=== PATIENT | male | born 1955 | race Caucasian/White ===

== ENCOUNTER 2019-07-26 22:11 | Inpatient (IN) | payer BC, SELFPAY ==
--- NOTE | 2019-07-26 22:10 | ECG_ITS ---
APPROVED REPORT Exam: Resting ECG HR:66 bpm ECG Measurements Heart Rate 66 AXES NV 156 P -8 QRSd 98 QRS 1 QT 436 T 79 QTc 457 <Conclusion> Normal sinus rhythm Nonspecific ST abnormality Abnormal ECG Electronically signed by : Phong Edwards, 07/27/2019 17:41:47
[2019-07-26 22:12] VITALS: BP 123/75; PULSE 74; RESP 18; O2SAT 97; BMI 27.3
[2019-07-26 22:25] LABS: Basophils # 0.1 K/mm3 (0-0.2); Basophils % 0.6 % (0.1-2.0); Eosinophils # 0.2 K/mm3 (0.0-0.4); Eosinophils % 1.9 % (0.1-12.0); Hematocrit 43.4 % (42.0-52.0); Hemoglobin 14.7 g/dL (14.1-18.0); Lymphocytes # 5.1 K/mm3 (0.7-4.5); Lymphocytes % 43.3 % (10-50); Mean Corpuscular Volume 91.2 fl (80-94); Mean Platelet Volume 7.6 fl (7.4-10.4); Monocytes # 0.6 K/mm3 (0.1-1.0); Monocytes % 5.4 % (1.7-9.3); Neutrophils # 5.7 K/mm3 (1.8-7.8); Neutrophils % 48.8 % (37.0-80.0); Platelet Count 323 K/mm3 (142-424); Red Blood Count 4.76 M/mm3 (4.60-6.20); Red Cell Distribution Width 13.1 % (11.5-17.5); White Blood Count 11.7 K/mm3 (4.8-10.8)
[2019-07-26 22:29] LABS: Anion Gap 15.2 mEq/L (5-15); Blood Urea Nitrogen 26 mg/dl (9-20); Calcium 9.4 mg/dl (8.4-10.2); Carbon Dioxide 28 mmol/L (22.0-30.0); Chloride 99 mmol/L (98-107); Creatinine Clearance Estimated 65 mL/min (50-200); Estimated Glomerular Filt Rate 56 ml/min (>60); GFR (African American) 67 ML/MIN (>60); Glucose 214 mg/dl (74-100); Potassium 4.2 mmoL/L (3.5-5.1); Sodium 138 mmol/L (136-145)
--- NOTE | 2019-07-26 22:30 | HMH.EDCP ---
ED Disposition Clinical Impression: Elevated troponin I level, Renal insufficiency, S/P CABG (coronary artery bypass graft) Chest pain Qualifiers: Chest pain type: precordial pain Qualified Code(s): R07.2 - Precordial pain Disposition: Admitted as Observation Condition on Discharge: Good Referrals: Mp Jack MD [Primary Care Provider] - - Critical Care Critical Care Time: No Attestation: On 07/26/19, the high probability of a clinically significant, sudden or life threatening deterioration of the following system(s) required my full and direct attention, intervention and personal management. The time I documented below is in addition to time spent performing reported procedures but includes the following listed in this critical care notation. Medical Decision Making - Medical Records Medical records reviewed: Yes: I reviewed the patient's medical records. - Richy Inquiry Pt receiving controlled substance: No Vital Signs: 07/26/19 22:12 Pulse Rate [Right Radial] 74 Respiratory Rate 18 Blood Pressure [Right Arm] 123/75 Blood Pressure Mean [Right Arm] 91 02 Sat by Pulse Oximetry 97 Oxygen Delivery Method Room Air - Lab Data Lab results reviewed: Yes: I reviewed the patient's lab results. Lab Results 07/26/19 22:12: WBC 11.7 H, RBC 4.76, Hgb 14.7, Hct 43.4, MCV 91.2, MCH 31.0, MCHC 34.0, RDW 13.1, Plt Count 323, MPV 7.6, Neut % (Auto) 48.8, Lymph % (Auto) 43.3, [place] % (Auto) 5.4, Eos % (Auto) 1.9, Baso % (Auto) 0.6, Neut # (Auto) 5.7, Lymph # (Auto) 5.1 H, [place] # (Auto) 0.6, Eos # (Auto) 0.2, Baso # (Auto) 0.1 07/26/19 22:12: Sodium 138, Potassium 4.2, Chloride 99, Carbon Dioxide 28, Anion Gap 15.2 H, BUN 26 H, Creatinine 1.30 H, Estimated Creat Clear 65, Estimated GFR 56 L, Est GFR ( Amer) 67, Glucose 214 H, Calcium 9.4, Troponin I 0.13 H, C-Reactive Protein 2.5 Result diagrams: 07/26/19 22:12 07/26/19 22:12 Orders (Tests/Meds): ED MEDICATIONS Generic Name Dose Route Start Last Admin Trade Name Freq PRN Reason Stop Dose Admin Nitroglycerin 0.4 mg 07/26/19 22:18 07/26/19 22:20 Nitrostat 0.4mg Sl Tablet SL 08/25/19 22:17 1 tab [id number] PRN Administration Chest Pain Discontinued Medications Generic Name Dose Route Start Last Admin Trade Name Freq PRN Reason Stop Dose Admin Aspirin 324 mg 07/26/19 22:18 07/26/19 22:20 Aspirin 81mg Chewable Tablet PO 07/26/19 22:19 324 mg ONCE ONE Administration Nitroglycerin 1 gm 07/26/19 22:23 07/26/19 22:25 Nitroglycerin 1 Inch Oint Udp TD 07/26/19 22:24 1 gm ONCE ONE Administration ORDERS Category Date Time Status Complete Blood Count Auto Diff Stat Lab 07/26/19 22:12 Results Erythrocyte Sedimentation Rate Stat Lab 07/26/19 22:12 Results Troponin I Q3H Lab 07/27/19 01:30 Ordered Troponin I Q3H Lab 07/27/19 04:30 Ordered - Radiology Data #1 Image(s): Chest Image Reviewed: Yes I reviewed the patient's radiology image Preliminary Findings: Normal/NAD - ECG Data Tracing #1 Normal Sinus Rhythm: Yes Ischemic changes: non-specific ST-T wave changes - Physician Consults Physician Consulted: yola Reason -: Admission Chest Pain HPI - General Chief Complaint: Chest Pain Stated Complaint: chest pain with exertion Time Seen by Provider: 07/26/19 22:20 Mode of Arrival: Family Vehicle Source of Information: Patient, Spouse, Medical Record Limitations: No Limitations Description of Symptoms (Recalled from ER Triage Doc. by RN): chest pain with exertion; pt states if he sits still it alleviates the pain. saw his pcp earlier, had a med change and stated he has been hypertensive all day long. when the chest pain started, he came for eval. history of cabg approx 20 years ago at [facility] - History of Present Illness HPI narrative: dull ant chest pain over the last 2 days with elevated bp and has hx of prev cabg - MD complaint: chest pain indicative of cardiac On
[2019-07-26 22:35] LABS: C-Reactive Protein 2.5 mg/L (0-4)
[2019-07-26 22:43] LABS: Troponin I 0.13 ng/ml (0.00-0.034)
[2019-07-26 23:05] VITALS: O2SAT 100
[2019-07-26 23:17] LABS: Erythrocyte Sedimentation Rate 19 mm/hr (0-20)
[2019-07-26 23:20] VITALS: PULSE 70
[2019-07-26 23:30] LABS: Hemoglobin A1C 7.8 % (4.0-6.0)
[2019-07-26 23:32] VITALS: BP 181/113; PULSE 76; RESP 19; TEMP 36.8; O2SAT 99
[2019-07-26 23:33] VITALS: BP 196/125; PULSE 68; RESP 16; TEMP 36.6; O2SAT 100; BMI 27.3
--- NOTE | 2019-07-26 23:33 | PC.NURSE ---
patient to floor via wheelchair.
--- NOTE | 2019-07-26 23:41 | PC.NURSE ---
Primary RN aware of high blood pressure.
[2019-07-27] VITALS (24 sets, daily range): BP systolic 104–182; BP diastolic 65–107; PULSE 60–93; RESP 12–20; TEMP 36.3–36.7; O2SAT 95–100; BMI 27.4
--- NOTE | 2019-07-27 04:10 | PC.NURSE ---
Pt A&OX4. Pt has not had any episodes of CP since being on floor. NSR with 1st degree block on telemetry. 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 Pt is NPO @ MN. at bedside. Pt resting well this shift.
[2019-07-27 07:10] LABS: Basophils # 0.1 K/mm3 (0-0.2); Basophils % 0.5 % (0.1-2.0); Chloride 107 mmol/L (98-107); Eosinophils # 0.2 K/mm3 (0.0-0.4); Hematocrit 41.3 % (42.0-52.0); Hemoglobin 14.2 g/dL (14.1-18.0); Lymphocytes # 3.8 K/mm3 (0.7-4.5); Lymphocytes % 34.8 % (10-50); Mean Corpuscular HGB Conc 34.4 g/dL (31.8-35.4); Mean Corpuscular Hemoglobin 31.1 pg (27.0-31.2); Mean Corpuscular Volume 90.4 fl (80-94); Mean Platelet Volume 7.4 fl (7.4-10.4); Monocytes # 0.5 K/mm3 (0.1-1.0); Monocytes % 4.7 % (1.7-9.3); Neutrophils # 6.4 K/mm3 (1.8-7.8); Platelet Count 258 K/mm3 (142-424); Red Blood Count 4.57 M/mm3 (4.60-6.20); Red Cell Distribution Width 13.5 % (11.5-17.5)
[2019-07-27 07:11] LABS: Potassium 4.4 mmoL/L (3.5-5.1); Sodium 138 mmol/L (136-145)
[2019-07-27 07:13] LABS: Blood Urea Nitrogen 20 mg/dl (9-20); Creatinine Clearance Estimated 101 mL/min (50-200); Estimated Glomerular Filt Rate 75 ml/min (>60); GFR (African American) 91 ML/MIN (>60)
[2019-07-27 07:14] LABS: Anion Gap 10.4 mEq/L (5-15); Calcium 8.5 mg/dl (8.4-10.2); Carbon Dioxide 25 mmol/L (22.0-30.0); Chol/HDL Ratio 4.8 (1-3.5); Cholesterol 154 mg/dl (140-200); Glucose 137 mg/dl (74-100); HDL Cholesterol 32 mg/dl (40-60); Magnesium 2.2 mg/dl (1.6-2.3); Triglycerides 199 mg/dl (30-150); VLDL Cholesterol 40 mg/dL (0-40)
[2019-07-27 07:25] LABS: Direct LDL Cholesterol 86.68 mg/dL (100-129); Troponin I 0.24 ng/ml (0.00-0.034)
--- NOTE | 2019-07-27 07:26 | P.CONPHA_ITS ---
[facility] Pharmacy VTE Monitoring - Patient Demographics Admission date: 07/26/19 Report Date: 07/27/19 Time: 07:26 Allergies/Adverse Reactions: Patient Allergies No Known Allergies Allergy (Unverified 07/27/19 07:16) Height: 1.85 m Weight: 94.035 kg Patient Problems: Current Active Problems Chest pain (Acute) Elevated troponin I level (Acute) Renal insufficiency (Acute) S/P CABG (coronary artery bypass graft) (Acute) - VTE Risk Labs: VTE Related Lab Results Hgb 14.2 g/dL (14.1-18.0) 07/27/19 06:48 Hct 41.3 % (42.0-52.0) L 07/27/19 06:48 Plt Count 258 K/mm3 (142-424) 07/27/19 06:48 BUN 20 mg/dl (9-20) 07/27/19 06:48 Creatinine 1.00 mg/dl (0.66-1.25) D 07/27/19 06:48 Estimated Creat Clear 101 mL/min (50-200) 07/27/19 06:48 Was VTE Risk Assessment Performed: Yes VTE Score: 3 VTE Risk Level: Low Risk - Prophylaxis VTE Prophylaxis Ordered?: Yes Types of VTE Prophylaxis: TEDS Knee High Location of Applied Device: Bilateral Lower Extremeties - VTE Diagnosis Confirmed Treatment or plan recommended: Continue Current Treatment
--- NOTE | 2019-07-27 07:26 | HMH.CNCARD ---
History of Present Illness Consult date: 07/27/19 Requesting physician: Mp Jack Consult reason: chest pain Chief complaint: chest pain Additional 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:: 1. Coronary artery disease A. Four-vessel coronary bypass grafting in 2002 B. NSTEMI 2. Hypertension 3. Hyperlipidemia 4. Elevated glucose, 07/2019 History of present illness: 64-year-old white male with history of bypass surgery in 2002 presented to the emergency department for evaluation of 2-day history of progressive fatigue with associated substernal chest pressure with activity that resolves with rest. Due to the patient's cardiac history he came for evaluation and was admitted. Initial troponin was noted to be elevated at 0.13 but EKG showed no acute ST segment changes. Patient was noted to have elevated blood pressure which improved with nitroglycerin paste. Cardiology consulted for evaluation and recommendations. Patient is a non-smoker and is not a diabetic. [facility] History 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: Denies:: Cancer, Diabetes Mellitus Type 1, Diabetes Mellitus Type 2, Internal Pacemaker, MRSA *Have you ever received a pneumonia vaccine?: Yes *Have you received a flu vaccine this season?: Yes Other Surgeries: Yes: CABG. No: Pacemaker Amputation: No - *Social History Educational Level: Attended College Smoking Status: Never smoker Alcohol Intake: never *Occupational Status:: retired Household Members: spouse *Travel in the last 8 weeks: None Family Hx:: No significant family history Meds Home Medications Medication Instructions Recorded Confirmed Type Acebutolol HCl [Sectral 200mg 1 tab PO BID 07/26/19 07/27/19 History capsule] Amlodipine Besylate [Amlodipine 5 mg PO DAILY 07/26/19 07/26/19 History 5mg tab] Diclofenac Sodium [Diclofenac 75mg 75 mg PO BID 07/26/19 07/26/19 History Tab] Rivaroxaban [Xarelto 2.5mg Tab*] 2.5 mg PO BID 07/26/19 07/27/19 History Simvastatin 40 mg PO HS 07/26/19 07/27/19 History Omeprazole [Omeprazole 40mg 40 mg PO DAILY 07/27/19 07/27/19 History Capsule] lisinopriL [Lisinopril 10mg Tab] 10 mg PO DAILY 07/27/19 07/27/19 History Allergies Allergy/AdvReac Type Severity Reaction Status Date / Time No Known Allergies Allergy Unverified 07/27/19 07:16 Review of Systems - Review of Systems Review of systems:: pertinent systems reviewed and negative unless documented below - *Cardiovascular Reports chest pain, Reports shortness of breath with activity - *Respiratory Reports shortness of breath with activity - *Gastrointestinal Denies loose stools, Denies nausea, Denies vomiting - *Genitourinary Denies blood in urine - *Musculoskeletal Denies joint pain, Denies back pain - *Neurologic Denies dizziness, Denies seizure-like activity, Denies fainting Exam Vital signs and Labs for Last 24 Hours: Temp Pulse Resp BP Pulse Ox 97.6 F 67 16 142/88 H 97 07/27/19 04:00 07/27/19 04:00 07/27/19 04:00 07/27/19 04:00 07/27/19 04:00 Laboratory Results - last 24 hr 07/26/19 22:12: WBC 11.7 H, RBC 4.76, Hgb 14.7, Hct 43.4, MCV 91.2, MCH 31.0, MCHC 34.0, RDW 13.1, Plt Count 323, MPV 7.6, Neut % (Auto) 48.8, Lymph % (Auto) 43.3, [place] % (Auto) 5.4, Eos % (Auto) 1.9, Baso % (Auto) 0.6, Neut # (Auto) 5.7, Lymph # (Auto) 5.1 H, [place] # (Auto) 0.6, Eos # (Auto) 0.2, Baso # (Auto) 0.1, ESR 19 07/26/19 22:12: Sodium 138, Potassium 4.2, Chloride 99, Carbon Dioxide 28, Anion Gap 15.2 H, BUN 26 H, Creatinine 1.30 H, Estimated Creat Clear 65, Estimated GFR 56 L, Est GFR ( Amer) 67, Glucose 214 H, Calcium 9.4, Troponin I 0.13 H, C-Reactive Protein 2.5 07/26/19 22:12: Hemoglobin A1c 7.8 H 07/27/19 06:48: WBC 11.0 H, RBC 4.57 L, Hgb 14.2, Hct 41.3 L, MCV 90.4, MCH 31.1, MCHC 34.4, RDW 13.5, Plt Count 258, MPV 7.4, Neut % (Auto) 58.0, Lymph % (Auto) 34.8, [place] % (Auto) 4.7, Eos % (Auto) 2.0, Baso % (Auto) 0.5, Neut # (Auto) 6.4, Lymph # (Auto) 3.8, [place] # (Auto) 0.5, Eos # (Auto) 0
--- NOTE | 2019-07-27 08:19 | HMH.HP ---
*Admission Date: 07/26/19 <Arcelia Person 07/27/19 08:25> *Chief complaint: chest pain <Arcelia Person 07/27/19 08:25> *History of present illness: Mr. Garcia is a 64-year-old male with a history of hypertension, hyperlipidemia, ASCVD with prior CABG in 2002, and arthritis. He began having chest pain a few days ago. He presented to the office of [facility] on 07/26/2019 and complained that the chest pain was mainly associated with eating and he had some heartburn and belching. He had some easy fatigability and his exercise tolerance had not been as good. He denied any palpitations or shortness of breath. He had some elevated blood pressure readings at home and his blood pressure in the office was 170/110. He was started on amlodipine and omeprazole and it was felt he would need a stress test at some point on an outpatient basis. He was also told that if his chest pain progressed and was unrelieved with rest, he should present to the emergency room. He states yesterday after his appointment, he had exertional pain in the midsternal area. It did not radiate. He did present to the emergency department and was admitted due to his cardiac history. His initial troponin was noted to be elevated but his EKG showed no ST segment changes. His blood pressure was elevated and this improved with nitroglycerin paste. Cardiology was consulted. <Arcelia Person 07/27/19 08:25> [facility] History I have reviewed the patient's past medical history: Yes <Arcelia Person 07/27/19 08:25> 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: Reports:: Atherosclerotic Heart Disease, Coronary Artery Disease, Hyperlipidemia, Hypertension Denies:: Cancer, Diabetes Mellitus Type 1, Diabetes Mellitus Type 2, Internal Pacemaker, MRSA <Arcelia Person 07/27/19 08:25> *Have you ever received a pneumonia vaccine?: Yes <Arcelia Person 07/27/19 08:25> *Have you received a flu vaccine this season?: Yes <Arcelia Person 07/27/19 08:25> Other 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: Reports: Arthritis <Arcelia Person 07/27/19 08:25> Other Surgeries: Yes: CABG, Colonoscopy. No: Pacemaker <Arcelia Person 07/27/19 08:25> Amputation: No <Abel Persona 07/27/19 08:25> - *Social History Educational Level: Attended College <RazaArcelia 07/27/19 08:25> Smoking Status: Never smoker <RazaArcelia 07/27/19 08:25> Alcohol Intake: never <AlfonsomarshaArcelia 07/27/19 08:25> *Occupational Status:: retired <RazaArcelia 07/27/19 08:25> Household Members: spouse <Arcelia Person 07/27/19 08:25> *Travel in the last 8 weeks: None <RazaArcelia 07/27/19 08:25> Family Hx:: Coronary Artery Disease, Hyperlipidemia, Hypertension <RazaArcelia 07/27/19 08:25> Review of Systems - Constitutional Reports fatigue, Denies fever(s), Denies weakness <RazaArcelia 07/27/19 08:25> - Eyes Denies blurry vision, Denies double vision <RazaArcelia 07/27/19 08:25> - ENT Reports nasal congestion, Denies sore throat [facility] 07/[facility] 08:25> - *Cardiovascular Reports chest pain, Denies shortness of breath, Denies rapid, pounding, or irregular heartbeat <RazaArcelia 07/27/19 08:25> - *Respiratory Denies cough, Denies shortness of breath <[facility] 07/27/19 08:25> - *Gastrointestinal Denies abdominal pain, Denies loose stools, Denies nausea, Denies vomiting <RazaArcelia 07/27/19 08:25> - *Genitourinary Denies difficulty urinating, Denies painful urination <[facility] 07/27/19 08:25> - *Musculoskeletal Denies joint pain <[facility] 07/27/19 08:25> - *Neurologic Reports headache(s), Denies dizziness, Denies seizure-like activity, Denies fainting, Denies weakness <RazaArcelia 07/27/19 08:25> Meds Home Medications Medication Instructions Recorded Confirmed Type Acebutolol HCl [Sectral 200mg 1 tab PO BID 07/26/19 07/27/19 History capsule] Amlodipine Besylate [Amlodipine 5 mg PO DAILY 07/26/19 07/26/19 History 5mg tab] Diclofenac Sodium [D
--- NOTE | 2019-07-27 08:30 | PC.NURSE ---
RN aware of elevated BP.
--- NOTE | 2019-07-27 09:57 | HMH.PHAINT ---
MEDICATION RECONCILIATION COMPLETED ON PATIENT USING EXTERNAL FILL HISTORY FROM PHARMACY. -KENDRICK GARDNER, JANINED
--- NOTE | 2019-07-27 11:22 | PC.NURSE ---
Pt off floor to laboratory immunologist, pt states he is very nervous . RN informed of nitroglycerin applied to left chest.
--- NOTE | 2019-07-27 11:27 | PC.NURSE ---
RN aware of elevated BP.
[2019-07-27 13:42] LABS: CATHL Activated Clotting Time 245 SEC (74-125)
--- NOTE | 2019-07-27 17:25 | PC.NURSE ---
1700 - Received report and resumed care from Maria Esther Gabriel RN
--- NOTE | 2019-07-27 19:11 | PC.NURSE ---
report given to mg
[2019-07-28] VITALS: BP 121/74; PULSE 70; PULSE 78; RESP 16; O2SAT 99
[2019-07-28 02:00] VITALS: BP 116/74; PULSE 70; RESP 16; O2SAT 97
--- NOTE | 2019-07-28 03:45 | PC.NURSE ---
Pt has rested well t/o shift. A&O x4. No episodes of chest pain this shift. Lungs are clear and pt O2 sat is in high 90's on RA. Right Femoral cath site dressing is CDI with no drainage or hematoma noted. IV site on LAC is showing no signs on infiltration, NS running at 75 ml/hr. has been at bedside all shift. Call light is within reach, along with all other safety measures. No complaints at this time, will continue to monitor for any changes.
[2019-07-28 04:00] VITALS: BP 117/76; PULSE 60; PULSE 69; RESP 14; TEMP 36.8; O2SAT 97
[2019-07-28 05:00] VITALS: BMI 28.0
[2019-07-28 06:00] VITALS: BP 129/82; PULSE 71; RESP 15; O2SAT 99
[2019-07-28 06:19] LABS: Basophils % 0.3 % (0.1-2.0); Eosinophils # 0.2 K/mm3 (0.0-0.4); Eosinophils % 1.2 % (0.1-12.0); Hematocrit 40.4 % (42.0-52.0); Hemoglobin 13.7 g/dL (14.1-18.0); Lymphocytes # 3.4 K/mm3 (0.7-4.5); Mean Corpuscular HGB Conc 33.9 g/dL (31.8-35.4); Mean Corpuscular Hemoglobin 31.2 pg (27.0-31.2); Mean Corpuscular Volume 92.2 fl (80-94); Mean Platelet Volume 7.9 fl (7.4-10.4); Monocytes # 0.7 K/mm3 (0.1-1.0); Monocytes % 5.3 % (1.7-9.3); Neutrophils # 8.7 K/mm3 (1.8-7.8); Neutrophils % 67.1 % (37.0-80.0); Platelet Count 299 K/mm3 (142-424); Red Blood Count 4.38 M/mm3 (4.60-6.20); Red Cell Distribution Width 13.4 % (11.5-17.5); White Blood Count 12.9 K/mm3 (4.8-10.8)
[2019-07-28 06:38] LABS: Chloride 102 mmol/L (98-107); Potassium 4.4 mmoL/L (3.5-5.1); Sodium 136 mmol/L (136-145)
[2019-07-28 06:41] LABS: Blood Urea Nitrogen 19 mg/dl (9-20); Creatinine Clearance Estimated 86 mL/min (50-200); Estimated Glomerular Filt Rate 61 ml/min (>60); GFR (African American) 74 ML/MIN (>60)
[2019-07-28 06:42] LABS: Anion Gap 9.4 mEq/L (5-15); Calcium 8.9 mg/dl (8.4-10.2); Carbon Dioxide 29 mmol/L (22.0-30.0); Glucose 139 mg/dl (74-100)
[2019-07-28 08:00] VITALS: BP 135/89; PULSE 76; PULSE 80; RESP 14; TEMP 36.7; O2SAT 98
--- NOTE | 2019-07-28 09:24 | HMH.ACPN2 ---
Internal Medicine - PN: Subj *Date: 07/28/19 *Time: 09:24 Interval history: He is feeling very well and is ready for discharge to home. Cardiology recommendations are: Home medicine recommendations Aspirin 81 mg daily for 1 month and then discontinue. At that time patient may resume Xarelto 2.5 mg twice daily Plavix 75 mg daily Metoprolol XL 25 mg daily Amlodipine 5 mg daily Lisinopril 10 mg daily Atorvastatin 40 mg daily Follow-up in our office next Tuesday. Limited activity for 1 week. Exam Vital signs and Labs for Last 24 Hours: Temp Pulse Resp BP Pulse Ox 98.1 F 76 14 135/89 98 07/28/19 08:00 07/28/19 08:00 07/28/19 08:00 07/28/19 08:00 07/28/19 08:00 Laboratory Results - last 24 hr 07/27/19 11:22: Activated Clotting Time 245 H* 07/28/19 05:40: WBC 12.9 H, RBC 4.38 L, Hgb 13.7 L, Hct 40.4 L, MCV 92.2, MCH 31.2, MCHC 33.9, RDW 13.4, Plt Count 299, MPV 7.9, Neut % (Auto) 67.1, Lymph % (Auto) 26.0, [place] % (Auto) 5.3, Eos % (Auto) 1.2, Baso % (Auto) 0.3, Neut # (Auto) 8.7 H, Lymph # (Auto) 3.4, [place] # (Auto) 0.7, Eos # (Auto) 0.2, Baso # (Auto) 0.0 07/28/19 05:40: Sodium 136, Potassium 4.4, Chloride 102, Carbon Dioxide 29, Anion Gap 9.4, BUN 19, Creatinine 1.20, Estimated Creat Clear 86, Estimated GFR 61, Est GFR ( Amer) 74, Glucose 139 H, Calcium 8.9 I & O for Last 24 hours: Intake & Output 07/25/19 07/26/19 07/27/19 07/28/19 11:59 11:59 11:59 11:59 Intake Total 397 / 397 720 / 720 Output Total 400 / 400 Balance 397 / 397 320 / 320 Weight 207 lb 5 oz 212 lb - Constitutional no acute distress - *Routine HEENT Exam Eye: Present: PERRL ENT: Present: mucous membranes moist - *Routine Respiratory Exam Present: CTA bilaterally - *Routine Cardiovascular Exam Present: RRR, S4 - *Routine Abdominal Exam Present: soft. Absent: tenderness - *Routine Extremities Exam Absent: edema Assessment and Plan (1) NSTEMI (non-ST elevated myocardial infarction) Current visit: Yes Status: Acute Category: Medical Code(s): I21.4 - Non-ST elevation (NSTEMI) myocardial infarction (2) Chest pain Current visit: Yes Status: Acute Qualifiers: Chest pain type: precordial pain Qualified Code(s): R07.2 - Precordial pain Category: Medical Code(s): R07.9 - Chest pain, unspecified (3) Elevated troponin I level Current visit: Yes Status: Acute Category: Medical Code(s): R79.89 - Other specified abnormal findings of blood chemistry (4) Renal insufficiency Current visit: Yes Status: Acute Category: Medical Code(s): N28.9 - Disorder of kidney and ureter, unspecified (5) S/P CABG (coronary artery bypass graft) Current visit: Yes Status: Acute Category: Surgical Code(s): Z95.1 - Presence of aortocoronary bypass graft (6) Hyperlipidemia Current visit: Yes Status: Acute Category: Medical Code(s): E78.5 - Hyperlipidemia, unspecified (7) Hypertension Current visit: Yes Status: Acute Category: Medical Code(s): I10 - Essential (primary) hypertension (8) Elevated glucose Current visit: Yes Status: Acute Category: Medical Code(s): R73.09 - Other abnormal glucose (9) Type 2 diabetes mellitus Current visit: Yes Status: Acute Category: Medical Code(s): E11.9 - Type 2 diabetes mellitus without complications - Assessment and plan all Dx Assessment and Plan for all problems:: Discharge to home with above instructions. Follow-up with Cardiology and with Dr. Jack.
--- NOTE | 2019-07-28 10:19 | HMH.PHACLD ---
Mouna Garcia JR has received discharge medication counseling on the following medications: NEW MEDICATIONS: METOPROLOL, PLAVIX, ASPIRIN, LIPITOR CONTINUE: LISINOPRIL
--- NOTE | 2019-07-30 15:21 | HMH.DCSUM ---
General - General Admission date:: 07/26/19 Discharge date: 07/28/19 HPI HPI: Mr. Garcia is a 64-year-old male with a history of hypertension, hyperlipidemia, ASCVD with prior CABG in 2002, and arthritis. He began having chest pain a few days prior to admission. He presented to the office of [facility] on 07/26/2019 and complained that the chest pain was mainly associated with eating and he had some heartburn and belching. He had some easy fatigability and his exercise tolerance had not been as good. He denied any palpitations or shortness of breath. He had some elevated blood pressure readings at home and his blood pressure in the office was 170/110. He was started on amlodipine and omeprazole and it was felt he would need a stress test at some point on an outpatient basis. He was also told that if his chest pain progressed and was unrelieved with rest, he should present to the emergency room. He stated after his appointment, he had exertional pain in the midsternal area. It did not radiate. He did present to the emergency department and was admitted due to his cardiac history. His initial troponin was noted to be elevated but his EKG showed no ST segment changes. His blood pressure was elevated and this improved with nitroglycerin paste. Cardiology was consulted. Hospital Course Hospital Course: In the emergency room patient received aspirin and 1 inch of nitroglycerin paste as well as nitroglycerin sublingually. Troponin I was elevated initially at 0.13. He was seen by cardiology who noted elevated troponins consistent with an NSTEMI. Patient had a cardiac cath per Dr. Rush on this date with subsequent stenting of saphenous vein graft to the circumflex artery. Patient did have some remaining disease of the elim ira right coronary artery which was felt to be best treated medically. On 07/28/2019 patient was feeling very well and ready to be discharged home and he was discharged. Cardiology recommendations were: Home medicine recommendations: Aspirin 81 mg daily for 1 month and then discontinue to restart Xarelto 2.5 twice daily. Plavix 75 mg daily Metoprolol XL 25 mg daily Amlodipine 5 mg daily Lisinopril 10 mg daily Atorvastatin 40 mg daily Follow-up with cardiology in a week with limited activity for 1 week. Low fat/cholesterol diet; meds as per discharge sheet. Patient was also noted to be new diabetic. Cholesterol numbers: total cholesterol 154 with an LDL of 86.68 And HDL of 32. Renal function was normal. Objective Vital signs: Temp Pulse Resp BP Pulse Ox 98.1 F 76 14 135/89 98 07/28/19 08:00 07/28/19 08:00 07/28/19 08:00 07/28/19 08:00 07/28/19 08:00 Narrative: Exam Vital signs and Labs for Last 24 Hours: Temp Pulse Resp BP Pulse Ox 98.1 F 76 14 135/89 98 07/28/19 08:00 07/28/19 08:00 07/28/19 08:00 07/28/19 08:00 07/28/19 08:00 Laboratory Results - last 24 hr 07/27/19 11:22: Activated Clotting Time 245 H* 07/28/19 05:40: WBC 12.9 H, RBC 4.38 L, Hgb 13.7 L, Hct 40.4 L, MCV 92.2, MCH 31.2, MCHC 33.9, RDW 13.4, Plt Count 299, MPV 7.9, Neut % (Auto) 67.1, Lymph % (Auto) 26.0, [place] % (Auto) 5.3, Eos % (Auto) 1.2, Baso % (Auto) 0.3, Neut # (Auto) 8.7 H, Lymph # (Auto) 3.4, [place] # (Auto) 0.7, Eos # (Auto) 0.2, Baso # (Auto) 0.0 07/28/19 05:40: Sodium 136, Potassium 4.4, Chloride 102, Carbon Dioxide 29, Anion Gap 9.4, BUN 19, Creatinine 1.20, Estimated Creat Clear 86, Estimated GFR 61, Est GFR ( Amer) 74, Glucose 139 H, Calcium 8.9 I & O for Last 24 hours: Intake & Output 07/25/19 07/26/19 07/27/19 07/28/19 11:59 11:59 11:59 11:59 Intake Total 397 / 397 720 / 720 Output Total 400 / 400 Balance 397 / 397 320 / 320 Weight 207 lb 5 oz 212 lb - Constitutional no acute distress - *Routine HEENT Exam Eye: Present: PERRL ENT: Present: mucous membranes moist - *Routine Respiratory Exam Present: CTA bilaterally -
== END 2019-07-28 10:32 | disposition home or self-care (01) | DRG 247 ==
LOC: ER 22:24 → 2ND 23:05
PROVIDERS: Internal Medicine; Admitting Provider Family Medicine; Emergency Provider Emergency Medicine; PCP Family Medicine; Visit Provider Family Medicine
DX: I21.4 Non-ST elevation (NSTEMI) myocardial infarction (principal); I25.810 Atherosclerosis of coronary artery bypass graft(s) without angina pectoris; Z95.1 Presence of aortocoronary bypass graft; I10 Essential (primary) hypertension; E78.5 Hyperlipidemia, unspecified; Z79.01 Long term (current) use of anticoagulants; I25.10 Atherosclerotic heart disease of native coronary artery without angina pectoris
CPT/HCPCS: 36415; 80048; 80061; 83036; 83735; 84484; 85025; 85347; 85651; 86140; 92941; 93005; 93306; 93459; 99152; 99153; 99284; C1725; C1760; C1769; C1874; C1894; C9606; J1644; Q9967

== ENCOUNTER → 2019-08-06 12:52 | Outpatient (CLI) | payer BC, SELFPAY ==
[2019-08-06 13:33] LABS: Hematocrit 40.1 % (42.0-52.0); Hemoglobin 14.1 g/dL (14.1-18.0)
[2019-08-06 14:34] LABS: Blood Urea Nitrogen 21 mg/dl (9-20); Estimated Glomerular Filt Rate 75 ml/min (>60); GFR (African American) 91 ML/MIN (>60)
== END ==
PROVIDERS: Visit Provider Family Medicine
DX: Z01.818 Encounter for other preprocedural examination (principal)
CPT/HCPCS: 36415; 82565; 84520; 85014; 85018

== ENCOUNTER → 2019-08-20 06:04 | Outpatient (CLI) | payer BC, SELFPAY ==
--- NOTE | 2019-08-20 | CA_ITS ---
APPROVED REPORT Exam: Pharmacologic Technologist: Veda Maxwell Ht: 6 ft 1 in Wt: 215 lbs BSA: 2.22 m2 HR: 69 bpm BP: 146/107 mmHg Indications: CAD 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 Medications: Amlodipine,,,,, Lisinopril,,,,, Omeprazole,,,,, Aspirin,,,,, Metoprolol,,,,, Acebutolol,,,,, Atorvastatin,,,,, Plavix,,,,, Stress Test Details Test: LEXISCAN HR Resting HR: 67 bpm Max Heart Rate (APMHR): 157 bpm Max HR Achieved: 99 bpm Target HR (85% APMHR): 133 bpm % of APMHR: 63 Recovery HR: 85 bpm BP Resting BP: 146.0/107.0 mmHg Max BP: 161.0/105.0 mmHg Recovery BP: 144.0/92.0 mmHg ECG Clinical Exercise duration: 04:01 min Highest Stage Achieved: Exercise capacity: 1.0 METs Stress ECG Conclusion Resting ECG: Sinus rhythm Lexiscan portion completed. Patient complained of shortness of breath during peak infusion. Symptoms: Shortness of breath during peak infusion, resolved in recovery. Arrhythmias/Ectopy: No ectopy. ST-T Changes: Less than 1.[address] depression. Conclusion: Images to follow. Test Summary RECOVERY 03:00 . . 90 . 131/ 98 . . REST 07:58 . . 67 . 146/107 . . Stage 1 . . . . . . . Myoview Injected Stage 1 01:00 . . 93 . . . . Stage 2 01:00 . . 98 . 126/ 93 . . Stage 3 01:00 . . 91 . 141/ 97 . . Stage 4 01:00 . . 87 . 135/ 96 . . Stage 4 01:01 . . 87 . 135/ 96 . Stop exercise at 04:01 RECOVERY 01:00 . . 90 . 149/ 93 . . RECOVERY 02:00 . . 83 . 149/ 93 . . RECOVERY 03:00 . . 90 . 131/ 98 . . RECOVERY 04:00 . . 84 . 131/ 98 . . RECOVERY 05:00 . . 85 . 144/ 92 . . RECOVERY 05:07 . . 84 . 144/ 92 . . Electronically signed by : Dominic Holguin, 08/20/2019 19:33:03
--- NOTE | 2019-08-20 06:06 | NM_ITS ---
APPROVED REPORT Exam: Nuclear Stress Test Indication: CAD, HTN, DM, High cholesterol, Family history Patient Location: Outpatient Stress Tech: Veda Maxwell CT Tech:Christy Barraza, ARRT, RT (R)(N) Ht: 6 ft 1 in Wt: 215 lbs HR: 69 bpm BP: 146/107 mmHg BSA: 2.22 m2 BMI: 28.3 History: CAD, HTN, DM, High cholesterol, Family history Procedure: Patient received a 0.4 mg of intravenous Lexiscan, resting heart rate 69 bpm, resting blood pressure 146/107 mmHg, with Lexiscan maximum heart rate achived was 94 bpm which is Less than 85 % of the maximum predicted heart rate and blood pressure was 126/93 mmHg. With Lexiscan, patient denied any complaint of chest pain. Electrocardiogram Resting electrocardiogram shows sinus rhythm with nonspecific ST-T changes, with Lexiscan there is less than 1.[address] segment depression noted from the baseline EKG. The EKG portion of the Lexiscan Myoview is nondiagnostic. Cardiac Stress and Resting SPECT Images: Cardiac Stress and Resting SPECT images were obtained using technetium 99m Myoview 32.0 mCi stress and 10.59 mCi at rest. Gated SPECT for the analysis of segmental wall motion and calculation of the ejection fraction also done. Cardiac stress and resting SPECT images show uniform myocardial activity without segmental perfusion abnormality, computer derived ejection fraction is 51% with no regional wall motion abnormality, right ventricle is normal size and contractility. Conclusion: 1. The EKG portion of the Lexiscan Myoview is nondiagnostic. 2. No scintigraphic evidence of reversible ischemia seen, computer derived ejection fraction 51% with no regional wall motion abnormality, right ventricle is normal size and contractility. 3. Normal Lexiscan Myoview study. Electronically signed by : Dominic Holguin, 08/20/2019 19:35:03
--- NOTE | 2019-08-20 07:30 | HMH.ITSHM ---
Current Home Medications as stated by this patient Mouna Garcia JR or market survey representative. []LISINOPRIL OMEPRAZOLE METOPROLOL CLOPIDOGREL ASA ATORVASTATIN AMLODIPINE SECTRAL
== END ==
PROVIDERS: PCP Family Medicine; Visit Provider Urology
DX: I25.810 Atherosclerosis of coronary artery bypass graft(s) without angina pectoris (principal); E11.69 Type 2 diabetes mellitus with other specified complication; E78.5 Hyperlipidemia, unspecified; I10 Essential (primary) hypertension; R94.31 Abnormal electrocardiogram [ECG] [EKG]; Z95.1 Presence of aortocoronary bypass graft
CPT/HCPCS: 78452; 93017; A9502; J2785

== ENCOUNTER → 2020-01-25 09:39 | Outpatient (CLI) | payer BC, SELFPAY ==
--- NOTE | 2020-01-25 09:45 | XR_ITS ---
PROCEDURE: XR KNEE RT 3V CLINICAL INDICATION: RT KNEE PAIN COMPARISON: No exams were available for comparison FINDINGS: No fracture or dislocation. No lytic or blastic change. There is normal mineralization. The joint spaces are well-preserved. No significant degenerative/arthritic changes. There appears to be a small amount of fluid in the suprapatellar bursa. There are surgical clips adjacent to the upper tibia. IMPRESSION: Possible small joint effusion, no other significant abnormality noted Dictated by: Dr. Tonio Nunez MD 01/25/2020 11:49 Dr. Tonio Nunez MD in [place] 01/25/2020 11:49
== END ==
PROVIDERS: PCP Family Medicine; Visit Provider Nurse Practitioner
DX: M25.561 Pain in right knee (principal)
CPT/HCPCS: 73562

== ENCOUNTER → 2020-07-30 09:23 | Outpatient (CLI) | payer BC, SELFPAY ==
[2020-07-30 10:23] LABS: Alanine Aminotransferase 20 U/L (12-78); Aspartate Amino Transferase 23 U/L (17-59); Bilirubin,Unconjugated 0.2 mg/dL (0.0-1.1)
[2020-07-30 10:24] LABS: Albumin Level 4.4 g/dl (3.5-5.0); Alkaline Phosphatase 72 U/L (38-126); Bilirubin,Direct 0.3 mg/dl (0.0-0.4); Bilirubin,Indirect 0.2 mg/dL (0.0-0.9); Bilirubin,Total 0.5 mg/dl (0.2-1.3); Chol/HDL Ratio 4.6 (1-3.5); Cholesterol 161 mg/dl (140-200); HDL Cholesterol 35 mg/dl (40-60); Total Protein,Serum 7.3 g/dl (6.3-8.2); Triglycerides 142 mg/dl (30-150); VLDL Cholesterol 28 mg/dL (0-40)
[2020-07-30 11:11] LABS: Direct LDL Cholesterol 87.13 mg/dL (100-129)
== END ==
PROVIDERS: Visit Provider Nurse Practitioner Family
DX: E11.69 Type 2 diabetes mellitus with other specified complication (principal); E78.5 Hyperlipidemia, unspecified; I10 Essential (primary) hypertension; I25.810 Atherosclerosis of coronary artery bypass graft(s) without angina pectoris; R94.31 Abnormal electrocardiogram [ECG] [EKG]; Z95.1 Presence of aortocoronary bypass graft; Z79.84 Long term (current) use of oral hypoglycemic drugs
CPT/HCPCS: 36415; 80061; 80076

== ENCOUNTER → 2021-01-07 07:37 | Outpatient (CLI) | payer BC, SELFPAY ==
--- NOTE | 2021-01-07 07:38 | CA_ITS ---
APPROVED REPORT Bumper Straightener: ZULY Study Quality: Adequate Indications: HTN, CAD Renal Artery Doppler Origin (R) 159.4/ cm/sec Proximal (R) 122.3/ cm/sec Mid (R) 138.0/ cm/sec Distal (R) 119.0/ cm/sec Renal Aorta Ratio (R) 2.09 Segmental A. (R) / cm/sec RI: 0.65 Segmental A. Sup (R) 31.0/12.0 cm/sec Segmental A. Mid (R) 36.0/15.0 cm/sec Segmental A. Inf (R) 29.0/10.0 cm/sec Origin (L) 145.9/ cm/sec Proximal (L) 153.0/ cm/sec Mid (L) 166.1/ cm/sec Distal (L) 116.7/ cm/sec Renal Aorta Ratio (L) 2.18 Segmental A. (L) / cm/sec RI: 0.66 Segmental A. Sup (L) 37.0/13.0 cm/sec Segmental A. Mid (L) 39.0/14.0 cm/sec Segmental A. Inf (L) 44.0/14.0 cm/sec Renal Measurements Kidney Size (R) 12.3x5.8 cm Cortical Thickness (R) 1.6 cm Kidney Size (L) 13.7x5.7 cm Cortical Thickness (L) 1.8 cm Add'l Findings Struct (L) 2.7 2.3/ cm/s Add'l Findings Struct (L) 2.3 2.0/ cm/s Findings An attempt was made to evaluate the abdominal aorta, the right and left renal arteries and kidneys, utilizing duplex ultrasonography and color flow doppler. The proximal abdominal aorta is patent without significant stenoses or dilatations. Based on the renal/aortic ratio there is no evidence of significant stenosis in the right renal artery. Based on the renal/aortic ratio there is no evidence of significant stenosis in the left renal artery. Conclusion An attempt was made to evaluate the abdominal aorta, the right and left renal arteries and kidneys, utilizing duplex ultrasonography and color flow doppler. The proximal abdominal aorta is patent without significant stenoses or dilatations. Based on the renal/aortic ratio there is no evidence of significant stenosis in the right renal artery. Based on the renal/aortic ratio there is no evidence of significant stenosis in the left renal artery. Left kidney cystic structres observed. Electronically signed by : Joni Gavin MD 01/07/2021 17:54:42
== END ==
PROVIDERS: PCP Family Medicine; Visit Provider Urology
DX: I10 Essential (primary) hypertension (principal)
CPT/HCPCS: 93976

== ENCOUNTER → 2021-07-15 09:24 | Outpatient (CLI) | payer MEDICARE, SELFPAY ==
[2021-07-15 10:21] LABS: Basophils # 0.1 K/mm3 (0-0.2); Basophils % 1.1 % (0.1-2.0); Eosinophils # 0.2 K/mm3 (0.0-0.4); Eosinophils % 1.4 % (0.1-12.0); Hematocrit 44.6 % (42.0-52.0); Hemoglobin 14.8 g/dL (14.1-18.0); Lymphocytes # 3.1 K/mm3 (0.7-4.5); Lymphocytes % 26.7 % (10-50); Mean Corpuscular HGB Conc 33.2 g/dL (31.8-35.4); Mean Corpuscular Hemoglobin 30.2 pg (27.0-31.2); Mean Corpuscular Volume 90.9 fl (80-94); Monocytes # 0.5 K/mm3 (0.1-1.0); Monocytes % 4.1 % (1.7-9.3); Neutrophils # 7.7 K/mm3 (1.8-7.8); Neutrophils % 66.7 % (37.0-80.0); Platelet Count 411 K/mm3 (142-424); Red Blood Count 4.91 M/mm3 (4.60-6.20); Red Cell Distribution Width 13.2 % (11.5-17.5); White Blood Count 11.6 K/mm3 (4.8-10.8)
[2021-07-15 10:22] LABS: Chloride 102 mmol/L (98-107); Hemoglobin A1C 8.9 % (4.0-6.0); Potassium 4.8 mmoL/L (3.5-5.1); Sodium 137 mmol/L (136-145)
[2021-07-15 10:24] LABS: Alanine Aminotransferase 27 U/L (12-78); Aspartate Amino Transferase 27 U/L (17-59); Bilirubin,Unconjugated 0.6 mg/dL (0.0-1.1); Blood Urea Nitrogen 24 mg/dl (9-20); Estimated Glomerular Filt Rate 75 ml/min (>60); GFR (African American) 91 ML/MIN (>60)
[2021-07-15 10:25] LABS: Albumin Level 4.6 g/dl (3.5-5.0); Alkaline Phosphatase 75 U/L (38-126); Anion Gap 14.8 mEq/L (5-15); Bilirubin,Direct 0.1 mg/dl (0.0-0.4); Bilirubin,Indirect 0.5 mg/dL (0.0-0.9); Bilirubin,Total 0.6 mg/dl (0.2-1.3); Calcium 10.2 mg/dl (8.4-10.2); Carbon Dioxide 25 mmol/L (22.0-30.0); Chol/HDL Ratio 3.8 (1-3.5); Cholesterol 144 mg/dl (140-200); Glucose 216 mg/dl (74-100); HDL Cholesterol 38 mg/dl (40-60); Magnesium 1.8 mg/dl (1.6-2.3); Total Protein,Serum 7.5 g/dl (6.3-8.2); Triglycerides 179 mg/dl (30-150); VLDL Cholesterol 36 mg/dL (0-40)
[2021-07-15 10:36] LABS: Direct LDL Cholesterol 63.16 mg/dL (100-129)
[2021-07-15 10:41] LABS: Free T4 (Free Thyroxine) 1.04 ng/dl (0.78-2.19)
== END ==
PROVIDERS: PCP Family Medicine; Visit Provider Physician Assistant
DX: E78.2 Mixed hyperlipidemia (principal); I10 Essential (primary) hypertension; I25.810 Atherosclerosis of coronary artery bypass graft(s) without angina pectoris; Z95.1 Presence of aortocoronary bypass graft; E11.9 Type 2 diabetes mellitus without complications; Z79.84 Long term (current) use of oral hypoglycemic drugs
CPT/HCPCS: 36415; 80048; 80061; 80076; 83036; 83735; 84439; 84443; 85025

== ENCOUNTER 2023-05-28 23:08 | Emergency (ER) | payer MEDICARE, SELFPAY ==
[2023-05-28 23:09] VITALS: BP 210/118; PULSE 83; RESP 20; TEMP 36.8; O2SAT 97; BMI 28.5
[2023-05-28 23:14] VITALS: PULSE 83
--- NOTE | 2023-05-28 23:14 | ECG_ITS ---
APPROVED REPORT Exam: Resting ECG HR:74 bpm ECG Measurements Heart Rate 74 AXES PA 192 P 66 QRSd 113 QRS 78 QT 412 T 9 QTc 439 Conclusion SINUS RHYTHM BORDERLINE ECG UNCONFIRMED REPORT Electronically signed by : LEROY VEE, 05/29/2023 00:59:03
--- NOTE | 2023-05-28 23:14 | XR_ITS ---
PROCEDURE INFORMATION: Exam: XR Chest Exam date and time: 05/28/2023 11:31 PM Age: 67 years old Clinical indication: Pain; Chest pressure; Additional info: Chest pain TECHNIQUE: Imaging protocol: Radiologic exam of the chest. Views: 2 views. COMPARISON: No relevant prior studies available. FINDINGS: Lungs: Unremarkable. No consolidation. Pleural spaces: Unremarkable. No pleural effusion. No pneumothorax. Heart/Mediastinum: Post CABG changes. Bones/joints: Unremarkable. IMPRESSION: No acute disease.
[2023-05-28 23:24] LABS: Basophils # 0.1 K/mm3 (0-0.2); Basophils % 1.1 % (0.1-2.0); Eosinophils # 0.4 K/mm3 (0.0-0.4); Eosinophils % 3.2 % (0.1-12.0); Hematocrit 43.5 % (42.0-52.0); Hemoglobin 14.2 g/dL (14.1-18.0); Lymphocytes # 3.7 K/mm3 (0.7-4.5); Lymphocytes % 29.6 % (10-50); Mean Corpuscular HGB Conc 32.7 g/dL (31.8-35.4); Mean Corpuscular Hemoglobin 29.8 pg (27.0-31.2); Mean Corpuscular Volume 91.3 fl (80-94); Mean Platelet Volume 7.6 fl (7.4-10.4); Monocytes # 0.6 K/mm3 (0.1-1.0); Monocytes % 4.9 % (1.7-9.3); Neutrophils # 7.7 K/mm3 (1.8-7.8); Neutrophils % 61.3 % (37.0-80.0); Platelet Count 330 K/mm3 (142-424); Red Blood Count 4.76 M/mm3 (4.60-6.20); Red Cell Distribution Width 14.8 % (11.5-17.5); White Blood Count 12.6 K/mm3 (4.8-10.8)
[2023-05-28 23:25] LABS: Chloride 107 mmol/L (98-107); Sodium 138 mmol/L (136-145)
[2023-05-28 23:28] LABS: Alanine Aminotransferase 23 U/L (12-78); Albumin Level 4.6 g/dl (3.5-5.0); Albumin/Globulin Ratio 1.4 (1.1-1.8); Alkaline Phosphatase 60 U/L (38-126); Aspartate Amino Transferase 38 U/L (17-59); Bilirubin,Total 0.7 mg/dl (0.2-1.3); Blood Urea Nitrogen 31 mg/dl (9-20); Carbon Dioxide 24 mmol/L (22.0-30.0); Creatinine Clearance Estimated 65 mL/min (50-200); Estimated Glomerular Filt Rate 47 ml/min (>60); GFR (African American) 57 ML/MIN (>60); Globulin 3.4 g/dL (1.3-3.2)
[2023-05-28 23:29] LABS: Calcium 9.5 mg/dl (8.4-10.2); Glucose 144 mg/dl (74-100)
[2023-05-28 23:30] VITALS: BP 178/115; PULSE 70; RESP 13; O2SAT 98
[2023-05-28 23:41] LABS: Troponin I < 0.01 ng/ml (0.00-0.034)
[2023-05-28] MEDS: NITROGLYCERIN 0.4MG SL TABLET 0.400000000000000022 MG SL (23:47)
[2023-05-29] VITALS: BP 138/106; PULSE 86; RESP 13; O2SAT 95
--- NOTE | 2023-05-29 00:04 | PC.NURSE ---
after nitro x1 patient states chest pain has been relieved and he feels better
--- NOTE | 2023-05-29 00:50 | HMH.EDCP ---
Discharge Plan Disposition Patient Disposition: Home, Self-Care Condition: Good Chief Complaint: Chest Pain Prescriptions Prescriptions: No Action amlodipine 5 mg tablet 5 mg PO BID Qty: 60 5RF atorvastatin 80 mg tablet See Rx Instructions .ROUTE .COMPLEX Qty: 30 5RF Dose Instruction: TAKE ONE TABLET BY MOUTH EVERY DAY Rx Instructions: TAKE ONE TABLET BY MOUTH EVERY DAY metoprolol succinate 50 mg tablet extended release 24 hr 50 mg PO DAILY Qty: 30 5RF metformin 500 mg tablet extended release 24 hr 500 mg PO DAILY diclofenac sodium 75 mg tablet,delayed release (DR/EC) 75 mg PO BID Referrals Follow up/Referrals: Francisco Rush MD [Staff Physician] - See instructions Activity Restrictions/Add. Instructions Additional Instructions/Restrictions: Your workup was reassuring today but you should follow-up very closely with cardiology for continued management. Return for any new or worsening symptoms including but not limited to if chest pain recurs especially if it is persistent or any new concerns arise. Clinical Impressions Clinical Impression: Chest pain Instructions Patient Instructions: DI for Atypical Chest Pain Discharge ED Provider: Nikkie Suarez General Chief Complaint: Chest Pain Stated Complaint: chest pain Time Seen by Provider: 05/28/23 23:28 Mode of Arrival: Ambulatory Source of Information: Patient Limitations: No Limitations Description of Symptoms (Recalled from ER Triage Doc. by RN): ptcc is chest pain that began a few hours ago, pt took all regular daily meds and a daily 81 mg ASA. pt describes chest pain as midsternal and a dull ache in nature with elevated BP. pt has hx of heart cath and bypass History of Present Illness HPI narrative: Patient is a 67-year-old male with past medical history of type 2 diabetes, hyperlipidemia, CAD status post stent and CABG presenting with chest pain. He states that it started 2 to 3 hours prior to arrival while at rest and is described as a pressure over his mid chest that does not radiate. He did take a full-strength aspirin prior to arrival as he had been told to do this by his prior providers. He last had a heart catheterization in [address] Rush but denies any recent procedures. Does note that the pain is still present but has not changed and denies any fevers, chills, abdominal pain, nausea, vomiting, shortness of breath. Related Data Home Medications Medication Instructions Recorded Confirmed metformin 500 mg tablet,extended 500 mg PO DAILY 08/27/19 07/15/21 release 24 hr diclofenac sodium 75 mg 75 mg PO BID 01/01/20 07/15/21 tablet,delayed release Previous Rx's Medication Instructions Recorded amlodipine 5 mg tablet 5 mg PO BID Hypertension #60 tabs 07/15/21 atorvastatin 80 mg tablet See Rx Instructions .Route 07/15/21 .COMPLEX #30 tabs metoprolol succinate 50 mg 50 mg PO DAILY #30 tabs 07/15/21 tablet,extended release 24 hr Allergies Allergy/AdvReac Type Severity Reaction Status Date / Time No Known Allergies Allergy Verified 07/15/21 09:02 [facility] Disclaimer: The information contained in this section may have been updated after the patient was seen, as this information can be updated by other users. 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 (Updated 05/29/23 @ 01:41 by Nikkie Suarez MD) Abnormal EKG CAD (coronary artery disease) Social History Smoking Status: Never smoker alcohol intake: never current occupational status: retired Travel in the last 8 weeks: Inside the [place] household members: spouse caffeine: No ROS Obtained: Yes Systems reviewed as appropriate & no additional complaints except as documented Physical Exam General General appearance: alert and in no apparent distress Head Head exam: atraumatic and normocephalic Respiratory Respiratory exam: Present normal lung sounds bilaterally; Absent respiratory distress Cardiovascular Cardiovascular exam: Present regular rate and normal rhythm Abdominal Exam Abdominal exam: Present soft; Absent tenderness Extremities Exam Extremities exam: Present normal inspection Neurological Exam Neurological exam: Present alert and oriented X3 Skin Skin exam: Present warm and dry HEART Score HEART Score HEART Score assessment performed?: Yes History (anamnesis): Moderately suspicious ECG: Normal Age: >65 years Risk factors: Atherosclerosis history Troponin: </= normal limit HEART Score: 5 Critical Care Critical Care Time Critical Care Time: No Medical Decision Making Medical Records Medical records reviewed: Yes I reviewed the patient's medical records. Richy Inquiry Pt receiving controlled substance: No Vital Signs Vital Signs: 05/28/23 23:09 05/28/23 23:14 05/28/23 23:30 Temperature 98.2 F Temperature Source Oral Pulse Rate 83 70 Pulse Rate [Right Radial] 83 Respiratory Rate 20 13 Blood Pressure 178/115 H Blood Pressure [Right Arm] 210/118 H Blood Pressure Mean [Right Arm] 148 02 Sat by Pulse Oximetry 97 98 Oxygen Delivery Method Room Air 05/29/23 00:00 Temperature Temperature Source Pulse Rate 86 Pulse Rate [Right Radial] Respiratory Rate 13 Blood Pressure 138/106 H Blood Pressure [Right Arm] Blood Pressure Mean [Right Arm] 02 Sat by Pulse Oximetry 95 Oxygen Delivery Method Lab Data Lab results reviewed: Yes I reviewed the patient's lab results. Labs: Lab Results 05/28/23 23:10: WBC 12.6 H, RBC 4.76, Hgb 14.2, Hct 43.5, MCV 91.3, MCH 29.8, MCHC 32.7, RDW 14.8, Plt Count 330, MPV 7.6, Neut % (Auto) 61.3, Lymph % (Auto) 29.6, Norton % (Auto) 4.9, Eos % (Auto) 3.2, Baso % (Auto) 1.1, Neut # (Auto) 7.7, Lymph # (Auto) 3.7, Norton # (Auto) 0.6, Eos # (Auto) 0.4, Baso # (Auto) 0.1, Sodium 138, Potassium 4.0, Chloride 107, Carbon Dioxide 24, Anion Gap 11.0, BUN 31 H, Creatinine 1.50 H, Estimated Creat Clear 65, Estimated GFR 47 L, Est GFR ( Amer) 57 L, Glucose 144 H, Calcium 9.5, Total Bilirubin 0.7, AST 38, ALT 23, Alkaline Phosphatase 60, Troponin I < 0.01, Total Protein 8.0, Albumin 4.6, Globulin 3.4 H, Albumin/Globulin Ratio 1.4 05/29/23 01:09: Troponin I < 0.01 05/28/23 23:10 05/28/23 23:10 Response Orders (Tests/Meds): ED MEDICATIONS Discontinued Medications Generic Name Dose Route Start Last Admin Trade Name Freq PRN Reason Stop Dose Admin Nitroglycerin 0.4 mg 05/28/23 23:42 05/28/23 23:47 Nitroglycerin 0.4mg Sl Tablet SL 05/28/23 23:43 0.4 mg ONCE ONE Administration ORDERS Category Date Time Status XR chest 2V Stat Exams 05/28/23 23:14 Completed Complete Blood Count Auto Diff Stat Lab 05/28/23 23:10 Completed Comprehensive Metabolic Panel Stat Lab 05/28/23 23:10 Completed Trop I [Troponin I] Stat Lab 05/29/23 01:09 Completed Troponin I Q3H Lab 05/28/23 23:10 Completed Troponin I Q3H Lab 05/29/23 02:15 Ordered Troponin I Q3H Lab 05/29/23 05:15 Ordered MDM Narrative Medical Decision Narrative: Patient is a 67-year-old male with past medical history hypertension, hyperlipidemia, type 2 diabetes, NSTEMI, CAD status post stent and CABG presenting with midsternal chest pain starting at rest this evening. Denies prior history of similar symptoms. He did aspirin load himself prior to arrival but does not have any nitroglycerin. He is in no acute distress, initially hypertensive but did come down without intervention while roomed. Exam is overall unremarkable and no pedal edema appreciated. Will obtain labs for further evaluation and provide nitroglycerin.. EKG showing normal sinus rhythm without acute ischemia or infarction, chest x-ray showing no acute process, CBC and CMP nonactionable though creatinine is slightly elevated to 1.5 likely chronic. Troponin negative. Given patient's pain is started 2 to 3 hours prior to arrival we did wait an additional 2 hours to repeat troponin to see if level was rising and this was again undetectable, negative delta. His pain had also resolved and maintained resolution while in the emergency department. On reevaluation patient is hemodynamically stable in no acute distress. We did discuss that he should follow-up very closely with cardiology and discussed strict return precautions which patient is agreeable. Discharged in stable condition.
[2023-05-29 01:35] LABS: Troponin I < 0.01 ng/ml (0.00-0.034)
[2023-05-29 01:50] VITALS: BP 132/88; PULSE 59; RESP 17; TEMP 36.9; O2SAT 97
== END 2023-05-29 01:52 | disposition home or self-care (01) ==
PROVIDERS: Emergency Medicine; Emergency Provider Emergency Medicine; PCP Family Medicine
DX: R07.9 Chest pain, unspecified (principal); E11.9 Type 2 diabetes mellitus without complications; I11.9 Hypertensive heart disease without heart failure; I25.10 Atherosclerotic heart disease of native coronary artery without angina pectoris; E78.5 Hyperlipidemia, unspecified; Z95.1 Presence of aortocoronary bypass graft; Z95.5 Presence of coronary angioplasty implant and graft
CPT/HCPCS: 71046; 80053; 84484; 85025; 93005; 99284

== ENCOUNTER 2023-06-10 10:56 | Outpatient (CLI) | payer MEDICARE, SELFPAY ==
--- NOTE | 2023-06-10 | CA_ITS ---
APPROVED REPORT Exam: Pharmacologic Technologist: Marilu Paul, Ht: 6 ft 1 in Wt: 202 lbs BSA: 2.16 m2 HR: 73 bpm BP: 186/101 mmHg Rhythm: NSR, rightward axis, NS lateral T wave abns, cannot R/O old inferior [place] 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 Medications: Amlodipine,,,,, Metoprolol,,,,, Metformin,,,,, Losartan,,,,, Atorvastatin,,,,, CloPIdogrel,,,,, Diclofenac,,,,, JaRDiance,,,,, Cardiac Risk Factors: HTN, Hyperlipidemia, Diabetes (insulin) Stress Test Details Test: LEXISCAN HR Resting HR: 76 bpm Max Heart Rate (APMHR): 154 bpm Max HR Achieved: 113 bpm Target HR (85% APMHR): 131 bpm % of APMHR: 73 Recovery HR: 101 bpm BP Resting BP: 186/108 mmHg Max BP: 186/108 mmHg Recovery BP: 165.0/104.0 mmHg ECG Resting ECG: NSR, rightward axis, non specific inferolateral T wave abns, cannot R/O old inferior [place] Stress ECG: No significant ST changes Arrhythmia: None Clinical Exercise duration: 04:00 min Highest Stage Achieved: Exercise capacity: 1.0 METs Stress ECG Conclusion Switched to lexiscan due to HTN During lexiscan pt experinced mild head discomfort. No CP noted. No arrhythmias noted. No significant ST changes after Lexiscan administration. Conclusion: Unremarkable lexiscan stress. Myoview images reported separately. Test Summary REST . . . . . . . Sitting REST 02:08 . . 76 . 186/108 . . Stage 1 01:00 . . 104 . . . . Stage 2 01:00 . . 104 . 168/107 . . Stage 3 01:00 . . 109 . 171/111 . . Stage 4 01:00 . . 105 . 179/111 . Stop exercise at 04:00 RECOVERY 01:00 . . 101 . 165/104 . . RECOVERY 02:00 . . 102 . 161/ 99 . . RECOVERY 02:27 . . 102 . 161/ 99 . . Electronically signed by : Leidy Winston MD 06/14/2023 11:42:28
--- NOTE | 2023-06-10 10:56 | NM_ITS ---
APPROVED REPORT Exam: Nuclear Stress Test Indication: CAD, 1 STENT, CABG, 3 BY PASSES, HTN, DM, FM HX., ANGINA Patient Location: Outpatient Stress Tech: Marilu Paul [place] Tech:Jossie CastanedaABBIE RT (R)(N)(M) Ht: 6 ft 1 in Wt: 200 lbs HR: 76 bpm BP: 186/108 mmHg BSA: 2.15 m2 TID: 0.94 BMI: 26.3 History: CAD, 1 STENT, 3v-CABG, HTN, DM, FM HX., ANGINA Procedure: Patient received 0.4 mg of intravenous Lexiscan, resting heart rate 76 bpm, resting blood pressure 186/108 mmHg, with Lexiscan maximum heart rate achieved was 113 bpm which is % of the maximum predicted heart rate and blood pressure was 186/108 mmHg. With Lexiscan, patient denied any complaint of chest pain. Cardiac Stress and Resting SPECT Images: Cardiac Stress and Resting SPECT images were obtained using technetium 99m Myoview 31.7 mCi stress and 10.64 mCi at rest. Resting and stress imaging in supine and prone positions demonstrate no evidence of fixed or reversible perfusion defects. Gated imaging demonstrates low normal global LV systolic function. The septum appears asynchronous. LVEF is calculated at 52%. Conclusion: No evidence of fixed or reversible perfusion defects. Gated imaging demonstrates low normal global LV systolic function. The septum appears asynchronous. LVEF is calculated at 52%. Electronically signed by : Leidy Winston MD 06/14/2023 11:43:54
[2023-06-10] MEDS: SODIUM CHLORIDE 0.9% 10ML SYR (RAD ONLY) 10 ML IV ×2 (11:20→13:00)
[2023-06-10] MEDS: REGADENOSON 0.4MG/5ML SYRINGE 0.400000000000000022 MG IV (13:00)
--- NOTE | 2023-06-10 13:13 | CA_ITS ---
APPROVED REPORT EXAM: Comprehensive 2D, Doppler, and color-flow Echocardiogram Supervisor Nutritional Yeast: Martina Anna RT(R) Ht: 6 ft 1 in Wt: 200lbs BSA: 2.15 BP: 171/112 mmHg Indications: CAD, CP, DM, HTN, hyperlipidemia, abn EKG, CABG 2D Dimensions LVEF (Orellana's) 67.30 % M: 52 - 72 LV Volume 111.40 mL M: 62 - 150 LV Volume Index 51.8 mL/m2 M: 34 - 74 LA Volume 39.70 mL LA Volume Index 18.47 mL/m2 (M/F) 16-34 EF AP4 73.10 % EF AP2 61.2 % EF BP 67.3 % GL Strain -17.4 % M-Mode Dimensions RVDd 3.17 cm (0.9-2.6) LA Diam 2.95 cm (1.9-4.0) LVDd 5.80 cm (3.5-5.7) LVDs 5.00 cm (3.5-5.7) IVSd 1.06 cm (0.6-1.1) PWd 0.76 cm (0.6-1.1) EF (Teich) 29.10% FS 13.80% EDV (Teich) 166.60 mL ESV (Teich) 118.20 mL LV Diastology E Decel Time 193 (160-240 msec) E/A Ratio 0.7 Mitral Valve MV E Max Stephane. 70.0 (40-130 cm/s) MV A Velocity 103.0 (40-130 cm/s) E/A Ratio 0.68 MV PHT 57.0 ms Tricuspid Valve TR P. Velocity 216.00 cm/s RAP Estimate 10.00 mmHg RVSP 28.60 mmHg Left Ventricle The left ventricle is normal size. The left ventricular systolic function is normal. The left ventricular ejection fraction is within the normal range. There is increased LV wall thickness. There is normal LV segmental wall motion. Transmitral Doppler flow pattern suggests impaired LV relaxation. LVEF is 55%. Right Ventricle The right ventricle is normal size. The right ventricular systolic function is normal. Atria Left atrium is mildly dilated. Right atrium is mildly dilated. There is no Doppler evidence of interatrial shunt. Aortic Valve The aortic valve is mildly thickened. There is no aortic valvular stenosis. Trace aortic regurgitation. Mitral Valve The mitral valve is mildly thickened. No evidence of mitral valve stenosis. Mild to moderate mitral regurgitation. Tricuspid Valve The tricuspid valve leaflets are thin and pliable. Trace tricuspid regurgitation. There is insufficient TR jet to estimate RVSP. Pulmonic Valve The pulmonary valve is normal in structure. Mild pulmonic regurgitation. Great Vessels The aortic root is normal in size. The ascending aorta is normal in size. The IVC is not well visualized. Pericardium There is no pericardial effusion. Other Information Study Quality: Fair Conclusion Normal biventricular systolic function. Mild biatrial dilation. Mild to moderate MR. Electronically signed by : Leidy Winston MD 06/14/2023 21:02:15
[2023-06-10] MEDS: ISOTOPE MYOVIEW (PER STUDY) 1 DOSE IV (14:13)
== END 2023-06-10 23:59 | disposition home or self-care (01) ==
LOC: RAD 10:56
PROVIDERS: PCP Family Medicine; Visit Provider Nurse Practitioner
DX: R07.9 Chest pain, unspecified (principal); I45.2 Bifascicular block
CPT/HCPCS: 78452; 93017; 93018; 93306; A9502; J2785

== ENCOUNTER 2023-11-08 09:48 | Outpatient (CLI) | payer MEDICARE, SELFPAY ==
--- NOTE | 2023-11-08 09:51 | US_ITS ---
FINAL REPORT CLINICAL HISTORY: STG 4 CHRONIC KIDNEY DISEASE COMPARISON: None FINDINGS: RENAL ULTRASOUND Ultrasound images of the kidneys were obtained. Limited images of the liver parenchyma demonstrates normal echogenicity. Incidental note is made of a polyp in the gallbladder. The right kidney measures 13.1 cm in length. The left kidney measures 12.2 cm in length. There is moderate bilateral hydronephrosis. Anechoic regions in the right kidney measuring up to 2.7 cm are consistent with benign cysts. IMPRESSION: Bilateral hydronephrosis. Benign-appearing right renal cysts. Reviewed, Interpreted and Dictated by Marek Willis MD Transcribed by Rebekah Cueto Authenticated and [facility]
== END 2023-11-08 23:59 | disposition home or self-care (01) ==
LOC: RAD 09:49
PROVIDERS: PCP Physician Assistant; Visit Provider Physician Assistant
DX: N18.4 Chronic kidney disease, stage 4 (severe) (principal)
CPT/HCPCS: 76770

== ENCOUNTER 2024-04-26 08:43 | Outpatient (CLI) | payer MEDICARE, SELFPAY ==
[2024-04-26 09:43] LABS: Chloride 110 mmol/L (98-107)
[2024-04-26 09:44] LABS: Albumin Level 4.3 g/dl (3.5-5.0); Potassium 4.8 mmoL/L (3.5-5.1); Sodium 139 mmol/L (136-145)
[2024-04-26 09:46] LABS: Blood Urea Nitrogen 28 mg/dl (9-20); Estimated Glomerular Filt Rate 38 ml/min (>60); GFR (African American) 46 ML/MIN (>60)
[2024-04-26 09:47] LABS: Anion Gap 10.8 mEq/L (5-15); Calcium 9.2 mg/dl (8.4-10.2); Carbon Dioxide 23 mmol/L (22.0-30.0); Glucose 96 mg/dl (74-100); Phosphorous 3.5 mg/dl (2.5-4.5)
== END 2024-04-26 23:59 | disposition home or self-care (01) ==
LOC: LAB 08:44
PROVIDERS: PCP Family Medicine; Visit Provider Physician Assistant
DX: N18.32 Chronic kidney disease, stage 3b (principal)
CPT/HCPCS: 36415; 80069

== ENCOUNTER 2024-08-02 10:53 | Outpatient (CLI) | payer MEDICARE, SELFPAY ==
--- OUTSIDE RECORDS SUMMARY | 2023-11-04 06:15 | XMS_ITS ---
Author Organization [facility] Address [address] [place] [id number] Care Team Providers Care Corrections Corporal Name Role Phone Catracho Tolentino Primary Care Provider [phone] Arcelia Person Unavailable [phone] Allergies No Known Allergies Results Component Value Reference Range Notes P-Basic Metabolic Panel (BMP ) Reviewed date:11/08/2023 10:34:02 AM Interpretation:K+ 5.7, co2- 20, gluc 109, bun 59, Cr 3.13, gfr 21 Performing Lab: Notes/Report: Test performed by [facility], [address] , [address], [place] [address] Yan Bell MD, Line Assembler Aircraft CLIA: [id number] Sodium 137 135-145 mmol/L Potassium 5.7 3.5-5.3 mmol/L Chloride 105 97-108 mmol/L CO2 20 22-32 mmol/L Glucose 109 65-99 mg/dL BUN 59 8-23 mg/dL Creatinine 3.13 0.70-1.30 mg/dL Calcium 9.9 8.6-10.4 mg/dL eGFR by Creatinine 21 >59 mL/min/1.73m2 Ultrasound : Kidneys, bilate ral Reviewed date:11/09/2023 03:50:23 PM Interpretation:bilateral hydronephrosis, benign appearing right renal cysts Performing Lab: Notes/Report: bilateral hydronephrosis, benign appearing right renal cysts Ultrasound : Kidneys, bilate ral Reviewed date:11/09/2023 03:50:23 PM Interpretation:bilateral hydronephrosis, benign appearing right renal cysts Performing Lab: Notes/Report: bilateral hydronephrosis, benign appearing right renal cysts REASON FOR VISIT check up Medications Medication SIG (Take, Route, Frequency, Duration) Notes Start Date End Date Status amLODIPine Besylate 10 MG 1 tablet Orall y Once a day 07/19/2023 Active Metoprolol Succinate ER 200 MG 1 tablet Orally Once a day; Duration: 90 days 07/19/2023 Active Aspirin Adult Low Dose 81 MG 1 tab(s) orally once a day Active Irbesartan 300 MG 1 tablet Orally Once a day; Duration: 90 days 10/21/2023 Active Jardiance 25 mg 1 tablet Orally Once a day Active Atorvastatin Calcium 80 MG 1 tab(s) oral ly at bedtime; Duration: 90 days Active metFORMIN HCl ER 500 mg TAKE TWO TABLETS BY MOUTH TWICE DAILY Active Accu-Chek Softclix Lancets - test twice a day 11/03/2022 Active Clopidogrel Bisulfate 75 MG 1 tab(s) ora lly once a day; Duration: 90 days Active Omeprazole 40 MG 1 cap(s) orally once a day; Duration: 90 days Active Accu-Chek Guide w/Device test twice a day 11/03/19 23 Active Accu-Chek Guide - test twice daily In Vitro 2022 Active Problems Problem Type SNOMED Code ICD Code Onset Dates Problem Status W/U Status Risk Notes Problem Stage 4 chronic kidney disease (N18.4) Active confirmed Vital Signs Blood pressure systolic 120 mm Hg 11/04/19 24 Blood pressure diastolic 70 mm Hg 024 Heart Rate 72 /min 11/04/2023 Height 72 in 11/04/2023 Weight 194.2 lbs 11/04/2023 BMI 26.34 kg/m2 11/04/2023 Encounters Encounter Location Date Provider Diagnosis [facility] [address] [place], [place] [id number] 11/04/2023 Arcelia Person Stage 4 chronic kidn ey disease N18.4 ; Type 2 diabetes mellitus without complication, without long-term current use of insulin E11.9 ; Coronary artery disease involving [place] coronary artery of [place] heart without angina pectoris I25.10 ; HTN (hypertension) I10 and Pure hypercholesterolemia, unspecified E78.00 Assessments Encounter Date Diagnosis (ICD Code) Assessment Notes Treatment Notes Treatment Clinical Notes Section Notes 11/04/2023 Stage 4 chronic kidney disease (ICD-10 - N18.4) 11/04/2023 Type 2 diabetes mellitus without complication, without long-term current use of insulin (ICD-10 - E11.9) 11/04/2023 Coronary artery disease involving [place] coronary artery of [place] heart without angina pectoris (ICD-10 - I25.10) 11/04/2023 HTN (hypertension) (ICD-10 - I10) 11/04/2023 Pure hypercholesterol emia, unspecified (ICD-10 - E78.00) Plan Of Treatment Next Appt Details Follow Up: via phone to repo rt test results, Reason: Progress Notes * CRIS MELOADOB:1955 (69 yo M)Acc No.[id number]:11/04/2023 Progress Notes Patient: MANISH GASPAR Provider: WILMER Marie :1955 A ge:68 Y S ex:Male Date:11/04/2023 Address:[address] [place] [address] [id number] Pcp:Catracho Tolentino Subjective: * Chief Complaints: * 1 . Check up. * HPI: C ardiology: 68 year old male presents with c/o Blood Pressure Elevated P t here to f/u on hypertension, states he is doing well and does not have any concerns. c/o Hyperlipidemia P t is fasting today. E ndocrinology: c/o Recent Blood Sugars P t here to f/u on DM 2. He also requests labs because his renal function has been getting worse. He is scheduled to see the pathology specialist but will need an ultrasound of the kidneys first. * ROS: D ERMATOLOGY: no R augustine. [...] cap(s) orally once a day , Taking Atorvastatin Calcium 80 MG Tablet 1 tab(s) orally at bedtime , Taking metFORMIN HCl ER 500 mg Tablet Extended Release 24 Hour TAKE TWO TABLETS BY MOUTH TWICE DAILY , Taking Jardiance 25 mg Tablet 1 tablet Orally Once a day , Taking amLODIPine Besylate 10 MG Tablet 1 tablet Orally Once a day , Taking Metoprolol Succinate ER 200 MG Tablet Extended Release 24 Hour 1 tablet Orally Once a day , Taking Irbesartan 300 MG Tablet 1 tablet Orally Once a day , Medication List reviewed and reconciled with the patient * Allergies: N .K.D.A. Objective: * Vitals: W t:194.2, Temp:97.9, BP:120/70, HR:72, Nurse:raymon, Ht: 72, BMI:26.34. * Examination: G eneral Examination: General Appearance: N AD. H EENT: u nremarkable.?Oral cavity: n o lesions, mucosa moist and WNL, no erythema. N tameka: s upple, no lymphadenopathy. C hest: n ormal shape and expansion. H eart: R SR. L ungs: c lear to auscultation. A bdomen: bowel sounds present, soft and nontender, no organomegaly or masses, no guarding or rigidity. N eurologic Exam: I ntact, gait normal. S kin: n ormal, no rash. P eripheral pulses: n ormal (2+) bilaterally. E xtremities: n o leg edema. Assessment: * Assessment: 1. S tage 4 chronic kidney disease - N18.4 (Primary) 2 . T ype 2 diabetes mellitus without complication, without long-term current use of insulin - E11.9 3 . Coronary artery disease involving [place] coronary artery of [place] heart without angina pectoris - I25.10 4 . H TN (hypertension) - I10 5 . P ure hypercholesterolemia, unspecified - E78.00 Plan: * Treatment: Value Reference Range B UN 59 H 8-23 - mg/dL * C alcium 9.9 8.6-10.4 - mg/dL * C hloride 105 97-108 - mmol/L * C O2 20 L 22-32 - mmol/L * C reatinine 3.13 H 0.70-1.30 - mg/dL * G lucose 109 H 65-99 - mg/dL * P otassium 5.7 H 3.5-5.3 - mmol/L * S odium 137 135-145 - mmol/L * e GFR by Creatinine 21 L >59 - mL/min/1.73m2 * Arcelia Person 11/08/2023 10 :33:54 AM > see TE ?Imaging: Ultrasound : Kidneys, bilateral (Performed Date - 11/08/2023)? bilateral hydronephrosis, benign appearing right renal cysts* Arcelia Person 11/04/2023 10 :13:10 AM > needs Renea Ford 11/04/2023 10:49:36 AM > no auth needed; CPT code 59203; faxed to [facility] Zita Noel 11/07/2023 8:04:49 AM > appt. 11/08/2023 @ 10:30Arcelia Person 11/09/2023 3:50:19 PM > see TE * Follow Up: v ia phone to report test results * Images: Billing Information: * Visit Code: 60729 Office Visit, Est Pt., Level 3. * Procedure Codes: * Electronic signature of WILMER Salas on 08/02/2024 at 11:07 AM EDT Sign off status: Pending * Provider: WILMER Marie Date: 0 11/04/2023 Generated for Carlos genao/Patricia/eTransmitting on: 0 08/02/2024 11:07 AM EDT History and Physical Notes * HPI (History of Present Illness) Category Sub-Category Detail Notes Category Not es Endocrinology Recent Blood Sugars Pt here to f/u on DM 2 He also requests labs because his renal function has been getting worse. He is scheduled to see the pathology specialist but will need an ultrasound of the kidneys first. Cardiology Blood Pressure Elevated Pt here to f/u on hypertension, states he is doing well and does not have any concerns Hyperlipidemia Pt is fasting today Examination Category Sub-Category Detail Notes Category Not es General Examination HEENT: unremarkable Heart: RSR Lungs: clear to auscultatio n Abdomen: bowel sounds present , soft and nontender, no organomegaly or masses, no guarding or rigidity Extremities: no leg edema General Appearance: NAD Skin: normal, no rash Neurologic Exam: Intact, gait normal Neck: supple, no lymphaden opathy Oral cavity: no lesions, mucosa m oist and WNL, no erythema Peripheral pulses: normal (2+) bilatera lly Chest: normal shape and exp ansion
--- OUTSIDE RECORDS SUMMARY | 2024-04-12 05:30 | XMS_ITS ---
Author Organization [facility] Address [address] [place] [phone] Care Team Providers Care Radiology Physician Assistant Name Role Phone Catracho Tolentino Primary Care Provider Mp Jack Unavailable [phone] Allergies No Known Allergies Results Component Value Reference Range Notes Glucose (In-House) Reviewed date:04/12/2024 10:39:09 AM Interpretation: Performing Lab: Notes/Report: blood glucose 124 74 - 106 mg/dL CBC Venipuncture (in house) Reviewed date:04/12/2024 10:42:13 AM Interpretation: Performing Lab: Notes/Report: wbc 9.4 3.5 - 10 lymph 16.9% 15 - 50 mid 5.5% 2 - 15 gran 77.6% 35 - 80 rbc 4.58 3.5 - 5.5 hgb 12.8 11.5 - 16.5 hct 38.0 35 - 55 mcv 82.9 75 - 100 mch 28.0 25 - 35 mchc 33.8 31 - 38 platlet 367 100 - 400 Glycohemoglobin A1c (in hous e) Reviewed date:04/12/2024 10:39:52 AM Interpretation: Performing Lab: Notes/Report: glycohemoglobin 6.4% 5 - 6.5 % P-Comprehensive Metabolic Pa marcelino (CMP) Reviewed date:04/13/2024 09:18:25 AM Interpretation:co2- 21, Cr 1.92, gfr 38 Performing Lab: Notes/Report: Test performed by [facility] , [address], [place] [address] Yan Bell MD, Waitress CLIA: [id number] Sodium 140 135-145 mmol/L Potassium 4.5 3.5-5.3 mmol/L Chloride 106 97-108 mmol/L CO2 21 22-32 mmol/L Glucose 91 65-99 mg/dL BUN 23 8-23 mg/dL Creatinine 1.92 0.70-1.30 mg/dL Calcium 9.5 8.6-10.4 mg/dL eGFR by Creatinine 38 >59 mL/min/1.73m2 Protein 7.3 6.0-8.3 g/dL Albumin 4.2 3.5-5.3 g/dL Alkaline Phosphatase 82 40-129 IU/L ALT (SGPT) 16 <5-55 IU/L AST (SGOT) 15 <5-46 IU/L Bilirubin, Total 0.2 <0.2-1.2 mg/dL A/G Ratio 1.4 1.1-2.5 P-Lipid Panel Reviewed date:04/13/2024 09:18:25 AM Interpretation:hdl 32 Performing Lab: Notes/Report: Test performed by [facility] [address] [place] [address] , [address], [place] [address] Yan Bell MD, Waitress CLIA: [id number] Cholesterol 119 <200 mg/dL Triglycerides 74 <150 mg/dL HDL Cholesterol 32 >39 mg/dL Cholesterol / HDL Ratio 3.72 0.00-4.99 Ratio Non-HDL Cholesterol 87 <130 mg/dL LDL Cholesterol (Calculation) 72 <130 mg/dL LDL Cholesterol Levels* Less than 100 mg/dL Optimal 100 to 129 mg/dL Near Optimal/ Above Optimal 130 to 159 mg/dL Borderline High 160 to 189 mg/dL High 190 mg/dL and above Very High * Categories as recommended by the 2004 ATPIII guidelines LDL/HDL Ratio 2.3 <3.3 Ratio LDL Cholesterol Patient History Test Date: 12/15/2021 LDL Results: 83 Units: mg/dL % Change: - Test Date: 04/28/2023 LDL Results: 65 Units: mg/dL % Change: -21% Test Date: 04/12/2024 LDL Results: 72 Units: mg/dL % Change: +10% P-Phosphorus Reviewed date:04/13/2024 09:18:25 AM Interpretation:Normal Performing Lab: Notes/Report: Test performed by [facility] [address] [place], [place] [address] [place] [address] Yan Bell MD, Waitress SHUBHAM: [id number] Phosphorus 3.2 2.5-4.5 mg/dL P-TSH reflex to FT4 Reviewed date:04/13/2024 09:18:25 AM Interpretation:Normal Performing Lab: Notes/Report: Test performed by [facility] [address] [place], [place] [address] [place] , [place] [address] Yan Bell MD, Waitress CLIA: [id number] TSH reflex to FT4 2.20 0.43-5.25 mU/L P-Microalbumin/Creatinine, R andom Urine Sample Reviewed date:04/13/2024 09:18:25 AM Interpretation:a/c 125 Performing Lab: Notes/Report: Test performed by [facility] [address] [place] [address] , [address], [place] [address] Yan Bell MD, Waitress CLIA: [id number] Albumin/Creatinine Ratio, Urine 125 0-30 ug/m g Microalbumin, Urine, Random 9.2 Creatinine, Urine 73.5 REASON FOR VISIT 6 mths Medications Medication SIG (Take, Route, Frequency, Duration) Notes Start Date End Date Status Accu-Chek Guide w/Device test twice a day 11/03/19 23 Active Accu-Chek Softclix Lancets - test twice a day 11/03/2022 Active Metoprolol Succinate ER 50 MG 1 tablet Orally Once a day; Duration: 90 days 04/12/2024 Active Aspirin Adult Low Dose 81 MG 1 tab(s) orally once a day Active glyBURIDE 5 MG 1 tablet with breakf ast or the first main meal of the day Orally Once a day; Duration: 90 days 11/18/2023 Active Clopidogrel Bisulfate 75 MG 1 tab(s) ora lly once a day; Duration: 90 days Active Atorvastatin Calcium 80 MG 1 tab(s) oral ly at bedtime; Duration: 90 days Active Accu-Chek Guide - USE TO test blood burnett gar TWICE DAILY; Duration: 50 Active amLODIPine Besylate 10 MG 1 tablet Orall y Once a day; Duration: 90 days Active Irbesartan 300 MG 1 tablet Orally Once a day; Duration: 90 days 10/21/2023 Active Vital Signs Blood pressure systolic 170 mm Hg 04/13/19 25 Blood pressure diastolic 92 mm Hg 025 Heart Rate 72 /min 04/12/2024 Height 72 in 04/12/2024 Weight 198.6 lbs 04/12/2024 BMI 26.93 kg/m2 04/12/2024 Encounters Encounter Location Date Provider Diagnosis [facility] [address] [place] [phone] 04/12/2024 Mp Jack HTN (hypertension) I 10 ; Type 2 diabetes mellitus without complication, without long-term current use of insulin E11.9 ; Pure hypercholesterolemia, unspecified E78.00 and CKD (chronic kidney disease) stage 4, GFR 15-29 ml/min N18.4 Assessments Encounter Date Diagnosis (ICD Code) Assessment Notes Treatment Notes Treatment Clinical Notes Section Notes 04/12/2024 HTN (hypertension) (ICD-10 - I10) 04/12/2024 Type 2 diabetes mellitus without complication, without long-term current use of insulin (ICD-10 - E11.9) 04/12/2024 Pure hypercholesterol emia, unspecified (ICD-10 - E78.00) 04/12/2024 CKD (chronic kidney disease) stage 4, GFR 15-29 ml/min (ICD-10 - N18.4) Plan Of Treatment Medication Medication Name Sig Start Date Stop Date Notes Metoprolol Succinate ER 50 MG 1 tablet O rally Once a day; Duration: 90 days 04/12/2024 glyBURIDE 5 MG 1 tablet with breakf ast or the first main meal of the day Orally Once a day; Duration: 90 days 11/18/2023 Clopidogrel Bisulfate 75 MG 1 tab(s) ora lly once a day; Duration: 90 days Atorvastatin Calcium 80 MG 1 tab(s) oral ly at bedtime; Duration: 90 days amLODIPine Besylate 10 MG 1 tablet Orall y Once a day; Duration: 90 days Metoprolol Succinate ER 200 MG 1 tablet Orally Once a day Irbesartan 300 MG 1 tablet Orally Once a day; Duration: 90 days 10/21/2023 Next Appt Details Follow Up: 6 Weeks, Reason: Progress Notes * PRIYANKA MELOB:1955 (69 yo M)Acc No.[id number]:04/12/2024 Progress Notes Patient: MANISH GASPAR Provider: Marcus Jack M.D. :1955 A ge:68 Y S ex:Male Date:04/12/2024 Address:[address] [place] [address] [address] [id number] Pcp:Catracho Tolentino Subjective: * Chief Complaints: * 1 . 6 mths. * HPI: C ardiology: 68 year old male presents with c/o Blood Pressure Elevated P t here for 6 mo f/u on hypertension, states he is doing well and does not have any concerns. c/o Hyperlipidemia P t is fasting today. E ndocrinology: c/o Recent Blood Sugars P t here to f/u on DM 2. * ROS: D ERMATOLOGY: no R augustine. n o H chandrika. U ROLOGY: no D ifficulty urinating. n o B lood in urine. * 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: T ype 2 Diabetes, Hypertension, Hyperlipidemia, ASCVD, Osteoarthritis, Arthritis, Diverticulosis, Gout, Chronic kidney disease, BPH. * Surgical History: C ABG 11/15/2002, Colonoscopy [...] test twice a day , Taking Accu-Chek Softclix Lancets - Miscellaneous test twice a day , Taking Irbesartan 300 MG Tablet 1 tablet Orally Once a day , Taking Clopidogrel Bisulfate 75 MG Tablet 1 tab(s) orally once a day , Taking amLODIPine Besylate 10 MG Tablet 1 tablet Orally Once a day , Taking Atorvastatin Calcium 80 MG Tablet 1 tab(s) orally at bedtime , Taking glyBURIDE 5 MG Tablet 1 tablet with breakfast or the first main meal of the day Orally Once a day , Taking Accu-Chek Guide - Strip USE TO test blood sugar TWICE DAILY , Not-Taking Metoprolol Succinate ER 200 MG Tablet Extended Release 24 Hour 1 tablet Orally Once a day , Discontinued Omeprazole 40 MG Capsule Delayed Release 1 cap(s) orally once a day , Discontinued Jardiance 25 mg Tablet 1 tablet Orally Once a day , Medication List reviewed and reconciled with the patient * Allergies: N .K.D.A. Objective: * Vitals: W t:198.6, Temp:98.0, BP:170/92, HR:72, Nurse:raymon, Ht: 72, BMI:26.93. * Examination: C ardiology: General Appearance: p [...] use of insulin - E11.9 3 . P ure hypercholesterolemia, unspecified - E78.00 4 . C KD (chronic kidney disease) stage 4, GFR 15-29 ml/min - N18.4 Plan: * Treatment: Value Reference Range A /G Ratio 1.4 1.1-2.5 - * A lbumin 4.2 3.5-5.3 - g/dL * A lkaline Phosphatase 82 40-129 - IU/L * A LT (SGPT) 16 <5-55 - IU/L * A ST (SGOT) 15 <5-46 - IU/L * B ilirubin, Total 0.2 <0.2-1.2 - mg/dL * B UN 23 8-23 - mg/dL * C alcium 9.5 8.6-10.4 - mg/dL * C hloride 106 97-108 - mmol/L * C O2 21 L 22-32 - mmol/L * C reatinine 1.92 H 0.70-1.30 - mg/dL * G lucose 91 65-99 - mg/dL * P otassium 4.5 3.5-5.3 - mmol/L * S odium 140 135-145 - mmol/L * P rotein 7.3 6.0-8.3 - g/dL * e GFR by Creatinine 38 L >59 - mL/min/1.73m2 * Mary Cedeño 04/13/2024 09:18 :13 AM > See phone encounter 2.?Type 2 diabetes mellitus without complication, without long-term current use of insulin? Refill glyBURIDE Tablet, 5 MG, 1 tablet with breakfast or the first main meal of the day, Orally, Once a day, 90 days, 90, Refills 1.?LAB: P-Comprehensive Metabolic Panel (CMP) (Collection Date & Time - 04/12/2024 09:13 AM)?co2- 21, Cr 1.92, gfr 38* Value Reference Range A /G Ratio 1.4 1.1-2.5 - * A lbumin 4.2 3.5-5.3 - g/dL * A lkaline Phosphatase 82 40-129 - IU/L * A LT (SGPT) 16 <5-55 - IU/L * A ST (SGOT) 15 <5-46 - IU/L * B ilirubin, Total 0.2 <0.2-1.2 - mg/dL * B UN 23 8-23 - mg/dL * C alcium 9.5 8.6-10.4 - mg/dL * C hloride 106 97-108 - mmol/L * C O2 21 L 22-32 - mmol/L * C reatinine 1.92 H 0.70-1.30 - mg/dL * G lucose 91 65-99 - mg/dL * P otassium 4.5 3.5-5.3 - mmol/L * S odium 140 135-145 - mmol/L * P rotein 7.3 6.0-8.3 - g/dL * e GFR by Creatinine 38 L >59 - mL/min/1.73m2 * Mary Cedeño 04/13/2024 09:18 :13 AM > See phone encounter ?LAB: P-TSH reflex to FT4 (Collection Date & Time - 04/12/2024 09:13 AM)? Normal* Value Reference Range T SH reflex to FT4 2.20 0.43-5.25 - mU/L * Mary Cedeño 04/13/2024 09:18 :13 AM > See phone encounter ?LAB: P-Microalbumin/Creatinine, Random Urine Sample (Collection Date & Time - 04/12/2024 09:13 AM)?a/c 125* Value Reference Range A lbumin/Creatinine Ratio, Urine 125 H 0-30 - ug /mg * C reatinine, Urine 73.5 - mg/dL * M icroalbumin, Urine, Random 9.2 - mg/dL * Mary Cedeño 04/13/2024 09:18 :13 AM > See phone encounter ?LAB: Glucose (In-House) (Collection Date & Time - 04/12/2024)* Value Reference Range b lood glucose 124 74 - 106 mg/dL * Christa Dunn 04/12/2024 10:38:51 AM > , Provider reviewed results while patient in office. ?LAB: Glycohemoglobin A1c (in house) (Collection Date & Time - 04/12/2024)* Value Reference Range g lycohemoglobin 6.4% 5 - 6.5 % * Christa Dunn 04/12/2024 10:39:45 AM > , Provider reviewed results while patient in office. 3.?Pure hypercholesterolemia, unspecified? Refill Atorvastatin Calcium Tablet, 80 MG, 1 tab(s), orally, at bedtime, 90 days, 90, Refills 1. ?LAB: P-Comprehensive Metabolic Panel (CMP) (Collection Date & Time - 04/12/2024 09:13 AM)?co2- 21, Cr 1.92, gfr 38* Value Reference Range A /G Ratio 1.4 1.1-2.5 - * A lbumin 4.2 3.5-5.3 - g/dL * A lkaline Phosphatase 82 40-129 - IU/L * A LT (SGPT) 16 <5-55 - IU/L * A ST (SGOT) 15 <5-46 - IU/L * B ilirubin, Total 0.2 <0.2-1.2 - mg/dL * B UN 23 8-23 - mg/dL * C alcium 9.5 8.6-10.4 - mg/dL * C hloride 106 97-108 - mmol/L * C O2 21 L 22-32 - mmol/L * C reatinine 1.92 H 0.70-1.30 - mg/dL * G lucose 91 65-99 - mg/dL * P otassium 4.5 3.5-5.3 - mmol/L * S odium 140 135-145 - mmol/L * P rotein 7.3 6.0-8.3 - g/dL * e GFR by Creatinine 38 L >59 - mL/min/1.73m2 * GalaMary pizarro 04/13/2024 09:18 :13 AM > See phone encounter ?LAB: P-Lipid Panel (Collection Date & Time - 04/12/2024 09:13 AM)?hdl 32* Value Reference Range C holesterol / HDL Ratio 3.72 0.00-4.99 - Ratio * C holesterol 119 <200 - mg/dL * H DL Cholesterol 32 L >39 - mg/dL * L DL Cholesterol (Calculation) 72 <130 - mg/d L * L DL/HDL Ratio 2.3 <3.3 - Ratio * N on-HDL Cholesterol 87 <130 - mg/dL * T riglycerides 74 <150 - mg/dL * Mary Cedeño 04/13/2024 09:18 :13 AM > See phone encounter 4.?CKD (chronic kidney disease) stage 4, GFR 15-29 ml/min?LAB: P-Comprehensive Metabolic Panel (CMP) (Collection Date & Time - 04/12/2024 09:13 AM)?co2- 21, Cr 1.92, gfr 38* Value Reference Range A /G Ratio 1.4 1.1-2.5 - * A lbumin 4.2 3.5-5.3 - g/dL * A lkaline Phosphatase 82 40-129 - IU/L * A LT (SGPT) 16 <5-55 - IU/L * A ST (SGOT) 15 <5-46 - IU/L * B ilirubin, Total 0.2 <0.2-1.2 - mg/dL * B UN 23 8-23 - mg/dL * C alcium 9.5 8.6-10.4 - mg/dL * C hloride 106 97-108 - mmol/L * C O2 21 L 22-32 - mmol/L * C reatinine 1.92 H 0.70-1.30 - mg/dL * G lucose 91 65-99 - mg/dL * P otassium 4.5 3.5-5.3 - mmol/L * S odium 140 135-145 - mmol/L * P rotein 7.3 6.0-8.3 - g/dL * e GFR by Creatinine 38 L >59 - mL/min/1.73m2 * Mary Cedeño 04/13/2024 09:18 :13 AM > See phone encounter ?LAB: P-Phosphorus (Collection Date & Time - 04/12/2024 09:13 AM)?Normal* Value Reference Range P hosphorus 3.2 2.5-4.5 - mg/dL * Mary Cedeño 04/13/2024 09:18 :13 AM > See phone encounter ?LAB: P-Microalbumin/Creatinine, Random Urine Sample (Collection Date & Time - 04/12/2024 09:13 AM)?a/c 125* Value Reference Range A lbumin/Creatinine Ratio, Urine 125 H 0-30 - ug /mg * C reatinine, Urine 73.5 - mg/dL * M icroalbumin, Urine, Random 9.2 - mg/dL * Mary Cedeño 04/13/2024 09:18 :13 AM > See phone encounter ?LAB: CBC Venipuncture (in house) (Collection Date & Time - 04/12/2024)* Value Reference Range w bc 9.4 3.5 - 10 * l ymph 16.9% 15 - 50 * m id 5.5% 2 - 15 * g ran 77.6% 35 - 80 * r bc 4.58 3.5 - 5.5 * h gb 12.8 11.5 - 16.5 * h ct 38.0 35 - 55 * m cv 82.9 75 - 100 * m ch 28.0 25 - 35 * m chc 33.8 31 - 38 * p latlet 367 100 - 400 * Christa Dunn 04/12/2024 10:42:06 AM > , Provider reviewed results while patient in office. 5.?Others? Refill Clopidogrel Bisulfate Tablet, 75 MG, 1 tab(s), orally, once a day, 90 days, 90, Refills 1. ? * Procedure Codes: G 2211 Complex e/[place], [address] GLUCOSE TEST, 21193 GLYCATED HEMOGLOBIN TEST, Modifiers: QW , 18689 CBC WITH AUTO DIFF, 3044F HG A1C LEVEL LT 7.0%, G8753 MOST RECENT SYSTOLIC BP >= 140MM HG, G8755 MOST RECENT DIASTOLIC BP >= 90MM HG * Follow Up: 6 Weeks * Images: Billing Information: * Visit Code: 04788 Office Visit, Est Pt., Level 4. * Procedure Codes: G2211 Complex e/[place]. [address] GLUCOSE TEST. 35836 GLYCATED HEMOGLOBIN TEST. Modifiers: QW 74400 CBC WITH AUTO DIFF. 3044F HG A1C LEVEL LT 7.0%. G8753 MOST RECENT SYSTOLIC BP >= 140MM HG. G8755 MOST RECENT DIASTOLIC BP >= 90MM HG. * Electronic signature of Ana Jack MD on 08/02/2024 at 11:07 AM EDT Sign off status: Pending * Provider: Marcus Jack M.D. Date: 0 04/12/2024 Generated for Carlos genao/Patricia/Marvsmitting on: 0 08/02/2024 11:07 AM EDT History and Physical Notes * HPI (History of Present Illness) Category Sub-Category Detail Notes Category Not es Endocrinology Recent Blood Sugars Pt here to f/u on DM 2 Cardiology Blood Pressure Elevated Pt here for 6 mo f/u on hypertension, states he is doing well and does not have any concerns Hyperlipidemia Pt is fasting today Examination Category Sub-Category Detail Notes Category Not es Cardiology Lungs: clear, no rales or wheezes Heart sounds: RRR, normal S1, S2 Extremities: no leg edema Peripheral pulses: 2 plus bilateral General Appearance: pleasant, NAD
--- OUTSIDE RECORDS SUMMARY | 2024-05-24 06:00 | XMS_ITS ---
Author Organization [facility] Address [address] [facility] [address] [facility] [address] [place] [phone] Care Team Providers Care Textile Stylist Name Role Phone Catracho Tolentino Primary Care Provider Mp Jack [phone] Allergies No Known Allergies REASON FOR VISIT 6 week f/u Vital Signs Heart Rate 00 /min 05/24/2024 Height 72 in 05/24/2024 Weight 00 lbs 05/24/2024 Encounters Encounter Location Date Provider Diagnosis [facility] [address] [facility] [address] [facility] [address] [place] [phone] 05/24/2024 Mp Jack Plan Of Treatment No Information Progress Notes * CRIS MELOADOB:1955 (69 yo M)Acc No.[id number]:05/24/2024 Progress Notes Patient: MANISH GASPAR Provider: Marcus Jack M.D. :1955 A ge:68 Y S ex:Male Date:05/24/2024 Address:[address] [facility] [address] [id number] Pcp:Catracho Tolentino Subjective: * Chief Complaints: * [...] of Ana Jack MD on 08/02/2024 at 11:06 AM EDT Sign off status: Pending * Provider: Marcus Jack M.D. Date: 0 05/24/2024 Generated for Carlos genao/Patricia/Solitting on: 0 08/02/2024 11:06 AM EDT
--- OUTSIDE RECORDS SUMMARY | 2024-07-05 15:30 | XMS_ITS | Encounter Summary ---
Author Organization [facility] Address [address] [place] [address] Care Team Providers Care Filling Machine Set Up Mechanic Name Role Phone Luis Caraballo MD Primary Care Provider +1- [phone] Reason for Referral * Consultation (Routine) - Authorized Specialty Diagnoses / Procedures Referred By Radha ramos Referred To Contact Physical Therapy Diagnoses Incomplete bladder emptying Courtney Young MD [address] [address] Phone: tel: fax: Referral ID Status Reason Start Date Expiration Date Visits Requested Visits Authorized [id number] Authorized Consult and Treat 07/05/2024 01/04/2026 1 1 Reason for Visit * Other Medical (Routine) - Closed Specialty Diagnoses / Procedures Referred By Radha ramos Referred To Contact Urology Diagnoses Incomplete bladder emptying Procedures Cysto- Urology Destiney Lyman APRN, DNP [address] [address] Phone: tel: fax: Referral ID Status Reason Start Date Expiration Date Visits Re quested Visits Authorized [id number] Closed 05/31/2024 11/30/2025 1 1 Encounter Details Date Type Department Care Team (Late st Contact Info) Description 07/05/2024 3:30 PM EDT Office Visit Medical Office Building Urology [address] [facility], [address] [place] [address] Courtney Young MD [address] [place] [address] Incomplete bladder emptying Social History [...] Questionnaire -2 Score 0 07/05/2024 3:19 PM EDT Gino Solares * Question Answer Date of Assessment Author Trouble falling or staying a sleep, or sleeping too much Not at all 07/05/2024 3:19 PM EDT Gino Solares Feeling tired or having mendel le energy [...] Performed by: Kristina Beasley MD Authorized by: Nura, Destiney E, CONSUMER LOAN SPECIALIST, DNP Procedure discussed: discussed risks, benefits and alternatives Timeout: timeout called immediately prior to procedure Procedure Details Cystoscope type: flexible Cystoscopy route: transurethral Cystoscopy location: [place] bladder Irrigation used: saline Position: supine Urethra [...] risk of bleeding. There is a small truck terminal manager risk of developing scar tissue (stricture or [...] Past 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: Diagnosis Date Diabetes mellitus ([facility]) Hypertension Kidney disease [2] Past Surgical History: [...] Upcoming Encounters Date Type Department Care Team (Latest Contact Info) Description 08/02/2024 3:15 PM EDT Pre-Admission Testing [facility] [address], [address] [place] [address] 08/14/2024 2:45 PM EDT Appointment Medical Office Building Physical Therapy [address] [facility], [address] [place] [address] Charlotte Pillai [address] [place] [address] [address] [place] [address] 08/17/2024 12:40 PM EDT Hospital Encounter [facility] [address] [place] [address] Courtney Young MD [address] [address] 08/17/2024 12:40 PM EDT - 08/17/2024 3:30 PM EDT Surgery [facility] [address] [place] [address] Courtney Young MD [address] [address] ENUCLEATION, PROSTATE, TRANSURETHRAL, USING HOLMIUM LASER ( HOLEP ) [21870 (CPT )] 08/31/2024 12:15 PM EDT Appointment Medical Office Building Physical Therapy [address] [facility], [address] [place] [address] Charlotte Pillai [address] [place] [address] [address] [place] [address] 09/19/2024 3:30 PM EDT Office Visit Medical Office Building Urology [address] [facility], [address] [place] [address] Courtney Young MD [address] [facility] [address] [place] [address] 10/10/2024 4:00 PM EDT Office Visit [facility] Nephrology, Bone & Mineral Metabolism [address] [facility], [address] [place] [address] Mp Reis PA [address] [facility] [address] [place] [address] 06/05/2025 10:45 AM EDT Appointment [facility] [address] [place] [address] 06/05/2025 11:50 AM EDT Clinical Support [facility] [address] [place] [address] 06/05/2025 12:30 PM EDT Office Visit [facility] Urology [address] [place] [address] Charlotte Rodriguez, CONSUMER LOAN SPECIALIST, DNP [address] [facility] [address] [place] [address] Scheduled Orders Name Type Priority Associated Diagnoses Orde r Schedule Urine Culture - Lab Collect Microbiology Routine Incomplete bladder emptying Expected: 07/05/2024 (Approximate), Expires: 01/05/2026 Scheduled Procedures Name Priority Associated Diagnoses Date/Ti me ENUCLEATION, PROSTATE, TRANSURETHRAL, USING HOLMIUM LASER Incomplete bladder emptying 08/17/2024 12:40 PM EDT Scheduled Referrals Name Type Priority Associated Diagnoses [...] type: flexible Cystoscopy route: transurethral Cystoscopy location: [place] bladder Irrigation used: saline Position: supine Urethra Urethra: normal Prostate Prostate comment: Touching lateral lobes, prominent intravesical median lobe Bladder Bladder comment: Trabeculations with cellules, extrinsic compression at the dome/posterior wall, no concerning lesions or masses Destiney Lyman APRN, DNP UROLOGY ORDERABLES Final Result * (ABNORMAL) POCT URINALYSIS DIPSTICK (07/05/2024 3:14 PM EDT) POCT Urine Color Yellow 07/05/2024 3:15 PM EDT [facility] POCT Urine Clarity Clear 07/05/2024 3:15 PM EDT [facility] POCT Urine Glucose Negative Negative mg/dL 07/05/2024 3:15 PM EDT [facility] POCT Urine Bilirubin Negative Negative mg/dL 07/05/2024 3:15 PM EDT [facility] POCT Urine Ketones Negative Negative mg/dL 07/05/2024 3:15 PM EDT [facility] POCT Urine Specific [place] 1.015 1.005 - 1.030 07/05/2024 3:15 PM EDT [facility] POCT Urine Blood Trace(A) Negative 07/05/2024 3:15 PM EDT [facility] POCT pH, Urine 5.5 5.0 - [...] UNSOLICITED RESULTS Final Result Performing Organization Address City/State/[facility] Co de Phone Number [facility] [address] [place], [place] documented in this encounter Visit Diagnoses Diagnosis Incomplete bladder emptying Incomplete bladder emptying documented in this encounter [...] documented as of this encounter Care Teams Filling Machine Set Up Mechanic Relationship Specialty Start Date End Date Luis Caraballo MD [address] [place] [address] PCP - General 06/20/20 documented as of this encounter
--- OUTSIDE RECORDS SUMMARY | 2024-07-11 16:00 | XMS_ITS | Encounter Summary ---
Author Organization [facility] Address [address] [place] [address] Care Team Providers Care Fisher Pound Net Or Trap Name Role Phone Luis Caraballo MD Primary Care Provider +1- [phone] Reason for Referral * Consultation (Routine) - Authorized Specialty Diagnoses / Procedures Referred By Radha ramos Referred To Contact Diagnoses Stage 3b chronic kidney disease (CMS/HCC) Mp Reis PA [address] [place] [address] Phone: tel: fax: Referral ID Status Reason Start Date Expiration Date V isits Requested Visits Authorized [id number] Authorized 07/11/2024 01/10/2026 1 1 Reason for Visit * Reason Comments Follow-up Encounter Details Date Type Department Care Team (Late st Contact Info) Description 07/11/2024 4:00 PM EDT Office Visit [facility] Nephrology, Bone & Mineral Metabolism [address], [address] [place] [address] Mp Reis PA [address] [place] [address] Stage 3b chronic kidney disease (CMS/HCC) (Primary Dx); Essential hypertension; Hypervolemia, unspecified hypervolemia type; Hyperkalemia Social History Tobacco Use Types Packs/Day Years [...] Sign Reading Time Taken Comments Blood Pressure 151/90 07/11/2024 4:04 PM EDT Pulse 81 07/11/2024 4:04 PM EDT Temperature 36.7 C (98.1 F) 07/11/2024 4:04 PM EDT Respiratory Rate 16 07/11/2024 4:04 PM EDT Oxygen Saturation 97% 07/11/2024 4:04 PM EDT Inhaled Oxygen Concentration - - Weight 92.5 kg (203 lb 14.8 oz) 07/11/2024 4:04 PM EDT Height 185.4 cm (6' 1 ) 07/11/2024 4:04 PM EDT p er pt Body Mass Index 26.9 07/11/2024 4:04 PM EDT documented in this encounter Miscellaneous Notes * Progress Notes - Mp Reis PA - 07/11/2024 4:00 PM EDT Nephrology Clinic Follow Up Note 07/11/24 HPI Mouna Garcia is a 69yo man with PMHx significant for ADRIANNE on CKD, DM2, HTN, CAD h/o CABG 2002 andGo who presents to Nephrology Clinic for follow up, ADRIANNE/CKD; referred by PCP Mp Jack MD. He presents to clinic today with his . Since his last visit in Mar, he has continued CIC 3-4x/day for severe radha hydronephrosis with obstructive nephropathy; he now has scheduled HoLEP for 08/17/24. (U/S 12/19/23 showing R 12.2 x 7.3cm, L 12.7 x 6.3cm with severe radha hydronephrosis, markedly distended bladder with estimated 2L volume; post void residual was 1.7L). He was also admitted to [facility] 02/24/24-02/27/24 for complicated, recurrent UTI in setting of Jardianceand CIC, with resultant ADRIANNE, peak Cr 3.47 on admission. His home BP journal shows excellent BP control at home mostly 110s-130s/80s. He does note radha LE swelling neil after long days on his feet. He does not take a diuretics. 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 Otherwise, he deniesfever, chills, SOA, CP, abd pain, N/V/D, dysuria, gross hematuria or LE swelling. Review of Systems A 14 point ROS reviewed and is otherwise negative except as per HPI Past 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: Diagnosis Date Diabetes mellitus ([facility]) Hypertension Kidney disease Current Outpatient Medications Medication Instructions amLODIPine (NORVASC) 10 mg aspirin 81 mg, Every morning atorvastatin (LIPITOR) 80 mg, Nightly clopidogrel (PLAVIX) 75 mg, Every morning glyBURIDE (DIABETA) 5 mg, Daily with breakfast irbesartan (AVAPRO) 300 mg, Daily metoprolol succinate XL (TOPROL-XL) 200 mg, Every morning NIFEdipine XL (PROCARDIA XL) 60 mg, Oral, Daily, Do not crush, chew, or split. Replaces amlodipine [place]-3 Fatty Acids (FISH OIL HIGH POTENCY PO) 1 capsule, Daily omeprazole (PRILOSEC) 40 mg, Every morning trospium (SANCTURA) 20 mg, Oral, 2 times daily Physical Exam Visit Vitals BP (!) 151/90 (BP Location: Left arm, Patient Position: Sitting, BP Cuff Size: Adult) Pulse 81 Temp 36.7 ??C (98.1 ??F) (Oral) Ht 1.854 m (6' 1 ) Comment: per pt Wt 92.5 kg (203 lb 14.8 oz) SpO2 97% BMI 26.90 kg/m?? GEN: NAD, sitting in chair, room air EYES: anicteric, EOMI ENT: MMM, Oropharynx clear RESP: patent airways, CTAB, no rales, rhonchi, wheezes CV: RRR, no appreciable murmurs Abd: soft, NT, ND, NABS MS/EXT: 1-2+ radha LE edema, no new rashes PSYCH: mood appropriate, affect normal NEURO: AAOx3, follows commands Labs: [facility]: 11/04/23: Cr 3.13, eGFR 21, Na 137, CL 105, BUN 59, K 5.7, CO2 20, Ca 9.9 See Media for prior labs as well. Cr on 05/20/23 was 1.76, 05/27 was 1.4, 10/19 was 2.96, 10/26 was 3.46 (peak), 11/03 was 3.13 Lab Results Component Value Date NA 141 05/31/2024 K 5.0 (H) 05/31/2024 CL 108 (H) 05/31/2024 CO2 23 05/31/2024 GLUCOSE 145 (H) 05/31/2024 ALBUMIN 4.4 05/31/2024 MG 2.6 (H) 02/24/2024 BUN 42 (H) 05/31/2024 CREATININE 2.02 (H) 05/31/2024 EGFR 35.5 05/31/2024 Lab Results Component Value Date CALCIUM 9.8 05/31/2024 PHOS 3.7 03/29/2024 PTH 91 (H) 11/23/2023 VITD25 34.4 11/23/2023 Lab Results Component Value Date WBC 11.70 (H) 05/31/2024 HGB 12.8 (L) 05/31/2024 HCT 40.0 05/31/2024 PLT 333 05/31/2024 Lab Results Component Value Date FERRITIN 25 03/29/2024 TRANSFERNSAT 14 03/29/2024 IRON 46 (L) 03/29/2024 TIBC 318 03/29/2024 TRANSFERRIN 254 03/29/2024 Lab Results Component Value Date USG 1.022 02/25/2024 ROXANNE 6.0 02/25/2024 URINEPRO 100 (A) 02/25/2024 GLUCOSEU >=1000 (A) 02/25/2024 BLOODU Trace (A) 02/25/2024 NITRITEU Negative 02/25/2024 URBC >50 (A) 02/25/2024 HYLCST 3 - 5 02/25/2024 BACTERIAU Present 02/25/2024 RTECELLS Present 02/23/2024 SQUAMOUS 0 - 2 02/25/2024 Lab Results Component Value Date CREATUR 64 12/21/2023 PROTUR <6 12/21/2023 Imagin12/19/23 showing R 12.2 x 7.3cm, L 12.7 x 6.3cm with severe radha hydronephrosis, markedly distended bladder with estimated 2L volume; post void residual was 1.7L. See Media tab 11/08/23 renal U/S: R 13.1cm, L 12.2cm, left simple cyst, mod radha hydronephrosis. See media for full details. Assessment/Plan: Mouna Garcia is a 69yo man with PMHx significant for ADRIANNE on CKD, Radha hydro with atonic bladder with CIC, DM2, HTN, CAD h/o CABG 2002 and Gout who presents to Nephrology Clinic for follow up, ADRIANNE/CKD; referred by PCP Mp Jack MD. # Recurrent ADRIANNE on CKD. Obstructive Nephropathy, then UTI with Jardiance - UA during admission 02/25/24- 1000 glucose, 100 PRO, >50 WBC, >50 RBC, + bacteria, UCX with Ecoli- received treatment. - US with radha hydronephrosis as above # CKD3b/4. Baseline Cr 2.2-2.5; progressively worsened from 2023 given repeated ADRIANNE # Radha hydronephrosis with urinary retention, atonic bladder # HTN. home BP journal in HPI. # Hyperkalemia- required 7d of Lokelma. # Recurrent UTI, including [facility] admission. Now off Jardiance RECS/PLAN: - Cr slowly trending down with plan for HoLEP on 08/17/24. Discussed need for Na and fluid restriction to improve his LE swelling and in-clinic HTN (home values much better). We can also revisit a diuretic if swelling and HTN persists- wants to try on his own first. - RTC in 3 months. - low Na diet - Discussed avoidance of NSAIDs and dehydration Mp Reis PA-C Nephrology Epic Chat preferred or [phone] documented in this encounter Plan of Treatment Upcoming Encounters Date Type Department Care Team (Latest Contact Info) Description 08/02/2024 3:15 PM EDT Pre-[facility] Testing [place] [facility] [address], 1st [place] [address] 08/14/2024 2:45 PM EDT Appointment Medical Office Building Physical Therapy [address] [facility] [facility], [address] [place] [address] Charlotte Pillai [address] [facility] [address] [place], [place] [id number] 08/17/2024 12:40 PM EDT Hospital Encounter [facility] [address] [place] [address] Courtney Young MD [address] [address] 08/17/2024 12:40 PM EDT - 08/17/2024 3:30 PM EDT Surgery [facility] [address] [place] [address] Courtney Young MD [address] [address] ENUCLEATION, PROSTATE, TRANSURETHRAL, USING HOLMIUM LASER ( HOLEP ) [[id number] (CPT )] 08/31/2024 12:15 PM EDT Appointment Medical Office Building Physical Therapy [address] [facility], [address] [place] [address] Charlotte Pillai [address] [facility] [address] [place] [address] 09/19/2024 3:30 PM EDT Office Visit Medical Office Building Urology [address] [facility], [address] [place] [address] Courtney Young MD [address] [address] 10/10/2024 4:00 PM EDT Office Visit [facility] Nephrology, Bone & Mineral Metabolism [address], [address] [place] [address] Mp Reis PA [address] [place] [address] 06/05/2025 10:45 AM EDT Appointment [facility] Radiology [address] [place] [address] 06/05/2025 11:50 AM EDT Clinical Support [place] [facility] Lab [address], [address]nd [place] [address] 06/05/2025 12:30 PM EDT Office Visit [facility] Urology [address], [address] [place] [address] Charlotte Rodriguez, BOTTLE ASSEMBLER, DNP [address] [place] [address] Scheduled Orders Name Type Priority Associated Diagnoses Orde r Schedule Renal Function Panel, Plasma Lab Routine Stage 3b chronic kidney disease ([facility]/HCC) Expected: 09/15/2024 (Approximate), Expires: 01/17/2026 Urinalysis with reflex microscopic (Culture NOT Included) Lab Routine Stage 3b chronic kidney disease ([facility]/HCC) Expected: 09/15/2024 (Approximate), Expires: 01/17/2026 Protein, Random, Urine with Creatinine Lab Routine Stage 3b chronic kidney disease (CMS/HCC) Expected: 09/15/2024 (Approximate), Expires: 01/17/2026 Creatinine, Random, Urine Lab Routine Stage 3b chronic kidney disease ([facility]/HCC) Expected: 09/15/2024 (Approximate), Expires: 01/17/2026 Scheduled Procedures Name Priority Associated Diagnoses Date/Ti me ENUCLEATION, PROSTATE, TRANSURETHRAL, USING HOLMIUM LASER Incomplete bladder emptying 08/17/2024 12:40 PM EDT Scheduled Referrals Name Type Priority Associated Diagnoses Order Schedule Follow Up Nephrology Outpatient Referral Routine Stage 3b chronic kidney disease (CMS/HCC) Expected: 10/11/2024 (Approximate), Expires: 08/10/2025 documented as of this encounter Visit Diagnoses Diagnosis Stage 3b chronic kidney disease (CMS/HCC)- Primary Essential hypertension Unspecified essential hypertension Hypervolemia, unspecified hypervolemia type Hyperkalemia Hyperpotassemia Incomplete bladder emptying documented in this encounter Additional Health Concerns Assessment Noted Time PHQ-9 Depression Total Score: 0 07/06/19 25 3:19 PM EDT A fall risk assessment has been complete d for the patient 07/11/2024 4:06 PM EDT A Body Mass Index follow-up plan has been documented for the patient 07/16/2024 3:18 PM EDT documented as of this encounter Care Teams Fisher Pound Net Or Trap Relationship Specialty Start Date End Date Luis Caraballo MD [address] [place] [address] PCP - General 06/20/20 documented as of this encounter
--- OUTSIDE RECORDS SUMMARY | 2024-08-02 11:07 | XMS_ITS | Encounter Summary ---
Author Organization [facility] Address [address] [place] [address] Care Team Providers Care Telephone Technician Name Role Phone Luis Caraballo MD Primary Care Provider +1- [phone] Encounter Details Date Type Department Care Team (Late st Contact Info) Description 07/10/2024 Telephone [place] [facility] Urology [address], [address] [place] [address] Courtney Young MD [address] [place] [address] Social History Tobacco Use Types Packs/Day Years [...] on file documented as of this encounter Miscellaneous Notes * Telephone Encounter - Nicki Ingram - 07/10/2024 3:29 PM EDT Patient 's returned call to schedule surgery - surgery arranged - discussed surgery directionswith patient's - she knows to expect a call from our preop anesthesia clinic the day prior to surgery with surgery and arrival time - all questions answered and surgery directions mailed to patient - address and phone number verified with patient's Patient will be going to [facility] 2 weeks prior to surgery to have a urine culture done - urine culture order mailed to patient and patient's is aware of this plan documented in this encounter Plan of Treatment Upcoming Encounters Date Type Department Care Team (Latest Contact Info) Description 08/02/2024 3:15 PM EDT Pre-Admission Testing [facility] Pre-op Clinic [address], 1st [place] [address] 08/14/2024 2:45 PM EDT Appointment Medical Office Building Physical Therapy [address] [facility], [address] [address] Charlotte Pillai [address] [facility] [address] [place] [address] 08/17/2024 12:40 PM EDT Hospital Encounter [facility]PERATING ROOM [address] [place] [address] Courtney Young MD [facility] [address] [address] 08/17/2024 12:40 PM EDT - 08/17/2024 3:30 PM EDT Surgery [facility]PER[facility] RO[facility] [address] [place] [address] Courtney Young MD [address] [address] ENUCLEATION, PROSTATE, TRANSURETHRAL, USING HOLMIUM LASER ( HOLEP ) [[id number] (CPT )] 08/31/2024 12:15 PM EDT Appointment Medical Office Building Physical Therapy [address] [facility], [address] [place] [address] Charlotte Pillai [address] [facility] [address] [place], [place] [id number] 09/19/2024 3:30 PM EDT Office Visit Medical Office Building Urology [address] [facility], [address] [place] [address] Courtney Young MD [address] [address] 10/10/2024 4:00 PM EDT Office Visit [facility] Nephrology, Bone & Mineral Metabolism [address] [facility], [address] [place] [address] Mp Reis PA [address] [facility] [address] [place] [address] 06/05/2025 10:45 AM EDT Appointment [facility] Radiology [address] [place] [address] 06/05/2025 11:50 AM EDT Clinical Support [place] [facility] Lab [address] [place] [address] 06/05/2025 12:30 PM EDT Office Visit [facility] Urology [address], [address] [place] [address] Charlotte Rodriguez, COUNTER MAKER, DNP [id number] [place] [address] Scheduled Orders Name Type Priority Associated Diagnoses Orde r Schedule Urine Culture Microbiology Routine Urine retention Incomplete bladder emptying Expected: 08/02/2024 (Approximate), Expires: 01/11/2026 Scheduled Procedures Name Priority Associated Diagnoses Date/Ti me ENUCLEATION, PROSTATE, TRANSURETHRAL, USING HOLMIUM LASER Incomplete bladder emptying 08/17/2024 12:40 PM EDT documented as of this encounter Visit Diagnoses Diagnosis Urine retention- Primary Unspecified retention of urine Incomplete bladder emptying Incomplete bladder emptying documented [...] documented as of this encounter Care Teams Telephone Technician Relationship Specialty Start Date End Date Luis Caraballo MD [address] [place] [address] PCP - General 06/20/20 documented as of this encounter
--- OUTSIDE RECORDS SUMMARY | 2024-08-02 11:07 | XMS_ITS | Encounter Summary ---
Author Organization [facility] Address [address] [place] [address] Care Team Providers Care Injection Wax Molder Name Role Phone Luis Caraballo MD Primary Care Provider [phone]- [phone] Reason for Visit * Reason Onset Date Comments HCN Clinical Concern/Question 06/08/2024 Encounter Details Date Type Department Care Team (Late st Contact Info) Description 06/08/2024 Telephone [facility] [address] [place] [address] Destiney Lyman APRN, DNP [address] [place] [address] HCN Clinical Concern/Question Social History Tobacco Use Types Packs/Day Years Used Date Smoking Tobacco: Never Smokeless Tobacco: Never Alcohol Use Standard Drinks/Week Comments Never 0 (1 standard drink = 0.6 oz pur e alcohol) PHQ-2 Answer Date Recorded Patient Health Questionnaire-2 Score 0 04/17/2024 PHQ-9 Answer Date Recorded Patient Health Questionnaire-9 Score 0 04/17/2024 Sex and Gender Information Value Date Recorded Sex Assigned at Male 02/23/2024 11:50 AM EST Legal Sex Male 7:50 PM EDT Gender Identity Not on file Sexual Orientation Not on file documented as of this encounter Miscellaneous Notes * Telephone Encounter - Destiney Lyman APRN, DNP - 06/08/2024 1:55 PM EDT Left vm to call back * Telephone Encounter - Danielle Rothman Filemon - 06/08/2024 8:45 AM EDT Patient Phone Message Reason for Call: Pt daughter is calling requesting results from UDS. Please advise Best contact number and optimal time of day to reach caller: [phone] Note: Please do not reply to this message. Follow-up communication and further actions as a result of this message need to be communicated with the patient directly, if the patient is not active onMyChart. If the patient is active on MyChart, they will receive notification of the communication/outcome via MyChart. documented in this encounter Plan of Treatment Upcoming Encounters Date Type Department Care Team (Latest Contact Info) Description 08/02/2024 3:15 PM EDT Pre-Admission Testing [facility] Pre-op [facility] [address] [place] [address] 08/14/2024 2:45 PM EDT Appointment Medical Office Building Physical Therapy [address] [facility], [address] [place] [address] Charlotte Pillai [address] [place] [address] 08/17/2024 12:40 PM EDT Hospital Encounter [facility] [address] [place] [address] Courtney Young MD [address] [facility] [address] [place] [address] 08/17/2024 12:40 PM EDT - 08/17/2024 3:30 PM EDT Surgery [facility] [address] [place] [address] Courtney Young MD [address] [facility] [place] [address] ENUCLEATION, PROSTATE, TRANSURETHRAL, USING HOLMIUM LASER ( HOLEP ) [[id number] (CPT )] 08/31/2024 12:15 PM EDT Appointment Medical Office Building Physical Therapy [address] [facility], [address] [place] [address] Charlotte Pillai [address] [place], [place] [id number] 09/19/2024 3:30 PM EDT Office Visit Medical Office Building Urology [address] [facility], [address] [place] [address] Courtney Young MD [address] [address] 10/10/2024 4:00 PM EDT Office Visit [facility] Nephrology, Bone & Mineral Metabolism [address] [facility], [address] [place] [address] Mp Reis, WILMER [address] [facility] [address] [place] [address] 06/05/2025 10:45 AM EDT Appointment P[facility] A Radiology [address] [place] [address] 06/05/2025 11:50 AM EDT Clinical Support [facility] Lab [address] [place] [address] 06/05/2025 12:30 PM EDT Office Visit [facility] Urology [address] [place] [address] Charlotte Rodriguez, SPEECH THERAPY DIRECTOR, DNP [address] [facility] [place] [address] Scheduled Procedures Name Priority Associated Diagnoses Date/Ti me ENUCLEATION, PROSTATE, TRANSURETHRAL, USING HOLMIUM LASER Incomplete bladder emptying 08/17/2024 12:40 PM EDT documented as of this encounter Visit Diagnoses Not on filedocumented in this encounter Additional Health Concerns Assessment Noted Time PHQ-9 Depression Total Score: 0 04/18/19 25 10:14 AM EDT A fall risk assessment has been complete d for the patient 04/17/2024 10:14 AM EDT A Body Mass Index follow-up plan has been documented for the patient 05/31/2024 10:55 AM EDT documented as of this encounter Care Teams Injection Wax Molder Relationship Specialty Start Date End Date Luis Caraballo MD [address] [place] [address] PCP - General 06/20/20 documented as of this encounter
--- OUTSIDE RECORDS SUMMARY | 2024-08-02 11:07 | XMS_ITS | Encounter Summary ---
Author Organization [facility] Address [address] [place] [address] Care Team Providers Care Forensic Technician Name Role Phone Luis Caraballo MD Primary Care Provider [phone]- [phone] Encounter Details Date Type Department Care Team (Latest Contact Info) Description 07/05/2024 Travel Social History Tobacco Use Types Packs/Day Years [...] on file documented as of this encounter Functional Status * Over the past 2 weeks, how often have you been bothered by any of the following problems? Question Answer Date of Assessment Author Little interest or pleasure in doing things Not at all 07/05/2024 3:19 PM Gino Benavidez Feeling down, depressed, or hopeless Not at all 07/05/2024 3:19 PM Gino Benavidez Patient Health Questionnaire -2 Score 0 07/05/2024 3:19 PM LUTHERT Gino Solares * Question Answer Date of [...] Gino Benavidez documented as of this encounter Plan of Treatment Upcoming Encounters Date Type Department Care Team (Latest Contact Info) Description 08/02/2024 3:15 PM EDT [facility] [address], [address] [place] [address] 08/14/2024 2:45 PM EDT Appointment Medical Office Building Physical Therapy [address] [facility], [address] [place] [address] Charlotte Pillai [address] [facility] [address] [place] [address] 08/17/2024 12:40 PM EDT Hospital Encounter [facility] OPERATING ROOM [address] [place] [address] Courtney Young MD [address] [address] 08/17/2024 12:40 PM EDT - 08/17/2024 3:30 PM EDT Surgery [facility]PERATING RO[facility] [address] [place] [address] Courtney Young MD [address] [address] ENUCLEATION, PROSTATE, TRANSURETHRAL, USING HOLMIUM LASER ( HOLEP ) [[id number] (CPT )] 08/31/2024 12:15 PM EDT Appointment Medical Office Building Physical Therapy [address] [facility] [address] [place] [address] Charlotte Pillai [address] [facility] [address] [place] [address] 09/19/2024 3:30 PM EDT Office Visit Medical Office Building Urology [address] [facility], [address] [place] [address] Courtney Young MD [address] [address] 10/10/2024 4:00 PM EDT Office Visit [facility] Nephrology, Bone & Mineral Metabolism [address] [facility], [address] [place] [address] Mp Reis, PA [address] [address] 06/05/2025 10:45 AM EDT Appointment PAV A Radiology [address] [place] [address] 06/05/2025 11:50 AM EDT Clinical Support [facility] Lab [address], [address] [place] [address] 06/05/2025 12:30 PM EDT Office Visit [facility] Urology [address] [place] [address] Charlotte Rodriguez, POWER PLANT SUPERINTENDENT, DNP [address] [place] [address] Scheduled Procedures Name Priority Associated [...] documented as of this encounter Care Teams Forensic Technician Relationship Specialty Start Date End Date Luis Caraballo MD [address] [facility] [address] [facility] [address] [place] [address] PCP - General 06/20/20 documented as of this encounter
--- OUTSIDE RECORDS SUMMARY | 2024-08-02 11:07 | XMS_ITS | Patient Health Record ---
Author Organization [facility] Address [address] [place] [id number] Care Team Providers Care Cognos Administrator Name Role Phone Catracho Tolentino Primary Care Provider MarcieMp Unavailable [phone] Arcelia Person Unavailable [phone] Allergies No Known Allergies Results Component Value Reference Range Notes P-Microalbumin/Creatinine, R andom Urine Sample Reviewed date:04/13/2024 09:18:25 AM Interpretation:a/c 125 Performing Lab: Notes/Report: Test performed by [facility] [address] [place] [address] , [address] [id number] Yan Bell MD, Special Education Resource Teacher CLIA: [id number] Albumin/Creatinine Ratio, Urine 125 0-30 ug/m g Microalbumin, Urine, Random 9.2 Creatinine, Urine 73.5 P-TSH reflex to FT4 Reviewed date:04/13/2024 09:18:25 AM Interpretation:Normal Performing Lab: Notes/Report: Test performed by [facility] [address] [place] [address] , [address], [place] [address] Yan Bell MD, Special Education Resource Teacher CLIA: [id number] TSH reflex to FT4 2.20 0.43-5.25 mU/L P-Phosphorus Reviewed date:04/13/2024 09:18:25 AM Interpretation:Normal Performing Lab: Notes/Report: Test performed by [facility] [address] [place] [address] , [address], [place] [address] Yan Bell MD, Special Education Resource Teacher CLIA: [id number] Phosphorus 3.2 2.5-4.5 mg/dL P-Lipid Panel Reviewed date:04/13/2024 09:18:25 AM Interpretation:hdl 32 Performing Lab: Notes/Report: Test performed by [facility] [address] , [address], [place] [address] Yan Bell MD, Special Education Resource Teacher CLIA: [id number] Cholesterol 119 <200 mg/dL Triglycerides 74 <150 [...] Results: 72 Units: mg/dL % Change: +10% P-Comprehensive Metabolic Pa marcelino (CMP) Reviewed date:04/13/2024 09:18:25 AM Interpretation:co2- 21, Cr 1.92, gfr 38 Performing Lab: Notes/Report: Test performed by [facility] [address] [place] [address] , [address], [place] [address] Yan Bell MD, Special Education Resource Teacher CLIA: [id number] Sodium 140 135-145 mmol/L Potassium 4.5 3.5-5.3 [...] 0.2 <0.2-1.2 mg/dL A/G Ratio 1.4 1.1-2.5 Glycohemoglobin A1c (in hous e) Reviewed date:04/12/2024 10:39:52 AM Interpretation: Performing Lab: Notes/Report: glycohemoglobin 6.4% 5 - 6.5 % CBC Venipuncture (in house) Reviewed date:04/12/2024 10:42:13 [...] - 38 platlet 367 100 - 400 Glucose (In-House) Reviewed date:04/12/2024 10:39:09 AM Interpretation: Performing Lab: Notes/Report: blood glucose 124 74 - 106 mg/dL Glucose (In-House) Reviewed date:10/21/2023 12:24:32 PM Interpretation:143 [...] 22 Performing Lab: Notes/Report: Test performed by [facility] [address] [place] [address] , [address], [place] [address] Yan Bell MD, Special Education Resource Teacher CLIA: [id number] Sodium 142 135-145 mmol/L Potassium 5.8 3.5-5.3 mmol/L Chloride 108 97-108 mmol/L CO2 21 22-32 mmol/L Glucose 116 65-99 mg/dL BUN 52 8-23 mg/dL Creatinine 2.96 0.70-1.30 mg/dL Calcium 10.5 8.6-10.4 mg/dL eGFR by Creatinine 22 >59 mL/min/1.73m2 P-Phosphorus Reviewed date:10/21/2023 12:24:32 PM Interpretation:4.8 Performing Lab: Notes/Report: Test performed by [facility] [address] [place] [address] , [place] [address] Yan Bell MD, Special Education Resource Teacher CLIA: [id number] Phosphorus 4.8 2.5-4.5 mg/dL P-Parathyroid Hormone (PTH) Intact Reviewed date:10/21/2023 12:24:32 PM Interpretation:Normal Performing Lab: Notes/Report: Test performed by [facility] [address] [place] [address] , [place] [address] Yan Bell MD, Special Education Resource Teacher CLIA: [id number] Parathyroid Hormone (PTH) Intact 27.6 15.0-65. 0 pg/mL P-Basic Metabolic Panel (BMP ) Reviewed date:10/28/2023 10:17:24 AM Interpretation:Na 133, co2- 19, gluc 115, bun 62, Cr 3.46, gfr 19 Performing Lab: Notes/Report: Test performed by [facility] [address] [place] [address] , [place] [address] Yan Bell MD, Special Education Resource Teacher CLIA: [id number] Sodium 133 135-145 mmol/L Potassium 5.2 3.5-5.3 mmol/L Chloride 102 97-108 mmol/L CO2 19 22-32 mmol/L Glucose 115 65-99 mg/dL BUN 62 8-23 mg/dL Creatinine 3.46 0.70-1.30 mg/dL Calcium 9.4 8.6-10.4 mg/dL eGFR by Creatinine 19 >59 mL/min/1.73m2 P-Basic Metabolic Panel (BMP ) Reviewed date:11/08/2023 10:34:02 AM Interpretation:K+ 5.7, co2- 20, gluc 109, bun 59, Cr 3.13, gfr 21 Performing Lab: Notes/Report: Test performed by [facility] [facility] , [address], [place] [address] Yan Bell MD, Special Education Resource Teacher CLIA: [id number] Sodium 137 135-145 mmol/L Potassium 5.7 3.5-5.3 [...] bilateral hydronephrosis, benign appearing right renal cysts Medications Medication SIG (Take, Route, Frequency, Duration) Notes Start Date End Date Status amLODIPine Besylate 10 MG 1 tablet Orall y Once a day; Duration: 90 days Active Accu-Chek Guide w/Device test twice a day 11/03/19 Active Accu-Chek Softclix Lancets - test twice a day 11/03/2022 Active Metoprolol Succinate ER 50 MG 1 tablet Orally Once a day; Duration: 90 days 04/12/2024 Active Irbesartan 300 MG 1 tablet Orally Once a day; Duration: 90 days 10/21/2023 Active Aspirin Adult Low Dose 81 MG 1 tab(s) orally once a day Active Clopidogrel Bisulfate 75 MG 1 tab(s) ora lly once a day; Duration: 90 days Active glyBURIDE 5 MG 1 tablet with breakf ast or the first main meal of the day Orally Once a day; Duration: 90 days 11/18/2023 Active Atorvastatin Calcium 80 MG 1 tab(s) oral ly at bedtime; Duration: 90 days Active Accu-Chek Guide - USE TO test blood burnett gar TWICE DAILY; Duration: 50 Active Immunizations Vaccine Route Administration Date Status Comme nts xFlu shot-36 months and older IM Intramuscular 12/24/2004 Administered Shingrix Unknown 12/08/2020 Administered Shingrix Unknown 04/24/2021 Administered Prevnar (PCV20) IM Intramuscular 10/20/2023 Administered PNEUMOVAX 23 VACCINE IM Intramuscular 03/21/2014 Administe red Fluzone High Dose (65yr and older) IM Intramuscular 11/02/2022 Administered Fluzone High Dose (65yr and older) IM Intramuscular 10/20/2023 Administered COVID 19 Moderna Unknown 05/07/2020 Administered COVID 19 Moderna Unknown 06/04/2020 Administered COVID 19 Moderna Unknown 01/07/2021 Administered Problems Problem Type SNOMED Code ICD Code Onset Dates Problem Status W/U Status Risk Notes Problem Essential hypertension (87809702) Essential (primary) hypertension (I10) Active confirmed Problem Hypertension (96086412) HTN (hypertension) (I10) Active confirmed Problem Gout (69023008) Gout (M10.9) Active confirmed Problem Essential hypertension (18699857) Essential hypertension (I10) Active confirmed Problem Hyperuricemia (49214308) Hyperuricemia (E79.0) Active confirmed Problem Bandemia (342415291) Bandemia (D72.825) Active confirmed Problem Pure hypercholesterolemia (019859692) Pure hypercholesterolemia (E78.0) Active confirmed Problem 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) Primary osteoarthritis, unspecified site (M19.91) Active confirmed Problem Gastroesophageal reflux disease without esophagitis (412601945) Gastroesophageal reflux disease without esophagitis (K21.9) Active confirmed Problem Atherosclerotic hear t disease of [place] coronary artery without angina pectoris (865511060137722) Coronary artery disease involving [place] coronary artery of [place] heart without angina pectoris (I25.10) Active confirmed Problem Acute pain of ri ght knee (M25.561) Active confirmed Problem Chronic kidney disease stage 4 (798474460) CKD (chronic kidney disease) stage 4, GFR 15-29 ml/min (N18.4) Active confirmed Problem Type II diabetes mellitus without complication (656230739) Type 2 diabetes mellitus without complication, without long-term current use of insulin (E11.9) Active confirmed Problem Pure hypercholesterolemia (399817472) Pure hypercholesterolemia, unspecified (E78.00) Active confirmed Problem Diverticular disease of colon (080938392) Pancolonic diverticulosis (K57.30) Active confirmed Problem Chronic kidney disease stage 4 (241422103) Stage 4 chronic kidney disease (N18.4) Active confirmed Vital Signs Heart Rate 72 /min 04/12/2024 Blood pressure diastolic 92 mm Hg 04/12/2024 Height 72 in 04/12/2024 Blood pressure systolic 170 mm Hg 04/12/2024 Weight 198.6 lbs 04/12/2024 BMI 26.93 kg/m2 04/12/2024 Encounters Encounter Location Date Provider Diagnosis [facility] [address] [facility] [address] [place], [place] [id number] 10/20/2023 [place] HTN (hypertension) I 10 ; Type 2 diabetes mellitus without complication, without long-term current use of insulin E11.9 and Renal insufficiency N28.9 [facility] [address] [facility] [address] [place], [place] [id number] 10/27/2023 [place] Essential (primary) hypertension I10 [facility] [address] [place], [place] [id number] 11/04/2023 Arceliaronak Person Stage 4 chronic kidn ey disease N18.4 ; Type 2 diabetes mellitus without complication, without long-term current use of insulin E11.9 ; Coronary artery disease involving [place] coronary artery of [place] heart without angina pectoris I25.10 ; HTN (hypertension) I10 and Pure hypercholesterolemia, unspecified E78.00 [facility] [address] [place], [place] [id number] 04/12/2024 [place] HTN (hypertension) I 10 ; Type 2 diabetes mellitus without complication, without long-term current use of insulin E11.9 ; Pure hypercholesterolemia, unspecified E78.00 and CKD (chronic kidney disease) stage 4, GFR 15-29 ml/min N18.4 [facility] [address] [place], [place] [id number] 02/09/2024 Catracho Tolentino [facility] [address] [facility] [address] [place], [place] [id number] 10/21/2023 [place] HTN (hypertension) I 10 [facility] [address] [place] [id number] 10/28/2023 [place] CKD (chronic kidney disease) stage 4, GFR 15-29 ml/min N18.4 [facility] [address] [place], [place] [id number] 11/08/2023 Arcelia Person [facility] [address] [place] [id number] 11/09/2023 Arcelia Hamiltondy [facility] [address] [place] [id number] 11/17/2023 [place] [facility] [address] [place] [id number] 11/17/2023 Catracho Tolentino [facility] [address] [place] [id number] 04/13/2024 [place] Assessments Encounter Date Diagnosis (ICD Code) Assessment Notes Treatment Notes Treatment Clinical Notes Section Notes 10/20/2023 HTN (hypertension) (ICD-10 - I10) 10/20/2023 Type 2 diabetes mellitus without complication, without long-term current use of insulin (ICD-10 - E11.9) 10/21/2023 HTN (hypertension) (ICD-10 - I10) 10/28/2023 CKD (chronic kidney disease) stage 4, GFR 15-29 ml/min (ICD-10 - N18.4) 11/04/2023 Type 2 diabetes mellitus without complication, without long-term current use of insulin (ICD-10 - E11.9) 11/04/2023 Stage 4 chronic kidney disease (ICD-10 - N18.4) 04/12/2024 HTN (hypertension) (ICD-10 - I10) 04/12/2024 Type 2 diabetes mellitus without complication, without long-term current use of insulin (ICD-10 - E11.9) 11/04/2023 Coronary artery disease involving [place] coronary artery of [place] heart without angina pectoris (ICD-10 - I25.10) 04/12/2024 Pure hypercholesterolem ia, unspecified (ICD-10 - E78.00) 10/27/2023 Essential (primary) hypertension (ICD-10 - I10) 10/20/2023 Renal insufficiency (ICD-10 - N28.9) 11/04/2023 HTN (hypertension) (ICD-10 - I10) 04/12/2024 CKD (chronic kidney disease) stage 4, GFR 15-29 ml/min (ICD-10 - N18.4) 11/04/2023 Pure hypercholesterolem ia, unspecified (ICD-10 - E78.00) Plan Of Treatment No Information Insurance Providers Payer Name Payer Address Payer Phone Subscriber Number Group Number Insured Name Patient Relationship to Insured Coverage Start Date Coverage End Date [employer] (MEDICAR E) [address] [address] [place] [address] [id number] MANISH MELO Self - patient is the insured Medications Administered Medication Instructions Date of Administration Dosage Notes Dexamethasone 01/23/2020 1 mL Medical (General) History 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 History ICD Code Type 2 Diabetes Hypertension Hyperlipidemia ASCVD Osteoarthritis Arthritis Diverticulosis Gout Chronic kidney disease BPH Surgical History Surgery Date(Month/Year) CABG 11/15/2002 Colonoscopy 02/2009 Stent to SVG to Circumflex 07/27/2019 Hospitalization History Reason Date(Month/Year)
--- OUTSIDE RECORDS SUMMARY | 2024-08-02 11:07 | XMS_ITS | Encounter Summary ---
Author Organization Healthcare Address [address] [place] [address] Care Team Providers Care Orchestrator Name Role Phone Luis Caraballo MD Primary Care Provider +1- [phone] Encounter Details Date Type Department Care Team (Late st Contact Info) Description 05/31/2024 Orders Only External Location [address] [place] [address] Provider, External Social History Tobacco Use Types Packs/Day Years [...] as of this encounter Functional Status * Calculated C-SSRS Risk Score (Lifetime/Recent) Answer Date of Assessment Author No Risk Indicated 05/31/2024 10:18 AM EDT Manuel Santos RN * Question Answer Date of Assessment Author 1. Wish to be (Past 1 Month) No 025 10:18 AM EDT Manuel Santos RN 2. Non-Specific Active Suici carolina Thoughts (Past 1 Month) No 05/31/2024 10:18 AM EDT Tom, Mayl eigh, RN 6. Suicidal Behavior (Lifetime) No 10:18 AM EDT Manuel Santos RN documented as of this encounter Plan of Treatment Upcoming Encounters Date Type Department Care Team (Latest Contact Info) Description 08/02/2024 3:15 PM EDT Pre-Admission Testing [facility] [address], 1st [place] [address] 08/14/2024 2:45 PM EDT Appointment Medical Office Building Physical Therapy [address] [facility], [address] [place] [address] Charlotte Pillai [address] [facility] [address] [place] [address] 08/17/2024 12:40 PM EDT Hospital Encounter [facility] [address] [place] [address] Courtney Young MD [facility] [address] [address] 08/17/2024 12:40 PM EDT - 08/17/2024 3:30 PM EDT Surgery [facility] [address] [place] [address] Courtney Young MD [facility] [address] [address] ENUCLEATION, PROSTATE, TRANSURETHRAL, USING HOLMIUM LASER ( HOLEP ) [20034 (CPT )] 08/31/2024 12:15 PM EDT Appointment Medical Office Building Physical Therapy [address] [facility], [address] [place] [address] Charlotte Pillai [address] [facility] [address] [place] [address] 09/19/2024 3:30 PM EDT Office Visit Medical Office Building Urology [address] [facility], [address] [place] [phone] Courtney Young MD [address] [facility] [address] [place] [phone] 10/10/2024 4:00 PM EDT Office Visit [facility] Nephrology, Bone & Mineral Metabolism [address] , [address] [place] [address] Mp Reis PA [address] [place] [address] 06/05/2025 10:45 AM EDT Appointment PAV A Radiology [address] [place] [address] 06/05/2025 11:50 AM EDT Clinical Support [facility] [address], 2nd [place] [address] 06/05/2025 12:30 PM EDT Office Visit [facility] Urology [address], 2nd [place] [address] Charlotte Rodriguez, TELECOMMUNICATIONS OPERATOR, DNP [address] [facility] [address] [place] [address] Scheduled Procedures Name Priority Associated Diagnoses Date/Ti me ENUCLEATION, PROSTATE, TRANSURETHRAL, USING HOLMIUM LASER Incomplete bladder emptying 08/17/2024 12:40 PM EDT documented as of this encounter Procedures Procedure Name Priority Date/Time Associated Diagnosis Comments POC ULTRASOUND 05/31/2024 documented in this encounter Results * POC Imaging (05/31/2024) Anatomical Region Laterality Modality Pelvis Other 05/31/2024 us External Provider IMG POINT OF CARE ULTRASOUND F inal Result documented in this encounter Visit Diagnoses Not on filedocumented [...] documented as of this encounter Care Teams Orchestrator Relationship Specialty Start Date End Date Luis Caraballo MD [address] [place] [address] PCP - General 06/20/20 documented as of this encounter
--- OUTSIDE RECORDS SUMMARY | 2024-08-02 11:07 | XMS_ITS | Encounter Summary ---
Author Organization [facility] Address [address] [place] [address] Care Team Providers Care Raise Miner Name Role Phone Luis Caraballo MD Primary Care Provider +1- [phone] Reason for Visit * Reason Comments Med Refill Encounter Details Date Type Department Care Team (Late st Contact Info) Description 04/14/2024 [facility]ill [facility] [address], 2[address] [place] [address] Charlotte Rodriguez, HAND SCREEN PRINTER, DNP [address] [place] [address] Social History Tobacco Use Types [...] pleasure in doing things Not at all 04/17/2024 10:14 AM Sue Escobar RN Feeling down, depressed, or hopeless Not at all 04/17/2024 10:14 AM Sue Escobar RN Patient Health Questionnaire-2 Score 0 04/17/2024 10:14 AM Sue Escobar RN * Question Answer Date of Assessment Author Trouble falling or staying asleep, or sleeping too much Not at all 04/17/2024 10:14 AM Sue Escobar RN Feeling tired or having little energy Not at all 04/17/2024 10:14 AM Sue Escobar RN Poor appetite or overeating Not at all 04/17/2024 10 :14 AM Sue Escobar RN Feeling bad about yourself - or that you are a failure or have let yourself or your family down Not at all 04/17/2024 10:14 AM Sue Escobar RN Trouble concentrating on things, such as reading the newspaper or watching television Not at all 04/17/2024 10:14 AM Sue Escobar RN Moving or speaking so slowly that other people could have noticed? Or the opposite - being so fidgety or restless that you have been moving around a lot more than usual. Not at all 04/17/2024 10:14 AM Sue Angela RN Thoughts that you would be better off or hurting yourself in some way Not at all 04/17/2024 10:14 AM Sue Escobar RN Patient Health Questionnaire-9 Score 0 04/17/2024 10:14 AM Sue Escobar RN * Calculated C-SSRS Risk Score (Lifetime/Recent) Answer Date of Assessment Author No Risk Indicated 04/17/2024 10:14 AM Sue Angela RN * Question Answer Date of Assessment Author 1. Wish to be (Past 1 Month) No 025 10:14 AM Sue Escobar RN 2. Non-Specific Active Suici carolina Thoughts (Past 1 Month) No 04/17/2024 10:14 AM EDT Haynes, Car ol I, RN 6. Suicidal Behavior (Lifetime) No 10:14 AM EDT Sue Haynes I, RN documented as of this encounter Miscellaneous Notes * Telephone Encounter - Destiney Amador, PharmD - 04/16/2024 10:16 AM EDT Refill request does not meet protocol. Sending to clinic for review. Additional info: Clarification required: appt tomorrow 04/17. documented in this encounter Plan of Treatment Upcoming Encounters Date Type Department Care Team (Latest Contact Info) Description 08/02/2024 3:15 PM EDT Pre-Admission Testing [facility] Pre-op Clinic [address], [address] [place] [address] 08/14/2024 2:45 PM EDT Appointment Medical Office Building Physical Therapy [address] [facility], [address] [place] [phone] Charlotte Pillai [address] [facility] [address] [place] [address] 08/17/2024 12:40 PM EDT Hospital Encounter P[facility] A OPERATING ROOM [address] [place] [address] Courtney Young MD [address] [place] [phone] 08/17/2024 12:40 PM EDT - 08/17/2024 3:30 PM EDT Surgery [facility] OPERATING ROOM [address] [place] [address] Courtney Young MD [address] [place] [phone] ENUCLEATION, PROSTATE, TRANSURETHRAL, USING HOLMIUM LASER ( HOLEP ) [00972 (CPT )] 08/31/2024 12:15 PM EDT Appointment Medical Office Building Physical Therapy [address] [facility], [address] [place] [address] Charlotte Pillai [address] [facility] [address] [place], [place] [id number] 09/19/2024 3:30 PM EDT Office Visit Medical Office Building Urology [address] [facility], [address] [place] [address] Courtney Young MD [address] [facility] [address] [place] [address] 10/10/2024 4:00 PM EDT Office Visit [facility] Nephrology, Bone & Mineral Metabolism [address] [facility], [address] [place] [address] Mp Reis PA [address] [facility] [address] [place] [address] 06/05/2025 10:45 AM EDT Appointment PAV A Radiology [address] [place] [address] 06/05/2025 11:50 AM EDT Clinical Support [facility] Lab [address], 2nd [place] [address] 06/05/2025 12:30 PM EDT Office Visit [facility] Urology [address], 2nd [place] [address] Charlotte Rodriguez, HAND SCREEN PRINTER, DNP [address] [facility] [address] [place] [address] Scheduled Procedures Name Priority Associated Diagnoses Date/Ti me ENUCLEATION, PROSTATE, TRANSURETHRAL, USING HOLMIUM LASER Incomplete bladder emptying 08/17/2024 12:40 PM EDT documented as of this encounter Visit Diagnoses Not on filedocumented in this encounter Additional Health Concerns Assessment Noted Time A fall risk assessment has been complete d for the patient 04/04/2024 2:28 PM EST A Body Mass Index follow-up plan has been documented for the patient 04/09/2024 4:26 PM EST documented as of this encounter Care Teams Raise Miner Relationship Specialty Start Date End Date Luis Caraballo MD [address] [place] [address] PCP - General 06/20/20 documented as of this encounter
--- OUTSIDE RECORDS SUMMARY | 2024-08-02 11:07 | XMS_ITS | Encounter Summary ---
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 Role Phone Luis Caraballo MD Primary Care Provider +1- [phone] Encounter Details Date Type Department Care Team (Latest Contact Info) Description 07/11/2024 Travel Social History Tobacco Use Types Packs/Day [...] on file documented as of this encounter Plan of Treatment Upcoming Encounters Date Type Department Care Team (Latest Contact Info) Description 08/02/2024 3:15 PM EDT [facility] [address], [address] [place] [phone] 08/14/2024 2:45 PM EDT Appointment Medical Office Building Physical Therapy [address] [facility], [address] [place] [address] Charlotte Pillai [address] [facility] [address] [place] [address] 08/17/2024 12:40 PM EDT Hospital Encounter P[facility] A OPERATING ROOM [address] [place] [address] Courtney Young MD [address] [address] 08/17/2024 12:40 PM EDT - 08/17/2024 3:30 PM EDT Surgery P[facility] A OPERATING ROOM [address] [place] [address] Courtney Young MD [address] [address] ENUCLEATION, PROSTATE, TRANSURETHRAL, USING HOLMIUM LASER ( HOLEP ) [[id number] (CPT )] 08/31/2024 12:15 PM EDT Appointment Medical Office Building Physical Therapy [address] [facility], [address] [place] [address] Charlotte Pillai [address] [facility] [address] [place] [address] 09/19/2024 3:30 PM EDT Office Visit Medical Office Building Urology [address] [facility], [address] [place] [address] Courtney Young MD [address] [address] 10/10/2024 4:00 PM EDT Office Visit [facility] Nephrology, Bone & Mineral Metabolism [address] [facility], [address] [place] [address] Mp Reis, WILMER [address] [address] 06/05/2025 10:45 AM EDT Appointment PAV A Radiology [address] [place] [address] 06/05/2025 11:50 AM EDT Clinical Support [facility] [address], [address]nd [place] [address] 06/05/2025 12:30 PM EDT Office Visit [facility] Urology [address], [address] [place] [address] Charlotte Rodriguez, JD EDWARDS CONSULTANT, DNP [address] [place] [address] Scheduled Procedures Name Priority Associated Diagnoses Date/Ti [...] documented as of this encounter Care Teams 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
--- OUTSIDE RECORDS SUMMARY | 2024-08-02 11:08 | XMS_ITS | Clinical Summary ---
Author Organization [facility] Address [address] [place] [address] Care Team Providers Care Web Production Artist Name Role Phone Luis Caraballo MD Primary Care Provider [phone] Allergies No known active allergies Medications atorvastatin (Lipitor) 80 MG tablet Take 1 tablet (80 mg) by mouth nightly. 4 Active clopidogrel (Plavix) 75 MG tablet Take 1 tablet (75 mg) by mouth every morning. 4 Active omeprazole (PriLOSEC) [address] capsule Take 1 capsule (40 mg) by mouth every morning. 4 Active glyBURIDE (Diabeta) 5 MG tablet Take 1 tablet (5 mg) by mouth daily with breakfast. 4 Active aspirin 81 MG EC tablet Take 1 tablet (81 mg) by mouth every morning. Active metoprolol succinate XL (Toprol-XL) 200 MG 24 hr tablet Take 1 tablet (200 mg) by mouth every morning. 4 Active Cutler-3 Fatty Acids (FISH OIL HIGH POTENCY PO) Take 1 capsule by mouth in the morning. Active NIFEdipine XL (Procardia XL) 60 MG 24 hr tabletIndications :Essential hypertension Take 1 tablet (60 mg) by mouth daily. Do not crush, chew, or split. Replaces amlodipine 30 tablet 5 5 Active trospium (Sanctura) 20 MG tablet Take 1 tablet by mouth 2 (two) times a day. 60 tablet 11 5 06/01/19 26 Active irbesartan (Avapro) 300 MG tablet Take 1 tablet by mouth daily. 5 Active amLODIPine (Norvasc) 10 MG tablet Take 1 tablet by mouth. 4 Active Active Problems Problem Noted Date Diagnosed Date Bandemia 05/31/2024 Gastroesophageal reflux disease without esophagi tis 05/31/2024 Gout 05/31/2024 Hyperuricemia 05/31/2024 Pancolonic diverticulosis 05/31/2024 Primary osteoarthritis 05/31/2024 Pure hypercholesterolemia 05/31/2024 Type 2 diabetes mellitus wit hout complication, without long-term current use of insulin 05/31/2024 Urine retention 05/31/2024 Intermittent self-catheterization of bladder Gross hematuria 05/31/2024 Complicated UTI (urinary tract infection) 2024 Type 2 diabetes mellitus wit h hyperglycemia, without long-term current use of insulin 02/25/2024 Primary hypertension 02/25/2024 CKD (chronic kidney disease) 02/25/2024 Coronary artery disease invo lving coronary bypass graft of point [place] ir[place] heart 02/25/2024 Encounters Date Type Department Care Team Description 07/11/2024 4:00 PM EDT Office Visit [facility] Nephrology, Bone & Mineral Metabolism [address] [facility], [address] [place] [address] Mp Reis PA Stage 3b chronic kidney disease (CMS/HCC) (Primary Dx); Essential hypertension; Hypervolemia, unspecified hypervolemia type; Hyperkalemia 07/11/2024 Travel 07/10/2024 Telephone [facility] Urology [address], [address] [place] [phone] Courtney Young MD 07/05/2024 3:30 PM EDT Office Visit [facility] [address] [facility], [address] [place] [address] Courtney Young MD Incomplete bladder emptying 07/05/2024 Travel 06/08/2024 Telephone [facility]rology [address], [address]nd [place] [address] Destiney Lyman APRN, DNP HCN Clinical Concern/Question 05/31/2024 10:07 AM EDT - 05/31/2024 2:21 PM EDT Emergency [facility] [address] [place] [address] Marck Torres MD Vasovagal attack (Primary Dx) Discharge Disposition: Home or Self Care 05/31/2024 8:00 AM EDT Office Visit [facility] [address] [place] [address], [address] [place] [address] Destiney Lyman APRN, DNP Urine retention (Primary Dx); Incomplete bladder emptying; Intermittent self-catheterization of bladder; Gross hematuria 05/31/2024 Orders Only External Location [address] [place] [address] Provider, External 05/31/2024 Travel 05/30/2024 Telephone [facility] [address] [place] [address], [address] [place] [phone] Bridget Cristina LPN from Last 3 Months Immunizations Immunization Administration Dates Next Due Influenza Vaccine, Quadrivalent, Adjuvanted 08/2021 Influenza, injectable, MDCK, preservative free, quadrivalent 12/08/2020 Pneumococcal 20-candido Conj Vaccine 10/20/2023 Zoster, Recombinant 04/24/2021,12/08/2020 Social History Tobacco Use Types Packs/Day Years Used Date Smoking Tobacco: Never Smokeless Tobacco: Never Tobacco Cessation:Counseling Given: Not Answered Alcohol Use Standard Drinks/Week Comments Never 0 [...] on file Sexual Orientation Not on file Last Filed Vital Signs Vital Sign Reading [...] Mass Index 26.9 07/11/2024 4:04 PM EDT Plan of Treatment Upcoming Encounters Date Type Department Care Team (Latest Contact Info) Description 08/02/2024 3:15 PM EDT Pre-Admission Testing [facility] Pre-op Clinic [address], [address] [place] [address] 08/14/2024 2:45 PM EDT Appointment [facility] Physical Therapy [address] [facility], [address] [address] Charlotte Pillai [address] [facility] [address] [place] [address] 08/17/2024 12:40 PM EDT Hospital Encounter [facility] [address] [place] [phone] Courtney Young MD [address] [phone] 08/17/2024 12:40 PM EDT - 08/17/2024 3:30 PM EDT Surgery [facility] [address] [place] [address] Courtney Young MD [address] [address] ENUCLEATION, PROSTATE, TRANSURETHRAL, USING HOLMIUM LASER ( HOLEP ) [[id number] (CPT )] 08/31/2024 12:15 PM EDT Appointment [facility] Physical [facility] [address] [facility], [address] [place] [address] [place] [address] Charlotte Pillai [address] [facility] [address] [place], [place] [id number] 09/19/2024 3:30 PM EDT Office Visit [facility] Urology [address] [facility], [address] [place] [address] Courtney Young MD [address] [place] [address] 10/10/2024 4:00 PM EDT Office Visit [facility] Nephrology, Bone & Mineral Metabolism [address] [facility], [address] [place] [address] Mp Reis, PA [address] [facility] [address] [place] [address] 06/05/2025 10:45 AM EDT Appointment [facility] Radiology [address] [place] [address] 06/05/2025 11:50 AM EDT Clinical Support [facility] [address], [address]nd [place] [phone] 06/05/2025 12:30 PM EDT Office Visit [facility] Urology [address], [address] [place] [address] Charlotte Rodriguez, TELEPHONE EXCHANGE OPERATOR, DNP [address] [place] [address] Scheduled Procedures Name Priority Associated Diagnoses Date/Ti me ENUCLEATION, PROSTATE, TRANSURETHRAL, USING HOLMIUM LASER Incomplete bladder emptying 08/17/2024 12:40 PM EDT Health Maintenance Due Date Last Done Comments [facility]-Diabetes: Hemoglobin A1C 1955 [facility]-Medicare Annual Wellness (AWV) 1955 [facility]-/Child/Adol SDOH Screenings 1956 Diabetes: Dental Exam 1966 [facility]- SDOH Screenings 1974 [facility]-Adult SDOH Screenings 1974 [facility]-DTaP,Tdap,and Td Vaccines (1 - Tdap) 06/14/1975 CT Colonography 2001 Colonoscopy 2001 FIT-DNA 2001 FIT 2001 FOBT 2001 Sigmoidoscopy 2001 [facility]-Colorectal Cancer Screening 2001 [facility]-RSV Vaccine: 60+ Years or (1 - Risk 60-74 years 1-dose series) 2016 [id number] Vaccine ( season) 2023 01/06/2022, 01/07/2021, 06/04/2020, Additional history exists [facility]-Influenza Vaccine (Season Ended) 2024 11/13/2021, 12/08/2020, 12/24/2004 [facility]-Depression Screening 07/05/2025 07/05/2024, 06/08 [facility]-Zoster Vaccines Completed 04/24/2021, [facility]-Pneumococcal Vaccine: 50+ Years Completed 10/20/2023, 03/21/2014 [facility]-Hepatitis C Screening Completed 02/23/2024 [facility]-Obesity Intervention Completed 025, 07/05/2024, 05/31/2024, Additional history exists HPV Vaccines Aged Out No longer eligi ble based on patient's age to complete this topic [facility]-HIB Vaccines Aged Out No longer e ligible based on patient's age to complete this topic [facility]-Hepatitis A Vaccines Aged Out No longer eligible based on patient's age to complete this topic [facility]-IPV Vaccines Aged Out No longer e ligible based on patient's age to complete this topic [facility]-Rotavirus Vaccines Aged Out No lo nger eligible based on patient's age to complete this topic Procedures Procedure Name Priority Date/Time Associated Diagnosis Comments CYSTO- UROLOGY Routine 07/05/2024 3:45 PM EDT Incomplete bladder emptying POCT URINALYSIS DIPSTICK Routine 07/05/2024 3:14 PM EDT TROPONIN T, HIGH SENSITIVITY, 2 HOUR, PLASMA Timed 05/31/2024 1:39 PM EDT N-TERMINAL PROBNP, PLASMA STAT 05/31/2024 11:24 AM EDT TROPONIN T, HIGH SENSITIVITY, 0 HOUR, PLASMA, REFLEX TO 2 HOUR STAT 05/31/2024 11:24 AM EDT COMPREHENSIVE METABOLIC PANEL, PLASMA STAT 05/31/2024 11:24 AM EDT CBC WITH AUTO DIFFERENTIAL STAT 05/31/2024 11:[address] CERVICAL SPINE WO IV CONTRAST STAT 05/31/2024 11:[address] HEAD WO IV CONTRAST STAT 11:15 AM EDT ECG ADULT STAT 05/31/2024 10:17 AM EDT UROLOGY UDS WITH BASE PERFORMABLE CHARGES Routine 05/31/2024 8:45 AM EDT Incomplete bladder emptying MD COMPLEX CYSTOMETROGRAM URETHRAL PRESS PROFILE Routine 05/31/2024 8:45 AM EDT Incomplete bladder emptying INJECTION FOR BLADDER XRAY WITH VOIDING Routine 05/31/2024 8:45 AM EDT Incomplete bladder emptying POC ULTRASOUND 05/31/2024 HEPATITIS C ANTIBODY - ED W/REFLEX TO HCV QUANT PCR STAT 02/23/2024 11:39 AM EST from Last 3 Months or Most Recently Relevant to Health Maintenance Results * CYSTO- UROLOGY (07/05/2024 3:45 PM [...] type: flexible Cystoscopy route: transurethral Cystoscopy location: point lay ira bladder Irrigation used: saline Position: supine Urethra [...] Clarity Clear 07/05/2024 3:15 PM EDT [facility] POCT Urine Glucose Negative Negative mg/dL 07/05/2024 3:15 PM EDT [facility] POCT Urine Bilirubin Negative Negative mg/dL 07/05/2024 3:15 PM EDT [facility] POCT Urine Ketones Negative Negative mg/dL 07/05/2024 3:15 PM EDT [facility] POCT Urine Specific [place] 1.015 1.005 - 1.030 07/05/2024 3:15 PM EDT [facility] POCT Urine Blood Trace(A) Negative 07/05/2024 3:15 PM EDT [facility] POCT pH, Urine 5.5 5.0 - 8.0 07/05/2024 3:15 PM EDT [facility] POCT Protein, Urine Negative Negative mg/dL 07/05/2024 3:15 PM EDT [facility] POCT Urobilinogen, Urine 0.2 0.2, 1.0 EU/dL 07/05/2024 3:15 PM EDT [facility] POCT Nitrite, Urine Positive(A) Negative 07/05/2024 3:15 PM EDT [facility] POCT Urine Leukocyte Esterase Small(A) Negative 07/05/2024 3:15 PM EDT [facility] Urine 07/05/2024 3:14 PM EDT 07/05/2024 3:15 PM EDT us Courtney Young MD LAB POINT OF CARE TE ST DOCKED DEVICE UNSOLICITED RESULTS Final Result [facility] [address] [place], [place] * Troponin T, High Sensitivity, 2 Hour, Plasma (05/31/2024 1:39 PM EDT) Troponin T, High Sensitivity, 2 Hour 12 <19 ng/L 05/31/2024 2:11 PM EDT [facility] Blood Venous blood specimen / Unknown Venipuncture / Unknown 05/31/2024 1:39 PM EDT 05/31/2024 1:42 PM EDT us Jaclyn Baeza APRN LAB BLOOD ORDERABLES Final Re sult Performing Organization Address City/[facility]/ZIP Co de Phone Number [facility] [address] [place] [address] * Troponin now and 120 min (05/31/2024 11:24 AM EDT) Troponin T, High Sensitivity, 0 Hour 14 <19 ng/L 05/31/2024 11:58 AM EDT [facility] Blood Venous blood specimen / Unknown Venipuncture / Unknown 05/31/2024 11:24 AM EDT 05/31/2024 11:26 AM EDT us Jaclyn Baeza APRN LAB BLOOD ORDERABLES Final Re sult [facility] [address] [place] [address] * BNP (05/31/2024 11:24 AM EDT) N-Terminal, PROBNP, Plasma 87 0 - 899 pg/mL 05/31/2024 11:58 AM EDT [facility] Blood Venous blood specimen / Unknown Venipuncture / Unknown 05/31/2024 11:24 AM EDT 05/31/2024 11:26 AM EDT us Jaclyn Catracho Baeza TELEPHONE EXCHANGE OPERATOR LAB BLOOD ORDERABLES Final Re sult [facility] [address] [place] [address] * (ABNORMAL) CBC w/diff (05/31/2024 11:24 AM EDT) WBC Count 11.70(H) 3.70 - 10.30 10*3/uL LAB HEMATOLOGY METHOD 05/31/2024 11:31 AM EDT [facility] RBC Count 4.59(L) 4.60 - 6.10 10*6/uL LAB HEMATOLOGY METHOD 05/31/2024 11:31 AM EDT [facility] HGB 12.8(L) 13.7 - 17.5 g/dL LAB HEMATOLOGY METHOD 05/31/2024 11:31 AM EDT [facility] HCT 40.0 40.0 - 51.0 % LAB HEMATOLOGY METHOD 05/31/2024 11:31 AM EDT [facility] Platelet Count 333 155 - 369 10*3/uL LAB HEMATOLOGY METHOD 05/31/2024 11:31 AM EDT [facility] MCV 87 79 - 98 fL LAB HEMATOLOGY METHOD 05/31/2024 11:31 AM EDT [facility] MCH 27.9 26.0 - 32.0 pg LAB HEMATOLOGY METHOD 05/31/2024 11:31 AM EDT [facility] MCHC 32.0 30.7 - 35.5 g/dL LAB HEMATOLOGY METHOD 05/31/2024 11:31 AM EDT [facility] RDW 15.2(H) 11.5 - 14.5 % LAB HEMATOLOGY METHOD 05/31/2024 11:31 AM EDT [facility] MPV 9.4 8.8 - 12.5 fL LAB HEMATOLOGY METHOD 05/31/2024 11:31 AM EDT [facility] nRBC 0.0 <=0.0 per 100 WBCs LAB HEMATOLOGY METHOD 05/31/2024 11:31 AM EDT [facility] Differential Type Automated LAB HEMATOLOGY METHOD 05/31/2024 11:31 AM EDT [facility] Neutrophils % 78 % LAB HEMATOLOGY METHOD 05/31/2024 11:31 AM EDT [facility] Lymphocytes % 15 % LAB HEMATOLOGY METHOD 05/31/2024 11:31 AM EDT [facility] Monocytes % 5 % LAB HEMATOLOGY METHOD 05/31/2024 11:31 AM EDT [facility] Eosinophils % 1 % LAB HEMATOLOGY METHOD 05/31/2024 11:31 AM EDT [facility] Basophils % 1 % LAB HEMATOLOGY METHOD 05/31/2024 11:31 AM EDT [facility] Immature Granulocytes % 0 % LAB HEMATOLOGY METHOD 05/31/2024 11:31 AM EDT [facility] Neutrophils Absolute 9.12(H) 1.60 - 6.10 10*3/uL LAB HEMATOLOGY METHOD 05/31/2024 11:31 AM EDT [facility] Lymphocytes Absolute 1.76 1.20 - 3.90 10*3/uL LAB HEMATOLOGY METHOD 05/31/2024 11:31 AM EDT [facility] Monocytes Absolute 0.56 0.30 - 0.90 10*3/uL LAB HEMATOLOGY METHOD 05/31/2024 11:31 AM EDT [facility] Eosinophils Absolute 0.16 0.00 - 0.50 10*3/uL LAB HEMATOLOGY METHOD 05/31/2024 11:31 AM EDT [facility] Basophils Absolute 0.08 0.00 - 0.10 10*3/uL LAB HEMATOLOGY METHOD 05/31/2024 11:31 AM EDT [facility] Immature Granulocytes Absolute 0.02 0.00 - 0.06 10*3/uL LAB HEMATOLOGY METHOD 05/31/2024 11:31 AM EDT [facility] Blood Venous blood specimen / Unknown Venipuncture / Unknown 05/31/2024 11:24 AM EDT 05/31/2024 11:26 AM EDT [facility] - 05/31/2024 11:31 AM EDT Therapeutic decision making should be based on absolute values, rather than percentages. Jaclyn Baeza APRN LAB BLOOD ORDERABLES Final Re sult [facility] [address] [place] [address] * (ABNORMAL) CMP (05/31/2024 11:24 AM EDT) Glucose, Plasma 145(H) 74 - 99 mg/dL 05/31/2024 11:58 AM EDT [facility] BUN, Plasma 42(H) 8 - 23 mg/dL 05/31/2024 11:58 AM EDT [facility] Creatinine, Plasma 2.02(H) 0.70 - 1.20 mg/dL 05/31/2024 11:58 AM EDT [facility] BUN/Creatinine Ratio 21 05/31/2024 11:58 AM EDT [facility] Sodium, Plasma 141 136 - 145 mmol/L 05/31/2024 11:58 AM EDT [facility] Potassium, Plasma 5.0(H) 3.6 - 4.9 mmol/L 05/31/2024 11:58 AM EDT [facility] Chloride, Plasma 108(H) 97 - 107 mmol/L 05/31/2024 11:58 AM EDT [facility] CO2, Plasma 23 22 - 29 mmol/L 05/31/2024 11:58 AM EDT [facility] Anion Gap 10 6 - 16 mmol/L 05/31/2024 11:58 AM EDT [facility] Total Calcium, Plasma 9.8 8.9 - 10.2 mg/dL 05/31/2024 11:58 AM EDT [facility] Total Protein 7.8 6.3 - 7.9 g/dL 05/31/2024 11:58 AM EDT [facility] Albumin, Plasma 4.4 3.5 - 5.2 g/dL 05/31/2024 11:58 AM EDT [facility] AST, Plasma 17 10 - 50 U/L 05/31/2024 11:58 AM EDT [facility] ALT, Plasma 15 10 - 50 U/L 05/31/2024 11:58 AM EDT [facility] Alkaline Phosphatase, Plasma 92 40 - 115 U/L 05/31/2024 11:58 AM EDT [facility] Total Bilirubin, Plasma 0.3 0.2 - 1.1 mg/dL 05/31/2024 11:58 AM EDT [facility] eGFRcr 35.5 mL/min/1.7 3m*2 05/31/2024 11:58 AM EDT [facility] Comment:Reported eGFRcr in m L/min/1.73m2 is based the CKD-EPI 2020 equation that does not use a race coefficient. Blood Venous blood specimen / Unknown Venipuncture / Unknown 05/31/2024 11:24 AM EDT 05/31/2024 11:26 AM EDT us Jaclyn Baeza TELEPHONE EXCHANGE OPERATOR LAB BLOOD ORDERABLES Final Re sult [facility] [address] [place] [address] * CT Cervical Spine wo IV Contrast (05/31/2024 11:15 AM EDT) Anatomical Region Laterality Modality Spine, C-spine Computed Tomogra phy Impressions 05/31/2024 12:14 PM EDT No acute fracture or malalignment of the cervical spine. CRITICAL RESULT: No. COMMUNICATION: Per this written report. Drafted by Walter Rojas MD on 05/31/2024 12:12 PM Final report signed by Walter Rojas MD on 05/31/2024 12:14 PM Narrative 05/31/2024 12:14 PM EDT CLINICAL INDICATION: Neck trauma (Age >= 65y) TECHNIQUE: Imaging of the entire cervical spine (to include the cervicothoracic junction) was performed, using spiral technique, without contrast administration. Reformatted images in the coronal and sagittal planes were generated from the axial data set to facilitate diagnostic accuracy and/or surgical planning. Total DLP (Dose-Length Product): 1078.50 mGy.cm. Please note: The reported value represents the total of one or more individual components during the CT acquisition on this date and at this time, and as such, the same value may appear in more than one CT report depending on the interpreting/reporting physicians. COMPARISON: None. FINDINGS: Cervicothoracic junction is not completely imaged on the examination. Vertebrae: No acute fracture. Degenerative changes are present in the cervical spine, most prominent at the C6/7 level. Alignment: Normal spinal alignment. Paraspinal Soft Tissues: No paraspinal hematoma. Calcified atherosclerotic disease is present within the carotid vasculature. Soft tissue within both external auditory canals likely represents cerumen. Lung Apices: Minimally included Procedure Note Walter Rojas MD - 05/31/2024 CLINICAL INDICATION: Neck trauma (Age >= 65y) TECHNIQUE: Imaging of the entire cervical spine (to include the cervicothoracicjunction) was performed, using spiral technique, without contrastadministration. Reformatted images in the coronal and sagittal planes weregenerated from the axial data set to facilitate diagnostic accuracy and/orsurgical planning. Total DLP (Dose-Length Product): 1078.50 mGy.cm. Please note: The reportedvalue represents the total of one or more individual components during theCT acquisition on this date and at this time, and as such, the same valuemay appear in more than one CT report depending on theinterpreting/reporting physicians. COMPARISON: None. FINDINGS: Cervicothoracic junction is not completely imaged on the examination. Vertebrae: No acute fracture. Degenerative changes are present in thecervical spine, most prominent at the C6/7 level. Alignment: Normal spinal alignment. Paraspinal Soft Tissues: No paraspinal hematoma. Calcified atheroscleroticdisease is present within the carotid vasculature. Soft tissue within bothexternal auditory canals likely represents cerumen. Lung Apices: Minimally included IMPRESSION: No acute fracture or malalignment of the cervical spine. CRITICAL RESULT: No. COMMUNICATION: Per this written report. Drafted by Walter Rojas MD on 05/31/2024 12:12 PM Final report signed by Walter Rojas MD on 05/31/2024 12:14 PM Jaclyn Baeza APRN IMG CT PROCEDURES Final Resul t * CT Head wo IV Contrast (05/31/2024 11:15 AM EDT) Anatomical Region Laterality Modality Head Computed Tomogra phy Impressions 05/31/2024 11:34 AM EDT No evidence of acute intracranial hemorrhage. Small hypodensity in the periphery of the right frontal lobe which could represent an age-indeterminate infarct. Clinical correlation suggested. No significant mass effect. There is also a small hypodensity in the deep white matter of the right frontal lobe, favored to represent a small chronic infarct or chronic ischemic change, although is not evident. CRITICAL RESULT: No. COMMUNICATION: Per this written report. Drafted by Carey Martínez MD on 05/31/2024 11:30 AM Final report signed by Carey Martínez MD on 05/31/2024 11:34 AM Narrative 05/31/2024 11:34 AM EDT CLINICAL INDICATION: Head trauma, moderate severe TECHNIQUE: Axial CT images of the head were obtained without contrast administration. Total DLP (Dose-Length Product): 1078.50 mGy.cm. Please note: The reported value represents the total of one or more individual components during the CT acquisition on this date and at this time, and as such, the same value may appear in more than one CT report depending on the interpreting/reporting physicians. COMPARISON: None. FINDINGS: Diagnostic Quality: Adequate. There is a small, faint hypodensity in the right frontal lobe, images #22 and 23 of series 4, extending to the cortex. This could represent an age-indeterminate infarct. No significant mass effect is seen. There is an additional small hypodensity in the deep white matter of the right frontal lobe in image #18 of series 4, favored to represent a chronic infarct or chronic ischemic change although is nonspecific. There is no midline shift. Basilar cisterns are patent. There is prominence of ventricles and sulci compatible cerebral volume loss, which could be seen in a patient of this age. There is no evidence of acute intracranial hemorrhage. Soft Tissues: No significant soft tissue swelling is present. Skull: There are no calvarial destructive lesions or fractures. Sinuses and Mastoids: Moderate thickening and fluid in bilateral maxillary sinuses, which could be correlated clinically for sinusitis. The mastoid air cells are clear. Reticular opacities in the external auditory canals, possibly cerumen, although could be correlated with direct visualization. Procedure Note Carey Martínez MD - 05/31/2024 CLINICAL INDICATION: Head trauma, moderate severe TECHNIQUE: Axial CT images of the head were obtained without contrastadministration. Total DLP (Dose-Length Product): 1078.50 mGy.cm. Please note: The reportedvalue represents the total of one or more individual components during theCT acquisition on this date and at this time, and as such, the same valuemay appear in more than one CT report depending on theinterpreting/reporting physicians. COMPARISON: None. FINDINGS: Diagnostic Quality: Adequate. There is a small, faint hypodensity in the right frontal lobe, images #22and 23 of series 4, extending to the cortex. This could represent anage-indeterminate infarct. No significant mass effect is seen. There is anadditional small hypodensity in the deep white matter of the right frontallobe in image #18 of series 4, favored to represent a chronic infarct orchronic ischemic change although is nonspecific. There is no midline shift. Basilar cisterns are patent. There is prominence of ventricles and sulci compatible cerebral volumeloss, which could be seen in a patient of this age. There is no evidence of acute intracranial hemorrhage. Soft Tissues: Nosignificant soft tissue swelling is present. Skull: There are no calvarial destructive lesions or fractures. Sinuses and Mastoids: Moderate thickening and fluid in bilateral maxillarysinuses, which could be correlated clinically for sinusitis. The mastoidair cells are clear. Reticular opacities in the external auditory canals, possibly cerumen,although could be correlated with direct visualization. IMPRESSION: No evidence of acute intracranial hemorrhage. Small hypodensity in the periphery of the right frontal lobe which couldrepresent an age-indeterminate infarct. Clinical correlation suggested. Nosignificant mass effect. There is also a small hypodensity in the deep white matter of the rightfrontal lobe, favored to represent a small chronic infarct or chronicischemic change, although is not evident. CRITICAL RESULT: No. COMMUNICATION: Per this written report. Drafted by Carey Martínez MD on 05/31/2024 11:30 AM Final report signed by Carey Martínez MD on 05/31/2024 11:34 AM us Jaclyn Baeza TELEPHONE EXCHANGE OPERATOR IMG CT PROCEDURES Final Resul t * EKG now - STAT (adult) (05/31/2024 10:17 AM EDT) EKG DIAGNOSIS CLASS Borderline Normal MUSE ECG Ventricular Rate 56 BPM MUSE ECG Atrial Rate 56 BPM MUSE ECG MD Interval 204 ms MUSE ECG QRSD Interval 94 ms MUSE ECG QT Interval 466 ms MUSE ECG QTC Interval 449 ms MUSE ECG P [place] 32 degrees MUSE ECG R [place] 0 degrees MUSE ECG T Wave [place] 44 degrees MUSE ECG Diagnosis Sinus bradycardia MUSE ECG Diagnosis MUSE ECG Diagnosis MUSE ECG Diagnosis Confirmed by Romina Baird ([id number]) on 06/01/2024 2:35:49 PM MUSE ECG 05/31/2024 10:1 7 AM EDT 06/01/2024 2:35 PM EDT us Jaclyn Baeza APRN ECG ORDERABLES Final Result MUSE ECG * INJECTION FOR BLADDER XRAY WITH VOIDING, MD COMPLEX CYSTOMETROGRAM URETHRAL PRESS PROFILE, UROLOGY UDS WITH BASE PERFORMABLE CHARGES (05/31/2024 8:45 AM EDT) Narrative Destiney Lyman APRN, DNP - 05/31/2024 8:45 AM EDT Destiney Lyman APRN, DNP 05/31/2024 10:55 AM UDS Date/Time: 05/31/2024 8:45 AM Performed by: Destiney Lyman APRN, DNP Authorized by: Charlotte Rodriguez APRN, DNP [place] Protocol: Time out called immediately prior to procedure: yes Time out called at: 05/31/2024 8:45 AM Patient identity confirmed: Verbally with patient, hospital-assigned identification number and provided demographic data Correct site/side verified and marked: yes Correct patient positioning for procedure: yes Verified correct procedure: yes Pre-procedure medications ordered/given (to include antibiotics if applicable): yes Essential imaging and labs available and reviewed: yes Procedure explained and questions answered to patient or proxy's satisfaction: yes Consent obtained: Verbal and written Consent given by: Patient Risks, benefits, and alternatives discussed: Yes Safety precautions reviewed?: yes Relevant documents present and verified: yes Procedure Details: CMG with UPP Pelvic Examination Performed?: No Pessary Performed?: No Was bladder voided as part of this procedure?: No Fluoro Time (total seconds): 52 Fluoro Dose (Gy-cm2): 16.9 Position: Standing Outcome: patient tolerated procedure well with no complications Post-procedure interventions: post-procedure instructions given us Charlotte Rodriguez TELEPHONE EXCHANGE OPERATOR, DNP UROLOGY ORDERABLES Denise l Result * POC Imaging (05/31/2024) Anatomical Region Laterality Modality Pelvis Other 05/31/2024 us External Provider IMG POINT OF CARE ULTRASOUND F inal Result * Hepatitis C Antibody - ED (02/23/2024 11:39 AM EST) Hepatitis C Antibody Negative Negative 02/23/2024 12:54 PM EST [facility] Blood Venous blood specimen / Unknown Venipuncture / Unknown 02/23/2024 11:39 AM EST 02/23/2024 12:12 PM EST Marck Torres MD LAB BLOOD ORDERABLES Final Resul t [facility] [address] [place] [address] from Last 3 Months or Most Recently Relevant to Health Maintenance Insurance [facility] MEDICARE Advance Directives * Full Code (Latest Code Status on File) Date Activated Date Inactivated Comments 02/25/2024 4:17 AM 02/27/2024 3:52 PM Question Answer Comments Patient has decision-making capacity? Yes Care Teams Web Production Artist Relationship Specialty Start Date End Date Luis Caraballo MD [address] [place] [address] [facility] - General 06/20/20
== END 2024-08-02 23:59 | disposition home or self-care (01) ==
LOC: LAB 10:54
PROVIDERS: PCP Family Medicine; Visit Provider Urology
DX: R33.9 Retention of urine, unspecified (principal)
CPT/HCPCS: 87086; 87088; 87186

== ENCOUNTER 2024-08-29 13:37 | Emergency (ER) | payer MEDICARE, SELFPAY ==
--- OUTSIDE RECORDS SUMMARY | 2023-11-04 06:15 | XMS_ITS ---
Author Organization [facility] Address [address] [place] [phone] Care Team Providers Care Type Rolling Machine Operator Name Role Phone Catracho Tolentino Primary Care Provider [phone] Arcelia Person Unavailable [phone] Allergies No Known Allergies Results Component Value Reference Range Notes P-Basic Metabolic Panel (BMP ) Reviewed date:11/08/2023 10:34:02 AM Interpretation:K+ 5.7, co2- 20, gluc 109, bun 59, Cr 3.13, gfr 21 Performing Lab: Notes/Report: Test performed by [facility], [address] , [address], [place] [address] Yan Bell MD, Regional Operations Director CLIA: [id number] Sodium 137 135-145 mmol/L Potassium 5.7 3.5-5.3 [address] [place], [place] [id number] 11/04/2023 Arcelia Person Stage 4 chronic kidn ey disease N18.4 ; Type 2 diabetes mellitus without complication, without long-term current use of insulin E11.9 ; Coronary artery disease involving [place] coronary artery of [place] heart without angina pectoris I25.10 ; HTN (hypertension) I10 and Pure hypercholesterolemia, unspecified E78.00 Assessments Encounter Date Diagnosis (ICD Code) Assessment Notes Treatment Notes Treatment Clinical Notes Section Notes 11/04/2023 Stage 4 chronic kidney disease (ICD-10 - N18.4) 11/04/2023 Type 2 diabetes mellitus without complication, without long-term current use of insulin (ICD-10 - E11.9) 11/04/2023 Coronary artery disease involving [place] coronary artery of [place] heart without angina pectoris (ICD-10 - I25.10) 11/04/2023 HTN (hypertension) (ICD-10 - I10) 11/04/2023 Pure hypercholesterol emia, unspecified (ICD-10 - E78.00) Plan Of Treatment Next Appt Details Follow Up: via phone to repo rt test results, Reason: Progress Notes * CRIS MELOADOB:1955 (69 yo M)Acc No.[id number]:11/04/2023 Progress Notes Patient: MANISH GASPAR Provider: WILMER Marie :1955 A ge:68 Y S ex:Male Date:11/04/2023 Address:[address] [place] [address] [id number] Pcp:Catracho Tolentino Subjective: * Chief Complaints: * [...] worse. He is scheduled to see the web ui developer but will need an ultrasound of the [...] E11.9 3 . Coronary artery disease involving [place] coronary artery of [place] heart without angina pectoris - I25.10 4 [...] AM > no auth needed; CPT code 04917; faxed to [facility] Zita Noel 11/07/2023 8:04:49 AM > appt. 11/08/2023 @ 10:30Arcelia Person 11/09/2023 3:50:19 PM > see TE * Follow Up: v ia phone to report test results * Images: Billing Information: * Visit Code: 11487 Office Visit, Est Pt., Level 3. * Procedure Codes: * Electronic signature of WILMER Salas on 08/29/2024 at 02:17 PM EDT Sign off status: Pending * Provider: WILMER Marie Date: 0 11/04/2023 Generated for Carlos genao/Patricia/eTransmitting on: 0 08/29/2024 02:17 PM EDT History and Physical Notes * HPI (History of Present Illness) Category Sub-Category Detail Notes Category Not es Endocrinology Recent Blood Sugars Pt here to f/u on DM 2 He also requests labs because his renal function has been getting worse. He is scheduled to see the web ui developer but will need an ultrasound of the [...]
--- OUTSIDE RECORDS SUMMARY | 2024-04-12 05:30 | XMS_ITS ---
Author Organization [facility] Address [address] [place] [id number] Care Team Providers Care Card Decorator Name Role Phone Catracho Tolentino Primary Care Provider Mp Jack Unavailable [phone] Allergies No Known Allergies Results Component Value [...] 38 Performing Lab: Notes/Report: Test performed by [employer] [facility] , [address], [place] [address] Yan Bell MD, E Commerce Developer CLIA: [id number] Sodium 140 135-145 mmol/L Potassium 4.5 3.5-5.3 [...] 32 Performing Lab: Notes/Report: Test performed by [facility] [address] [place] [address] , [address], [place] [address] Yan Bell MD, E Commerce Developer CLIA: [id number] Cholesterol 119 <200 mg/dL Triglycerides 74 <150 [...] Interpretation:Normal Performing Lab: Notes/Report: Test performed by [facility] [address] [place], [place] [address] [place] [address] Yan Bell MD, E Commerce Developer SHUBHAM: [id number] Phosphorus 3.2 2.5-4.5 mg/dL P-TSH reflex to FT4 Reviewed date:04/13/2024 09:18:25 AM Interpretation:Normal Performing Lab: Notes/Report: Test performed by [facility] [address] [place], [place] [address] [place] , [place] [address] Yan Bell MD, E Commerce Developer CLIA: [id number] TSH reflex to FT4 2.20 0.43-5.25 mU/L P-Microalbumin/Creatinine, R andom Urine Sample Reviewed date:04/13/2024 09:18:25 AM Interpretation:a/c 125 Performing Lab: Notes/Report: Test performed by [facility] [address] [place] [address] , [address], [place] [address] Yan Bell MD, E Commerce Developer CLIA: [id number] Albumin/Creatinine Ratio, Urine 125 0-30 ug/m g [address] [place] [id number] 04/12/2024 Mp Jack HTN (hypertension) I 10 [...] :1955 A ge:68 Y S ex:Male Date:04/12/2024 Address:[address] [place] [address] [place], [id number] Pcp:Catracho Tolentino Subjective: * Chief Complaints: * [...] G 2211 Complex e/[place], [address] GLUCOSE TEST, 52016 GLYCATED HEMOGLOBIN TEST, Modifiers: QW , 51132 CBC WITH AUTO DIFF, 3044F HG A1C LEVEL LT 7.0%, G8753 MOST RECENT SYSTOLIC BP >= 140MM HG, G8755 MOST RECENT DIASTOLIC BP >= 90MM HG * Follow Up: 6 Weeks * Images: Billing Information: * Visit Code: 99427 Office Visit, Est Pt., Level 4. * Procedure Codes: G2211 Complex e/[place]. [address] GLUCOSE TEST. 94022 GLYCATED HEMOGLOBIN TEST. Modifiers: QW 00331 CBC WITH AUTO DIFF. 3044F HG A1C LEVEL LT 7.0%. G8753 MOST RECENT SYSTOLIC BP >= 140MM HG. G8755 MOST RECENT DIASTOLIC BP >= 90MM HG. * Electronic signature of Ana Jack MD on 08/29/2024 at 02:18 PM EDT Sign off status: Pending * Provider: Marcus Jack M.D. Date: 0 04/12/2024 Generated for Carlos genao/Patricia/Marvsmitting on: 0 08/29/2024 02:18 PM EDT History and Physical Notes * [...]
--- OUTSIDE RECORDS SUMMARY | 2024-05-24 06:00 | XMS_ITS ---
Author Organization [facility] Address [address] [facility] [address] [facility] [address] [place] [id number] Care Team Providers Care Remote Broadcast Engineer Name Role Phone Catracho Tolentino Primary Care Provider Mp Jack [phone] Allergies No Known Allergies REASON FOR VISIT 6 week f/u Vital Signs Heart Rate 00 /min 05/24/2024 Height 72 in 05/24/2024 Weight 00 lbs 05/24/2024 Encounters Encounter Location Date Provider Diagnosis [facility] [address] [facility] [address] [facility] [address] [place] [id number] 05/24/2024 Mp Jack Plan Of Treatment No Information Progress Notes * CRIS MELOADOB:1955 (69 yo M)Acc No.[id number]:05/24/2024 Progress Notes Patient: MANISH GASPAR Provider: Marcus Jack M.D. :1955 A ge:68 Y S ex:Male Date:05/24/2024 Address:[address] [facility] [address] [id number] Pcp:Catracho Tolentino Subjective: * Chief Complaints: * 1 . 6 week f/u. * ROS: D ERMATOLOGY: no R augustine. [...] no. Alcohol: no. Sexually active: yes. * Allergies: N .K.D.A. Objective: * Vitals: W t:00, Temp:00, BP:00, HR:00, Nurse:raymon, Ht: 72. Assessment: Plan: * Treatment: * Images: Billing Information: * Visit Code: * Procedure Codes: * Electronic signature of Ana Jack MD on 08/29/2024 at 02:16 PM EDT Sign off status: Pending * Provider: Marcus Jack M.D. Date: 0 05/24/2024 Generated for Carlos genao/Patricia/Mary on: 0 08/29/2024 02:16 PM EDT
--- OUTSIDE RECORDS SUMMARY | 2024-07-05 15:30 | XMS_ITS | Encounter Summary ---
Author Organization [facility] Address [address] [place] [address] Care Team Providers Care Barbering Teacher Name Role Phone Luis Caraballo MD Primary Care Provider +1- [phone] Reason for Referral * Consultation (Routine) - Authorized Specialty Diagnoses / Procedures Referred By Radha ramos Referred To Contact Physical Therapy Diagnoses Incomplete bladder emptying Courtney Young MD [address] [address] Phone: tel: fax: Medical Office Building Physical Therapy [address] [place] [address], [address] [place] [address] Phone: tel: fax: Referral ID Status Reason Start Date Expiration Date Visits Requested Visits Authorized [id number] Authorized Consult and Treat 07/05/2024 01/04/2026 1 9 Reason for Visit * Other Medical (Routine) - Closed Specialty Diagnoses / Procedures Referred By Radha ramos Referred To Contact Urology Diagnoses Incomplete bladder emptying Procedures Cysto- Urology Destiney Lyman APRN, SAMAN [address] [address] Phone: tel: fax: Referral ID Status Reason Start Date Expiration Date Visits Re quested Visits Authorized [id number] Closed 05/31/2024 11/30/2025 1 1 Encounter Details Date Type Department Care Team (Late st Contact Info) Description 07/05/2024 3:30 PM EDT Office Visit Medical Office Building Urology [address] [facility], [address] [place] [address] Courtney Young MD [address] [place] [address] Incomplete bladder emptying Social History Tobacco Use Types Packs/Day Years Used Date Smoking Tobacco: Never Smokeless Tobacco: Never Alcohol Use Standard Drinks/Week Comments Never 0 (1 standard drink = 0.6 oz pur e alcohol) PHQ-2 Answer Date Recorded Patient Health Questionnaire-2 Score 0 07/05/2024 PHQ-9 Answer Date Recorded Patient Health Questionnaire-9 Score 0 07/05/2024 Sex and Gender Information Value Date Recorded Sex Assigned at Male 02/23/2024 11:50 AM EST Legal Sex Male 7:50 PM EDT Gender Identity Not on file Sexual Orientation Not on file documented as of this encounter Last Filed Vital Signs Vital Sign Reading Time Taken Comments Blood Pressure - - Pulse - - Temperature 37.1 C (98.7 F) 07/05/2024 3:17 PM EDT Respiratory Rate - - Oxygen Saturation 98% 07/05/2024 3:17 PM EDT Inhaled Oxygen Concentration - - Weight 88 kg (194 lb 0.1 oz) 07/05/2024 3:17 PM EDT Height 182.9 cm (6') 07/05/2024 3:17 PM EDT Body Mass Index 26.31 07/05/2024 3:17 PM EDT documented in this encounter Functional Status * Over the past 2 weeks, how often have you been bothered by any of the following problems? Question Answer Date of Assessment Author Little interest or pleasure in doing things Not at all 07/05/2024 3:19 PM EDT Gino Solares Feeling down, depressed, or hopeless Not at all 07/05/2024 3:19 PM EDT Gino Solares Patient Health Questionnaire -2 Score 0 07/05/2024 3:19 PM EDGino Doyle * Question Answer Date of Assessment Author Trouble falling or staying a sleep, or sleeping too much Not at all 07/05/2024 3:19 PM Gino [place]z Feeling tired or having mendel le energy Not at all 07/05/2024 3:19 PM Gino [place]z Poor appetite or overeating Not at all 07/05/2024 3: 19 PM Gino [place]z Feeling bad about yourself - or that you are a failure or have let yourself or your family down Not at all 07/05/2024 3:19 PM Yefri [place]av[place]z Trouble concentrating on thi ngs, such as reading the newspaper or watching television Not at all 07/05/2024 3:19 PM Gino [place]z Moving or speaking so slowly that other people could have noticed? Or the opposite - being so fidgety or restless that you have been moving around a lot more than usual. Not at all 07/05/2024 3:19 PM Gino [place]z Thoughts that you would be b buddy off or hurting yourself in some way Not at all 07/05/2024 3:19 PM Gino [place]z Patient Health Questionnaire -9 Score 0 07/05/2024 3:19 PM Gino [place] * If you checked off any problems on this questionnaire so far, Question Answer Date of Assessment Author How difficult have these problems made it for you to do your work, take care of things at home, or get along with other people? Not difficult at all 07/05/2024 3:19 PM Gino [place]av[place]z documented as of this encounter Miscellaneous Notes * Progress Notes - Kristina Beasley MD - 07/05/2024 3:30 PM EDTAssociated Order(s): Cysto- Urology Pre-Procedure Diagnose(s): Incomplete bladder emptying Post-Procedure Diagnose(s): Incomplete bladder emptying CC: urinary retention Referring Provider: Destiney Lyman, Soraya SYLVESTER* HPI: Mouna Garcia is a 69 y.o. male with history of CKD, T2DM, HTN, CAD s/p CABG (2002), gout, and incomplete bladder emptying. He was initially evaluated by SAMAN Rodriguez on 12/21/23 after referral from nephrology where ELLA from 2 days prior showed severe bilateral hydronephrosis with markedly distended bladder (~ 2L volume, post void residual 1.7L). Opted for Rooney catheter placement which was performed easily by Urology nursing staff. On 01/17/24, he had Rooney catheter removed and was taught to CIC with14 Fr coude tip red rubber catheter. Labs from 03/29/24 with Cr 2.23, eGFR 31.5. ELLA from 02/27/24 with minimal left hydronephrosis significantly improved from prior, no right hydronephrosis. April 2024 followed up with SAMAN Rodriguez s/p ELLA without hydronephrosis or stones bilaterally. He continued tamsulosin 0.4 mg daily and was performing CIC 4 times daily without much spontaneous voiding.He is not super inconvenienced by CIC, but would like to know if this will be the lifelong plan. UDS in May showed atonic bladder with elevated opening pressure with a large diverticulum that likely blunted pressures after. He presents today for cystoscopy to evaluate for bladder outlet obstruction. He catheterizes 3-4x/day. Denies any issues passing a catheter. He does void some in between. He denies any dysuria, hematuria, suprapubic pain, flank pain, or fevers. ECO 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[1] Surgical History[2] Social History[3] PE: GEN: NAD EYES: EOMI Ears/Nose/Mouth/Throat: No obvious drainage per ears or nose CV: Pulse regular PULM: No audible wheezing or stridor, non-labored respirations ABD: soft, NT, ND Back: normal : No CVA tenderness, bladder not palpable MS: normal ROM of UEs Skin: No obvious rashes or open sores Neuro: CN 2-12 grossly intact Psych: Answered questions appropriately with normal affect Heme/Lymph/Immunologic: No obvious bruises or sites of spontaneous bleeding LABS: I have personally reviewed the following labs: Lab Results Component Value Date CREATININE 2.02 (H) 05/31/2024 EGFR 35.5 05/31/2024 IMAGING: I have personally reviewed the imaging below: CT stone 02/2024, prostate 68g PROCEDURE: Patient ID: Deny Garcia is a 69 y.o. male. Encounter Diagnosis Name Primary? Incomplete bladder emptying Cysto- Urology Date/Time: 07/05/2024 3:45 PM Performed by: Kristina Beasley MD Authorized by: Destiney Lyman APRN, DNP Procedure discussed: discussed risks, benefits and alternatives Timeout: timeout called immediately prior to procedure Procedure Details Cystoscope type: flexible Cystoscopy route: transurethral Cystoscopy location: [place] bladder Irrigation used: saline Position: supine Urethra Urethra: normal Prostate Prostate comment: Touching lateral lobes, prominent intravesical median lobe Bladder Bladder comment: Trabeculations with cellules, extrinsic compression at the dome/posterior wall, noconcerning lesions or masses IMPRESSION: 69 y.o. male with urinary retention requiring CIC, atonic bladder. On cystoscopy, he had touching lateral lobes and intravesical median lobe. Discussed that an outlet procedure may help with bladder emptying and alleviate the need for CIC. He would like to proceed. For HoLEP we discussed that he will likely have urinary incontinence after surgery and it is almostalways temporary. We discussed the benefits of pelvic floor physical therapy in aiding in this recovery. We discussed that retrograde ejaculation is very common after this surgery and is not medically harmful. We discussed that while lower risk of bleeding than some other surgical therapies there is still a risk of bleeding. There is a small retirement risk of developing scar tissue (stricture or bladder neck contracture). We discussed that the prostate chips will be sent to pathology. Post operatively his PSA should lower to around 1, and we will obtain a PSA at the 3 month post operative visit to assess this. We will plan to have his catheter in overnight after procedure. PLAN: To OR for HoLEP Urine culture two weeks prior PFPT referral Approximately 60 min was spent on this patient encounter Marya Beasley MD PGY-3 Urology [1] Past 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: Diagnosis Date Diabetes mellitus ([facility]) Hypertension Kidney disease [2] Past Surgical History: Procedure Laterality Date CORONARY ARTERY BYPASS GRAFT 2002 patient believes it was either 2002 or 2003. [3] Social History Tobacco Use Smoking status: Never Smokeless tobacco: Never Vaping Use Vaping status: Never Used Substance Use Topics Alcohol use: Never Drug use: Never Cosigned by Courtney Young MD at 07/05/2024 4:31 PM EDT Associated attestation - Courtney Young MD - 07/05/2024 4:31 PM EDT I was present for the entirety of the procedure(s). documented in this encounter Plan of Treatment Upcoming Encounters Date Type Department Care Team ([facility] st Contact Info) Description 08/31/2024 12:15 PM EDT Appointment Medical Office Building Physical Therapy [address] [facility], [address] [place] [address] Charlotte Pillai [address] [facility] [address] [place] [address] 09/19/2024 3:30 PM EDT Office Visit Medical Office Building Urology [address] [facility], [address] [place] [address] Courtney Young MD [address] [facility] [address] [place] [address] 10/10/2024 4:00 PM EDT Office Visit [facility] Nephrology, Bone & Mineral Metabolism [address] [facility], [address] [place] [address] Mp Reis, PA [address] [facility] [address] [place] [address] 06/05/2025 10:45 AM EDT Appointment [facility] [address] [place] [address] 06/05/2025 11:50 AM EDT Clinical Support [facility] [address], [address] [place] [address] 06/05/2025 12:30 PM EDT Office Visit [facility] Urology [address], [address] [place] [address] Charlotte Rodriguez APRN, SAMAN [address] [place] [address] Scheduled Orders Name Type Priority Associated Diagnoses Orde r Schedule Urine Culture - Lab Collect Microbiology Routine Incomplete bladder emptying Expected: 07/05/2024 (Approximate), Expires: 01/05/2026 Scheduled Referrals Name Type Priority Associated Diagnoses Order Schedule Ambulatory referral to Physical Therapy Outpatient Referral Routine Incomplete bladder emptying Expected: 07/05/2024 (Approximate), Expires: 01/05/2026 documented as of this encounter Procedures Procedure Name Priority Date/Time Associated Diagnosis Comments CYSTO- UROLOGY Routine 07/05/2024 3:45 PM EDT Incomplete bladder emptying POCT URINALYSIS DIPSTICK Routine 07/05/2024 3:14 PM EDT documented in this encounter Results * CYSTO- UROLOGY (07/05/2024 3:45 PM EDT) Narrative Courtney Young MD - 07/05/2024 3:45 PM EDT Courtney Young MD 07/05/2024 4:31 PM Cysto- Urology Date/Time: 07/05/2024 3:45 PM Performed by: Kristina Beasley MD Authorized by: Destiney Lyman APRN, DNP Procedure discussed: discussed risks, benefits and alternatives Timeout: timeout called immediately prior to procedure Procedure Details Cystoscope type: flexible Cystoscopy route: transurethral Cystoscopy location: [place] bladder Irrigation used: saline Position: supine Urethra Urethra: normal Prostate Prostate comment: Touching lateral lobes, prominent intravesical median lobe Bladder Bladder comment: Trabeculations with cellules, extrinsic compression at the dome/posterior wall, no concerning lesions or masses Destiney Lyman APRN, DNP UROLOGY ORDERABLES Final Result * (ABNORMAL) POCT URINALYSIS DIPSTICK (07/05/2024 3:14 PM EDT) POCT Urine Color Yellow 07/05/2024 3:15 PM EDT [facility] POCT Urine Clarity Clear 07/05/2024 3:15 PM EDT [facility] POCT Urine Glucose Negative Negative mg/dL 07/05/2024 3:15 PM EDT [facility] POCT Urine Bilirubin Negative Negative mg/dL 07/05/2024 3:15 PM EDT [facility] POCT Urine Ketones Negative Negative mg/dL 07/05/2024 3:15 PM EDT [facility] POCT Urine Specific [place] 1.015 1.005 - 1.030 07/05/2024 3:15 PM EDT [facility] POCT Urine Blood Trace(A) Negative 07/05/2024 3:15 PM EDT [facility] POCT pH, Urine 5.5 5.0 - 8.0 07/05/2024 3:15 PM EDT [facility] POCT Protein, Urine Negative Negative mg/dL 07/05/2024 3:15 PM EDT [facility] POCT Urobilinogen, Urine 0.2 0.2, 1.0 EU/dL 07/05/2024 3:15 PM EDT [facility] POCT Nitrite, Urine Positive(A) Negative 07/05/2024 3:15 PM EDT [facility] POCT Urine Leukocyte Esterase Small(A) Negative 07/05/2024 3:15 PM EDT [facility] Urine 07/05/2024 3:14 PM EDT 07/05/2024 3:15 PM EDT us Courtney Young MD LAB POINT OF CARE TE ST DOCKED DEVICE UNSOLICITED RESULTS Final Result Performing Organization Address City/State/[facility] Co de Phone Number [facility] [address] [place], [place] documented in this encounter Visit Diagnoses Diagnosis Incomplete bladder emptying documented in this encounter Administered Medications Inactive Administered Medications - up to 3 most recent administrations Medication Order MAR Action Action Date Dose Rate Site lidocaine (Uro-Jet) 2 % gel - Pyxis Override Pull 1 dose, Starting on Sinai 07/05/24 at 1516, Until Sinai 07/05/24 at 1532 Given 07/05/2024 3:32 PM EDT sulfamethoxazole-trimethoprim (Bactrim DS) 800-160 MG per tablet - Pyxis Override Pull 1 dose, Starting on Sinai 07/05/24 at 1516, Until Sinai 07/05/24 at 1532 Given 07/05/2024 3:32 PM EDT documented in this encounter Additional Health Concerns Assessment Noted Time PHQ-9 Depression Total Score: 0 07/06/19 3:19 PM EDT A fall risk assessment has been complete d for the patient 07/05/2024 3:19 PM EDT A Body Mass Index follow-up plan has been documented for the patient 07/05/2024 4:31 PM EDT documented as of this encounter Care Teams Barbering Teacher Relationship Specialty Start Date End Date Luis Caraballo MD [address] [place] [address] PCP - General 06/20/20 documented as of this encounter
--- OUTSIDE RECORDS SUMMARY | 2024-07-11 16:00 | XMS_ITS | Encounter Summary ---
Author Organization [facility] Address [address] [place] [address] Care Team Providers Care Electric Sign Assembler Name Role Phone Luis Caraballo MD Primary Care Provider +1- [phone] Reason for Referral * Consultation (Routine) - Authorized Specialty Diagnoses / Procedures Referred By Radha ramos Referred To Contact Diagnoses Stage 3b chronic kidney disease (CMS/HCC) Mp Reis PA [address] [place] [phone] Phone: tel: fax: Referral ID Status Reason Start Date Expiration Date V isits Requested Visits Authorized [id number] Authorized 07/11/2024 01/10/2026 1 1 Reason for Visit * Reason Comments Follow-up Encounter Details Date Type Department Care Team (Late st Contact Info) Description 07/11/2024 4:00 PM EDT Office Visit [facility] Nephrology, Bone & Mineral Metabolism [address], [address] [place] [address] Mp Reis PA [address] [place] [address] Stage 3b chronic kidney disease [...] was 1.7L). He was also admitted to [facility] 02/24/24-02/27/24 for complicated, recurrent UTI in setting of Jardianceand CIC, with resultant ADRIANNE, peak Cr 3.47 on admission. His home BP journal shows excellent BP control at home mostly 110s-130s/80s. He does note radha LE swelling neil after long days on his feet. He does not take a diuretics. 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 Otherwise, he deniesfever, chills, SOA, CP, abd pain, N/V/D, dysuria, gross hematuria or LE swelling. Review of Systems A 14 point ROS reviewed and is otherwise negative except as per HPI Past 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: Diagnosis Date Diabetes mellitus ([facility]) Hypertension Kidney disease Current Outpatient Medications [...] not crush, chew, or split. Replaces amlodipine [place]-3 Fatty Acids (FISH OIL HIGH POTENCY PO) [...] affect normal NEURO: AAOx3, follows commands Labs: [facility]: 11/04/23: Cr 3.13, eGFR 21, Na 137, [...] 7d of Lokelma. # Recurrent UTI, including [facility] admission. Now off Jardiance RECS/PLAN: - Cr [...] Reis PA-C Nephrology Epic Chat preferred or [phone] documented in this encounter Plan of Treatment Upcoming Encounters Date Type Department Care Team (Late st Contact Info) Description 08/31/2024 12:15 PM EDT Appointment Medical Office Building Physical Therapy [address] [facility], [address] [place] [address] Charlotte Pillai [address] [facility] [address] [place], [place] [id number] 09/19/2024 3:30 PM EDT Office Visit Medical Office Building Urology [address] [facility], [address] [place] [address] Courtney Young MD [address] [address] 10/10/2024 4:00 PM EDT Office Visit [facility] Nephrology, Bone & Mineral Metabolism [address] [facility], [address] [place] [address] Mp Reis PA [address] [facility] [address] [place] [address] 06/05/2025 10:45 AM EDT Appointment [facility] Radiology [address] [place] [address] 06/05/2025 11:50 AM EDT Clinical Support [place] [facility] Lab [address], 2nd [place] [address] 06/05/2025 12:30 PM EDT Office Visit [facility] Urology [address], [address] [place] [address] Charlotte Rodriguez, FINISHER COLD ROLLING, DNP [id number] [place] [address] Scheduled Orders Name Type Priority Associated Diagnoses Orde r Schedule Renal Function Panel, Plasma Lab Routine Stage 3b chronic kidney disease (CMS/HCC) Expected: 09/15/2024 (Approximate), Expires: 01/17/2026 Urinalysis with reflex microscopic (Culture NOT Included) Lab Routine Stage 3b chronic kidney disease (CMS/HCC) Expected: 09/15/2024 (Approximate), Expires: 01/17/2026 Protein, Random, Urine with Creatinine Lab Routine Stage 3b chronic kidney disease (CMS/HCC) Expected: 09/15/2024 (Approximate), Expires: 01/17/2026 Creatinine, Random, Urine Lab Routine Stage 3b chronic kidney disease (CMS/HCC) Expected: 09/15/2024 (Approximate), Expires: 01/17/2026 Scheduled Referrals Name Type Priority Associated Diagnoses Order Schedule Follow Up Nephrology Outpatient Referral Routine Stage 3b chronic kidney disease (CMS/HCC) Expected: 10/11/2024 (Approximate), Expires: 08/10/2025 documented as of this encounter Visit Diagnoses Diagnosis Stage 3b chronic kidney disease (CMS/HCC)- Primary Essential hypertension Unspecified essential hypertension Hypervolemia, unspecified hypervolemia type Hyperkalemia Hyperpotassemia documented in this encounter Additional Health Concerns Assessment Noted Time PHQ-9 Depression Total Score: 0 07/06/19 25 3:19 PM EDT A fall risk assessment has been complete d for the patient 07/11/2024 4:06 PM EDT A Body Mass Index follow-up plan has been documented for the patient 07/16/2024 3:18 PM EDT documented as of this encounter Care Teams Electric Sign Assembler Relationship Specialty Start Date End Date Luis Caraballo MD [address] [place] [address] PCP - General 06/20/20 documented as of this encounter
--- OUTSIDE RECORDS SUMMARY | 2024-08-02 15:15 | XMS_ITS | Encounter Summary ---
Author Organization [facility] Address [address] [place] [address] Care Team Providers Care Concrete Mason Name Role Phone Luis Caraballo MD Primary Care Provider [phone]- [phone] Encounter Details Date Type Department Care Team (Late st Contact Info) Description 08/02/2024 3:15 PM EDT Pre-Admission Testing [facility] [address], [address] [place] [id number] Anesthesia Record Procedure Summary Procedure Name Responsible Anesthesiologist Anesthesia Start Time Anesthesia Stop Time ENUCLEATION, PROSTATE, TRANSURETHRAL, USING HOLMIUM LASER ( HOLEP ) Tom Cyr MD 08/17/24 1246 08/17/24 1407 Events Date Time Event Comment 08/17/2024 1245 In Room 1246 An Start The patient was reevaluated immediately before sedation and remains eligible for anesthesia plan. 1246 An Start Data 1249 An Induction The patient was reevaluated immediately before moderate or deep sedation use and before anesthesia induction. 1250 An Intubation 1251 Anesthesia Ready 1303 Proc Start 1353 Proc Fin 1359 An Extubation 1359 an stop data 1404 Out of Room 1407 Handoff to Receiving I compl eted my handoff to the receiving clinician during which we: 1. Identified the patient 2. Identified the responsible provider 3. Reviewed the pertinent medical history 4. Discussed the surgical course 5. Reviewed intra-op anesthesia management and issues during anesthesia 6. Set expectations for post-procedure period 7. Allowed opportunity for questions and acknowledgement of understanding. 1407 An Stop Meds * Agents No agents on file. * Blood No blood administrations on file. Lines, Drains, and Airways Type Details Placement Removal Continuous Bladder Irrigation 08/17/24; 08/22/24; 45 (Removed by ); Other (Comment) 08/17/24 0000 by Jaclyn Velasquez RN 08/22/24 0945 by Naveed Downey RN Peripheral IV Placement Date: 08/07 03/03; Placement Time: 1112; Catheter Size: 18 G; Orientation: Anterior, Distal, Right; Location: Forearm; Site Prep: Alcohol, Chlorhexidine ; Technique: Anatomical landmarks; Inserted by: ES; Insertion Attempts: 1; Patient Tolerance: Tolerated well; Removal Date: 08/22/24; Removal Time: 1519; Removal Reason: Discharge 08/17/24 1112 by Rubia Tapia RN 08/22/24 1519 by Naveed Downey RN ETT Placement Date: 08/07 03/03; Placement Time: 1250 (created via procedure documentation); Technique: Direct laryngoscopy; Type: ETT - single; Single Lumen Tube Size: 8 mm; Cuffed: Yes; Laryngoscope: Didi; Blade Size: 3; Location: Oral; Grade View: Grade I; Insertion Attempts: 1; Placement Verification: Auscultation, Capnometry; Airway Comments: Atraumatic. No change to dentition. ; Placed by: Resident ; Removal Date: 08/17/24; Removal Time: 1359 08/17/24 1250 by Masoud Contreras MD 08/17/24 1359 by Masoud Contreras MD Urethral Catheter Placement Date: 08/07 03/03; Placement Time: 1355; Inserted by: Nilson Montes MD; Type: Non-latex, Other (Comment) (3 way); Balloon Size: Other (Comment) (50ml); Urine Returned: Yes; Removal Date: 08/21/24; Removal Time: 1104; Removal Reason: Per protocol 08/17/24 1355 by Susan Huff RN 08/21/24 1104 by Jossie Young RN documented in this encounter Social History Tobacco Use Types Packs/Day Years [...] Pressure - - Pulse - - Temperature - - Respiratory Rate - - Oxygen Saturation - - Inhaled Oxygen Concentration - - Weight 92.1 kg (203 lb) 08/02/2024 2:50 PM EDT Height - - Body Mass Index 26.78 07/11/2024 4:04 PM EDT documented in this encounter Miscellaneous Notes * PAT Evaluation Note - Viktoriya Teran APRN - 08/02/2024 3:15 PM EDT Images from the original note were not included. HPI Mouna Garcia is a 69 y.o. male who presents with Pre-op Diagnosis * Incomplete bladder emptying [R33.9] now scheduled for ENUCLEATION, PROSTATE, TRANSURETHRAL, USING HOLMIUM LASER ( HOLEP ) (N/A) with Courtney Young MD on 08/17/2024 in [facility] [place] Past 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[1] Family History[2] Social History[3] SURGICAL HISTORY: Surgical History[4] Allergies[5] MEDICATIONS: Current Medications[6] ROS Anesthesia: Date of last anesthetic: 2002 [place] CABG history of previous anesthesia. Does not have a history of anesthetic complications and obstructivesleep apnea. Cardiovascular: CAD (s/p CABG ~ 2002, no issues since then, stable), hyperlipidemia and past NH. Does not have atrial fibrillation, CHF, dyspnea, dysrhythmias or pacemaker. hypertension: is well controlled. Exercisetolerance is 1 flight of stairs. Does not have chest pain. Respiratory: Does not have home oxygen. Patient has no dyspnea.no asthma: no COPD: Has not had an upper respiratory infection in last 30 days. Has not had pneumonia in the last 30 days, RSV in the last 30 days orCOVID in the last 30 days. HEENT: Does not have chipped teeth, loose teeth or missing teeth. Neurological: no seizures: Did not have a cerebrovascular accident. Gastrointestinal: GERD: well controlled.Does not have cirrhosis. 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 Hematological/Lymphatic: no hemophilia.History of no DVT. History of no pulmonary embolism. Not in a hypercoagulable state. no history of chemotherapy no history of radiation Does not have HIV, MRSA or tuberculosis. Endocrine/Metabolic: diabetes mellitus type 2.well controlled. AM glucose 100, last A1c 6.2 Does not have thyroid disorder. Lab Results Component Value Date WBC 11.70 (H) 05/31/2024 HGB 12.8 (L) 05/31/2024 HCT 40.0 05/31/2024 MCV 87 05/31/2024 PLT 333 05/31/2024 Lab Results Component Value Date GLUCOSE 145 (H) 05/31/2024 BUN 42 (H) 05/31/2024 CREATININE 2.02 (H) 05/31/2024 BCR 21 05/31/2024 NA 141 05/31/2024 K 5.0 (H) 05/31/2024 CL 108 (H) 05/31/2024 CO2 23 05/31/2024 ALBUMIN 4.4 05/31/2024 ALKPHOS 92 05/31/2024 BILITOT 0.3 05/31/2024 No results found for: HGBA1C Lab Results Component Value Date INR 1.2 (H) 02/24/2024 Visit Vitals Wt 92.1 kg (203 lb) BMI 26.78 kg/m?? Smoking Status Never BSA 2.18 m?? 08/02/2024 2:50 PM Vitals Weight (kg) 92.08 kg BMI 26.78 kg/m2 BSA (m2) 2.18 m2 Physical Exam Anesthesia Plan ASA 3 Anesthesia technique(s) discussed with the patient/family: general Comment: CIRILO phone screen Viktoriya Perez APRN [1] Past 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: Diagnosis Date Diabetes mellitus (CMS/HCC) Hypertension Kidney disease [2] Family History Problem Relation Name Age of Onset Anesthesia problems Neg Hx Malig Hyperthermia Neg Hx [3] Social History Tobacco Use Smoking status: Never Smokeless tobacco: Never Vaping Use Vaping status: Never Used Substance Use Topics Alcohol use: Never Drug use: Never [4] Past Surgical History: Procedure Laterality Date CORONARY ARTERY BYPASS GRAFT 2002 patient believes it was either 2002 or 2003. [5] No Known Allergies [6] Current Outpatient Medications: amLODIPine, Take 1 tablet by mouth daily. aspirin, Take 1 tablet by mouth every morning. atorvastatin, Take 1 tablet by mouth nightly. glyBURIDE, Take 1 tablet by mouth daily with breakfast. irbesartan, Take 1 tablet by mouth daily. metoprolol succinate XL, Take 1 tablet by mouth every morning. NIFEdipine XL, Take 1 tablet (60 mg) by mouth daily. Do not crush, chew, or split. Replaces amlodipine [place]-3 Fatty Acids (FISH OIL HIGH POTENCY PO), Take 1 capsule by mouth in the morning. omeprazole, Take 1 capsule by mouth every morning. trospium, Take 1 tablet by mouth 2 (two) times a day. clopidogrel, Take 1 tablet (75 mg) by mouth every morning. (Patient not taking: Reported on 08/02/2024) * Preprocedure Instructions - Viktoriya Teran APRN - 08/02/2024 3:15 PM EDT Home Medication Instructions Current Medications Medication Instructions amLODIPine (Norvasc) 10 MG tablet Take morning of surgery aspirin 81 MG EC tablet Take morning of surgery atorvastatin (Lipitor) 80 MG tablet Take night before surgery glyBURIDE (Diabeta) 5 MG tablet Hold day of surgery irbesartan (Avapro) 300 MG tablet Hold day of surgery metoprolol succinate XL (Toprol-XL) 200 MG 24 hr tablet Take morning of surgery NIFEdipine XL (Procardia XL) 60 MG 24 hr tablet Take morning of surgery [place]-3 Fatty Acids (FISH OIL HIGH POTENCY PO) Hold 7 days before surgery omeprazole (PriLOSEC) [address] capsule Take morning of surgery trospium (Sanctura) 20 MG tablet Take morning of surgery General Preoperative Instructions You will be called the day before surgery with your arrival time No food after midnight the night before surgery. You can drink clear liquids up to 2 hours prior to arrival. Please do not try to get all your hydration in 2 hours prior to arrival. Start the day before surgery drinking more than you usually would.After midnight, you can have clear liquids only (water, apple juice, Gatorade) up to 2 hours prior to arrival. No coffee or tea. No alcohol or smoking prior to surgery Arrive on time to avoid delays Parking/Registration procedure explained You MUST have a responsible adult available for transport to and from hospital Visitation policy for the day of surgery reviewed Bring insurance card, photo ID, along with power of scrap shear operator, guardianship or advanced directives if applicable Do not bring money, jewelry or other valuables Hibiclens bathing instructions reviewed if applicable Notify surgeon of fever, illness, any changes or if you decide not to have surgery Diabetes Instructions (If applicable) Take diabetes medication as instructed You may have up to 4 ounces of apple juice 2 hours prior to arrival for surgery for low glucose * [facility] Viktoriya Teran APRN - 08/02/2024 2:59 PM EDT Images from the original note were not included. 40 Bathing Before Surgery Basic instructions ? You need to bathe with Hibiclens (chlorhexidine) before surgery. This will clean your skin and remove germs that live on the skin. This reduces your risk of infection after surgery. ? You can buy Hibiclens at most drug stores. ? You need to bathe with Hibiclens twice before surgery - once the night before surgery and again the morning of surgery. ? Do not use Hibiclens on your hair or anywhere above the neck. ? You should not shave with a razor or use hair removal creams near the surgery site for 4 days before surgery. Night before surgery If you take a shower or tub bath: 1. Wash with regular soap and water and rinse off. 2. You may wash your hair the night before or the morning of surgery. Shampoo and rinse as usual. 3. Pour 1 ounce (2 tablespoons) of Hibiclens on a clean washcloth. Wash the area where you will be having your surgery first. Then wash the rest of the body, leaving the groin area until last. 4. Allow the Hibiclens to stay on the skin for 5 minutes, then rinse off completely. 5. Use a clean towel to dry off. 6. Put on clean clothing and be sure to have clean sheets on your bed. ? If you take a bed bath: 1. Wash with regular soap and water and rinse off. 2. Place 1 ounce (2 tablespoons) of Hibiclens solution in a wash basin of clean water. Wash the area where you will be having surgery first. 3. Then wash the rest of the body. Leave the groin area until last. 4. Allow the Hibiclens to stay on the skin for 5 minutes. Then rinse off completely. 5. Use a clean towel to dry off. 6. Put on clean clothing. Be sure to have clean sheets on your bed. Morning of surgery ? Repeat the above steps. You are now ready for surgery with the cleanest possible skin! If you develop a skin problem between now and your surgery, please tell your doctor as soon as possible! * Basim [facility] - Viktoriya Teran APRN - 08/02/2024 2:59 PM EDT Images from the original note were not included. 1072 Patient Surgery Guide The doctors and staff of [facility] would like to welcome you, your family, and friends to [facility]. We offer access to more than 1,500 doctors from many specialty areas. Our goal is to provide high-quality, patient- centered care throughout your experience. We have a team approach tosurgery, and you and your family are an important part of our team. Surgeons, surgical nurses, anesthesiologists, dietitians, social workers, pharmacists, and others will work with you to decide the best plan of care for you. We understand surgery is a stressful time. This information will help you be more comfortable with [facility] and the surgical process. This information provides an overview answering many of yourquestions. But if you have further questions, please ask your doctor or nurse. Preoperative Anesthesia Clinic Your doctor may ask you to go to the Preoperative Anesthesia Clinic before your surgery. This visitallows us to evaluate your overall health and reduce the chance of delays or cancellation on the day of surgery. Please bring a complete list of the medicines your currently take. Bring any recent test reports you may have, including blood work, EKG, X-rays. Bring the results of any recent heart evaluation, including doctor?s notes and test reports. If you are not scheduled for a Preoperative Anesthesia Clinic visit, a nurse will call you to go over your health history and give you information about your surgery. It is very important you speak to a nurse before your surgery. The Preoperative Anesthesia Clinic is located on the first floor of the [facility] near the Pharmacy and main clinic entrance. We are open Tuesday-Tuesday from 8 a.m. to 4:30 p.m. A clinic technical sales representatives can be reached at [phone]. Parking is available in the [facility] garage on [facility] or in the [facility] garage located at [address] [place] [address], directly across [facility] from [facility]. The day before surgery You will receive a phone call telling you what time you need to arrive at the hospital for surgery.If you miss the call, please call one of the following numbers (depending on where your surgery is scheduled): ? [facility]: [phone] or [phone] ? [facility]: [phone] or [phone] The day of surgery ? Arrive on time to avoid delays or cancellation. ? Park in the [facility] parking garage located at [address] [facility]. It is directly across [facility] from the medical [place]. ? If you are scheduled for surgery at [facility], take the hospital garage elevator to Level C, then cross the concourse bridge to the Surgery Waiting Room to register for your surgery. [facility] is located down the first hallway to the right at the end of the concourse bridge. If you need help crossing the concourse, you may pick up operator the patient golf cart shuttle directlyto the right of the elevators on Level C. ? If you are scheduled for surgery at the [facility], take the garage elevator to Level A and catch the free shuttle to the hospital. (Be careful not to take the [facility] shuttle - there is an ambassador there who can help you.) Exit the shuttle at the first shuttle stop, then proceed to the registration desk to the right of the entrance. ? Registration staff will take your insurance information and confirm your name, birthday, address and other information. When you arrive After you register, we will take you to the preoperative area. Here the nurses will get you ready for surgery. Visitors are limited in the preoperative area. Nurses will: ? Allow you to change into a hospital gown. ? Check your arm band for your name and birthday. Your arm band will be checked many times throughout your stay at [facility] to ensure your safety. ? Go over your health history. ? Review your medicines and allergies. ? Check your temperature, blood pressure, heart rate, height and weight. ? Start an IV. ? Tell you what to expect during your stay at the hospital. During surgery Your family and friends will be directed to the Surgery Waiting Room. There they will receive regular updates during your surgery. Your doctor will talk to them after your surgery. A hall clerk is available in the waiting room to help family and visitors. Space is limited, so please limit the number of people who come with you for your surgery. After surgery We will take you to a special area called the Post-Anesthesia Care Unit, or ?PACU.? There nurses will take care of you as you recover from surgery. Most patients will stay in the PACU for about 1-2 hours. Some people might need to stay longer. During this time the doctors and nurses will: ? Keep your pain level as low as possible. ? Help keep you from being sick to your stomach. ? Make sure you are warm and comfortable. ? Update your family on how you are doing. The anesthesia doctor will decide when you can go home or to your room. If you are going home after surgery: A nurse will give you and your family instructions on how to care for yourself when you go home. You will also get written instructions. This information will tell you how to schedule a follow-up appointment if an appointment is not scheduled before you leave, and how to contact your surgeon. If you are staying in the hospital after surgery: You will stay in the PACU until you are assigned a room. Your family and friends may visit you once you get to your hospital room. Parents of children or caregivers of special needs patients may remain in the preoperative area forthe entire time. They will be allowed in the PACU as soon as possible after the operation. At home ? Plan to go straight home to rest when you leave the hospital. If you wish, your medicines to takehome can be brought to your room before you leave. ? Follow your doctor?s instructions about rest, what to eat, what you can and cannot do, which medicines to take and when you may return to your normal activities. ? Be sure to keep your follow-up appointment with your doctor. You should be scheduled for a clinicappointment before you leave the hospital. Special reminders If you take insulin or other medicine for diabetes, the doctor will tell you what dose to take before your surgery. This will probably be different from your normal dose. Please bring your insulin with you on the day of surgery. If you are taking a blood thinner (for example: Coumadin, Plavix, aspirin, etc.), please tell your surgeon and anesthesia doctor. For all other medicines, you will receive instructions during your Anesthesia Preoperative Clinic visit or phone screening. Updates from the operating room It is important to protect your privacy when you are in the hospital. We also want to make it easy for your family to find out how you are doing while you are in surgery. To do this, on the day of your surgery a nurse will ask you to choose a password and share it with just one family member or friend. This password will then be put on your chart. When your family member calls to check on your condition, he or she must give the password to the nurse. The nurse will look on your chart to make sure it is the correct password and then give the person information on your condition. If you have any questions about this process, please ask. Our mission is to give you the very best care, including protecting your privacy. Feel better faster You should take walks if possible and do plenty of deep breathing. This will help you feel better more quickly after surgery. Walking and deep breathing help prevent blood clots and pneumonia and mayhelp ease any muscle soreness. Surgery do's ? Be sure to bring your current insurance card and a picture ID. ? Please bring copies of the following,if you have them: living will, health care surrogate, power of scrap shear operator or guardianship papers. ? Bring a responsible adult to drive you home (or ride with you in a taxi) if you are having outpatient surgery. ? Plan to have someone stay with you at home for 24 hours after your surgery. ? Bring a list of your current medicines, including how much you take and when you take it. You mayalso just bring the medicines (in their original containers) with you. ? Tell your doctor about any allergies you have to medicines or food. ? Wear comfortable, loose-fitting clothes and low-heeled shoes. ? Bring a case to store glasses, contact lenses or dentures during surgery. Label the containers with your name. ? Pack an overnight bag that includes personal care items, such as a toothbrush and lotion, if you are staying in the hospital. ? Bring a parent or guardian if you are younger than 18. ? Bring a favorite toy or blanket for children having surgery. Surgery don'ts ? Starting at midnight, don?t eat anything on the day of your surgery. ? Don?t drink anything after midnight (unless told otherwise by your doctor or nurse) the day before your surgery. ? Don?t smoke, use smokeless tobacco, eat mints or chew gum after midnight the day of your surgery. ? Don?t drink alcohol 24 hours before your surgery. ? Don?t wear makeup, jewelry (including body piercing) or nail dutch. ? Don?t bring money or valuables to the hospital. ? Don?t drive a motor vehicle for 24 hours after your surgery. ? Don?t make important decisions or sign any legal documents for 24 hours after your surgery. ? Don?t drink alcohol or take medicine not prescribed by your doctor for 24 hours after your surgery. Need to cancel? If you decide not to have surgery or if you need to cancel because of a fever, a breathing or viralillness, or a family emergency, please call your surgeon?s office and the Preoperative Anesthesia Clinic at [phone] or [phone]. If it is the day of surgery, call the location where you are scheduled to have your surgery: [facility] at [phone] or [phone] or [facility] at [phone] or [phone]. For more information Visit www.[email or web address] or call [phone] or [phone]. [facility] does not discriminate. [facility] complies with applicable Federal civil rights laws and does not discriminate on the basis of race, color, national origin, age, disability, or sex. * Basim On[facility] - Viktoriya Teran APRN - 08/02/2024 2:59 PM EDT Images from the original note were not included. 489 Map to [facility] Facilities Directions Easy directions to and from [address] (from [address]) Directions from [place]/[place] to the [facility] Parking Garage: ? From [address], turn right off the exit ramp onto [address] ([place] [address] [address]) toward [place]. ? In 4.1 miles, turn left onto [address] (at the [employer] gas station). ? In a half-mile, turn right onto [address] ? In .3 miles, turn right onto [address] (just past the [employer] gas station). Garage entrance is on the left. ? Important: This garage address will change to [address] [place] [address] on August 07, 2024. Directions from [facility] Parking Garage to [place]: ? Turn left out of the garage onto [address]. ? Turn left onto [address]. ? In .3 miles, turn left down [address] ? In a half-mile, turn right onto [address] (at the [employer] gas station). ? In 4.1 miles, merge onto [address] (near the [facility]). Parking Any patients or visitors of [facility] can park in the following areas: ? [facility] Parking Garage (main garage): [address] (Levels A-F) ? [facility] Garage: [address] (Levels 1-6) ? [facility] lot: Located off [address] (limited parking for [facility] only). Upon Your Arrival ? Patients and visitors going to [facility] and [facility] may walk across the pedway, located at Level C of the main parking garage ([address] or take the free shuttle from Level A. Golf carts are available on the pedway. ? Patients and visitors going to all other hospital pavilions are encouraged to take a free shuttleat Level A of the main garage. ? Emergency Department (ED) patients in need of immediate treatment may be dropped off at the ED entrance at the 15-minute dropoff area. Vehicles in this lot must be moved to the main hospital garage after 15 minutes. The ED may also be accessed via the pedway off [facility] garage on Level C. If you need a shuttle to the ED, one can be called for you at Level A of the main garage or contact any of the information desks, . Additional Information For additional information, please visit our information desks located throughout Healthcare. Information desks have additional maps and resources. Information desks are located at the main entrances of: [facility] (first floor and ground floor), [facility], Pavilion , [facility], Pavilion , [facility] (first and third floor), and [facility]. Informationdesk number: [phone]. Important Addresses [address] [facility] ? [facility] entrance ? [facility] A ? Pavilion G ([facility]) ? Emergency Department [address] ? Pavilion H ? [facility]ilion CC ([facility]) ? Pavilion WH ([facility]) ? [employer] [address] [facility] ? [facility] [address] [facility] ? [address] ? [facility] ? [facility] documented in this encounter Plan of Treatment Upcoming Encounters Date Type Department Care Team (Late st Contact Info) Description 08/31/2024 12:15 PM EDT Appointment Medical Office Building Physical Therapy [address] [facility], [address] [place] [address] Charlotte Pillai [address] [facility] [address] [place], [place] [id number] 09/19/2024 3:30 PM EDT Office Visit Medical Office Building Urology [address] [facility], [address] [place] [address] Courtney Young MD [address] [address] 10/10/2024 4:00 PM EDT Office Visit [facility] Nephrology, Bone [facility] Mineral Metabolism [address] [facility] [address] [facility], [facility] [address] [place] [address] Mp Reis, WILMER [address] [facility] [address] [place] [address] 06/05/2025 10:45 AM EDT Appointment [facility] Radiology [address] [place] [address] 06/05/2025 11:50 AM EDT Clinical Support [place] [facility] [address], [address]nd [place] [address] 06/05/2025 12:30 PM EDT Office Visit [facility] Urology [address], [address]nd [place] [address] Charlotte Rodriguez, VOCATIONAL TECHNICAL EDUCATION DIRECTOR, DNP [address] [phone] documented as of this encounter Visit Diagnoses [...] documented as of this encounter Care Teams Concrete Mason Relationship Specialty Start Date End Date Luis Caraballo MD [address] [place] [address] PCP - General 06/20/20 documented as of this encounter
--- OUTSIDE RECORDS SUMMARY | 2024-08-14 13:53 | XMS_ITS | Encounter Summary ---
Author Organization [facility] Address [address] [place] [address] Care Team Providers Care Clinical Pharmacist Name Role Phone Luis Caraballo MD Primary Care Provider [phone] Reason for Referral * Consultation (Routine) - Authorized Specialty Diagnoses / Procedures Referred By Radha ramos Referred To Contact Physical Therapy Diagnoses Incomplete bladder emptying Courtney Young MD [address] [address] Phone: tel: fax: Medical Office [facility] Physical Therapy [address] [place] [phone] Phone: tel: fax: Referral ID Status Reason Start Date Expiration Date Visits Requested Visits Authorized [id number] Authorized Consult and Treat 07/05/2024 01/04/2026 1 9 Reason for Visit * Consultation (Routine) - Authorized Specialty Diagnoses / Procedures Referred By Radha ramos Referred To Contact Physical Therapy Diagnoses Incomplete bladder emptying Courtney Young MD [address] [address] Phone: tel: fax: [facility] Office [facility] Physical Therapy [address] [place] [phone] Phone: tel: fax: Referral ID Status Reason Start Date Expiration Date Visits Requested Visits Authorized [id number] Authorized Consult and Treat 07/05/2024 01/04/2026 1 9 Encounter Details Date Type Department Care Team (Latest Contact Info) Description 08/14/2024 1:53 PM EDT - 08/14/2024 11:59 PM EDT Hospital Encounter Medical Office Building Physical Therapy [address] [facility], [address] [place] [address] Charlotte Pillai [address] [facility] [address] [place] [address] Incomplete bladder emptying (Primary Dx) Discharge Disposition: Still a Patient Social History Tobacco Use Types Packs/Day Years [...] on file documented as of this encounter Medications at Time of Discharge acetaminophen (Tylenol) 325 MG tablet Take 2 tablets by mouth every 6 hours. Under [place] law, monthly prescriptions (30 days) can be refilled at 25 days and three-month prescriptions (90 days) at 80 days. Please contact the insurance company with questions if refills are denied. 100 tablet 08/22/2024 aspirin 81 MG EC tablet Take 1 tablet by mouth every morning. atorvastatin (Lipitor) 80 MG tablet Take 1 tablet by mouth nightly. 11/17/2023 clopidogrel (Plavix) 75 MG tablet Take 1 tablet by mouth every morning. 11/17/2023 glyBURIDE (Diabeta) 5 MG tablet Take 1 tablet by mouth daily with breakfast. 11/18/2023 irbesartan (Avapro) 300 MG tablet Take 1 tablet by mouth daily. 07/09/2024 methocarbamol (Robaxin) 500 MG tablet Take 1 tablet by mouth 3 times a day as needed for muscle spasms. 30 tablet 08/22/2024 metoprolol succinate XL (Toprol-XL) 200 MG 24 hr tablet Take 1 tablet by mouth every morning. 01/20/2024 NIFEdipine XL (Procardia XL) 60 MG 24 hr tabletIndications :Essential hypertension Take 1 tablet (60 mg) by mouth daily. Do not crush, chew, or split. Replaces amlodipine 30 tablet 5 04/27/2024 Ethel-3 Fatty Acids (FISH OIL HIGH POTENCY PO) Take 1 capsule by mouth in the morning. polyethylene glycol (Miralax) 17 g packet Take 17 g by mouth daily. 30 packet 1 08/23/2024 senna-docusate (Noelle-Colace) 8.6-50 MG tablet Take 1 tablet by mouth nightly. 30 tablet 1 08/22/2024 phenazopyridine (Pyridium) 200 MG tablet Take 1 tablet by mouth 3 times a day with meals for 9 doses. 10 tablet 08/22/2024 08/26/19 25 amLODIPine (Norvasc) 10 MG tablet Take 1 tablet by mouth daily. 07/19/2023 08/19/19 25 omeprazole (PriLOSEC) [address] capsule Take 1 capsule by mouth every morning. 11/17/2023 08/19/19 25 sulfamethoxazole- trimethoprim (Bactrim DS) 800-160 MG tabletIndications :Urine retention Take 1 tablet by mouth 2 times a day for 7 days. 14 tablet 08/06/2024 08/19/19 25 trospium (Sanctura) 20 MG tablet Take 1 tablet by mouth 2 (two) times a day. 60 tablet 11 05/31/2024 08/23/19 25 documented as of this encounter Miscellaneous Notes * Progress Notes - Charlotte Pillai - 08/14/2024 2:45 PM EDT Physical Therapy PT Evaluation and Treatment Note DATE: 08/14/2024 NAME: Deny Garcia Date of : 1955 Therapist: Charlotte Pillai Subjective: Mr. Garcia is a 69-year-old male who presents this date for incomplete bladder emptying r/t enlarged prostate. He is undergoing HOLEP procedure later this week and is here for strengthening exercises prior to this. General General Chief Complaint: Decreased functional status Time In: 1426 Time Out: 1451 Chart Reviewed: Yes Family/Caregiver Present: No Patient's Preferred Language for Communication is: Moldovan Pain Pain Assessment Pain Assessment: 0-10 Pain Score: 0 Gait Gait Gait: Normal Pelvic Health Bladder Symptions Bladder Symptoms (choose all that apply): straining to empty bladder, hesitancy or difficulty starting a stream of urine (difficulty emptying, catheter usage) Bowel Symption Bowel Symptoms (choose all that apply): (daily bowel movement, no symptoms) Outcome Measures International Prostate Symptom Score: 35, 26% Assessment Impairments: Decreased strength, Impaired muscle tone, Impaired motor planning Prognosis: Good Other Assessments Via external palpation, patient able to contract pelvic floor and hold for 5 seconds Able to perform 6 quick flicks in 10 seconds at pelvic floor Treatment Therapeutic Exercise Therapeutic Exercise 1: see below Access Code: [email or web address] URL: [email or web address] Date: 08/14/2024 Prepared by: Charlotte Pillai Program Notes --You can do these sitting or lying down--You can start again once catheter is out Exercises - Seated Pelvic Floor Contraction - 3-5 x daily - 7 x weekly - 1 sets - 10 reps - 5 hold - Quick Flick Pelvic Floor Contractions Seated - 3-5 x daily - 7 x weekly - 5 sets - 5 reps - 1 hold Assessment Patient presented this date for initial evaluation for pelvic floor strengthening prior to HOLEP procedure. He does demonstrate decreased endurance and coordination at pelvic floor. He is appropriatefor continued treatment following surgery. Evaluation Plan Complexity Grid Impairments: Decreased strength, Impaired muscle tone, Impaired motor planning Clinical Presentation: Stable and/or uncomplicated characteristics Clinical Decision Making: Low complexity Plan Frequency: 1 time per week Duration: 6 weeks PT Assessment Prognosis: Good Today's Treatment Equipment Used: None Needs Communication Device: No Patient Understanding of Basic Information: Understands, able to self manage Barriers to Learning: None Readiness to Learn: Accepting and interested Education Needs Identified: HEP, Activity modification related to diagnosis Did Patient/Family Demonstrate Learning: Pt/Family verbalizes understanding, Pt/Family demonstratesunderstanding Who Was Educated: Patient Rehab Potential: Good Education Given: Verbal, Pictures, Written/Handout, Demonstrated Cultural/Advent Beliefs: None that will affect treatment Patient's Preferred Language for Communication is: Moldovan Daily Plan Counselling Education: Verbal, Written, Demonstrated, Home exercise program, Therapeutic exercise Treatment may include patient education, development of HEP, therapeutic exercise, therapeutic activity, neuromuscular re-education, gait training, functional/postural training, joint/soft tissue mobilizations, mechanical traction, taping, orthotic/splinting fabrication, dry needling, and modalities to possibly include heat, ice, edema management, ultrasound, iontophoresis at 40-80 mA/min of dexamethasone or other approved substances, TENS/Electrical stimulation. If patient does not return for 30 days, patient is to be considered discharged at this time. Patient agrees with/understands the plan of care. Patient advised to call clinic with any questions or concerns. Goals STGs 4 weeks: Patient will be independent with HEP. Patient will demonstrate 10 second hold at pelvic floor to improve support of pelvic organs. Patient will decrease I-PSS score. Patient will demonstrate 9 pelvic floor quick flicks in 10 seconds to improve coordination. Written by Charlotte Pillai on 08/14/2024 at 3:14 PM. documented in this encounter Plan of Treatment Upcoming Encounters Date Type Department Care Team ([facility] st Contact Info) Description 08/31/2024 12:15 PM EDT Appointment Medical Office Building Physical Therapy [address] [facility], [address] [place] [address] Charlotte Pillai [address] [facility] [address] [place], [place] [id number] 09/19/2024 3:30 PM EDT Office Visit Medical Office Building Urology [address] [facility], [address] [place] [address] Courtney Young MD [id number] [place] [address] 10/10/2024 4:00 PM EDT Office Visit [facility] Nephrology, Bone & Mineral Metabolism [address] [facility], [address] [place] [address] Mp Reis PA [address] [place] [address] 06/05/2025 10:45 AM EDT Appointment [facility] Radiology [address] [place] [address] 06/05/2025 11:50 AM EDT Clinical Support [place] [facility] Lab [address] [place] [address] 06/05/2025 12:30 PM EDT Office Visit [facility] Urology [address] [place] [address] Charlotte Rodriguez, INSURANCE AGENCY OWNER, DNP [address] [place] [address] Scheduled Referrals Name Type Priority Associated Diagnoses Order Schedule Ambulatory referral to Physical Therapy Outpatient Referral Routine Once for 1 Occurrences starting 08/14/2024 until 08/14/2024 documented as of this encounter Visit Diagnoses Diagnosis Incomplete bladder emptying- Primary documented in this encounter Additional Health Concerns Assessment Noted Time PHQ-9 Depression Total Score: 0 07/06/19 25 3:19 PM EDT A fall risk assessment has been complete d for the patient 07/11/2024 4:06 PM EDT A Body Mass Index follow-up plan has been documented for the patient 07/16/2024 3:18 PM EDT documented as of this encounter Care Teams Clinical Pharmacist Relationship Specialty Start Date End Date Luis Caraballo MD [address] [place] [address] PCP - General 06/20/20 documented as of this encounter
--- OUTSIDE RECORDS SUMMARY | 2024-08-17 10:02 | XMS_ITS | Encounter Summary ---
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 Name Role Phone Luis Caraballo MD Primary Care Provider [phone] Reason for Visit * Auth/Cert (Routine) Specialty Diagnoses / Procedures Referred By Radha t Referred To Contact Diagnoses Incomplete bladder emptying INCOMPLETE BLADDER EMPTYING Procedures SC LASER ENUCLEATION PROSTATE W MORCELLATION ENUCLEATION, PROSTATE, TRANSURETHRAL, USING HOLMIUM LASER ( HOLEP ) Courtney Young MD [address] [address] Phone: tel: fax: [facility] [address] [place] [address] Phone: tel: Referral ID Status Reason Start Date Expiration Date Visits Re quested Visits Authorized [id number] 1 1 Encounter Details Date Type Department Care Team (Latest Contact Info) Description 08/17/2024 10:02 AM EDT - 08/22/2024 3:41 PM EDT Hospital Encounter [facility] [address] [place] [address] Courtney Young MD [address] [address] Urinary retention due to benign prostatic hyperplasia (Primary Dx); Incomplete bladder emptying Discharge Disposition: Home or Self Care Social History Tobacco Use Types Packs/Day Years [...] Sign Reading Time Taken Comments Blood Pressure 126/78 08/22/2024 11:14 AM EDT Pulse 83 08/22/2024 11:14 AM EDT Temperature 36.9 C (98.4 F) 08/22/2024 11:14 AM EDT Respiratory Rate 16 08/22/2024 11:14 AM EDT Oxygen Saturation 97% 08/22/2024 11:14 AM EDT Inhaled Oxygen Concentration - - Weight 89.9 kg (198 lb 3.1 oz) 08/22/2024 5:58 A M EDT Height 185.4 cm (6' 1 ) 08/17/2024 11:08 AM EDT Body Mass Index 26.15 08/17/2024 11:08 AM EDT documented in this encounter Functional Status * Calculated C-SSRS Risk Score (Lifetime/Recent) Answer Date of Assessment Author No Risk Indicated 08/22/2024 8:00 AM EDT Veronique Downey RN * Question Answer Date of Assessment Author 1. Wish to be (Past 1 Month) No 025 8:00 AM EDT Naveed Downey RN 2. Non-Specific Active Suici carolina Thoughts (Past 1 Month) No 08/22/2024 8:00 AM EDT Naveed Downey RN 6. Suicidal Behavior (Lifetime) No 8:00 AM EDT Naveed Downey RN documented as of this encounter Discharge Instructions * Discharge Instructions* Nilson Montes MD - 08/22/2024 10:55 AM EDT Sabina TESFAYE instructions: Diagnosis: Benign prostate hyperplasia with difficulty urinating Procedure: Laser enucleation of the prostate (endoscopic enucleation of the prostate) Medications: RESTART YOUR PLAVIX IN 2 WEEKS IF URINE REMAINS CLEAR. For pain: over the counter acetaminophen every 6 hours as needed. Please STOP TAKING medication for enlarged prostate (tamsulosin, alfuzosin, silodosin, terazosin, doxazosin, finasteride, dutasteride, etc). 200 mg Pyridium (Phenazopyridine) for urethral pain and pain with urination. What to expect: Blood in your urine for up to 2-3 months Burning with urination for 1-2 months Extreme urgency to urinate for 2-3 months Need to wear urinary continence pads or diapers for 2-3 months Please do not lift anything heavier than 10 lbs (approxiately 1 gallon of milk) for 4 weeks. After this time you have no restrictions. Follow-up: Law catheter has been removed. Return to clinic on 09/19/24 for your follow up appointment. Please call the office or go to the emergency room if after regular business hours should you experience: Severe pain refractory to medications. Nausea and vomiting. Inability to urinate or catheter becomes clogged. Fever > 100.5 F or chills. documented in this encounter Medications at Time of Discharge acetaminophen (Tylenol) 325 MG tablet Take 2 tablets by mouth every 6 hours. Under [place] law, monthly prescriptions (30 days) can be [...] split. Replaces amlodipine 30 tablet 5 04/27/2024 [place]-3 Fatty Acids (FISH OIL HIGH POTENCY PO) [...] 9 doses. 10 tablet 08/22/2024 08/26/19 25 documented as of this encounter Miscellaneous Notes * Progress Notes - Renate Blanchard RN - 08/22/2024 3:41 PM EDT Case Management Discharge Note Mouna Garcia 69 y.o. male CSN: [id number] Admission: 08/17/2024 10:02 AM Primary Problem: Urinary retention due to benign prostatic hyperplasia Primary Dough Panner: Assistance Available at Discharge: Family/Dough Panner(s) Willingness Assessed to care for patient at home: Yes Family/Dough Panner(s) Readiness Assessed to care for patient at home: Yes Housing Circumstances-Z Codes: Patient Referred to Financial or Community Resources: Discharge Facility/Level of Care Needs: Discharge Facility/Level of Care Needs: 1-Home or Self Care Patient's Choice of Community Agency(s): Patient/Family Anticipated Services at Transition: Patient/Family Anticipated Services at Transition: none DME/Equipment Needed after Discharge: Equipment Currently Used at Home: none Equipment Needed After Discharge: none Readmission Within the Last 30 Days: Readmission Within the Last 30 Days: no previous admission in last 30 days Medicare Documentation: Medicare Second Notice?: Yes Date Second Notice Completed: 08/22/24 Time Second Notice Completed: 911 Medicare Second Notice Recieved By: patient Follow-up: Luis Caraballo MD [address] [place] [id number] Discharge Transportation: Transportation Anticipated: family or friend will provide Transportation Home at Discharge: Family/Friend will Provide Has discharge transport been arranged?: Yes What day is the transport expected?: 08/22/24 Follow Up Transport: Transportation Needed to Follow up Appoinments: Family/Friend will Provide Additional Comments: POC reviewed with primary team. Refer to primary team's discharge note for details. Medically readyto discharge today. Patient agrees to dc home today and agrees with above DC plan. 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 [id number] Methocarbamol WHY is this medicine prescribed? Methocarbamol is used with rest, physical therapy, and other measures to relax muscles and relieve pain and discomfort caused by strains, sprains, and other muscle injuries. Methocarbamol is in a class of medications called muscle relaxants. It works by slowing activity in the nervous system to allow the body to relax HOW should this medicine be used? Methocarbamol comes as a tablet to take by mouth. It usually is taken four times a day at first, then it may be changed to three to six times a day. Follow the directions on your prescription label carefully, and ask your doctor or pharmacist to explain any part you do not understand. Take methocarbamol exactly as directed. Do not take more or less of it or take it more often than prescribed by your doctor. Are there OTHER USES for this medicine? This medication may be prescribed for other uses. Ask your doctor or pharmacist for more information. What SPECIAL PRECAUTIONS should I follow? Before taking methocarbamol, ? tell your doctor and pharmacist if you are allergic to methocarbamol, any other medications or any of the ingredients in methocarbamol tablets. Ask your doctor or pharmacist for a list of the ingredients. ? tell your doctor and pharmacist what prescription and nonprescription medications, vitamins, nutritional supplements, and herbal products you are taking or plan to take while taking methocarbamol. Your doctor may need to change the doses of your medications or monitor you carefully for side effects. ? tell your doctor if you are , plan to become , or are breast- feeding. If you become while taking methocarbamol, call your doctor. ? talk to your doctor about the risks and benefits of taking methocarbamol if you are 65 years of age or older. Older adults should not usually take methocarbamol because it is not as safe or as effective as other medications that can be used to treat the same condition. ? you should know that this medication may make you drowsy. Do not drive a car or operate machineryuntil you know how methocarbamol affects you. ? talk to your doctor about the safe use of alcohol during your treatment with this medication. Alcohol can make the side effects of methocarbamol worse. What SPECIAL DIETARY instructions should I follow? Unless your doctor tells you otherwise, continue your normal diet. What should I do IF I FORGET to take a dose? Take the missed dose as soon as you remember it. However, if it is almost time for the next dose, skip the missed dose and continue your regular dosing schedule. Do not take a double dose to make up for a missed one. What SIDE EFFECTS can this medicine cause? If you experience either of the following symptoms, call your doctor immediately: ? rash ? itching Methocarbamol may cause other side effects. Call your doctor if you have any unusual problems whileyou are taking this medication. If you experience a serious side effect, you or your doctor may send a report to the Food and Drug Administration's (FDA) MedWatch Adverse Event Reporting program online (https://www.fda.gov/Safety/MedWatch) or by phone ( ). What should I know about STORAGE and DISPOSAL of this medication? Keep this medication in the container it came in, tightly closed, and out of reach of children. Store it at room temperature and away from excess heat and moisture (not in the bathroom). Dispose of unneeded medications in a way so that pets, children, and other people cannot take them.Do not flush this medication down the toilet. Use a medicine take-back program. Talk to your pharmacist about take-back programs in your community. Visit the FDA's Safe Disposal of Medicines website h ttps://goo.gl/c4Rm4p for more information. Keep all medication out of sight and reach of children as many containers are not child-resistant. Always lock safety caps. Place the medication in a safe location - one that is up and away and out of their sight and reach. https://www.upandaway.org What should I do in case of OVERDOSE? In case of overdose, call the poison control helpline at . Information is also available online at https://www.poisonhelp.org/help. If the victim has collapsed, had a seizure, has trouble breathing, or can't be awakened, immediately call emergency services at 861. What OTHER INFORMATION should I know? Keep all appointments with your doctor. Do not let anyone else take your medication. Ask your pharmacist any questions you have about refilling your prescription. Keep a written list of all of the prescription and nonprescription (zqzl-aog-rymcyqk) medicines, vitamins, minerals, and dietary supplements you are taking. Bring this list with you each time you visit a doctor or if you are admitted to the hospital. You should carry the list with you in case of sushma rgencies. Brand Name(s): Robaxin??; also available generically This report on medications is for your information only, and is not considered individual patient advice. Because of the changing nature of drug information, please consult your physician or pharmacist about specific clinical use. The [place] [employer] represents that the information provided hereunder was formulated with a reasonable standard of care, and in conformity with professional standards in the field. The [place] [employer] makes no representations or warranties, express or implied, including, but not limited to, any implied warranty of merchantability and/or fitness for a particular purpose, with respect to such information and specifically disclaims all such warranties. Users are advised that decisions regarding drug therapy are complex medical decisions requiring the independent, informed decision of an appropriate health daycare manager, and the information is provided for informational purposes only. The entire monograph for a drug should be reviewed for a thorough understanding of the drug's actions, uses and side effects. The [place] [employer] does not endorse or recommend the use of any drug.The information is not a substitute for medical care. AHFS?? Patient Medication Information?. ?? Copyright, 2023. The [place] [employer]??, [address], [address], [place], [place]. All Rights Reserved. Duplication for commercial use must be authorized by [facility]. Selected Revisions: September 21, 2016. AHFS?? Patient Medication Information?. ?? Copyright, 2024 * Basim Rodney - Maria De Jesus Siddiqui RN - 08/22/2024 3:25 PM EDT Images from the original note were not included. [id number] Phenazopyridine WHY is this medicine prescribed? Phenazopyridine relieves urinary tract pain, burning, irritation, and discomfort, as well as urgentand frequent urination caused by urinary tract infections, surgery, injury, or examination procedures. However, phenazopyridine is not an antibiotic; it does not cure infections. HOW should this medicine be used? Phenazopyridine comes as a tablet or capsule to take by mouth. It usually is taken three times a day after meals. Do not chew or crush the tablets as it may cause your teeth to become stained; swallow them whole with a full glass of water. You may stop taking this drug when pain and discomfort completely disappear. Follow the directions on your prescription label carefully, and ask your doctor orpharmacist to explain any part you do not understand. Take phenazopyridine exactly as directed. Do not take more or less of it or take it more often than prescribed by your doctor. Are there OTHER USES for this medicine? This medication is sometimes prescribed for other uses; ask your doctor or pharmacist for more information. What SPECIAL PRECAUTIONS should I follow? Before taking phenazopyridine, ? tell your doctor and pharmacist if you are allergic to phenazopyridine or any other drugs. ? tell your doctor and pharmacist what prescription and nonprescription medications, vitamins, nutritional supplements, and herbal products you are taking or plan to take.. ? tell your doctor if you have or have ever had kidney disease or fbkyaxd-2-vldypofkb dehydrogenase(G-6-PD) deficiency (an inherited blood disease). ? tell your doctor if you are , plan to become , or are breast- feeding. If you become while taking phenazopyridine, call your doctor. What should I do IF I FORGET to take a dose? Take the missed dose as soon as you remember it. However, if it is almost time for the next dose, skip the missed dose and continue your regular dosing schedule. Do not take a double dose to make up for a missed one. What SIDE EFFECTS can this medicine cause? If you experience any of the following symptoms, call your doctor immediately: ? yellowing of the skin or eyes ? fever ? confusion ? skin discoloration (blue to bluish-purple) ? shortness of breath ? skin rash ? sudden decrease in the amount of urine ? swelling of the face, fingers, feet, or legs If you experience a serious side effect, you or your doctor may send a report to the Food and Drug Administration's (FDA) MedWatch Adverse Event Reporting program online (https://www.fda.gov/Safety/MedWatch) or by phone ( ). What should I know about STORAGE and DISPOSAL of this medication? Keep this medication in the container it came in, tightly closed, and out of reach of children. Store it at room temperature and away from excess heat and moisture (not in the bathroom). Dispose of unneeded medications in a way so that pets, children, and other people cannot take them.Do not flush this medication down the toilet. Use a medicine take-back program. Talk to your pharmacist about take-back programs in your community. Visit the FDA's Safe Disposal of Medicines website h ttps://goo.gl/c4Rm4p for more information. Keep all medication out of sight and reach of children as many containers are not child-resistant. Always lock safety caps. Place the medication in a safe location - one that is up and away and out of their sight and reach. https://www.upandaway.org What should I do in case of OVERDOSE? In case of overdose, call the poison control helpline at . Information is also available online at https://www.poisonhelp.org/help. If the victim has collapsed, had a seizure, has trouble breathing, or can't be awakened, immediately call emergency services at 911. What OTHER INFORMATION should I know? Keep all appointments with your doctor and the laboratory. Your doctor will order certain lab teststo check your response to phenazopyridine. Phenazopyridine can interfere with laboratory tests, including urine tests for glucose (sugar) and ketones. If you have diabetes, you should use Clinitest rather than Lizy-Tape or Clinistix to test your urine for sugar. Urine tests for ketones (Acetest and Ketostix) may give false results. Before you have any tests, tell the laboratory personnel and doctor that you take this medication. Phenazopyridine stains clothing and contact lenses. Avoid wearing contact lenses while taking this medicine. Do not let anyone else take your medication. Your prescription is probably not refillable. If you still have symptoms after you finish the phenazopyridine, call your doctor. Keep a written list of all of the prescription and nonprescription (flsl-rvz-hpvvltq) medicines, vitamins, minerals, and dietary supplements you are taking. Bring this list with you each time you visit a doctor or if you are admitted to the hospital. You should carry the list with you in case of sushma rgencies. Brand Name(s): Azo-Standard??, Baridium??, Nefrecil??, Phenazodine??, Prodium??, Pyridate??, Pyridium??, Sedural??, Uricalm??, Uristat??, Uropyrine??, Urodine??, Urogesic??, Azo Gantanol?? (as a combination product containing Phenazopyridine, Sulfamethoxazole)??, Azo Gantrisin?? (as a combination product containing Phenazopyridine, Sulfisoxazole)??, Pyridium Plus?? (as a combination product containing Hyoscyamine, Phenazopyridine, Secbutabarbital)??, Tija?? (as a combination product containing Oxytetracycline, Phenazopyridine, Sulfamethizole)??, Urelief Plus?? (as a combination product containing Hyoscyamine, Phenazopyridine, Secbutabarbital)??, Urobiotic-250?? (as a combination product containing Oxytetracycline, Phenazopyridine, Sulfamethizole)??; also available generically ?? This branded product is no longer on the market. Generic alternatives may be available. This report on medications is for your information only, and is not considered individual patient advice. Because of the changing nature of drug information, please consult your physician or pharmacist about specific clinical use. The [place] [employer] represents that the information provided hereunder was formulated with a reasonable standard of care, and in conformity with professional standards in the field. The [place] [employer] makes no representations or warranties, express or implied, including, but not limited to, any implied warranty of merchantability and/or fitness for a particular purpose, with respect to such information and specifically disclaims all such warranties. Users are advised that decisions regarding drug therapy are complex medical decisions requiring the independent, informed decision of an appropriate health daycare manager, and the information is provided for informational purposes only. The entire monograph for a drug should be reviewed for a thorough understanding of the drug's actions, uses and side effects. The [place] [employer] does not endorse or recommend the use of any drug.The information is not a substitute for medical care. AHFS?? Patient Medication Information?. ?? Copyright, 2023. The [place] [employer]??, [address], [address], [place], [place]. All Rights Reserved. Duplication for commercial use must be authorized by [facility]. Selected Revisions: March 24, 2017. AHFS?? Patient Medication Information?. ?? Copyright, 2024 * Basim BakariCRIS - Maria De Jesus Siddiqui RN - 08/22/2024 3:24 PM EDT Images from the original note were not included. 68 Cystoscopy Discharge Instructions ([place]) Cystoscopy is a test that lets your doctor look inside your bladder. If you have stones, they may be removed during the cystoscopy. Home care ? If you have back pain or bladder spasms, warm tub baths (no bubbles) may help it go away. ? You may see some blood in your urine. If so, it will look pink. This should go away within 48 hours. ? Drink 6 to 8 glasses of liquid each day. Limit the amount of caffeine. ? You may feel like resting more after surgery. Slowly start to do more each day. Rest when you feel it?s needed. Call your doctor if you have any of the following ? Temperature over 101.5??F or any other sign or symptom of infection ? Trouble passing urine ? Clots of blood in urine You can call the Urology Clinic at . Nights, weekends and holidays, call [facility] at and ask for the Urology Resident staff radiation therapist. Call 450 if you have any of the following ? A lot of pain or vomiting ? Urine becomes bright licona red or has many clots of blood in it ? Shaking chills ? A large amount of bleeding ? Cannot urinate for 10 to 12 hours and have lower abdominal pain or bloating * Antoinepatricia [facility] - Maria De Jesus Siddiqui RN - 08/22/2024 3:23 PM EDT Images from the original note were not included. [id number] Benign Prostatic Hyperplasia The prostate is a small gland in men that makes a fluid that goes into semen. As you age, the prostate grows. If it becomes too big, it may cause problems with urination. This condition is called benign prostatic hyperplasia (BPH). BPH is not a cancer. Symptoms of BPH BPH is common in men older than age 60. That?s because the prostate grows bigger during a man?s life. As it grows, it presses against the urethra. The urethra is the tube that carries urine out of your body from your bladder through your penis. Your bladder may also get weak as you age. It may not empty completely after you urinate. Men with BPH may have these symptoms: ? The urge to frequently urinate, especially at night ? Leaking or dribbling of urine ? A weak stream of urine ? Not able to urinate, or having trouble starting to urinate Who is at risk of developing BPH? You're more likely to develop BPH if you: ? Are age 40 or older. The chance of getting BPH increases as you get older. ? Have a family history of BPH. ? Drink alcohol excessively. ? Are a large person. ? Have type 2 diabetes. ? Don't get enough physical activity. Diagnosing BPH Because BPH can lead to keeping urine in your bladder, it can hurt your bladder and kidneys. It canalso lead to bladder stones, blood in the urine, and urinary tract infections. If you think you mayhave BPH, talk with your health care provider. Early treatment can prevent problems. Providers often decide to treat BPH based only on your risk factors and symptoms. Several tests mayhelp confirm a diagnosis of BPH. These include: ? Digital rectal exam. During this procedure, your provider puts a gloved, greased (lubricated) finger into your rectum to check the size of your prostate. ? PSA blood test. This rules out prostate cancer as a cause of urinary symptoms if you have symptoms of BPH. ? Imaging tests. Transrectal ultrasound is a procedure where the structured cabling technician inserts a transducer slightly larger than a pen into the rectum next to the prostate. The ultrasound image shows the size of the prostate and any abnormalities, such as tumors. This test can't reliably diagnose prostate canc er. X-rays and other imaging tests can find problems in your kidneys or bladder. ? Cystoscopy. This test uses a flexible tube with a camera (called a scope). The scope is passed upthe urethra to look inside your bladder. It is done to rule out bladder cancer if there are red blood cells in your urine. ? Urine flow study. This test uses a special device to see how fast urine leaves your body. ? Prostate ultrasound. This test uses sound waves to view the size and the inside of the prostate gland. Treating BPH If you have mild symptoms, you may not need treatment. You may be able to control your BPH with lifestyle changes. Some men feel better if they limit or don't have alcohol and caffeinated drinks, such as coffee. Not drinking too many fluids at night can help. Increasing your physical activity may ease symptoms, too. Kegel exercises may help. They make the pelvic muscle stronger to prevent urine from leaking. Contract your pelvic muscles as if you were to stop or slow down the flow of urine. Hold for 10 seconds. Repeat at least 5 times. Do the exercise 3 to 5 times each day. Some medicines can make BPH symptoms worse. These include medicines for congestion, allergies, and depression. Medicines that increase your urine flow (diuretics or water pills) can also make BPH symptoms worse. If you take any of these, talk with your provider. You may need to take another medicine or change how much you take. BPH symptoms often get worse as the prostate grows. At some point, you may need treatment. Your provider may prescribe medicine to shrink the prostate or stop its growth or to relax muscles to improve urine flow. Other treatments can make the urethra wider to let urine flow more easily. There are also some minimally invasive methods to remove prostate tissue. If your BPH is severe, your provider may advise surgery. Surgery takes out enlarged parts of the prostate gland. You and your provider can discuss the best choice for you based on your age, overall health, and other factors. BPH and prostate cancer BPH and prostate cancer share some symptoms and may happen at the same time. That?s why it?s important to talk with your provider about your symptoms. Men with BPH don't have cancer. But they may have higher levels of prostate-specific antigen (PSA). A higher PSA level may also be a sign of prostate cancer. Certain tests help tell BPH from prostate cancer. They include prostate ultrasound and biopsy. Last Reviewed Date: 2024 00:00:00 ?? [id number] [employer]. All rights reserved. This information is not intended as a substitute for professional medical care. Always follow your healthcare professional's instructions. * Discharge Summary - Nilson Montes MD - 08/22/2024 2:15 PM EDT Hospitalization Admit Date/Time: 08/17/2024 10:02 AM Admitting Attending: Courtney Young Discharge Date: 08/22/24 Discharge Attending Physician: Courtney Young MD PCP name and Address: Luis Caraballo MD [address] / [place] [address] Referring provider name and address: No referring provider defined for this encounter. Chief Concern, Brief History of Present Illness, and Hospital Course Mouna Jose is a 69 y.o. male with PMH BPH who presented to [facility] for surgical intervention. They were taken to the operating room on 08/17/24 for elective HoLEP. The patient tolerated the procedure well and was subsequently extubated and transferred to the PACU for recovery. After recovery, thepatient was transferred to the floor on CBI. Pt remained on CBI with continued bloody output. Pt was taken back to the OR on 08/21/24 for clot evac and fulguration. Pt tolerated the procedure well andwas continued on CBI overnight. The following morning they were producing clear yellow urine while off CBI and their law was removed. They were able to urinate with a PVR of 0. It was felt that thepatient had reached maximal benefit from hospitalization. They were deemed appropriate for discharge to home. On the day of discharge the patient's pain was controlled on oral medications, they were ambulating, voiding appropriately off CBI with law removed, passing flatus, and tolerating oral intake. The patient was discharged on 08/22/24 to home and will return to clinic on 09/19/[address] Dionisio schultz. Surgeries and Procedures Procedures performed in this encounter Procedures Case Request Operating Room: CYSTOSCOPY, WITH BLADDER FULGURATION, FOR BLEEDING CYSTOSCOPY, WITH BLADDER FULGURATION, FOR BLEEDING (N/A) Medication List .. acetaminophen 325 MG tablet Commonly known as: Tylenol Take 2 tablets by mouth every 6 hours. Under [place] law, monthly prescriptions (30 days) can be refilled at 25 days and three-month prescriptions (90 days) at 80 days. Please contact the insurance company with questions if refills are denied. aspirin 81 MG EC tablet Take 1 tablet by mouth every morning. atorvastatin 80 MG tablet Commonly known as: Lipitor Take 1 tablet by mouth nightly. clopidogrel 75 MG tablet Commonly known as: Plavix Take 1 tablet by mouth every morning. FISH OIL HIGH POTENCY PO Take 1 capsule by mouth in the morning. glyBURIDE 5 MG tablet Commonly known as: Diabeta Take 1 tablet by mouth daily with breakfast. irbesartan 300 MG tablet Commonly known as: Avapro Take 1 tablet by mouth daily. methocarbamol 500 MG tablet Commonly known as: Robaxin Take 1 tablet by mouth 3 times a day as needed for muscle spasms. metoprolol succinate XL 200 MG 24 hr tablet Commonly known as: Toprol-XL Take 1 tablet by mouth every morning. NIFEdipine XL 60 MG 24 hr tablet Commonly known as: Procardia XL Take 1 tablet (60 mg) by mouth daily. Do not crush, chew, or split. Replaces amlodipine polyethylene glycol 17 g packet Commonly known as: Miralax Take 17 g by mouth daily. Start taking on: August 23, 2024 senna-docusate 8.6-50 MG tablet Commonly known as: Noelle-Colace Take 1 tablet by mouth nightly. Where to Get Your Medications These medications were sent to [facility] - [place], [place] - [address] [facility] [id number] acetaminophen 325 MG tablet methocarbamol 500 MG tablet polyethylene glycol 17 g packet senna-docusate 8.6-50 MG tablet Discharge Diagnosis Medical Problems Active and Resolved Hospital Problems Hospital * (Principal) Urinary retention due to benign prostatic hyperplasia Incomplete bladder emptying Post Discharge Instructions Restart plavix in 2 weeks if urine remains clear Outpatient Follow-Up Future Appointments Date Time Provider Department Center 08/31/2024 12:15 PM Charlotte Pillai PTOTGS[facility] 09/19/2024 3:30 PM Courtney Young MD [facility] 10/10/2024 4:00 PM [facility] 06/05/2025 10:45 AM [facility] PAVA US 4 USCHA [facility] 06/05/2025 11:50 AM [facility] 06/05/2025 12:30 PM Charlotte Rodriguez, [employer], DNP UROCHKYC [place] Test Results Pending At Discharge Pertinent Physical Exam At Time of Discharge Physical Exam Vitals and nursing note reviewed. Exam conducted with a certified professional controller present. Constitutional: General: He is not in acute distress. Appearance: Normal appearance. He is normal weight. HENT: Head: Normocephalic and atraumatic. Right Ear: External ear normal. Left Ear: External ear normal. Nose: Nose normal. Mouth/Throat: Mouth: Mucous membranes are moist. Pharynx: Oropharynx is clear. Eyes: General: No scleral icterus. Conjunctiva/sclera: Conjunctivae normal. Cardiovascular: Rate and Rhythm: Normal rate and regular rhythm. Pulses: Normal pulses. Pulmonary: Effort: Pulmonary effort is normal. No respiratory distress. Abdominal: General: There is no distension. Palpations: Abdomen is soft. Tenderness: There is no abdominal tenderness. Musculoskeletal: General: No deformity. Normal range of motion. Cervical back: Normal range of motion and neck supple. Skin: General: Skin is warm. Capillary Refill: Capillary refill takes less than 2 seconds. Findings: No erythema. Neurological: General: No focal deficit present. Mental Status: He is alert and oriented to person, place, and time. Mental status is at baseline. Psychiatric: Mood and Affect: Mood normal. Behavior: Behavior normal. Judgment: Judgment normal. Discharge Disposition/Condition Disposition: Home Condition: Stable (s/sx potential problems absent or manageable) I spent >30 minutes of patient care and instruction time in preparation for this discharge. Cosigned by Courtney Young MD at 08/22/2024 2:18 PM EDT Associated attestation - Courtney Young MD - 08/22/2024 2:18 PM EDT I saw and evaluated the patient. I discussed the case with the resident/fellow and agree with the findings and plan as documented. * Care Plan - Zain Holden RN - 08/21/2024 8:16 PM EDT Problem: Adult Inpatient Plan of Care Goal: Plan of Care Review Outcome: Ongoing, Progressing Flowsheets (Taken 08/21/20242011) Progress: improving Plan of Care Reviewed With: patient spouse Goal: Patient-Specific Goal (Individualized) Outcome: Ongoing, Progressing Flowsheets (Taken 08/21/20241951) Patient/Family-Specific Goals (Include Timeframe): pt will remain safe and out of falls/injury throughout this shift. Individualized Care Needs: Safety Anxieties, Fears or Concerns: none stated Goal: Absence of Hospital-Acquired Illness or Injury Outcome: Ongoing, Progressing Intervention: Identify and Manage Fall Risk Flowsheets (Taken 08/21/20241951) Safety Promotion/Fall Prevention: activity supervised fall prevention program maintained lighting adjusted assistive device/personal items within reach clutter-free environment maintained Intervention: Prevent Skin Injury Flowsheets (Taken 08/21/20242011) Body Position: weight shifting legs elevated Franco chair turned Skin Protection: incontinence pads utilized Intervention: Prevent and Manage VTE (Venous Thromboembolism) Risk Flowsheets (Taken 08/21/20242011) VTE Prevention/Management: medication Intervention: Prevent Infection Flowsheets (Taken 08/21/20242011) Infection Prevention: hand hygiene promoted environmental surveillance performed equipment surfaces disinfected single patient room provided Goal: Optimal Comfort and Wellbeing Outcome: Ongoing, Progressing Intervention: Monitor Pain and Promote Comfort Flowsheets (Taken 08/21/20242011) Pain Management Interventions: relaxation techniques promoted quiet environment facilitated rest Goal: Readiness for Transition of Care Outcome: Ongoing, Progressing Intervention: Mutually Develop Transition Plan Flowsheets (Taken 08/21/20242011) Equipment Currently Used at Home: none Concerns to be Addressed: denies needs/concerns at this time Patient/Family Anticipates Transition to: home with family Problem: Skin Injury Risk Increased Goal: Skin Health and Integrity Outcome: Ongoing, Progressing Intervention: Optimize Skin Protection Flowsheets Taken 08/21/20242011 Pressure Reduction Techniques: frequent weight shift encouraged heels elevated off bed Pressure Reduction Devices: positioning supports utilized Skin Protection: incontinence pads utilized Taken 08/21/20241951 Activity Management: activity adjusted per tolerance Head of Bed (HOB) Positioning: HOB at 30-45 degrees Problem: Infection Goal: Absence of Infection Signs and Symptoms Outcome: Ongoing, Progressing Intervention: Prevent or Manage Infection Flowsheets (Taken 08/21/20242011) Infection Management: aseptic technique maintained Fever Reduction/Comfort Measures: lightweight clothing Isolation Precautions: precautions maintained * Care Plan - Fer Monsavle RN - 08/21/2024 2:53 PM EDT Problem: Adult Inpatient Plan of Care Goal: Plan of Care Review Outcome: Ongoing, Progressing Flowsheets Taken 08/21/2024 1452 by Fer Monsalve RN Progress: improving Taken 08/20/20242220 by Zain Holden RN Plan of Care Reviewed With: patient spouse Goal: Patient-Specific Goal (Individualized) Outcome: Ongoing, Progressing Flowsheets Taken 08/21/2024 0954 by Marbella Pizarro RN Anxieties, Fears or Concerns: surgery Taken 08/21/2024 0800 by Fer Monsalve RN Patient/Family-Specific Goals (Include Timeframe): CBI will be maintained to prevent any blockage/ clots formation Individualized Care Needs: procedure, CBI Goal: Absence of Hospital-Acquired Illness or Injury Outcome: Ongoing, Progressing Intervention: Identify and Manage Fall Risk Flowsheets (Taken 08/21/2024 0800) Safety Promotion/Fall Prevention: activity supervised Intervention: Prevent Skin Injury Flowsheets Taken 08/21/2024 1300 by Fer Monsalve RN Body Position: turned Taken 08/20/20242220 by Zain Holden RN Skin Protection: incontinence pads utilized silicone foam dressing in place Intervention: Prevent and Manage VTE (Venous Thromboembolism) Risk Flowsheets (Taken 08/21/2024 1135 by Reena Green, RN) VTE Prevention/Management: bilateral SCDs (sequential compression devices) on Intervention: Prevent Infection Flowsheets (Taken 08/20/20242220 by Zain Holden RN) Infection Prevention: environmental surveillance performed hand hygiene promoted equipment surfaces disinfected single patient room provided Goal: Optimal Comfort and Wellbeing Outcome: Ongoing, Progressing Intervention: Monitor Pain and Promote Comfort Flowsheets (Taken 08/21/2024 1452) Pain Management Interventions: medication (see MAR) Intervention: Provide Person-Centered Care Flowsheets (Taken 08/19/2024 2331 by Zain Holden RN) Trust Relationship/Rapport: care explained emotional support provided questions answered questions encouraged Goal: Readiness for Transition of Care Outcome: Ongoing, Progressing Problem: Skin Injury Risk Increased Goal: Skin Health and Integrity Outcome: Ongoing, Progressing Intervention: Optimize Skin Protection Flowsheets Taken 08/21/2024 0351 by Zain Holden RN Activity Management: activity adjusted per tolerance Head of Bed (HOB) Positioning: HOB at 30-45 degrees Taken 08/20/20242220 by Zain Holden RN Pressure Reduction Devices: positioning supports utilized Skin Protection: incontinence pads utilized silicone foam dressing in place Intervention: Promote and Optimize Oral Intake Flowsheets (Taken 08/19/20242330 by Zain Holden RN) Oral Nutrition Promotion: adaptive equipment use encouraged Nutrition Interventions: food preferences provided frequent small meals provided diet adjusted Problem: Infection Goal: Absence of Infection Signs and Symptoms Outcome: Ongoing, Progressing Intervention: Prevent or Manage Infection Flowsheets Taken 08/21/2024 1135 by Reena Green RN Isolation Precautions: precautions initiated precautions maintained Taken 08/19/20242330 by Zain Holden RN Infection Management: aseptic technique maintained Fever Reduction/Comfort Measures: lightweight clothing * Anesthesia PACU Signout - Richard Irving MD - 08/21/2024 12:04 PM EDT Patient: Deny Garcia Anesthesia Type: general Vitals Value Taken Time BP 149/91 08/21/24 12:00 Temp See flowsheet 08/21/24 12:04 Pulse 85 08/21/24 12:03 Resp 12 08/21/24 12:03 SpO2 95 % 08/21/24 12:03 Vitals shown include unfiled device data. Anesthesia PACU Signout Patient location during evaluation: PACU Patient participation: complete - patient participated Level of consciousness: baseline and awake Pain management: adequate (pain score 0-3) Airway patency: natural airway Hydration status: acceptable PONV: none Cardiovascular status: acceptable and hemodynamically stable Respiratory status: acceptable, spontaneous ventilation, unassisted, nonlabored ventilation and room air Discharge Disposition: admit to inpatient unit Cosigned by Josephine Hollingsworth MD at 08/21/2024 1:09 PM EDT Associated attestation - Josephine Hollingsworth MD - 08/21/2024 1:09 PM EDT Agree with above assessment and evaluation from resident/SASH FINISHER. * Op Note - Courtney Young MD - 08/21/2024 10:59 AM EDT Operative Report SURGEON: Courtney Young MD Dispatcher Automobile Rental: MD Markel Avila MD SURGICAL TEAM: Lift Team Technician: Jossie Young RN Scrub Person: Xiomy Pacheco DATE OF SURGERY : 08/21/2024 PREOPERATIVE DIAGNOSIS: Pre-op Diagnosis * Urinary retention due to benign prostatic hyperplasia [N40.1, R33.8] POSTOPERATIVE DIAGNOSIS: Post-op Diagnosis * Urinary retention due to benign prostatic hyperplasia [N40.1, R33.8] PROCEDURE: CYSTOSCOPY, WITH BLADDER FULGURATION, FOR BLEEDING INDICATION FOR PROCEDURE: 69 y.o. male s/p HoLEP with continued bleeding, returning today for clot evac and fulguration ANESTHESIA: Choice IMPLANTS: Nothing was implanted during the procedure OPERATIVE DETAILS Estimated Blood Loss: 20 mL Intraoperative Fluids: See anesthesia records Blood/Blood Products Transfused: None Specimens: No specimens collected during this procedure. PROCEDURE: After informed consent was obtained, the patient was taken to the operating room and administered ageneral anesthetic. The patient was placed in Lithotomy position. SCDs were placed on bilateral lower extremities. The patient was prepped and draped in the usual sterile fashion for cystoscopy. All members of the operating team were in agreement for the timeout regarding the procedure. The patientwas administered antibiotics prior to the start of the procedure. Resectoscope was placed and there were clots noted. We used a Clarissa syringe and evacuated around 400 ml of old clot. Once clot was evacuated we used a combo of thick loop and roller ball to achieve hemostasis. At the end he was noted to be completely hemostatic. The scope was removed and a 22 Cymro 3-way Law catheter was inserted with continuous bladder irrigation running. 30 mL of fluid was placed in the catheter balloon. The catheter was not placed on traction. The patient was awakened from anesthesia and transported to the recovery area in stable condition. He tolerated the procedure without complication. He will remain in the hospital tonight for continuous bladder irrigation (CBI) and plan for voidingtrial in the hospital tomorrow. Operative findings: Old clot with minimal active bleeding Complications: none Condition on Discharge from the operating room was stable Courtney Young MD Date: 08/21/2024 Time: 11:46 AM * Significant Event - Mary Ann Bautista MD - 08/21/2024 9:34 AM EDT Patient to OR today for cystoscopy with fulguration - History and physical note at most recent progress note reviewed and without significant changes - The risks, benefits, indications, contraindications, and surgical alternatives were explained to the patient. Specifically, the risks of surgery, including bleeding, infection, injury to nearby organs or structures, need for additional surgery or procedures, wound complications, and complicationsof general anesthesia. Commonly associated risks of the procedure where also discussed with the patient in detial. The patient participated in the discussion and was given an opportunity to ask questions. All questions where answered to the patient's verbal satisification. - Informed consent was reviewed and signed. - NPO since midnight * Care Plan - Zain Holden RN - 08/20/2024 10:23 PM EDT Problem: Adult Inpatient Plan of Care Goal: Plan of Care Review Outcome: Ongoing, Progressing Flowsheets (Taken 08/20/20242220) Progress: no change Plan of Care Reviewed With: patient spouse Goal: Patient-Specific Goal (Individualized) Outcome: Ongoing, Progressing Flowsheets (Taken 08/20/20241949) Patient/Family-Specific Goals (Include Timeframe): CBI will be maintained to prevent any blockage/ clots formation Individualized Care Needs: CBI Anxieties, Fears or Concerns: uretal blockage Goal: Absence of Hospital-Acquired Illness or Injury Outcome: Ongoing, Progressing Intervention: Identify and Manage Fall Risk Flowsheets (Taken 08/20/20241949) Safety Promotion/Fall Prevention: activity supervised fall prevention program maintained lighting adjusted assistive device/personal items within reach clutter-free environment maintained Intervention: Prevent Skin Injury Flowsheets Taken 08/20/20242220 Skin Protection: incontinence pads utilized silicone foam dressing in place Taken 08/20/20241949 Body Position: turned Intervention: Prevent and Manage VTE (Venous Thromboembolism) Risk Flowsheets (Taken 08/20/20242220) VTE Prevention/Management: medication education provided Intervention: Prevent Infection Flowsheets (Taken 08/20/20242220) Infection Prevention: environmental surveillance performed hand hygiene promoted equipment surfaces disinfected single patient room provided Goal: Optimal Comfort and Wellbeing Outcome: Ongoing, Progressing Intervention: Monitor Pain and Promote Comfort Flowsheets (Taken 08/19/20242330) Pain Management Interventions: music relaxation techniques promoted quiet environment facilitated position adjusted medication offered but refused Intervention: Provide Person-Centered Care Flowsheets (Taken 08/19/20242330) Trust Relationship/Rapport: care explained emotional support provided questions answered questions encouraged Goal: Readiness for Transition of Care Outcome: Ongoing, Progressing Problem: Skin Injury Risk Increased Goal: Skin Health and Integrity Outcome: Ongoing, Progressing Intervention: Optimize Skin Protection Flowsheets Taken 08/20/20242220 Pressure Reduction Devices: positioning supports utilized Skin Protection: incontinence pads utilized silicone foam dressing in place Taken 08/20/20241949 Activity Management: activity adjusted per tolerance Intervention: Promote and Optimize Oral Intake Flowsheets (Taken 08/19/20242330) Oral Nutrition Promotion: adaptive equipment use encouraged Nutrition Interventions: food preferences provided frequent small meals provided diet adjusted Problem: Infection Goal: Absence of Infection Signs and Symptoms Outcome: Ongoing, Progressing Intervention: Prevent or Manage Infection Flowsheets Taken 08/20/20241949 Isolation Precautions: precautions maintained Taken 08/19/20242330 Infection Management: aseptic technique maintained Fever Reduction/Comfort Measures: lightweight clothing * Consults - Bunny Davis - 08/20/2024 3:15 PM EDT Pastoral Care Note Manager Speech visited with patient and family, spouse, at bedside and provided emotional support. Patient and spouse shared that they are coping well. Manager Speech provided a supportive presence and empathic listening. Pastoral care will continue to be available as needed. Referral From: Manager Speech Initiated Pastoral Care Provided For: Patient, Spouse Patient Profile: Consult Reasons: Emotional support, Family support Spiritual Assessment: Support Systems/ Spiritual Resources: Family Spiritual Needs: Emotional support Spiritual Issues: Chronic pain/ illness Interventions: Interventions Provided: Emotional support, Family support, Introduced Patient/Family to Manager Speech Services, Supportive Listening Pastoral Care Outcomes: Patient Outcomes: Demonstrates lower level of Anxious(ness), Is knowledgeable about [employer], Appreciative of Manager Speech Support * Progress Notes - Renate Blanchard RN - 08/20/2024 11:40 AM EDT Case Management Adult Progress Note Mouna Garcia 69 y.o. male CSN: [id number] Admission: 08/17/2024 10:02 AM Primary Problem: Urinary retention due to benign prostatic hyperplasia Anticipated Discharge Date: 08/23/24 Has Discharge Plans Changed? Medicare Second Notice: Housing Circumstances: Housing Circumstances Action Taken: Medically Ready for Discharge: Additional Comments POC reviewed with primary team. Refer to primary team's note for details. Pt is not medically readytoday. In??BRIANA Trotter, electrical construction project manager * Care Plan - Fer Monsalve RN - 08/20/2024 10:38 AM EDT Problem: Adult Inpatient Plan of Care Goal: Plan of Care Review Outcome: Ongoing, Progressing Flowsheets Taken 08/20/2024 1038 by Fer Monsalve, DAVE Progress: no change Taken 08/19/2024 2331 by Zain Holden RN Plan of Care Reviewed With: patient spouse Goal: Patient-Specific Goal (Individualized) Outcome: Ongoing, Progressing Flowsheets (Taken 08/20/2024 0800) Patient/Family-Specific Goals (Include Timeframe): pt will remain free from injuries overday Individualized Care Needs: safety Anxieties, Fears or Concerns: none Goal: Absence of Hospital-Acquired Illness or Injury Outcome: Ongoing, Progressing Goal: Optimal Comfort and Wellbeing Outcome: Ongoing, Progressing Goal: Readiness for Transition of Care Outcome: Ongoing, Progressing Problem: Skin Injury Risk Increased Goal: Skin Health and Integrity Outcome: Ongoing, Progressing Intervention: Optimize Skin Protection Flowsheets Taken 08/19/20242330 by Zain Holden RN Activity Management: activity adjusted per tolerance back to bed activity encouraged Pressure Reduction Techniques: weight shift assistance provided Taken 08/19/20241999 by Zain Holden, RN Head of Bed (HOB) Positioning: HOB at 30-45 degrees Problem: Infection Goal: Absence of Infection Signs and Symptoms Outcome: Ongoing, Progressing Intervention: Prevent or Manage Infection Flowsheets (Taken 08/19/20242330 by Zain Holden RN) Infection Management: aseptic technique maintained Fever Reduction/Comfort Measures: lightweight clothing Isolation Precautions: precautions maintained * Progress Notes - Mary Ann Bautista MD - 08/20/2024 7:46 AM EDT [facility] Urology Inpatient Progress Note Primary Attending: Courtney Young MD Procedure(s): HOLEP 08/17/24 SUBJECTIVE: -Pt with vagal episode yesterday evening, pt reports feeling well since then and has been ambulating -CBI running pink on moderate drip, drip rate slowed - law placed on traction - no additional questions or concerns PHYSICAL EXAM: Temp: [36.3 ??C (97.3 ??F)-36.8 ??C (98.3 ??F)] 36.8 ??C (98.2 ??F) Heart Rate: [68-95] 68 Resp: [16-18] 17 BP: (109-162)/(62-88) 162/88 SpO2: [95 %-99 %] 96 % I O Shift I O 24Hrs LDAs No intake/output data recorded. I/O last 3 completed shifts: In: 3735.4 (40.9 mL/kg) [P.O.:1840; I.V.:786 (8.6 mL/kg); Blood:1109.4] Out: 12871 (179.6 mL/kg) [Urine:66499 (5 mL/kg/hr)] Weight: 91.3 kg Urethral Catheter Non-latex;Other (Comment) (Active) Placement Date/Time: 08/17/24 1355 Present on Admission: No Inserted by: Nilson Montes MD Hand Hygiene Completed: Yes Urethral Catherter Insertion Reason : (c) Other (Comment) Catheter Type: (c) Non-latex;Other (Comment) Catheter Balloon Size:... Continuous Bladder Irrigation (Active) Placement Date: 08/17/24 GEN: NAD HEENT: NCAT, EOMI RESP: Equal bilateral chest rise, normal work of breathing CV: Regular rate, appears well perfused ABD: Nondistended : law in place on CBI, draining pink, placed on traction EXT: No gross deformities MSK: Full ROM in BL UE NEURO: No focal deficits, alert and oriented PSYCH: Normal mood and affect LABS: Results from last 7 days Lab Units 08/20/24 0430 WBC 10*3/uL 12.84* HEMOGLOBIN g/dL 9.1* HEMATOCRIT % 27.2* PLATELETS 10*3/uL 238 Results from last 7 days Lab Units 08/20/24 0430 SODIUM mmol/L 139 POTASSIUM mmol/L 4.6 CHLORIDE mmol/L 109* CO2 mmol/L 20* BUN mg/dL 34* CREATININE mg/dL 1.82* EGFR mL/min/1.73m*2 40.0 GLUCOSE mg/dL 131* CALCIUM mg/dL 8.3* IMAGING: No relevant imaging to review. HOSPITAL PROBLEM LIST: Principal Problem: Urinary retention due to benign prostatic hyperplasia Active Problems: Incomplete bladder emptying ASSESSMENT: Mouna Garcia is a 69 y.o. male with a history of BPH who was admitted for a HOLEP procedure on 08/17/24. He was placed on CBI following the procedure and has been titrated to a light pink color. Bladder irrigated with minimal clot return on POD1. POD3 catheter continues to return light pinkurine with CBI running. Pt has declining hgb on 08/19 from 9.5 to 7.9 today with recheck of 7.8; 2 units pRBCs given on 08/19 with improvement to 9.1. Pt with bradycardia and vagal episode on evening of 08/19. Pt without bradycardia or lightheaded symptoms since the episode occurred. Pt ambulating andtolerating diet without nausea/vomiting. PLAN: - CBI running, continue to monitor - Catheter placed on traction - Potential OR tomorrow, regular diet today, NPO at midnight - continue home medications - [facility] prn Mary Ann Bautista MD PGY-1 Urology Pager: [phone] Epic chat preferred for non-emergent communication. Cosigned by Courtney Young MD at 08/20/2024 3:25 PM EDT Associated attestation - Courtney Young MD - 08/20/2024 3:25 PM EDT I saw and evaluated the patient. I discussed the case with the resident/fellow and agree with the findings and plan as documented. * Care Plan - Zain Holden RN - 08/19/2024 11:36 PM EDT Problem: Adult Inpatient Plan of Care Goal: Plan of Care Review Outcome: Ongoing, Progressing Flowsheets (Taken 08/19/20242330) Progress: improving Plan of Care Reviewed With: patient spouse Note: Pt still on CBI,denies pain. Will be NPO from [place]. Goal: Patient-Specific Goal (Individualized) Outcome: Ongoing, Progressing Flowsheets (Taken 08/19/20241999) Patient/Family-Specific Goals (Include Timeframe): pt will be safe throughout the shift Individualized Care Needs: safety Anxieties, Fears or Concerns: None stated Goal: Absence of Hospital-Acquired Illness or Injury Outcome: Ongoing, Progressing Intervention: Identify and Manage Fall Risk Flowsheets (Taken 08/19/20241999) Safety Promotion/Fall Prevention: activity supervised fall prevention program maintained lighting adjusted assistive device/personal items within reach clutter-free environment maintained Intervention: Prevent Skin Injury Flowsheets (Taken 08/19/20242330) Body Position: turned weight shifting Franco chair lower extremity elevated Skin Protection: incontinence pads utilized pulse oximeter probe site changed Intervention: Prevent and Manage VTE (Venous Thromboembolism) Risk Flowsheets (Taken 08/19/20242330) VTE Prevention/Management: education provided medication Intervention: Prevent Infection Flowsheets (Taken 08/19/20242330) Infection Prevention: hand hygiene promoted environmental surveillance performed rest/sleep promoted single patient room provided Goal: Optimal Comfort and Wellbeing Outcome: Ongoing, Progressing Intervention: Monitor Pain and Promote Comfort Flowsheets (Taken 08/19/20242330) Pain Management Interventions: music relaxation techniques promoted quiet environment facilitated position adjusted medication offered but refused Intervention: Provide Person-Centered Care Flowsheets (Taken 08/19/20242330) Trust Relationship/Rapport: care explained emotional support provided questions answered questions encouraged Goal: Readiness for Transition of Care Outcome: Ongoing, Progressing Problem: Skin Injury Risk Increased Goal: Skin Health and Integrity Outcome: Ongoing, Progressing Intervention: Optimize Skin Protection Flowsheets Taken 08/19/20242330 Activity Management: activity adjusted per tolerance back to bed activity encouraged Pressure Reduction Techniques: weight shift assistance provided Skin Protection: incontinence pads utilized pulse oximeter probe site changed Taken 08/19/20241999 Head of Bed (HOB) Positioning: HOB at 30-45 degrees Intervention: Promote and Optimize Oral Intake Flowsheets (Taken 08/19/20242330) Oral Nutrition Promotion: adaptive equipment use encouraged Nutrition Interventions: food preferences provided frequent small meals provided diet adjusted Problem: Infection Goal: Absence of Infection Signs and Symptoms Outcome: Ongoing, Progressing Intervention: Prevent or Manage Infection Flowsheets (Taken 08/19/20242330) Infection Management: aseptic technique maintained Fever Reduction/Comfort Measures: lightweight clothing Isolation Precautions: precautions maintained * Progress Notes - Gabe White - 08/19/2024 11:55 AM EDT [facility] Urology Inpatient Progress Note Primary Attending: Courtney Young MD Procedure(s): HOLEP 08/17/24 SUBJECTIVE: Pt states they are doing well and have their pain adequately controlled. CBI running pink on arrival, cath tube flushed, CBI still running light pink. Able to ambulate appropriately. Tolerating regular diet. PHYSICAL EXAM: Temp: [36.3 ??C (97.4 ??F)-36.6 ??C (97.9 ??F)] 36.6 ??C (97.8 ??F) Heart Rate: [68-87] 76 Resp: [11-16] 16 BP: (93-147)/(70-94) 109/71 SpO2: [95 %-98 %] 98 % I O Shift I O 24Hrs LDAs I/O this shift: In: - Out: 2250 [Urine:2250] I/O last 3 completed shifts: In: 730 (8.3 mL/kg) [P.O.:720; I.V.:10 (0.1 mL/kg)] Out: 7500 (84.8 mL/kg) [Urine:7500 (2.4 mL/kg/hr)] Weight: 88.5 kg Urethral Catheter Non-latex;Other (Comment) (Active) Placement Date/Time: 08/17/24 1355 Present on Admission: No Inserted by: Nilson Montes MD Hand Hygiene Completed: Yes Urethral Catherter Insertion Reason : (c) Other (Comment) Catheter Type: (c) Non-latex;Other (Comment) Catheter Balloon Size:... Continuous Bladder Irrigation (Active) Placement Date: 08/17/24 GEN: NAD HEENT: NCAT, EOMI RESP: Equal bilateral chest rise, normal work of breathing CV: Regular rate, appears well perfused ABD: Nondistended : law in place on CBI, draining pink EXT: No gross deformities MSK: Full ROM in BL UE NEURO: No focal deficits, alert and oriented PSYCH: Normal mood and affect LABS: Results from last 7 days Lab Units 08/19/24 0942 08/19/24 0429 WBC 10*3/uL -- 13.81* HEMOGLOBIN g/dL 7.8* 7.9* HEMATOCRIT % 23.8* 24.9* PLATELETS 10*3/uL -- 266 Results from last 7 days Lab Units 08/19/24 0429 SODIUM mmol/L 134* POTASSIUM mmol/L 5.0* CHLORIDE mmol/L 107 CO2 mmol/L 18* BUN mg/dL 40* CREATININE mg/dL 1.91* EGFR mL/min/1.73m*2 37.7 GLUCOSE mg/dL 127* CALCIUM mg/dL 8.6* IMAGING: No relevant imaging to review. HOSPITAL PROBLEM LIST: Principal Problem: Urinary retention due to benign prostatic hyperplasia ASSESSMENT: Mouna Garcia is a 69 y.o. male with a history of BPH who was admitted for a HOLEP procedure on 08/17/24. He was placed on CBI following the procedure and has been titrated to a light pink color. Bladder irrigated with minimal clot return on POD1. POD2 catheter continues to return light pinkurine with CBI running. Pt has declining hgb from 9.5 to 7.9 today with recheck of 7.8. Cr improved. PLAN: - Transfused 1 unit RBCs - CBI running - Catheter placed on traction - Regular diet, NPO at midnight in preparation for possible OR Gabe White MS4 Cosigned by Jose Gregg MD at 08/19/2024 10:28 PM EDT Associated attestation - Jose Gregg MD - 08/19/2024 10:28 PM EDT I saw and evaluated the patient with the medical/BUILDING TECH/PA student. I discussed the case with the medical/BUILDING TECH/PA student and agree with the findings and plan as documented. I personally performed the Examand Medical Decision Making. * Care Plan - Arianna Thurman RN - 08/18/2024 10:19 PM EDT Problem: Adult Inpatient Plan of Care Goal: Plan of Care Review Outcome: Ongoing, Progressing Flowsheets (Taken 08/18/20242214) Progress: improving Plan of Care Reviewed With: patient Goal: Patient-Specific Goal (Individualized) Outcome: Ongoing, Progressing Flowsheets (Taken 08/18/20241999) Patient/Family-Specific Goals (Include Timeframe): pt will be safe throughout the shift Individualized Care Needs: safety Anxieties, Fears or Concerns: SAFETY Goal: Absence of Hospital-Acquired Illness or Injury Outcome: Ongoing, Progressing Intervention: Identify and Manage Fall Risk Flowsheets (Taken 08/18/20241999) Safety Promotion/Fall Prevention: activity supervised fall prevention program maintained lighting adjusted assistive device/personal items within reach clutter-free environment maintained Intervention: Prevent Skin Injury Flowsheets (Taken 08/18/20242199) Body Position: turned Intervention: Prevent and Manage VTE (Venous Thromboembolism) Risk Flowsheets (Taken 08/18/20242214) VTE Prevention/Management: medication education provided Intervention: Prevent Infection Flowsheets (Taken 08/18/20242214) Infection Prevention: hand hygiene promoted Goal: Optimal Comfort and Wellbeing Outcome: Ongoing, Progressing Intervention: Monitor Pain and Promote Comfort Flowsheets (Taken 08/18/20242214) Pain Management Interventions: medication (see MAR) Intervention: Provide Person-Centered Care Flowsheets (Taken 08/18/20242214) Trust Relationship/Rapport: care explained emotional support provided questions encouraged Goal: Readiness for Transition of Care Outcome: Ongoing, Progressing Problem: Skin Injury Risk Increased Goal: Skin Health and Integrity Outcome: Ongoing, Progressing Intervention: Optimize Skin Protection Flowsheets (Taken 08/18/20242214) Head of Bed (HOB) Positioning: HOB at 30-45 degrees Intervention: Promote and Optimize Oral Intake Flowsheets (Taken 08/18/20242214) Nutrition Interventions: food preferences provided Problem: Infection Goal: Absence of Infection Signs and Symptoms Outcome: Ongoing, Progressing * Significant Event - Arnoldo Sher RN - 08/18/2024 6:26 PM EDT 08/18/24 182 Event/Notification Description Event Location [facility] and Room Number 6.227 Reason for Rapid Response Team notification Bradycardia Is the patient a DNR? No Type of Event Concern noted Method of Notification Nurse (specify) (Jeffrey) Vitals Heart Rate 80 Resp 11 SpO2 96 % Monitoring Data Monitoring Comments [employer] notified of patient on floor with bradycardia and lethargy by unit RN Jeffrey,states that patient had a vagal episode and became unresponsive for 1-2 minutes before being arousable. States he is calling on behalf of primary RN. Currently patient alert with BP 118/81, provider present at bedside. Secure chat sent to primary RN encouraging to contact if patient becomes unstable or has deterioration of vital signs. Message sent to DCN Rebekah Gamble, states she will notify oncoming rn night DCN and round on patient. No intervention from [employer] warranted at this time, primary RN will continue to monitor and notify [employer] and MD service with any changes, issues, or concerns. * Hospital Course - Mary Ann Bautista MD - 08/18/2024 2:13 PM EDT Mouna Garcia is a 69 y.o. male with PMH BPH who presented to [facility] for surgical intervention. They were taken to the operating room on 08/17/24 for elective HoLEP. The patient tolerated the procedure well and was subsequently extubated and transferred to the PACU for recovery. After recovery, thepatient was transferred to the floor on CBI. Pt remained on CBI with continued bloody output. Pt was taken back to the OR on 08/21/24 for clot evac and fulguration. Pt tolerated the procedure well andwas continued on CBI overnight. The following morning they were producing clear yellow urine while off CBI and their law was removed. They were able to urinate with a PVR of 0. It was felt that thepatient had reached maximal benefit from hospitalization. They were deemed appropriate for discharge to home. On the day of discharge the patient's pain was controlled on oral medications, they were ambulating, voiding appropriately off CBI with law removed, passing flatus, and tolerating oral intake. The patient was discharged on 08/22/24 to home and will return to clinic on 09/19/[address] Dionisio schultz. * Progress Notes - Mary Ann Bautista MD - 08/18/2024 2:06 PM EDT [facility] Urology Inpatient Progress Note Primary Attending: Courtney Young MD Procedure(s): HOLEP 08/17/24 SUBJECTIVE: - Pt states they are doing well and have their pain adequately controlled - CBI running light red on arrival, bladder irrigated with minimal clot return, CBI running pink - Pt not yet walking post-op PHYSICAL EXAM: Temp: [35.8 ??C (96.5 ??F)-36.9 ??C (98.4 ??F)] 36.7 ??C (98 ??F) Heart Rate: [60-95] 95 Resp: [9-16] 16 BP: (118-160)/(75-101) 155/97 SpO2: [95 %-100 %] 97 % I O Shift I O 24Hrs LDAs I/O this shift: In: 240 [P.O.:240] Out: 100 [Urine:100] I/O last 3 completed shifts: In: 1360 (15.4 mL/kg) [P.O.:350; I.V.:1010 (11.4 mL/kg)] Out: 7000 (79.1 mL/kg) [Urine:7000 (2.2 mL/kg/hr)] Weight: 88.5 kg Urethral Catheter Non-latex;Other (Comment) (Active) Placement Date/Time: 08/17/24 1355 Present on Admission: No Inserted by: Nilson Montes MD Hand Hygiene Completed: Yes Urethral Catherter Insertion Reason : (c) Other (Comment) Catheter Type: (c) Non-latex;Other (Comment) Catheter Balloon Size:... Continuous Bladder Irrigation (Active) Placement Date: 08/17/24 GEN: NAD HEENT: NCAT, EOMI RESP: Equal bilateral chest rise, normal work of breathing CV: Regular rate, appears well perfused ABD: Nondistended : law in place on CBI, draining pink EXT: No gross deformities MSK: Full ROM in BL UE NEURO: No focal deficits, alert and oriented PSYCH: Normal mood and affect LABS: Results from last 7 days Lab Units 08/18/24 0343 WBC 10*3/uL 18.75* HEMOGLOBIN g/dL 11.6* HEMATOCRIT % 35.1* PLATELETS 10*3/uL 359 Results from last 7 days Lab Units 08/18/24 0343 SODIUM mmol/L 142 POTASSIUM mmol/L 5.1* CHLORIDE mmol/L 108* CO2 mmol/L 22 BUN mg/dL 32* CREATININE mg/dL 1.99* EGFR mL/min/1.73m*2 35.9 GLUCOSE mg/dL 120* CALCIUM mg/dL 9.0 IMAGING: No relevant imagine to review. HOSPITAL PROBLEM LIST: Principal Problem: Urinary retention due to benign prostatic hyperplasia ASSESSMENT: Mouna Garcia is a 69 y.o. male with a history of BPH who was admitted for a HOLEP procedure on 08/17/24. He was placed on CBI following the procedure and has been titrated to a light pink color. Bladder irrigated with minimal clot return on POD1. PLAN: - CBI clamped, pending reassessment - Discharge pending voiding trial Mary Ann Bautista MD PGY-1 Urology Pager: [phone] Epic chat preferred for non-emergent communication. Cosigned by Jose Gregg MD at 08/18/2024 2:30 PM EDT Associated attestation - Jose Gregg MD - 08/18/2024 2:30 PM EDT I saw and evaluated the patient with the resident/fellow. I discussed the case with the resident/fellow and agree with the findings and plan as documented. * Care Plan - Martina Rockwell RN - 08/18/2024 10:30 AM EDT Problem: Adult Inpatient Plan of Care Goal: Plan of Care Review Outcome: Ongoing, Progressing Flowsheets (Taken 08/18/2024 1030) Progress: improving Plan of Care Reviewed With: patient spouse Goal: Patient-Specific Goal (Individualized) Outcome: Ongoing, Progressing Flowsheets (Taken 08/18/2024 1030) Patient/Family-Specific Goals (Include Timeframe): The patient will remain free of falls and injurythroughout the shift. Individualized Care Needs: Safety Anxieties, Fears or Concerns: Urine color Goal: Absence of Hospital-Acquired Illness or Injury Outcome: Ongoing, Progressing Goal: Optimal Comfort and Wellbeing Outcome: Ongoing, Progressing Goal: Readiness for Transition of Care Outcome: Ongoing, Progressing * Care Plan - Arianna Thurman RN - 08/17/2024 10:57 PM EDT Problem: Adult Inpatient Plan of Care Goal: Plan of Care Review Outcome: Ongoing, Progressing Flowsheets (Taken 08/17/20242253) Progress: improving Plan of Care Reviewed With: patient spouse Goal: Patient-Specific Goal (Individualized) Outcome: Ongoing, Progressing Flowsheets (Taken 08/17/20241999) Patient/Family-Specific Goals (Include Timeframe): pt will be safe throughout the shift Individualized Care Needs: safety Anxieties, Fears or Concerns: safety Goal: Absence of Hospital-Acquired Illness or Injury Outcome: Ongoing, Progressing Intervention: Identify and Manage Fall Risk Flowsheets (Taken 08/17/20242253) Safety Promotion/Fall Prevention: activity supervised fall prevention program maintained lighting adjusted Intervention: Prevent Skin Injury Flowsheets Taken 08/17/20242253 Skin Protection: incontinence pads utilized Taken 08/17/20242199 Body Position: turned Intervention: Prevent and Manage VTE (Venous Thromboembolism) Risk Flowsheets (Taken 08/17/20242253) VTE Prevention/Management: bilateral lower extremity foot pump device on SCDs (sequential compression devices) on medication education provided Intervention: Prevent Infection Flowsheets (Taken 08/17/20242253) Infection Prevention: hand hygiene promoted equipment surfaces disinfected rest/sleep promoted single patient room provided Goal: Optimal Comfort and Wellbeing Outcome: Ongoing, Progressing Intervention: Monitor Pain and Promote Comfort Flowsheets (Taken 08/17/20242253) Pain Management Interventions: medication (see MAR) Intervention: Provide Person-Centered Care Flowsheets (Taken 08/17/20242253) Trust Relationship/Rapport: care explained choices provided emotional support provided questions encouraged thoughts/feelings acknowledged Goal: Readiness for Transition of Care Outcome: Ongoing, Progressing Problem: Skin Injury Risk Increased Goal: Skin Health and Integrity Outcome: Ongoing, Progressing Intervention: Optimize Skin Protection Flowsheets Taken 08/17/20242253 Activity Management: activity adjusted per tolerance Pressure Reduction Techniques: heels elevated off bed Skin Protection: incontinence pads utilized Taken 08/17/20242199 Head of Bed (HOB) Positioning: HOB at 30-45 degrees Intervention: Promote and Optimize Oral Intake Flowsheets (Taken 08/17/20242253) Nutrition Interventions: food preferences provided * Anesthesia PACU Signout - Cristino, Jonathon C, DO - 08/17/2024 3:44 PM EDT Images from the original note were not included. Anesthesia PACU Signout Patient location during evaluation: PACU Patient participation: complete - patient participated Level of consciousness: baseline and awake Pain management: adequate (pain score 0-3) Airway patency: natural airway Hydration status: acceptable PONV: none Cardiovascular status: acceptable and hemodynamically stable Respiratory status: acceptable, spontaneous ventilation, unassisted and nonlabored ventilation Discharge Disposition: admit to inpatient unit 08/17/2024 2:20 PM 08/17/2024 2:25 PM 08/17/2024 2:30 PM 08/17/2024 2:45 PM 08/17/2024 3:00 PM 08/17/2024 3:15 PM 08/17/2024 3:30 PM Vitals Systolic 119 121 127 143 123 118 127 Diastolic 75 87 84 90 80 75 86 Heart Rate 66 67 65 63 63 60 61 Temp 36.4 C Resp 10 12 9 13 11 10 13 Cosigned by William Valladares MD at 08/23/2024 7:51 AM EDT Associated attestation - William Valladares MD - 08/23/2024 7:51 AM EDT I saw and evaluated the patient with the resident/fellow. I discussed the case with the resident/fellow and agree with the findings and plan as documented. * Op Note - Courtney Young MD - 08/17/2024 1:03 PM EDT HoLEP OP Note: Operative Report SURGEON: Courtney Young MD Dispatcher Automobile Rental: DO Margarita Saldivar MD SURGICAL TEAM: Lift Team Technician: Susan Huff RN Relief Lift Team Technician: Yusuf Akers RN Relief Scrub: Rebekah Abreu Scrub Person: Gela Pillai Scrub Person Orientee: Lilia Chiu DATE OF SURGERY : 08/17/2024 PREOPERATIVE DIAGNOSIS: Pre-op Diagnosis * Incomplete bladder emptying [R33.9] POSTOPERATIVE DIAGNOSIS: Post-op Diagnosis * Incomplete bladder emptying [R33.9] PROCEDURE: ENUCLEATION, PROSTATE, TRANSURETHRAL, USING HOLMIUM LASER ( HOLEP ) INDICATION FOR PROCEDURE: 69 y.o. male with presenting with 68g prostate, urinary retention. Plan for HOLEP ANESTHESIA: General IMPLANTS: Nothing was implanted during the procedure OPERATIVE DETAILS Estimated Blood Loss: 100 cc Intraoperative Fluids: See anesthesia records Blood/Blood Products Transfused: None Specimens: Order Name Source Comment Collection Info Order Time SURGICAL PATHOLOGY EXAM Prostate Pre-op diagnosis: INCOMPLETE BLADDER EMPTYING Collected By: Courtney Young MD 08/17/2024 1:52 PM Results Release Delay - 72 Hours 72 Hours PROCEDURE: After informed consent was obtained, the patient was taken to the operating room and administered ageneral anesthetic. The patient was placed in Lithotomy position. SCDs were placed on bilateral lower extremities. The patient was prepped and draped in the usual sterile fashion for cystoscopy. All members of the operating team were in agreement for the timeout regarding the procedure. The patientwas administered antibiotics prior to the start of the procedure. The urethra was dilated with sequential dilators from 20 - 30 Cymro. The 28 Cymro Storz continuous flow resectoscope sheath was insertedthen inner sheath and obturator were removed. The laser stabilizing sheath and lens were inserted. The bladder and posterior urethra were examined in a systematic fashion revealing trilobar hyperplasia. We were able to visualize bilateral ureteral orifices. We used the 550 micrometer fiber with the following pulse settin J 50 Hz. We proceeded with prostate enucleation using early apical release with complete en bloc technique. We began by performing an early apical release. We incised the left and right apical tissue lateral to the verumontanum and pos teriorly. We did this proximally in the urethra to the verumontanum, preserving the verumontanum. We kept the sphincter in place and incised circumferentially to create the incision proximal to the sphincter. We then gradually developed the dissection within the border of the incision until we could find prostate capsule circumferentially. We were able to continue to develop the plane circumferentially until we entered the bladder anteriorly through the vertical bladder neck fibers. We dissected tissue laterally as well to develop a wide anterior-lateral plane bilaterally. We did not need to separate the two lobes, and were able to complete an entirely en bloc enucleation by developing the l ateral planes then the posterior plane. We then spent time to perform hemostasis of the prostate fossa. At this point we transitioned to the nephroscope and Piranha to complete morcellation. At the conclusion of the procedure the prostatic urethra appeared to be open and hemostatic. The bilateral ureteral orifices were visualized and in tact at the conclusion of enucleation and morcellation. The scope was removed and a 22 Cymro 3-way Law catheter was inserted with continuous bladder irrigation running. 50 mL of fluid was placed in the catheter balloon. The catheter was not placed on traction. The patient was awakened from anesthesia and transported to the recovery area in stable condition. He tolerated the procedure without complication. He will remain in the hospital tonight for continuous bladder irrigation (CBI) and plan for voidingtrial in the hospital tomorrow. Operative findings: Trilobar enlarged prostate 98.99 kJ total energy 33 minutes enucleation 2 minutes hemostasis 4 minutes morcellation Complications: none Condition on Discharge from the operating room was stable Courtney Young MD Date: 08/17/2024 Time: 2:31 PM * H&P - Nilson Montes MD - 08/17/2024 9:42 AM EDT Subjective Chief complaint Urinary retention, enlarged prostate History Of Present Illness Deny Garcia is a 69 y.o. male presenting with 68g prostate, urinary retention. Plan for HOLEP Medical/Surgical/Social/Family History I have reviewed and updated the patient history. Allergies Patient has no known allergies. Medications Current Medications[1] Objective Review of Systems ROS completed and negative except what is listed in HPI. Physical Exam Vitals and nursing note reviewed. Exam conducted with a certified professional controller present. Constitutional: General: He is not in acute distress. Appearance: Normal appearance. He is normal weight. HENT: Head: Normocephalic and atraumatic. Right Ear: External ear normal. Left Ear: External ear normal. Nose: Nose normal. Mouth/Throat: Mouth: Mucous membranes are moist. Pharynx: Oropharynx is clear. Eyes: General: No scleral icterus. Conjunctiva/sclera: Conjunctivae normal. Cardiovascular: Rate and Rhythm: Normal rate and regular rhythm. Pulses: Normal pulses. Pulmonary: Effort: Pulmonary effort is normal. No respiratory distress. Abdominal: General: There is no distension. Palpations: Abdomen is soft. Tenderness: There is no abdominal tenderness. Musculoskeletal: General: No deformity. Normal range of motion. Cervical back: Normal range of motion and neck supple. Skin: General: Skin is warm. Capillary Refill: Capillary refill takes less than 2 seconds. Findings: No erythema. Neurological: General: No focal deficit present. Mental Status: He is alert and oriented to person, place, and time. Mental status is at baseline. Psychiatric: Mood and Affect: Mood normal. Behavior: Behavior normal. Judgment: Judgment normal. Last Recorded Vitals There were no vitals taken for this visit. Results Review {Vanishing Link Review Results :[id number] I have reviewed the latest lab and imaging results. Assessment & Plan To OR for HOLEP. Consent will be in media tab. Ucx from OSH susceptible to ceftriaxone [1] No current facility-administered medications for this encounter. Current Outpatient Medications Medication Sig Dispense Refill amLODIPine (Norvasc) 10 MG tablet Take 1 tablet by mouth daily. aspirin 81 MG EC tablet Take 1 tablet by mouth every morning. atorvastatin (Lipitor) 80 MG tablet Take 1 tablet by mouth nightly. clopidogrel (Plavix) 75 MG tablet Take 1 tablet (75 mg) by mouth every morning. (Patient not taking: Reported on 08/02/2024) glyBURIDE (Diabeta) 5 MG tablet Take 1 tablet by mouth daily with breakfast. irbesartan (Avapro) 300 MG tablet Take 1 tablet by mouth daily. metoprolol succinate XL (Toprol-XL) 200 MG 24 hr tablet Take 1 tablet by mouth every morning. NIFEdipine XL (Procardia XL) 60 MG 24 hr tablet Take 1 tablet (60 mg) by mouth daily. Do not crush,chew, or split. Replaces amlodipine 30 tablet 5 [place]-3 Fatty Acids (FISH OIL HIGH POTENCY PO) Take 1 capsule by mouth in the morning. omeprazole (PriLOSEC) [address] capsule Take 1 capsule by mouth every morning. trospium (Sanctura) 20 MG tablet Take 1 tablet by mouth 2 (two) times a day. 60 tablet 11 Cosigned by Courtney Young MD at 08/17/2024 12:03 PM EDT Associated attestation - Courtney Young MD - 08/17/2024 12:03 PM EDT I saw and evaluated the patient with the resident/fellow. I discussed the case with the resident/fellow and agree with the findings and plan as documented. documented in this encounter Plan of Treatment Upcoming Encounters Date Type Department Care Team ([facility] st Contact Info) Description 08/31/2024 12:15 PM EDT Appointment Medical Office Building Physical Therapy [address] [facility] [facility], [address] [place] [address] Charlotte Pillai [address] [facility] [address] [place] [address] 09/19/2024 3:30 PM EDT Office Visit Medical Office Building Urology [address] [facility] [address] [facility], [address] [place] [address] Courtney Young MD [address] [facility] [address] [place] [address] 10/10/2024 4:00 PM EDT Office Visit [facility] Nephrology, Bone & Mineral Metabolism [address], [address] [place] [address] Mp Reis PA [address] [facility] [address] [place] [address] 06/05/2025 10:45 AM EDT Appointment [facility]iology [address] [place] [address] 06/05/2025 11:50 AM EDT [facility] [address] [place] [address] 06/05/2025 12:30 PM EDT Office Visit [facility] Urology [address] [place] [address] Charlotte Rodriguez P, DIRECTOR [employer], DNP [address] [place] [address] documented as of this encounter Procedures Procedure Name Priority Date/Time Associated Diagnosis Comments POCT GLUCOSE METER UNSOLICITED RESULTS Routine 08/22/2024 11:37 AM EDT POCT GLUCOSE METER UNSOLICITED RESULTS Routine 08/22/2024 8:02 AM EDT POCT GLUCOSE METER UNSOLICITED RESULTS Routine 08/22/2024 3:17 AM EDT CBC W/O DIFFERENTIAL Routine 08/22/2024 2:11 AM EDT BASIC METABOLIC PANEL, PLASMA Routine 08/22/2024 2:11 AM EDT POCT GLUCOSE METER UNSOLICITED RESULTS Routine 08/21/2024 8:47 PM EDT POCT GLUCOSE METER UNSOLICITED RESULTS Routine 08/21/2024 5:18 PM EDT POCT GLUCOSE METER UNSOLICITED RESULTS Routine 08/21/2024 12:12 PM EDT SC CYSTOURETHROSCOPY,F ULGURATN 08/21/2024 10:25 AM EDT Urinary retention due to benign prostatic hyperplasia Special Needs dorsal lithotomy POCT GLUCOSE METER UNSOLICITED RESULTS Routine 08/21/2024 9:52 AM EDT POCT GLUCOSE METER UNSOLICITED RESULTS Routine 08/21/2024 5:28 AM EDT CBC W/O DIFFERENTIAL Routine 08/21/2024 4:23 AM EDT BASIC METABOLIC PANEL, PLASMA Routine 08/21/2024 4:23 AM EDT POCT GLUCOSE METER UNSOLICITED RESULTS Routine 08/20/2024 8:28 PM EDT POCT GLUCOSE METER UNSOLICITED RESULTS Routine 08/20/2024 5:23 PM EDT POCT GLUCOSE METER UNSOLICITED RESULTS Routine 08/20/2024 11:49 AM EDT POCT GLUCOSE METER UNSOLICITED RESULTS Routine 08/20/2024 7:33 AM EDT CBC W/O DIFFERENTIAL Pending Discharge 08/20/2024 4:30 AM EDT BASIC METABOLIC PANEL, PLASMA Pending Discharge 08/20/2024 4:30 AM EDT HEMOGLOBIN AND HEMATOCRIT, BLOOD Pending Discharge 08/19/2024 9:52 PM EDT POCT GLUCOSE METER UNSOLICITED RESULTS Routine 08/19/2024 8:20 PM EDT TRANSFUSE RED BLOOD CELLS Routine 08/19/2024 5:45 PM EDT POCT GLUCOSE METER UNSOLICITED RESULTS Routine 08/19/2024 5:09 PM EDT PREPARE RBC Routine 08/19/2024 4:35 PM EDT HEMOGLOBIN AND HEMATOCRIT, BLOOD Pending Discharge 08/19/2024 3:57 PM EDT POCT GLUCOSE METER UNSOLICITED RESULTS Routine 08/19/2024 12:05 PM EDT TRANSFUSE RED BLOOD CELLS Routine 08/19/2024 12:00 PM EDT PREPARE RBC Routine 08/19/2024 10:55 AM EDT HEMOGLOBIN AND HEMATOCRIT, BLOOD Routine 08/19/2024 9:42 AM EDT TYPE AND SCREEN Routine 08/19/2024 9:42 AM EDT POCT GLUCOSE METER UNSOLICITED RESULTS Routine 08/19/2024 8:01 AM EDT CBC W/O DIFFERENTIAL Routine 08/19/2024 4:29 AM EDT BASIC METABOLIC PANEL, PLASMA Routine 08/19/2024 4:29 AM EDT POCT GLUCOSE METER UNSOLICITED RESULTS Routine 08/18/2024 8:03 PM EDT CBC W/O DIFFERENTIAL STAT 08/18/2024 6:20 PM EDT PHOSPHORUS, PLASMA STAT 08/18/2024 6: 20 PM EDT MAGNESIUM, PLASMA STAT 08/18/2024 6:2 0 PM EDT BASIC METABOLIC PANEL, PLASMA STAT 08/18/2024 6:20 PM EDT POCT GLUCOSE METER UNSOLICITED RESULTS Routine 08/18/2024 6:04 PM EDT POCT GLUCOSE METER UNSOLICITED RESULTS Routine 08/18/2024 5:02 PM EDT POCT GLUCOSE METER UNSOLICITED RESULTS Routine 08/18/2024 12:00 PM EDT POCT GLUCOSE METER UNSOLICITED RESULTS Routine 08/18/2024 8:27 AM EDT CBC W/O DIFFERENTIAL Routine 08/18/2024 3:43 AM EDT PHOSPHORUS, PLASMA Routine 08/18/2024 3: 43 AM EDT MAGNESIUM, PLASMA Routine 08/18/2024 3:4 3 AM EDT BASIC METABOLIC PANEL, PLASMA Routine 08/18/2024 3:43 AM EDT POCT GLUCOSE METER UNSOLICITED RESULTS Routine 08/17/2024 10:07 PM EDT POCT GLUCOSE METER UNSOLICITED RESULTS Routine 08/17/2024 7:13 PM EDT POCT GLUCOSE METER UNSOLICITED RESULTS Routine 08/17/2024 7:00 PM EDT BASIC METABOLIC PANEL, PLASMA Routine 08/17/2024 3:48 PM EDT CBC W/O DIFFERENTIAL Routine 08/17/2024 3:29 PM EDT POCT GLUCOSE METER UNSOLICITED RESULTS Routine 08/17/2024 2:37 PM EDT SURGICAL PATHOLOGY EXAM Routine 08/17/2024 1:33 PM EDT Incomplete bladder emptying SC LASER ENUCLEATION PROSTATE W MORCELLATION 08/17/2024 12:30 PM EDT Incomplete bladder emptying POCT GLUCOSE METER UNSOLICITED RESULTS Routine 08/17/2024 11:17 AM EDT documented in this encounter Results * (ABNORMAL) POCT glucose meter (08/22/2024 11:37 AM EDT) POCT Glucose 170(H) 74 - 99 mg/dL 08/22/2024 11:45 AM EDT [facility] Comment:Accuracy of a glucos e result obtained from a capillary whole blood specimen relies upon adequate, non-compromised capillary blood flow. If the capillary glucose result is not consistent with the patient's clinical signs and symptoms, glucose testing should be repeated with either an arterial or venous sample on the glucometer or sent to the main labortory for testing. Comment 08/22/2024 11:45 AM EDT [facility] Platen Builder Up ID Xin Marina 11:45 AM EDT HEALTHCARE LAB Device ID [id number] 08/22/2024 11:45 AM EDT [facility]ALTH[facility]ARE LAB Specimen Type POC Capillary 08/22/2024 11:45 AM EDT [facility] Blood Capillary blood specimen / Unknown 08/22/2024 11:37 AM EDT 08/22/2024 11:45 AM EDT us Courtney Young MD LAB POINT OF CARE TE ST DOCKED DEVICE UNSOLICITED RESULTS Final Result Performing Organization Address City/[facility]/ZIP Co de Phone Number HEALTHCARE LAB [address] [place] [address] * (ABNORMAL) POCT glucose meter (08/22/2024 8:02 AM EDT) [facility] POCT Glucose 116(H) 74 - 99 mg/dL 08/22/2024 8:03 AM EDT [facility] Comment:Accuracy of a glucos e result obtained from a capillary whole blood specimen relies upon adequate, non-compromised capillary blood flow. If the capillary glucose result is not consistent with the patient's clinical signs and symptoms, glucose testing should be repeated with either an arterial or venous sample on the glucometer or sent to the main labortory for testing. Comment 08/22/2024 8:03 AM EDT [facility]ALTHCARE [facility] Platen Builder Up ID Xin Marina 8:03 AM EDT HEALTHCARE LAB Device ID [id number] 08/22/2024 8:03 AM EDT HEALTHCARE LAB Specimen Type POC Capillary 08/22/2024 8:03 AM EDT [facility] LAB Blood Capillary blood specimen / Unknown 08/22/2024 8:02 AM EDT 08/22/2024 8:03 AM EDT us Courtney Young MD LAB POINT OF CARE TE ST DOCKED DEVICE UNSOLICITED RESULTS Final Result Performing Organization Address City/[facility]/ZIP Co de Phone Number [facility]ALTHCARE [facility] [address] [place] [address] * (ABNORMAL) POCT glucose meter (08/22/2024 3:17 AM EDT) [facility] POCT Glucose 162(H) 74 - 99 mg/dL 08/22/2024 3:18 AM EDT [facility] Comment:Accuracy of a glucos e result obtained from a capillary whole blood specimen relies upon adequate, non-compromised capillary blood flow. If the capillary glucose result is not consistent with the patient's clinical signs and symptoms, glucose testing should be repeated with either an arterial or venous sample on the glucometer or sent to the main labortory for testing. Comment 08/22/2024 3:18 AM EDT [facility]ALTH[facility] Platen Builder Up ID Demetra Wiggins 08/22/2024 3:18 AM EDT HEALTHCARE LAB Device ID [id number] 08/22/2024 3:18 AM EDT [facility] Specimen Type POC Capillary 08/22/2024 3:18 AM EDT [facility] Blood Capillary blood specimen / Unknown 08/22/2024 3:17 AM EDT 08/22/2024 3:18 AM EDT Courtney Young MD LAB POINT OF CARE TE ST DOCKED DEVICE UNSOLICITED RESULTS Final Result [facility] [address] [place] [address] * (ABNORMAL) CBC W/O Differential (08/22/2024 2:11 AM EDT) [facility] WBC Count 14.27(H) 3.70 - 10.30 10*3/uL LAB HEMATOLOGY METHOD 08/22/2024 2:30 AM EDT [facility] RBC Count 2.99(L) 4.60 - 6.10 10*6/uL LAB HEMATOLOGY METHOD 08/22/2024 2:30 AM EDT [facility] HGB 8.9(L) 13.7 - 17.5 g/dL LAB HEMATOLOGY METHOD 08/22/2024 2:30 AM EDT [facility] HCT 26.8(L) 40.0 - 51.0 % LAB HEMATOLOGY METHOD 08/22/2024 2:30 AM EDT [facility] Platelet Count 270 155 - 369 10*3/uL LAB HEMATOLOGY METHOD 08/22/2024 2:30 AM EDT [facility] MCV 90 79 - 98 fL LAB HEMATOLOGY METHOD 08/22/2024 2:30 AM EDT [facility] MCH 29.8 26.0 - 32.0 pg LAB HEMATOLOGY METHOD 08/22/2024 2:30 AM EDT [facility] MCHC 33.2 30.7 - 35.5 g/dL LAB HEMATOLOGY METHOD 08/22/2024 2:30 AM EDT [facility] RDW 14.5 11.5 - 14.5 % LAB HEMATOLOGY METHOD 08/22/2024 2:30 AM EDT [facility] MPV 9.7 8.8 - 12.5 fL LAB HEMATOLOGY METHOD 08/22/2024 2:30 AM EDT [facility] nRBC 0.0 <=0.0 per 100 WBCs LAB HEMATOLOGY METHOD 08/22/2024 2:30 AM EDT [facility] Blood Venous blood specimen / Unknown Venipuncture / Unknown 08/22/2024 2:11 AM EDT 08/22/2024 2:21 AM EDT us Courtney Young MD LAB BLOOD ORDERABLES Final R esult [facility] [address] [place] [address] * (ABNORMAL) Basic Metabolic Panel, Plasma (08/22/2024 2:11 AM EDT) Glucose, Plasma 232(H) 74 - 99 mg/dL 08/22/2024 2:49 AM EDT [facility] BUN, Plasma 25(H) 8 - 23 mg/dL 08/22/2024 2:49 AM EDT [facility] Creatinine, Plasma 1.75(H) 0.70 - 1.20 mg/dL 08/22/2024 2:49 AM EDT [facility] BUN/Creatinine Ratio 14 08/22/2024 2:49 AM EDT [facility] Sodium, Plasma 138 136 - 145 mmol/L 08/22/2024 2:49 AM EDT [facility] Potassium, Plasma 4.4 3.6 - 4.9 mmol/L 08/22/2024 2:49 AM EDT [facility] Chloride, Plasma 104 97 - 107 mmol/L 08/22/2024 2:49 AM EDT [facility] CO2, Plasma 24 22 - 29 mmol/L 08/22/2024 2:49 AM EDT [facility] Anion Gap 10 6 - 16 mmol/L 08/22/2024 2:49 AM EDT [facility] Total Calcium, Plasma 8.7(L) 8.9 - 10.2 mg/dL 08/22/2024 2:49 AM EDT [facility] eGFRcr 41.9 mL/min/1.7 3m*2 08/22/2024 2:49 AM EDT [facility] Comment:Reported eGFRcr in m L/min/1.73m2 is based the CKD-EPI 2020 equation that does not use a race coefficient. Blood Venous blood specimen / Unknown Venipuncture / Unknown 08/22/2024 2:11 AM EDT 08/22/2024 2:20 AM EDT us Courtney Young MD LAB BLOOD ORDERABLES Final R esult [facility] [address] [place] [address] * (ABNORMAL) POCT glucose meter (08/21/2024 8:47 PM EDT) [facility] POCT Glucose 384(H) 74 - 99 mg/dL 08/21/2024 8:48 PM EDT [facility] Comment:Accuracy of a glucos e result obtained from a capillary whole blood specimen relies upon adequate, non-compromised capillary blood flow. If the capillary glucose result is not consistent with the patient's clinical signs and symptoms, glucose testing should be repeated with either an arterial or venous sample on the glucometer or sent to the main labortory for testing. Comment 08/21/2024 8:48 PM EDT [facility] Platen Builder Up ID Demetra [email or web address] 08/21/2024 8:48 PM EDT HEALTHCARE LAB Device ID [id number] 08/21/2024 8:48 PM EDT [facility] LAB Specimen Type POC Capillary 08/21/2024 8:48 PM EDT [facility] Blood Capillary blood specimen / Unknown 08/21/2024 8:47 PM EDT 08/21/2024 8:48 PM EDT Courtney Young MD LAB POINT OF CARE TE ST DOCKED DEVICE UNSOLICITED RESULTS Final Result Performing Organization Address City/[facility] Co de Phone Number [facility] [address] [place] [address] * (ABNORMAL) POCT glucose meter (08/21/2024 5:18 PM EDT) POCT Glucose 226(H) 74 - 99 mg/dL 08/21/2024 5:20 PM EDT [facility] Comment:Accuracy of a glucos e result obtained from a capillary whole blood specimen relies upon adequate, non-compromised capillary blood flow. If the capillary glucose result is not consistent with the patient's clinical signs and symptoms, glucose testing should be repeated with either an arterial or venous sample on the glucometer or sent to the main labortory for testing. Comment 08/21/2024 5:20 PM EDT [facility] Platen Builder Up ID Kaylyn [email or web address] 5:20 PM EDT HEALTHCARE LAB Device ID [id number] 08/21/2024 5:20 PM EDT [facility]ALTH[facility]ARE LAB Specimen Type POC Capillary 08/21/2024 5:20 [address] [facility] Blood Capillary blood specimen / Unknown 08/21/2024 5:18 PM EDT 08/21/2024 5:20 PM EDT Courtney Young MD LAB POINT OF CARE TE ST DOCKED DEVICE UNSOLICITED RESULTS Final Result Performing Organization Address City/[facility]/ZIP Co de Phone Number [facility] [address] [place] [address] * (ABNORMAL) POCT glucose meter (08/21/2024 12:12 PM EDT) POCT Glucose 131(H) 74 - 99 mg/dL 08/21/2024 12:14 PM EDT [facility] Comment:Accuracy of a glucos e result obtained from a capillary whole blood specimen relies upon adequate, non-compromised capillary blood flow. If the capillary glucose result is not consistent with the patient's clinical signs and symptoms, glucose testing should be repeated with either an arterial or venous sample on the glucometer or sent to the main labortory for testing. Comment 08/21/2024 12:14 PM EDT [facility] Platen Builder Up ID Ethan Franco [id number] 12:14 PM EDT HEALTHCARE LAB Device ID [id number] 08/21/2024 12:14 PM EDT [facility]ALTH[facility]ARE LAB Specimen Type POC Capillary 08/21/2024 12:14 PM EDT [facility] Blood Capillary blood specimen / Unknown 08/21/2024 12:12 PM EDT 08/21/2024 12:14 PM EDT us Courtney Young MD LAB POINT OF CARE TE ST DOCKED DEVICE UNSOLICITED RESULTS Final Result [facility] [address] [place] [address] * (ABNORMAL) POCT glucose meter (08/21/2024 9:52 AM EDT) [facility] POCT Glucose 140(H) 74 - 99 mg/dL 08/21/2024 10:14 AM EDT [facility] Comment:Accuracy of a glucos e result obtained from a capillary whole blood specimen relies upon adequate, non-compromised capillary blood flow. If the capillary glucose result is not consistent with the patient's clinical signs and symptoms, glucose testing should be repeated with either an arterial or venous sample on the glucometer or sent to the main labortory for testing. Comment 08/21/2024 10:14 AM EDT [facility] Platen Builder Up ID Marbella Pizarro 08/21/2024 10:14 AM EDT HEALTHCARE LAB Device ID [id number] 08/21/2024 10:14 AM EDT [facility]ALTH[facility]ARE LAB Specimen Type POC Capillary 08/21/2024 10:14 AM EDT [facility] Blood Capillary blood specimen / Unknown 08/21/2024 9:52 AM EDT 08/21/2024 10:14 AM EDT us Courtney Young MD LAB POINT OF CARE TE ST DOCKED DEVICE UNSOLICITED RESULTS Final Result Performing Organization Address City/[facility]/ZIP Co de Phone Number [facility]ARE [facility] [address] [place] [address] * (ABNORMAL) POCT glucose meter (08/21/2024 5:28 AM EDT) POCT Glucose 121(H) 74 - 99 mg/dL 08/21/2024 5:30 AM EDT [facility] Comment:Accuracy of a glucos e result obtained from a capillary whole blood specimen relies upon adequate, non-compromised capillary blood flow. If the capillary glucose result is not consistent with the patient's clinical signs and symptoms, glucose testing should be repeated with either an arterial or venous sample on the glucometer or sent to the main labortory for testing. Comment 08/21/2024 5:30 AM EDT [facility] Platen Builder Up ID [email or web address] 08/21/2024 5:30 AM EDT HEALTHCARE LAB Device ID [id number] 08/21/2024 5:30 AM EDT [facility] Specimen Type POC Capillary 08/21/2024 5:30 AM EDT [facility] Blood Capillary blood specimen / Unknown 08/21/2024 5:28 AM EDT 08/21/2024 5:30 AM EDT Courtney Young MD LAB POINT OF CARE TE ST DOCKED DEVICE UNSOLICITED RESULTS Final Result Performing Organization Address City/[facility] Co de Phone Number [facility] [address] [place] [address] * (ABNORMAL) Basic metabolic panel (08/21/2024 4:23 AM EDT) Glucose, Plasma 116(H) 74 - 99 mg/dL 08/21/2024 5:03 AM EDT [facility] BUN, Plasma 23 8 - 23 mg/dL 08/21/2024 5:03 AM EDT [facility] Creatinine, Plasma 1.67(H) 0.70 - 1.20 mg/dL 08/21/2024 5:03 AM EDT [facility] BUN/Creatinine Ratio 14 08/21/2024 5:03 AM EDT [facility] Sodium, Plasma 140 136 - 145 mmol/L 08/21/2024 5:03 AM EDT [facility] Potassium, Plasma 4.7 3.6 - 4.9 mmol/L 08/21/2024 5:03 AM EDT [facility] Chloride, Plasma 108(H) 97 - 107 mmol/L 08/21/2024 5:03 AM EDT [facility] CO2, Plasma 23 22 - 29 mmol/L 08/21/2024 5:03 AM EDT [facility] Anion Gap 9 6 - 16 mmol/L 08/21/2024 5:03 AM EDT [facility] Total Calcium, Plasma 8.8(L) 8.9 - 10.2 mg/dL 08/21/2024 5:03 AM EDT [facility] eGFRcr 44.3 mL/min/1.7 3m*2 08/21/2024 5:03 AM EDT [facility] Comment:Reported eGFRcr in m L/min/1.73m2 is based the CKD-EPI 2020 equation that does not use a race coefficient. Blood Venous blood specimen / Unknown Venipuncture / Unknown 08/21/2024 4:23 AM EDT 08/21/2024 4:32 AM EDT us Courtney Young MD LAB BLOOD ORDERABLES Final R esult [facility] [address] [place] [address] * (ABNORMAL) CBC W/O Differential (08/21/2024 4:23 AM EDT) WBC Count 12.64(H) 3.70 - 10.30 10*3/uL LAB HEMATOLOGY METHOD 08/21/2024 4:41 AM EDT [facility] RBC Count 3.14(L) 4.60 - 6.10 10*6/uL LAB HEMATOLOGY METHOD 08/21/2024 4:41 AM EDT [facility] HGB 9.3(L) 13.7 - 17.5 g/dL LAB HEMATOLOGY METHOD 08/21/2024 4:41 AM EDT [facility] HCT 27.8(L) 40.0 - 51.0 % LAB HEMATOLOGY METHOD 08/21/2024 4:41 AM EDT [facility] Platelet Count 248 155 - 369 10*3/uL LAB HEMATOLOGY METHOD 08/21/2024 4:41 AM EDT [facility] MCV 89 79 - 98 fL LAB HEMATOLOGY METHOD 08/21/2024 4:41 AM EDT [facility] MCH 29.6 26.0 - 32.0 pg LAB HEMATOLOGY METHOD 08/21/2024 4:41 AM EDT [facility] MCHC 33.5 30.7 - 35.5 g/dL LAB HEMATOLOGY METHOD 08/21/2024 4:41 AM EDT [facility] RDW 14.6(H) 11.5 - 14.5 % LAB HEMATOLOGY METHOD 08/21/2024 4:41 AM EDT [facility] [facility] MPV 9.8 8.8 - 12.5 fL LAB HEMATOLOGY METHOD 08/21/2024 4:41 AM EDT [facility] nRBC 0.0 <=0.0 per 100 WBCs LAB HEMATOLOGY METHOD 08/21/2024 4:41 AM EDT [facility] Blood Venous blood specimen / Unknown Venipuncture / Unknown 08/21/2024 4:23 AM EDT 08/21/2024 4:32 AM EDT us Courtney Young MD LAB BLOOD ORDERABLES Final R esult [facility] [address] [place] [address] * (ABNORMAL) POCT glucose meter (08/20/2024 8:28 PM EDT) POCT Glucose 146(H) 74 - 99 mg/dL 08/20/2024 8:29 PM EDT [facility] Comment:Accuracy of a glucos e result obtained from a capillary whole blood specimen relies upon adequate, non-compromised capillary blood flow. If the capillary glucose result is not consistent with the patient's clinical signs and symptoms, glucose testing should be repeated with either an arterial or venous sample on the glucometer or sent to the main labortory for testing. Comment 08/20/2024 8:29 PM EDT [facility] Platen Builder Up ID [email or web address], Saichon 08/20/2024 8:29 PM EDT [facility] LAB Device ID [id number] 08/20/2024 8:29 PM EDT [facility] Specimen Type POC Capillary 08/20/2024 8:29 PM EDT [facility] Blood Capillary blood specimen / Unknown 08/20/2024 8:28 PM EDT 08/20/2024 8:29 PM EDT us Courtney Young MD LAB POINT OF CARE TE ST DOCKED DEVICE UNSOLICITED RESULTS Final Result Performing Organization Address City/[facility] Co de Phone Number [facility] [address] [place] [address] * (ABNORMAL) POCT glucose meter (08/20/2024 5:23 PM EDT) POCT Glucose 215(H) 74 - 99 mg/dL 08/20/2024 5:24 PM EDT [facility] Comment:Accuracy of a glucos e result obtained from a capillary whole blood specimen relies upon adequate, non-compromised capillary blood flow. If the capillary glucose result is not consistent with the patient's clinical signs and symptoms, glucose testing should be repeated with either an arterial or venous sample on the glucometer or sent to the main labortory for testing. Comment 08/20/2024 5:24 PM EDT [facility] Platen Builder Up ID Marya Velásquez 08/20/2024 5:24 PM EDT [facility] Device ID [id number] 08/20/2024 5:24 PM EDT [facility] Specimen Type POC Capillary 08/20/2024 5:24 PM EDT [facility] Blood Capillary blood specimen / Unknown 08/20/2024 5:23 PM EDT 08/20/2024 5:24 PM EDT us Courtney Young MD LAB POINT OF CARE TE ST DOCKED DEVICE UNSOLICITED RESULTS Final Result Performing Organization Address City/[facility]/ZIP Co de Phone Number [facility] [address] [place] [address] * (ABNORMAL) POCT glucose meter (08/20/2024 11:49 AM EDT) Pathologist [facility] POCT Glucose 187(H) 74 - 99 mg/dL 08/20/2024 11:51 AM EDT [facility] Comment:Accuracy of a glucos e result obtained from a capillary whole blood specimen relies upon adequate, non-compromised capillary blood flow. If the capillary glucose result is not consistent with the patient's clinical signs and symptoms, glucose testing should be repeated with either an arterial or venous sample on the glucometer or sent to the main labortory for testing. Comment 08/20/2024 11:51 AM EDT [facility] Platen Builder Up ID Marya Velásquez 08/20/2024 11:51 AM EDT [facility] Device ID [id number] 08/20/2024 11:51 AM EDT [facility] Specimen Type POC Capillary 08/20/2024 11:51 AM EDT [facility] Blood Capillary blood specimen / Unknown 08/20/2024 11:49 AM EDT 08/20/2024 11:51 AM EDT us Courtney Young MD LAB POINT OF CARE TE ST DOCKED DEVICE UNSOLICITED RESULTS Final Result Performing Organization Address City/State/[facility] Co de Phone Number [facility] [address] [place] [address] * (ABNORMAL) POCT glucose meter (08/20/2024 7:33 AM EDT) Pathologist [facility] POCT Glucose 139(H) 74 - 99 mg/dL 08/20/2024 7:34 AM EDT [facility] Comment:Accuracy of a glucos e result obtained from a capillary whole blood specimen relies upon adequate, non-compromised capillary blood flow. If the capillary glucose result is not consistent with the patient's clinical signs and symptoms, glucose testing should be repeated with either an arterial or venous sample on the glucometer or sent to the main labortory for testing. Comment 08/20/2024 7:34 AM EDT [facility] Platen Builder Up ID Marya Velásquez 08/20/2024 7:34 AM EDT [facility] Device ID [id number] 08/20/2024 7:34 AM EDT [facility] Specimen Type POC Capillary 08/20/2024 7:34 AM EDT [facility] Blood Capillary blood specimen / Unknown 08/20/2024 7:33 AM EDT 08/20/2024 7:34 AM EDT us Courtney Young MD LAB POINT OF CARE TE ST DOCKED DEVICE UNSOLICITED RESULTS Final Result [facility] [address] [place], [place] [id number] * (ABNORMAL) Basic metabolic panel (08/20/2024 4:30 AM EDT) Glucose, Plasma 131(H) 74 - 99 mg/dL 08/20/2024 5:14 AM EDT [facility] BUN, Plasma 34(H) 8 - 23 mg/dL 08/20/2024 5:14 AM EDT [facility] Creatinine, Plasma 1.82(H) 0.70 - 1.20 mg/dL 08/20/2024 5:14 AM EDT [facility] BUN/Creatinine Ratio 19 08/20/2024 5:14 AM EDT [facility] Sodium, Plasma 139 136 - 145 mmol/L 08/20/2024 5:14 AM EDT [facility] Potassium, Plasma 4.6 3.6 - 4.9 mmol/L 08/20/2024 5:14 AM EDT [facility] Chloride, Plasma 109(H) 97 - 107 mmol/L 08/20/2024 5:14 AM EDT [facility] CO2, Plasma 20(L) 22 - 29 mmol/L 08/20/2024 5:14 AM EDT [facility] Anion Gap 10 6 - 16 mmol/L 08/20/2024 5:14 AM EDT [facility] Total Calcium, Plasma 8.3(L) 8.9 - 10.2 mg/dL 08/20/2024 5:14 AM EDT [facility] eGFRcr 40.0 mL/min/1.7 3m*2 08/20/2024 5:14 AM EDT [facility] Comment:Reported eGFRcr in m L/min/1.73m2 is based the CKD-EPI 2020 equation that does not use a race coefficient. Blood Venous blood specimen / Unknown Venipuncture / Unknown 08/20/2024 4:30 AM EDT 08/20/2024 4:43 AM EDT us Courtney Young MD LAB BLOOD ORDERABLES Final R esult [facility] [address] [place] [address] * (ABNORMAL) CBC W/O Differential (08/20/2024 4:30 AM EDT) WBC Count 12.84(H) 3.70 - 10.30 10*3/uL LAB HEMATOLOGY METHOD 08/20/2024 4:58 AM EDT [facility] RBC Count 3.07(L) 4.60 - 6.10 10*6/uL LAB HEMATOLOGY METHOD 08/20/2024 4:58 AM EDT [facility] HGB 9.1(L) 13.7 - 17.5 g/dL LAB HEMATOLOGY METHOD 08/20/2024 4:58 AM EDT [facility] HCT 27.2(L) 40.0 - 51.0 % LAB HEMATOLOGY METHOD 08/20/2024 4:58 AM EDT [facility] Platelet Count 238 155 - 369 10*3/uL LAB HEMATOLOGY METHOD 08/20/2024 4:58 AM EDT [facility] MCV 89 79 - 98 fL LAB HEMATOLOGY METHOD 08/20/2024 4:58 AM EDT [facility] MCH 29.6 26.0 - 32.0 pg LAB HEMATOLOGY METHOD 08/20/2024 4:58 AM EDT [facility] MCHC 33.5 30.7 - 35.5 g/dL LAB HEMATOLOGY METHOD 08/20/2024 4:58 AM EDT [facility] RDW 14.5 11.5 - 14.5 % LAB HEMATOLOGY METHOD 08/20/2024 4:58 AM EDT [facility] MPV 10.0 8.8 - 12.5 fL LAB HEMATOLOGY METHOD 08/20/2024 4:58 AM EDT [facility] nRBC 0.0 <=0.0 per 100 WBCs LAB HEMATOLOGY METHOD 08/20/2024 4:58 AM EDT [facility] Blood Venous blood specimen / Unknown Venipuncture / Unknown 08/20/2024 4:30 AM EDT 08/20/2024 4:46 AM EDT Courtney Young MD LAB BLOOD ORDERABLES Final R esult Performing Organization Address City/[facility]/ZIP Co de Phone Number [facility] [address] [place] [address] * (ABNORMAL) Hemoglobin and hematocrit, blood (08/19/2024 9:52 PM EDT) HGB 9.2(L) 13.7 - 17.5 g/dL LAB HEMATOLOGY METHOD 08/19/2024 10:08 PM EDT [facility] HCT 27.6(L) 40.0 - 51.0 % LAB HEMATOLOGY METHOD 08/19/2024 10:08 PM EDT [facility] Blood Venous blood specimen / Unknown Venipuncture / Unknown 08/19/2024 9:52 PM EDT 08/19/2024 10:01 PM EDT us Courtney Young MD LAB BLOOD ORDERABLES Final R esult Performing Organization Address City/[facility] Co de Phone Number [facility] [address] [place] [address] * Transfuse RBC (08/19/2024 9:41 PM EDT) Result Gerson Young MD BLOOD TRANSFUSION ORDERABLES Final Result * Transfuse RBC: 1 Units (08/19/2024 9:41 PM EDT) Result Gerson Young MD BLOOD TRANSFUSION ORDERABLES Final Result * (ABNORMAL) POCT glucose meter (08/19/2024 8:20 PM EDT) POCT Glucose 170(H) 74 - 99 mg/dL 08/19/2024 8:22 PM [address] [facility] Comment:Accuracy of a glucos e result obtained from a capillary whole blood specimen relies upon adequate, non-compromised capillary blood flow. If the capillary glucose result is not consistent with the patient's clinical signs and symptoms, glucose testing should be repeated with either an arterial or venous sample on the glucometer or sent to the main labortory for testing. Comment 08/19/2024 8:22 PM EDT [facility] Platen Builder Up ID Mark Sanabria 8:22 PM EDT [facility] LAB Device ID [id number] 08/19/2024 8:22 PM EDT [facility] Specimen Type POC Capillary 08/19/2024 8:22 PM EDT [facility] Blood Capillary blood specimen / Unknown 08/19/2024 8:20 PM EDT 08/19/2024 8:22 PM EDT us Courtney Young MD LAB POINT OF CARE TE ST DOCKED DEVICE UNSOLICITED RESULTS Final Result Performing Organization Address City/State/[facility] Co de Phone Number [facility] [address] [place] [address] * (ABNORMAL) POCT glucose meter (08/19/2024 5:09 PM EDT) [facility] Signature POCT Glucose 204(H) 74 - 99 mg/dL 08/19/2024 5:10 PM EDT [facility] Comment:Accuracy of a glucos e result obtained from a capillary whole blood specimen relies upon adequate, non-compromised capillary blood flow. If the capillary glucose result is not consistent with the patient's clinical signs and symptoms, glucose testing should be repeated with either an arterial or venous sample on the glucometer or sent to the main labortory for testing. Comment 08/19/2024 5:10 PM EDT [facility] Platen Builder Up ID Marya Velásquez 08/19/2024 5:10 PM EDT [facility] LAB Device ID [id number] 08/19/2024 5:10 PM EDT [facility] Specimen Type POC Capillary 08/19/2024 5:10 PM EDT [facility] Blood Capillary blood specimen / Unknown 08/19/2024 5:09 PM EDT 08/19/2024 5:10 PM EDT us Courtney Young MD LAB POINT OF CARE TE ST DOCKED DEVICE UNSOLICITED RESULTS Final Result [facility] [address] [place] [address] * Prepare Leukocyte Reduced RBC: 1 Units (08/19/2024 4:35 PM EDT) Pathologist [facility] Product Code [id number] CH BLOO D BANK Dispense Status Transfused BLOOD BANK Blood Expiration Date [id number] BLOOD BANK Unit Number [id number] CH B LOOD BANK Product Blood Type 0600 BLOOD BANK Blood Type A- CH BLOOD BANK Crossmatch Compatible BLOOD BANK Other Courtney Young MD BLOOD BANK PRODUCT ORDERABLE S Final Result Performing Organization Address [facility] Co de Phone Number BLOOD BANK [address] [place] [address] * (ABNORMAL) Hemoglobin and hematocrit, blood (08/19/2024 3:57 PM EDT) Pathologist [facility] HGB 8.0(L) 13.7 - 17.5 g/dL LAB HEMATOLOGY METHOD 08/19/2024 4:32 PM EDT [facility] HCT 23.6(L) 40.0 - 51.0 % LAB HEMATOLOGY METHOD 08/19/2024 4:32 PM EDT [facility] Blood Venous blood specimen / Unknown Venipuncture / Unknown 08/19/2024 3:57 PM EDT 08/19/2024 4:23 PM EDT us Courtney Young MD LAB BLOOD ORDERABLES Final R esult Performing Organization Address City/[facility]/ZIP Co de Phone Number [facility] [address] [place] [address] * Transfuse RBC (08/19/2024 1:50 PM EDT) Courtney Young MD BLOOD TRANSFUSION ORDERABLES Final Result * Transfuse RBC: 1 Units (08/19/2024 1:50 PM EDT) Courtney Young MD BLOOD TRANSFUSION ORDERABLES Final Result * (ABNORMAL) POCT glucose meter (08/19/2024 12:05 PM EDT) POCT Glucose 137(H) 74 - 99 mg/dL 08/19/2024 12:06 PM EDT [facility] Comment:Accuracy of a glucos e result obtained from a capillary whole blood specimen relies upon adequate, non-compromised capillary blood flow. If the capillary glucose result is not consistent with the patient's clinical signs and symptoms, glucose testing should be repeated with either an arterial or venous sample on the glucometer or sent to the main labortory for testing. Comment 08/19/2024 12:06 PM EDT [facility] Platen Builder Up ID Marya Velásquez 08/19/2024 12:06 PM EDT [facility] LAB Device ID [id number] 08/19/2024 12:06 PM EDT [facility] Specimen Type POC Capillary 08/19/2024 12:06 PM EDT [facility] Blood Capillary blood specimen / Unknown 08/19/2024 12:05 PM EDT 08/19/2024 12:06 PM EDT us Courtney Young MD LAB POINT OF CARE TE ST DOCKED DEVICE UNSOLICITED RESULTS Final Result Performing Organization Address City/[facility] Co de Phone Number [facility] [address] [place] [address] * Prepare Leukocyte Reduced RBC: 1 Units (08/19/2024 10:55 AM EDT) Product Code [id number] CH BLOO D BANK Dispense Status Transfused BLOOD BANK Blood Expiration Date [id number] BLOOD BANK Unit Number [id number] CH B LOOD BANK Product Blood Type 0600 BLOOD BANK Blood Type A- CH BLOOD BANK Crossmatch Compatible BLOOD BANK Other us Courtney Young MD BLOOD BANK PRODUCT ORDERABLE S Final Result Performing Organization Address [facility] de Phone Number BLOOD BANK [address] * Type and Screen (08/19/2024 9:42 AM EDT) Pathologist [facility] ABO/Rh A Negative 08/19/2024 8:12 AM EDT BLOOD BANK Antibody Screen Negative 08/19/2024 8:12 AM EDT BLOOD BANK Specimen Expiration 08/22/2024 23:59 08/19/2024 8:12 AM EDT BLOOD BANK Blood Venous blood specimen / Unknown Venipuncture / Unknown 08/19/2024 9:42 AM EDT 08/19/2024 10:03 AM EDT Courtney Young MD LAB BLOOD BANK TEST ORDERABL ES Final Result Performing Organization Address [facility]/ZIP Co de Phone Number BLOOD BANK [address] * (ABNORMAL) Hemoglobin and Hematocrit, Blood (08/19/2024 9:42 AM EDT) [facility] HGB 7.8(L) 13.7 - 17.5 g/dL LAB HEMATOLOGY METHOD 08/19/2024 10:08 AM EDT [facility] HCT 23.8(L) 40.0 - 51.0 % LAB HEMATOLOGY METHOD 08/19/2024 10:08 AM EDT [facility] Blood Venous blood specimen / Unknown Venipuncture / Unknown 08/19/2024 9:42 AM EDT 08/19/2024 10:00 AM EDT Courtney Young MD LAB BLOOD ORDERABLES Final R esult [facility] [address] [place] [address] * (ABNORMAL) POCT glucose meter (08/19/2024 8:01 AM EDT) [facility] POCT Glucose 128(H) 74 - 99 mg/dL 08/19/2024 8:03 AM EDT [facility] Comment:Accuracy of a glucos e result obtained from a capillary whole blood specimen relies upon adequate, non-compromised capillary blood flow. If the capillary glucose result is not consistent with the patient's clinical signs and symptoms, glucose testing should be repeated with either an arterial or venous sample on the glucometer or sent to the main labortory for testing. Comment 08/19/2024 8:03 AM EDT [facility]ALTH[facility] Platen Builder Up ID Marya Velásquez 08/19/2024 8:03 AM EDT HEALTHCARE LAB Device ID [id number] 08/19/2024 8:03 AM EDT [facility] Specimen Type POC Capillary 08/19/2024 8:03 AM EDT [facility] Blood Capillary blood specimen / Unknown 08/19/2024 8:01 AM EDT 08/19/2024 8:03 AM EDT us Courtney Young MD LAB POINT OF CARE TE ST DOCKED DEVICE UNSOLICITED RESULTS Final Result [facility] [address] [place], [place] [id number] * (ABNORMAL) CBC W/O Differential (08/19/2024 4:29 AM EDT) WBC Count 13.81(H) 3.70 - 10.30 10*3/uL LAB HEMATOLOGY METHOD 08/19/2024 4:47 AM EDT [facility] RBC Count 2.75(L) 4.60 - 6.10 10*6/uL LAB HEMATOLOGY METHOD 08/19/2024 4:47 AM EDT [facility] HGB 7.9(L) 13.7 - 17.5 g/dL LAB HEMATOLOGY METHOD 08/19/2024 4:47 AM EDT [facility] HCT 24.9(L) 40.0 - 51.0 % LAB HEMATOLOGY METHOD 08/19/2024 4:47 AM EDT [facility] Platelet Count 266 155 - 369 10*3/uL LAB HEMATOLOGY METHOD 08/19/2024 4:47 AM EDT [facility] MCV 91 79 - 98 fL LAB HEMATOLOGY METHOD 08/19/2024 4:47 AM EDT [facility] MCH 28.7 26.0 - 32.0 pg LAB HEMATOLOGY METHOD 08/19/2024 4:47 AM EDT [facility] MCHC 31.7 30.7 - 35.5 g/dL LAB HEMATOLOGY METHOD 08/19/2024 4:47 AM EDT [facility] RDW 14.5 11.5 - 14.5 % LAB HEMATOLOGY METHOD 08/19/2024 4:47 AM EDT [facility] MPV 10.1 8.8 - 12.5 fL LAB HEMATOLOGY METHOD 08/19/2024 4:47 AM EDT [facility] nRBC 0.0 <=0.0 per 100 WBCs LAB HEMATOLOGY METHOD 08/19/2024 4:47 AM EDT [facility] Blood Venous blood specimen / Unknown Venipuncture / Unknown 08/19/2024 4:29 AM EDT 08/19/2024 4:34 AM EDT us Courtney Young MD LAB BLOOD ORDERABLES Final R esult [facility] [address] [place] [address] * (ABNORMAL) Basic Metabolic Panel, Plasma (08/19/2024 4:29 AM EDT) Glucose, Plasma 127(H) 74 - 99 mg/dL 08/19/2024 6:18 AM EDT [facility] BUN, Plasma 40(H) 8 - 23 mg/dL 08/19/2024 6:18 AM EDT [facility] Creatinine, Plasma 1.91(H) 0.70 - 1.20 mg/dL 08/19/2024 6:18 AM EDT [facility] BUN/Creatinine Ratio 21 08/19/2024 6:18 AM EDT [facility] Sodium, Plasma 134(L) 136 - 145 mmol/L 08/19/2024 6:18 AM EDT [facility] Potassium, Plasma 5.0(H) 3.6 - 4.9 mmol/L 08/19/2024 6:18 AM EDT [facility] Chloride, Plasma 107 97 - 107 mmol/L 08/19/2024 6:18 AM EDT [facility] CO2, Plasma 18(L) 22 - 29 mmol/L 08/19/2024 6:18 AM EDT [facility] Anion Gap 9 6 - 16 mmol/L 08/19/2024 6:18 AM EDT [facility] Total Calcium, Plasma 8.6(L) 8.9 - 10.2 mg/dL 08/19/2024 6:18 AM EDT [facility] eGFRcr 37.7 mL/min/1.7 3m*2 08/19/2024 6:18 AM EDT [facility] Comment:Reported eGFRcr in m L/min/1.73m2 is based the CKD-EPI 2020 equation that does not use a race coefficient. Blood Venous blood specimen / Unknown Venipuncture / Unknown 08/19/2024 4:29 AM EDT 08/19/2024 4:33 AM EDT us Courtney Young MD LAB BLOOD ORDERABLES Final R esult [facility] [address] [place] [address] * (ABNORMAL) POCT glucose meter (08/18/2024 8:03 PM EDT) [facility] POCT Glucose 197(H) 74 - 99 mg/dL 08/18/2024 8:05 PM EDT [facility]ALTH[facility] Comment:Accuracy of a glucos e result obtained from a capillary whole blood specimen relies upon adequate, non-compromised capillary blood flow. If the capillary glucose result is not consistent with the patient's clinical signs and symptoms, glucose testing should be repeated with either an arterial or venous sample on the glucometer or sent to the main labortory for testing. Comment 08/18/2024 8:05 PM EDT [facility]ALTH[facility] Platen Builder Up ID Arianna Thurman 08/18/2024 8:05 PM EDT HEALTHCARE LAB Device ID [id number] 08/18/2024 8:05 PM EDT [facility] Specimen Type POC Capillary 08/18/2024 8:05 PM EDT [facility] Blood Capillary blood specimen / Unknown 08/18/2024 8:03 PM EDT 08/18/2024 8:05 PM EDT us Courtney Young MD LAB POINT OF CARE TE ST DOCKED DEVICE UNSOLICITED RESULTS Final Result Performing Organization Address City/[facility]/ZIP Co de Phone Number [facility] [address] [place] [address] * Phosphorus (08/18/2024 6:20 PM EDT) Phosphorus, Plasma 4.3 2.5 - 4.5 mg/dL 08/18/2024 6:53 PM EDT [facility] Blood Venous blood specimen / Unknown Venipuncture / Unknown 08/18/2024 6:20 PM EDT 08/18/2024 6:24 PM EDT us Courtney Young MD LAB BLOOD ORDERABLES Final R esult Performing Organization Address City/[facility]/ZIP Co de Phone Number [facility] [address] [place] [address] * Magnesium (08/18/2024 6:20 PM EDT) Magnesium, Plasma 2.2 1.9 - 2.4 mg/dL 08/18/2024 6:53 PM EDT [facility] Blood Venous blood specimen / Unknown Venipuncture / Unknown 08/18/2024 6:20 PM EDT 08/18/2024 6:24 PM EDT us Courtney Young MD LAB BLOOD ORDERABLES Final R esult Performing Organization Address City/[facility]/ZIP Co de Phone Number [facility] [address] [place] [address] * (ABNORMAL) Basic metabolic panel (08/18/2024 6:20 PM EDT) Glucose, Plasma 210(H) 74 - 99 mg/dL 08/18/2024 6:53 PM EDT [facility] BUN, Plasma 42(H) 8 - 23 mg/dL 08/18/2024 6:53 PM EDT [facility] Creatinine, Plasma 2.24(H) 0.70 - 1.20 mg/dL 08/18/2024 6:53 PM EDT [facility] BUN/Creatinine Ratio 19 08/18/2024 6:53 PM EDT [facility] Sodium, Plasma 136 136 - 145 mmol/L 08/18/2024 6:53 PM EDT [facility] Potassium, Plasma 5.5(H) 3.6 - 4.9 mmol/L 08/18/2024 6:53 PM EDT [facility] Chloride, Plasma 106 97 - 107 mmol/L 08/18/2024 6:53 PM EDT [facility] CO2, Plasma 18(L) 22 - 29 mmol/L 08/18/2024 6:53 PM EDT [facility] Anion Gap 12 6 - 16 mmol/L 08/18/2024 6:53 PM EDT [facility] Total Calcium, Plasma 8.6(L) 8.9 - 10.2 mg/dL 08/18/2024 6:53 PM EDT [facility] eGFRcr 31.1 mL/min/1.7 3m*2 08/18/2024 6:53 PM EDT [facility] Comment:Reported eGFRcr in m L/min/1.73m2 is based the CKD-EPI 2020 equation that does not use a race coefficient. Blood Venous blood specimen / Unknown Venipuncture / Unknown 08/18/2024 6:20 PM EDT 08/18/2024 6:24 PM EDT us Courtney Young MD LAB BLOOD ORDERABLES Final R esult [facility] [address] [place] [address] * (ABNORMAL) CBC W/O Differential (08/18/2024 6:20 PM EDT) WBC Count 17.84(H) 3.70 - 10.30 10*3/uL LAB HEMATOLOGY METHOD 08/18/2024 6:33 PM EDT [facility] RBC Count 3.25(L) 4.60 - 6.10 10*6/uL LAB HEMATOLOGY METHOD 08/18/2024 6:33 PM EDT [facility] HGB 9.5(L) 13.7 - 17.5 g/dL LAB HEMATOLOGY METHOD 08/18/2024 6:33 PM EDT [facility] HCT 28.8(L) 40.0 - 51.0 % LAB HEMATOLOGY METHOD 08/18/2024 6:33 PM EDT [facility] Platelet Count 348 155 - 369 10*3/uL LAB HEMATOLOGY METHOD 08/18/2024 6:33 PM EDT [facility] MCV 89 79 - 98 fL LAB HEMATOLOGY METHOD 08/18/2024 6:33 PM EDT [facility] MCH 29.2 26.0 - 32.0 pg LAB HEMATOLOGY METHOD 08/18/2024 6:33 PM EDT [facility] MCHC 33.0 30.7 - 35.5 g/dL LAB HEMATOLOGY METHOD 08/18/2024 6:33 PM EDT [facility] RDW 14.3 11.5 - 14.5 % LAB HEMATOLOGY METHOD 08/18/2024 6:33 PM EDT [facility] MPV 10.1 8.8 - 12.5 fL LAB HEMATOLOGY METHOD 08/18/2024 6:33 PM EDT [facility] nRBC 0.0 <=0.0 per 100 WBCs LAB HEMATOLOGY METHOD 08/18/2024 6:33 PM EDT [facility] Blood Venous blood specimen / Unknown Venipuncture / Unknown 08/18/2024 6:20 PM EDT 08/18/2024 6:24 PM EDT us Courtney Young MD LAB BLOOD ORDERABLES Final R esult [facility] [address] [place] [address] * (ABNORMAL) POCT glucose meter (08/18/2024 6:04 PM EDT) POCT Glucose 195(H) 74 - 99 mg/dL 08/18/2024 6:06 PM EDT [facility] Comment:Accuracy of a glucos e result obtained from a capillary whole blood specimen relies upon adequate, non-compromised capillary blood flow. If the capillary glucose result is not consistent with the patient's clinical signs and symptoms, glucose testing should be repeated with either an arterial or venous sample on the glucometer or sent to the main labortory for testing. Comment 08/18/2024 6:06 PM EDT [facility] Platen Builder Up ID Maribell Oglesby 6:06 PM EDT [facility] Device ID [id number] 08/18/2024 6:06 PM EDT [facility] Specimen Type POC Capillary 08/18/2024 6:06 PM EDT [facility] Blood Capillary blood specimen / Unknown 08/18/2024 6:04 PM EDT 08/18/2024 6:06 PM EDT us Courtney Young MD LAB POINT OF CARE TE ST DOCKED DEVICE UNSOLICITED RESULTS Final Result Performing Organization Address [facility] Co de Phone Number [facility] [address] [place] [address] * (ABNORMAL) POCT glucose meter (08/18/2024 5:02 PM EDT) POCT Glucose 181(H) 74 - 99 mg/dL 08/18/2024 5:04 PM EDT [facility] Comment:Accuracy of a glucos e result obtained from a capillary whole blood specimen relies upon adequate, non-compromised capillary blood flow. If the capillary glucose result is not consistent with the patient's clinical signs and symptoms, glucose testing should be repeated with either an arterial or venous sample on the glucometer or sent to the main labortory for testing. Comment 08/18/2024 5:04 PM EDT [facility] Platen Builder Up ID Belen Ron 08/18/2024 5:04 PM EDT [facility] Device ID [id number] 08/18/2024 5:04 PM EDT [facility] Specimen Type POC Capillary 08/18/2024 5:04 PM EDT [facility] Blood Capillary blood specimen / Unknown 08/18/2024 5:02 PM EDT 08/18/2024 5:04 PM EDT us Courtney Yonug MD LAB POINT OF CARE TE ST DOCKED DEVICE UNSOLICITED RESULTS Final Result Performing Organization Address City/[facility]/ZIP Co de Phone Number [facility] [address] [place] [address] * (ABNORMAL) POCT glucose meter (08/18/2024 12:00 PM EDT) Pathologist [facility] POCT Glucose 190(H) 74 - 99 mg/dL 08/18/2024 12:01 PM EDT [facility] Comment:Accuracy of a glucos e result obtained from a capillary whole blood specimen relies upon adequate, non-compromised capillary blood flow. If the capillary glucose result is not consistent with the patient's clinical signs and symptoms, glucose testing should be repeated with either an arterial or venous sample on the glucometer or sent to the main labortory for testing. Comment 08/18/2024 12:01 PM EDT [facility] Platen Builder Up ID Belen Ron 08/18/2024 12:01 PM EDT [facility] LAB Device ID [id number] 08/18/2024 12:01 PM EDT [facility] Specimen Type POC Capillary 08/18/2024 12:01 PM EDT [facility] Blood Capillary blood specimen / Unknown 08/18/2024 12:00 PM EDT 08/18/2024 12:01 PM EDT us Courtney Young MD LAB POINT OF CARE TE ST DOCKED DEVICE UNSOLICITED RESULTS Final Result Performing Organization Address City/State/[facility] Co de Phone Number [facility] [address] [place] [address] * (ABNORMAL) POCT glucose meter (08/18/2024 8:27 AM EDT) Pathologist [facility] POCT Glucose 151(H) 74 - 99 mg/dL 08/18/2024 8:29 AM EDT [facility] Comment:Accuracy of a glucos e result obtained from a capillary whole blood specimen relies upon adequate, non-compromised capillary blood flow. If the capillary glucose result is not consistent with the patient's clinical signs and symptoms, glucose testing should be repeated with either an arterial or venous sample on the glucometer or sent to the main labortory for testing. Comment 08/18/2024 8:29 AM EDT [facility] Platen Builder Up ID Belen Ron 08/18/2024 8:29 AM EDT [facility] Device ID [id number] 08/18/2024 8:29 AM EDT [facility] Specimen Type POC Capillary 08/18/2024 8:29 AM EDT [facility] Blood Capillary blood specimen / Unknown 08/18/2024 8:27 AM EDT 08/18/2024 8:29 AM EDT us Courtney Young MD LAB POINT OF CARE TE ST DOCKED DEVICE UNSOLICITED RESULTS Final Result [facility] [address] [place] [address] * (ABNORMAL) Basic Metabolic Panel, Plasma (08/18/2024 3:43 AM EDT) Glucose, Plasma 120(H) 74 - 99 mg/dL 08/18/2024 4:20 AM EDT [facility] BUN, Plasma 32(H) 8 - 23 mg/dL 08/18/2024 4:20 AM EDT [facility] Creatinine, Plasma 1.99(H) 0.70 - 1.20 mg/dL 08/18/2024 4:20 AM EDT [facility] BUN/Creatinine Ratio 16 08/18/2024 4:20 AM EDT [facility] Sodium, Plasma 142 136 - 145 mmol/L 08/18/2024 4:20 AM EDT [facility] Potassium, Plasma 5.1(H) 3.6 - 4.9 mmol/L 08/18/2024 4:20 AM EDT [facility] Chloride, Plasma 108(H) 97 - 107 mmol/L 08/18/2024 4:20 AM EDT [facility] CO2, Plasma 22 22 - 29 mmol/L 08/18/2024 4:20 AM EDT [facility] Anion Gap 12 6 - 16 mmol/L 08/18/2024 4:20 AM EDT [facility] Total Calcium, Plasma 9.0 8.9 - 10.2 mg/dL 08/18/2024 4:20 AM EDT [facility] eGFRcr 35.9 mL/min/1.7 3m*2 08/18/2024 4:20 AM EDT [facility] Comment:Reported eGFRcr in m L/min/1.73m2 is based the CKD-EPI 2020 equation that does not use a race coefficient. Blood Venous blood specimen / Unknown Venipuncture / Unknown 08/18/2024 3:43 AM EDT 08/18/2024 3:48 AM EDT Courtney Young MD LAB BLOOD ORDERABLES Final R esult Performing Organization Address [facility]/[place] [address] * Magnesium, Plasma (08/18/2024 3:43 AM EDT) Magnesium, Plasma 2.2 1.9 - 2.4 mg/dL 08/18/2024 4:20 AM EDT [facility] Blood Venous blood specimen / Unknown Venipuncture / Unknown 08/18/2024 3:43 AM EDT 08/18/2024 3:48 AM EDT Courtney Young MD LAB BLOOD ORDERABLES Final R esult Performing Organization Address [facility] [place] [address] * Phosphorus, Plasma (08/18/2024 3:43 AM EDT) Phosphorus, Plasma 4.2 2.5 - 4.5 mg/dL 08/18/2024 4:20 AM EDT [facility] Blood Venous blood specimen / Unknown Venipuncture / Unknown 08/18/2024 3:43 AM EDT 08/18/2024 3:48 AM EDT Courtney Young MD LAB BLOOD ORDERABLES Final R esult Performing Organization Address City/[facility] [place] [address] * (ABNORMAL) CBC W/O Differential (08/18/2024 3:43 AM EDT) WBC Count 18.75(H) 3.70 - 10.30 10*3/uL LAB HEMATOLOGY METHOD 08/18/2024 4:00 AM EDT [facility] RBC Count 4.00(L) 4.60 - 6.10 10*6/uL LAB HEMATOLOGY METHOD 08/18/2024 4:00 AM EDT [facility] HGB 11.6(L) 13.7 - 17.5 g/dL LAB HEMATOLOGY METHOD 08/18/2024 4:00 AM EDT [facility] HCT 35.1(L) 40.0 - 51.0 % LAB HEMATOLOGY METHOD 08/18/2024 4:00 AM EDT [facility] Platelet Count 359 155 - 369 10*3/uL LAB HEMATOLOGY METHOD 08/18/2024 4:00 AM EDT [facility] MCV 88 79 - 98 fL LAB HEMATOLOGY METHOD 08/18/2024 4:00 AM EDT [facility] MCH 29.0 26.0 - 32.0 pg LAB HEMATOLOGY METHOD 08/18/2024 4:00 AM EDT [facility] MCHC 33.0 30.7 - 35.5 g/dL LAB HEMATOLOGY METHOD 08/18/2024 4:00 AM EDT [facility] RDW 14.1 11.5 - 14.5 % LAB HEMATOLOGY METHOD 08/18/2024 4:00 AM EDT [facility] MPV 9.7 8.8 - 12.5 fL LAB HEMATOLOGY METHOD 08/18/2024 4:00 AM EDT [facility] nRBC 0.0 <=0.0 per 100 WBCs LAB HEMATOLOGY METHOD 08/18/2024 4:00 AM EDT [facility] Blood Venous blood specimen / Unknown Venipuncture / Unknown 08/18/2024 3:43 AM EDT 08/18/2024 3:49 AM EDT us Courtney Young MD LAB BLOOD ORDERABLES Final R esult [facility] [address] [place] [address] * (ABNORMAL) POCT glucose meter (08/17/2024 10:07 PM EDT) POCT Glucose 189(H) 74 - 99 mg/dL 08/17/2024 10:09 PM EDT [facility] Comment:Accuracy of a glucos e result obtained from a capillary whole blood specimen relies upon adequate, non-compromised capillary blood flow. If the capillary glucose result is not consistent with the patient's clinical signs and symptoms, glucose testing should be repeated with either an arterial or venous sample on the glucometer or sent to the main labortory for testing. Comment 08/17/2024 10:09 PM EDT [facility] Platen Builder Up ID Arianna Thurman 08/17/2024 10:09 PM EDT [facility] LAB Device ID [id number] 08/17/2024 10:09 PM EDT [facility] Specimen Type POC Capillary 08/17/2024 10:09 PM EDT [facility] Blood Capillary blood specimen / Unknown 08/17/2024 10:07 PM EDT 08/17/2024 10:09 PM EDT Courtney Young MD LAB POINT OF CARE TE ST DOCKED DEVICE UNSOLICITED RESULTS Final Result Performing Organization Address City/State/[facility] Co de Phone Number [facility] [address] [place] [address] * (ABNORMAL) POCT glucose meter (08/17/2024 7:13 PM EDT) [facility] POCT Glucose 273(H) 74 - 99 mg/dL 08/17/2024 7:15 PM EDT [facility] Comment:Accuracy of a glucos e result obtained from a capillary whole blood specimen relies upon adequate, non-compromised capillary blood flow. If the capillary glucose result is not consistent with the patient's clinical signs and symptoms, glucose testing should be repeated with either an arterial or venous sample on the glucometer or sent to the main labortory for testing. Comment 08/17/2024 7:15 PM EDT [facility] Platen Builder Up ID Betty Young 08/17/2024 7:15 PM EDT [facility] Device ID [id number] 08/17/2024 7:15 PM EDT [facility] Specimen Type POC Capillary 08/17/2024 7:15 PM EDT [facility] Blood Capillary blood specimen / Unknown 08/17/2024 7:13 PM EDT 08/17/2024 7:15 PM EDT us Courtney Young MD LAB POINT OF CARE TE ST DOCKED DEVICE UNSOLICITED RESULTS Final Result Performing Organization Address [facility] de Phone Number [facility] [address] [place] [address] * (ABNORMAL) POCT glucose meter (08/17/2024 7:00 PM EDT) POCT Glucose 256(H) 74 - 99 mg/dL 08/17/2024 7:02 PM EDT [facility] Comment:Accuracy of a glucos e result obtained from a capillary whole blood specimen relies upon adequate, non-compromised capillary blood flow. If the capillary glucose result is not consistent with the patient's clinical signs and symptoms, glucose testing should be repeated with either an arterial or venous sample on the glucometer or sent to the main labortory for testing. Comment 08/17/2024 7:02 PM EDT [facility] Platen Builder Up ID Christina Norton 08/17/2024 7:02 PM EDT [facility] Device ID [id number] 08/17/2024 7:02 PM EDT [facility] Specimen Type POC Capillary 08/17/2024 7:02 PM EDT [facility] Blood Capillary blood specimen / Unknown 08/17/2024 7:00 PM EDT 08/17/2024 7:02 PM EDT us Courtney Young MD LAB POINT OF CARE TE ST DOCKED DEVICE UNSOLICITED RESULTS Final Result Performing Organization Address City/[facility] Co de Phone Number [facility] [address] [place] [address] * (ABNORMAL) Basic metabolic panel (08/17/2024 3:48 PM EDT) Glucose, Plasma 114(H) 74 - 99 mg/dL 08/17/2024 3:48 PM EDT [facility] BUN, Plasma 34(H) 8 - 23 mg/dL 08/17/2024 3:48 PM EDT [facility] Creatinine, Plasma 2.14(H) 0.70 - 1.20 mg/dL 08/17/2024 3:48 PM EDT [facility] BUN/Creatinine Ratio 16 08/17/2024 3:48 PM EDT [facility] Sodium, Plasma 137 136 - 145 mmol/L 08/17/2024 3:48 PM EDT [facility] Potassium, Plasma 6.0(H) 3.6 - 4.9 mmol/L 08/17/2024 3:48 PM EDT [facility] Chloride, Plasma 109(H) 97 - 107 mmol/L 08/17/2024 3:48 PM EDT [facility] CO2, Plasma 18(L) 22 - 29 mmol/L 08/17/2024 3:48 PM EDT [facility] Anion Gap 10 6 - 16 mmol/L 08/17/2024 3:48 PM EDT [facility] Total Calcium, Plasma 8.6(L) 8.9 - 10.2 mg/dL 08/17/2024 3:48 PM EDT [facility] eGFRcr 32.9 mL/min/1.7 3m*2 08/17/2024 3:48 PM EDT [facility] Comment:Reported eGFRcr in m L/min/1.73m2 is based the CKD-EPI 2020 equation that does not use a race coefficient. Blood Venous blood specimen / Unknown 08/17/2024 3:15 PM EDT us Courtney Young MD LAB BLOOD ORDERABLES Final R esult [facility] [address] [place] [address] * (ABNORMAL) CBC W/O Differential (08/17/2024 3:29 PM EDT) WBC Count 10.32(H) 3.70 - 10.30 10*3/uL LAB HEMATOLOGY METHOD 08/17/2024 3:29 PM EDT [facility] RBC Count 4.37(L) 4.60 - 6.10 10*6/uL LAB HEMATOLOGY METHOD 08/17/2024 3:29 PM EDT [facility] HGB 12.4(L) 13.7 - 17.5 g/dL LAB HEMATOLOGY METHOD 08/17/2024 3:29 PM EDT [facility] HCT 38.8(L) 40.0 - 51.0 % LAB HEMATOLOGY METHOD 08/17/2024 3:29 PM EDT [facility] Platelet Count 310 155 - 369 10*3/uL LAB HEMATOLOGY METHOD 08/17/2024 3:29 PM EDT [facility] MCV 89 79 - 98 fL LAB HEMATOLOGY METHOD 08/17/2024 3:29 PM EDT [facility] MCH 28.4 26.0 - 32.0 pg LAB HEMATOLOGY METHOD 08/17/2024 3:29 PM EDT [facility] MCHC 32.0 30.7 - 35.5 g/dL LAB HEMATOLOGY METHOD 08/17/2024 3:29 PM EDT [facility] RDW 14.0 11.5 - 14.5 % LAB HEMATOLOGY METHOD 08/17/2024 3:29 PM EDT [facility] MPV 9.7 8.8 - 12.5 fL LAB HEMATOLOGY METHOD 08/17/2024 3:29 PM EDT [facility] nRBC 0.0 <=0.0 per 100 WBCs LAB HEMATOLOGY METHOD 08/17/2024 3:29 PM EDT [facility] Blood Venous blood specimen / Unknown 08/17/2024 3:15 PM EDT us Courtney Young MD LAB BLOOD ORDERABLES Final R esult [facility] [address] [place] [address] * POCT glucose meter (08/17/2024 2:37 PM EDT) [facility] POCT Glucose 94 74 - 99 mg/dL 08/17/2024 2:39 PM EDT [facility] Comment:Accuracy of a glucos e result obtained from a capillary whole blood specimen relies upon adequate, non-compromised capillary blood flow. If the capillary glucose result is not consistent with the patient's clinical signs and symptoms, glucose testing should be repeated with either an arterial or venous sample on the glucometer or sent to the main labortory for testing. Comment 08/17/2024 2:39 PM EDT [facility] Platen Builder Up ID Jaclyn Velasquez 08/17/2024 2:39 PM EDT HEALTH[facility]ARE LAB Device ID [id number] 08/17/2024 2:39 PM EDT [facility] Specimen Type POC Capillary 08/17/2024 2:39 PM EDT [facility] Blood Capillary blood specimen / Unknown 08/17/2024 2:37 PM EDT 08/17/2024 2:39 PM EDT us Courtney Young MD LAB POINT OF CARE TE ST DOCKED DEVICE UNSOLICITED RESULTS Final Result [facility] [address] [place] [address] * Surgical Pathology Exam (08/17/2024 1:33 PM EDT) Case Report Surgical Pathology Case: [id number] Authorizing Provider: Courtney Young MD Collected: 08/17/2024 1333 Ordering Location: [facility] Received: 08/17/2024 1416 Pathologist: Sulaiman Valles MD Specimen: Prostate, morcellated prostate 08/20/2024 6:26 PM EDT [facility] Final Diagnosis A. PROSTATE, TRANSURETHRAL LASER ENUCLEATION: - BENIGN PROSTATIC HYPERPLASIA 08/20/2024 6:26 PM EDT [facility] at 1826 EDT Clinical Information INCOMPLETE BLADDER EMPTYING 08/20/2024 6:26 PM EDT [facility] Gross Description A. MORCELLATED PROSTATE Received fresh labeled morcellated prostate are multiple pieces of pink-scanlon soft tissue measuring 5.0 x 3.0 x 0.7 cm in aggregate and weighing 6.6 g. Entirely submitted in cassettes A1-A5 Cold Time: <1m Sidra Castaneda 08/20/2024 6:26 PM EDT [facility] Note: A resident was involved in the service. I attest I examined the relevant preparations for the specimens and confirmed the diagnosis or interpretation. 08/20/2024 6:26 PM EDT [facility] Tissue Prostate / Unknown 1:33 PM EDT 08/17/2024 2:16 PM EDT Comment:Pre-op diagnosis: INCOMPLETE BLADDER EMPTYING Courtney Young MD LAB PATHOLOGY ORDERABLES Fin al Result Performing Organization Address City/[facility]/ZIP Co de Phone Number [facility] [address] [place] [address] * (ABNORMAL) POCT glucose meter (08/17/2024 11:17 AM EDT) POCT Glucose 130(H) 74 - 99 mg/dL 08/17/2024 11:18 AM EDT [facility] Comment:Accuracy of a glucos e result obtained from a capillary whole blood specimen relies upon adequate, non-compromised capillary blood flow. If the capillary glucose result is not consistent with the patient's clinical signs and symptoms, glucose testing should be repeated with either an arterial or venous sample on the glucometer or sent to the main labortory for testing. Comment 08/17/2024 11:18 AM EDT [facility] Platen Builder Up ID Renae Welch 08/17/2024 11:18 AM EDT HEALTH[facility]ARE LAB Device ID [id number] 08/17/2024 11:18 AM EDT [facility] Specimen Type POC Venous 08/17/2024 11:18 AM EDT [facility] Blood Venous blood specimen / Unknown 08/17/2024 11:17 AM EDT 08/17/2024 11:18 AM EDT Courtney Young MD LAB POINT OF CARE TE ST DOCKED DEVICE UNSOLICITED RESULTS Final Result Performing Organization Address City/[facility] Co de Phone Number [facility] [address] [place] [address] documented in this encounter Visit Diagnoses Diagnosis Urinary retention due to benign prostatic hyperplasia- Primary Incomplete bladder emptying Urinary retention due to benign prostatic hyperplasia documented in this encounter Admitting Diagnoses Diagnosis Urinary retention due to benign prostatic hyperplasia Incomplete bladder emptying documented in this encounter Administered Medications Inactive Administered Medications - up to 3 most recent administrations Medication Order MAR Action Action Date Dose Rate Site acetaminophen (Tylenol) tablet 650 mg 650 mg, Oral, Every 6 hours scheduled, First dose on Tue08/17/24 at 1800, Until Discontinued, Routine, Recovery(Phase II-Outpatient)/On Unit(Inpatient) Given 08/22/2024 5:24 AM EDT 650 mg Given 08/22/2024 12:16 AM EDT 650 mg Given 08/21/2024 5:58 PM EDT 650 mg calcium carbonate (Tums) chewable tablet 500 mg 500 mg, Oral, 4 times daily PRN, Starting on Tue08/18/24 at 0021, Until Tue08/22/24 at 1741, Routine, indigestion, heartburn Given 08/18/2024 8:52 AM EDT 500 mg Given 08/18/2024 12:27 AM EDT 500 mg ceFAZolin (Ancef) injection 2 g 2 g, Intravenous, Every 8 hours, 3 doses, First dose on Tue08/17/24 at 2100, Last dose on Tue08/18/24 at 1300, Routine, Recovery(Phase II-Outpatient)/On Unit(Inpatient) Given 08/18/2024 1:47 PM EDT 2 g Given 08/18/2024 5:16 AM EDT 2 g Given 08/17/2024 9:30 PM EDT 2 g dextrose 10 % (D10W) bolus 125 mL 125 mL, Intravenous, Every 15 min PRN, Starting on Tue08/17/24 at 2035, Until Tue08/22/24 at 1741, Administer over 15 Minutes, Routine, low blood sugar BG 51-89 mg/dL dextrose 10 % (D10W) bolus 250 mL 250 mL, Intravenous, Every 15 min PRN, Starting on Tue08/17/24 at 2035, Until Tue08/22/24 at 1741, Administer over 15 Minutes, Routine, PRN low blood sugar BG =/<50 mg/dL droperidol (Inapsine) injection 0.625 mg 0.625 mg, Intravenous, Once as needed, 1 dose, Starting on Tue08/17/24 at 1401, Until Tue08/17/24 at 1453, Routine, Recovery (Phase I only), nausea, vomiting Given 08/17/2024 2:53 PM EDT 0.625 mg finasteride (Proscar) tablet 5 mg 5 mg, Oral, Daily, First dose on Tue08/18/24 at 2245, Until Discontinued, Routine Given 08/22/2024 8:06 AM EDT 5 mg Given 08/21/2024 8:34 AM EDT 5 mg Given 08/20/2024 8:27 AM EDT 5 mg glucagon (human recombinant) injection 1 mg 1 mg, Intramuscular, Every 15 min PRN, Starting on Tue08/17/24 at 2035, Until Tue08/22/24 at 1741, Routine, low blood sugar per Hypoglycemia Prevention and Treatment protocol glucose (Glutose) 40 % oral gel 15-30 grams of glucose 15-30 grams of glucose, Sublingual, Every 15 min PRN, Starting on Tue08/17/24 at 2035, Until Tue08/22/24 at 1741, Routine, low blood sugar, per Hypoglycemia Prevention and Treatment protocol heparin (porcine) injection 5,000 Units 5,000 Units, Subcutaneous, Every 8 hours scheduled, First dose on Tue08/17/24 at 1545, Until Discontinued, Routine, Recovery(Phase II-Outpatient)/On Unit(Inpatient)Indications:Pr ophylaxis of Venous Thromboembolism Given 08/22/2024 5:24 AM EDT 5,000 Units Right Upper Arm (Back) Given 08/21/2024 9:09 PM EDT 5,000 Units L eft Upper Arm (Back) Given 08/21/2024 2:16 PM EDT 5,000 Units L eft Lower Abdomen insulin lispro (Admelog) 100 units/mL injection - Correction - Standard Dose 0-5 Units, Subcutaneous, 3 times daily with meals, First dose on Tue08/18/24 at 0830, Until Discontinued, Routine Given 08/19/2024 5:54 PM EDT 2 Units Left Upper Arm (Back ) Given 08/18/2024 5:07 PM EDT 1 Units Le ft Upper Arm (Back) Given 08/18/2024 12:03 PM EDT 1 Units R ight Upper Arm (Back) insulin lispro (Admelog) 100 units/mL injection - Correction - Standard Dose 0-5 Units, Subcutaneous, 3 times daily with meals, First dose on Tue08/20/24 at 1415, Until Discontinued, Routine Given 08/22/2024 12:36 PM EDT 1 Units Left Upper Arm (Back ) Given 08/21/2024 5:58 PM EDT 2 Units Le ft Lower Abdomen Given 08/20/2024 5:30 PM EDT 2 Units Le ft Lower Abdomen insulin lispro (Admelog) injection - Correction - Nighttime Dose 0-3 Units, Subcutaneous, 2 times nightly (2100 & 0300), First dose on Tue08/20/24 at 2100, Until Discontinued, Routine Given 08/21/2024 9:08 PM EDT 3 Units Left Upper Arm (Back) insulin regular (HumuLIN R,NovoLIN R) 100 units/mL injection - Correction - Standard Dose 0-5 Units, Subcutaneous, Every 6 hours scheduled, First dose on Tue08/20/24 at 0730, Until Discontinued, Routine Given 08/20/2024 12:52 PM EDT 1 Units Left Lower Abdomen lactated Ringer's infusion 84 mL/hr, Intravenous, Continuous, Starting on Tue08/17/24 at 1545, Until Tue08/22/24 at 1214, Routine New Bag 08/21/2024 12:03 PM EDT 84 mL/hr 84 mL/hr Rate/Dose Verify 08/20/2024 10:00 AM EDT 84 mL/hr 84 mL/ hr Rate/Dose Verify 08/19/2024 4:00 PM EDT 84 mL/hr 84 mL/h r methocarbamol (Robaxin) tablet 500 mg 500 mg, Oral, 4 times daily, First dose on Tue08/17/24 at 1800, Until Discontinued, Routine, Recovery(Phase II-Outpatient)/On Unit(Inpatient) Given 08/22/2024 8:06 AM EDT 500 mg Given 08/21/2024 9:09 PM EDT 500 mg Given 08/21/2024 5:58 PM EDT 500 mg metoprolol succinate XL (Toprol-XL) 24 hr tablet 50 mg 50 mg, Oral, Every morning, First dose on Tue08/18/24 at 0600, Until Discontinued, Recovery(Phase II-Outpatient)/On Unit(Inpatient) Given 08/22/2024 5:24 AM EDT 50 mg Given 08/21/2024 5:15 AM EDT 50 mg Given 08/20/2024 5:36 AM EDT 50 mg mupirocin (Bactroban) 2 % ointment 1 Application Each Nostril, 2 times daily, 10 doses, First dose on Tue08/19/24 at 0900, Last dose on Tue08/23/24 at 2100, Routine Given 08/22/2024 8:07 AM EDT 1 Application Given 08/21/2024 8:36 AM EDT 1 Application Given 08/20/2024 8:27 AM EDT 1 Application NIFEdipine XL (Procardia XL) 24 hr tablet 60 mg 60 mg, Oral, Daily, First dose on 08/18/24 at 0900, Until Discontinued, Routine, Recovery(Phase II-Outpatient)/On Unit(Inpatient) Given 08/22/2024 8:06 AM EDT 60 mg Given 08/21/2024 8:34 AM EDT 60 mg Given 08/20/2024 8:27 AM EDT 60 mg ondansetron (Zofran) injection 4 mg 4 mg, Intravenous, Once as needed, 1 dose, Starting on Tue08/17/24 at 1401, Until Tue08/17/24 at 1422, Routine, Recovery (Phase I only), nausea, vomiting Given 08/17/2024 2:22 PM EDT 4 mg ondansetron (Zofran) injection 4 mg 4 mg, Intravenous, Every 6 hours PRN, Starting on Tue08/17/24 at 1444, Until Tue08/22/24 at 1741, Routine, Recovery(Phase II-Outpatient)/On Unit(Inpatient), nausea, vomiting Given 08/18/2024 5:15 AM EDT 4 mg oxyCODONE (Roxicodone) immediate release tablet 5 mg 5 mg, Oral, Every 4 hours PRN, Starting on Tue08/17/24 at 1443, Until Tue08/22/24 at 1741, Routine, Recovery(Phase II-Outpatient)/On Unit(Inpatient), severe pain Given 08/18/2024 5:10 PM EDT 5 mg pantoprazole (Protonix) EC tablet 40 mg 40 mg, Oral, Daily before breakfast, First dose on 08/18/24 at 0730, Until Discontinued, Recovery(Phase II-Outpatient)/On Unit(Inpatient) Given 08/22/2024 8:07 AM EDT 40 mg Given 08/21/2024 8:34 AM EDT 40 mg Given 08/20/2024 8:27 AM EDT 40 mg polyethylene glycol (Miralax) packet 17 g 17 g, Oral, Daily, First dose on Tue08/22/24 at 1200, Until Discontinued, Routine Given 08/22/2024 12:36 PM EDT 17 g Povidone-Iodine 5 % swab solution 1 Application Nasal, Once, 1 dose, On Tue08/21/24 at 1030, Routine Given 08/21/2024 9:40 AM EDT 1 Application Povidone-Iodine 5 % swab solution Apply externally, Once, 1 dose, On Tue08/17/24 at 1200, Routine Given 08/17/2024 11:14 AM EDT senna-docusate (Noelle-Colace) 8.6-50 MG per tablet 1 tablet 1 tablet, Oral, Nightly, First dose on Tue08/22/24 at 2100, Until Discontinued, Routine sodium chloride 0.9 % flush 10 mL 10 mL, Intravenous, Every 12 hours, First dose on Tue08/17/24 at 1545, Until Discontinued, Routine, Recovery(Phase II-Outpatient)/On Unit(Inpatient) Given 08/22/2024 4:34 AM EDT 10 mL Given 08/21/2024 3:54 AM EDT 10 mL Given 08/20/2024 3:28 AM EDT 10 mL sodium chloride 0.9 % flush 10 mL 10 mL, Intravenous, As needed, Starting on Tue08/17/24 at 1442, Until Tue08/22/24 at 1741, Routine, Recovery(Phase II-Outpatient)/On Unit(Inpatient), line care documented in this encounter Active and Recently Administered Medications Times are shown in EDT. Scheduled Medication Order 08/20/2024 08/21/2024 08/22/2024 acetaminophen (Tylenol) tablet 650 mg 650 mg, Oral, Every 6 hours scheduled, First dose on Tue08/17/24 at 1800, Until Discontinued, Routine, Recovery(Phase II-Outpatient)/On Unit(Inpatient) 0536 (Given - Provider: Zain Holden RN)1252 (Given - Provider: Fer Monsalve RN)1730 (Given - Provider: Fer Monsalve RN)2305 (Given - Provider: Zain Holden RN) 0514 (Given - Provider: Zain Holden RN)0917 (MAR Hold - Provider: Automatic Transfer Provider - Reason: Patient in procedure)1200 (Dose Auto Held - Provider: Automatic Transfer Provider)1243 (MAR Unhold - Provider: Automatic Transfer Provider)1758 (Given - Provider: Fer Monsalve RN) 0016 (Given - Provider: Zain Holden RN)0524 (Given - Provider: Zain Holden RN)1147 (Not Given - Provider: Naveed Downey RN - Reason: Patient/family refused) finasteride (Proscar) tablet 5 mg 5 mg, Oral, Daily, First dose on Tue08/18/24 at 2245, Until Discontinued, Routine 0827 (Given - Provider: Fer Monsalve RN) 0834 (Given - Provider: Fer Monsalve RN)0917 (MAR Hold - Provider: Automatic Transfer Provider - Reason: Patient in procedure)1243 (MAR Unhold - Provider: Automatic Transfer Provider) 0806 (Given - Provider: Naveed Downey RN) heparin (porcine) injection 5,000 Units 5,000 Units, Subcutaneous, Every 8 hours scheduled, First dose on Tue08/17/24 at 1545, Until Discontinued, Routine, Recovery(Phase II-Outpatient)/On Unit(Inpatient) 0536 (Given - Provider: Zain Holden RN)1305 (Given - Provider: Fer Monsalve RN)2107 (Given - Provider: Zain Holden RN) 0515 (Given - Provider: Zain Holden RN)0917 (MAR Hold - Provider: Automatic Transfer Provider - Reason: Patient in procedure)1243 (MAR Unhold - Provider: Automatic Transfer Provider)1416 (Given - Provider: Fer Monsalve RN)2109 (Given - Provider: Zain Holden RN) 0524 (Given - Provider: Zain Holden RN)1410 (Not Given - Provider: Naveed Downey RN - Reason: Patient/family refused) insulin lispro (Admelog) 100 units/mL injection - Correction - Standard Dose 0-5 Units, Subcutaneous, 3 times daily with meals, First dose on 08/20/24 at 1415, Until Discontinued, Routine 1420 (Not Given - Provider: Fer Monsalve RN - Reason: See Provider Order)1730 (Given - Provider: Fer Monsalve RN) 0755 (Not Given - Provider: Fer Monsalve RN - Reason: NPO)0917 (MAR Hold - Provider: Automatic Transfer Provider - Reason: Patient in procedure)1230 (Dose Auto Held - Provider: Automatic Transfer Provider)1243 (MAR Unhold - Provider: Automatic Transfer Provider)1758 (Given - Provider: Fer Monsalve RN) 0807 (Not Given - Provider: Naveed Downey RN - Reason: Order parameters not met - Comment: cbg 116)1236 (Given - Provider: Naveed Downey RN)1730 (Canceled Entry - Provider: Automatic Discharge Provider - Comment: Automatically canceled at discontinue of medication order) insulin lispro (Admelog) injection - Correction - Nighttime Dose 0-3 Units, Subcutaneous, 2 times nightly (2100 & 0300), First dose on Tue08/20/24 at 2100, Until Discontinued, Routine 2110 (Not Given - Provider: Zain Holden RN - Reason: Hold for condition: must add comment - Comment: BG 146) 0239 (Not Given - Provider: Zain Holden RN - Reason: Hold for condition: must add comment - Comment: n/a)0917 (MAR Hold - Provider: Automatic Transfer Provider - Reason: Patient in procedure)1243 (MAR Unhold - Provider: Automatic Transfer Provider)2108 (Given - Provider: Zain Holden RN) 0320 (Not Given - Provider: Zain Holden RN - Reason: Hold for condition: must add comment - Comment: n/a) insulin regular (HumuLIN R,NovoLIN R) 100 units/mL injection - Correction - Standard Dose (CANCELED) 0-5 Units, Subcutaneous, Every 6 hours scheduled, First dose on Tue08/20/24 at 0730, Until Discontinued, Routine 0734 (Not Given - Provider: Fer Monsalve RN - Reason: See Provider Order)1252 (Given - Provider: Fer Monsalev RN) methocarbamol (Robaxin) tablet 500 mg 500 mg, Oral, 4 times daily, First dose on Tue08/17/24 at 1800, Until Discontinued, Routine, Recovery(Phase II-Outpatient)/On Unit(Inpatient) 0827 (Given - Provider: Fer Monsalve RN)1306 (Given - Provider: Fer Monsalve RN)1742 (Given - Provider: Fer Monsalve RN)2107 (Given - Provider: Zain Holden RN) 0834 (Given - Provider: Fer Monsalve RN)0917 (APR Hold - Provider: Automatic Transfer Provider - Reason: Patient in procedure)1243 (APR Unhold - Provider: Automatic Transfer Provider)1416 (Given - Provider: Fer Monsalve RN)1758 (Given - Provider: Fer Monsalve RN)210 (Given - Provider: Zain Holden RN) 0806 (Given - Provider: Naveed Downey, RN)1410 (Not Given - Provider: Naveed Downey RN - Reason: Patient/family refused) metoprolol succinate XL (Toprol-XL) 24 hr tablet 50 mg 50 mg, Oral, Every morning, First dose on 08/18/24 at 0600, Until Discontinued, Recovery(Phase II-Outpatient)/On Unit(Inpatient) 0536 (Given - Provider: Zain Holden RN) 0515 (Given - Provider: Zain Holden RN)0917 (APR Hold - Provider: Automatic Transfer Provider - Reason: Patient in procedure)1243 (APR Unhold - Provider: Automatic Transfer Provider) 0524 (Given - Provider: Zain Holden RN) mupirocin (Bactroban) 2 % ointment 1 Application Each Nostril, 2 times daily, 10 doses, First dose on 08/19/24 at 0900, Last dose on [facility] 08/23/24 at 2100, Routine 0827 (Given - Provider: Fer Monsalve RN)211 (Not Given - Provider: Zain Holden RN - Reason: Patient/family refused) 0836 (Given - Provider: Fer Monsalve RN)0917 (APR Hold - Provider: Automatic Transfer Provider - Reason: Patient in procedure)1243 (APR Unhold - Provider: Automatic Transfer Provider)211 (Not Given - Provider: Zain Holden RN - Reason: Patient/family refused) 0807 (Given - Provider: Naveed Downey RN) NIFEdipine XL (Procardia XL) 24 hr tablet 60 mg 60 mg, Oral, Daily, First dose on Tue08/18/24 at 0900, Until Discontinued, Routine, Recovery(Phase II-Outpatient)/On Unit(Inpatient) 08 (Given - Provider: Fer Monsalve RN) 0834 (Given - Provider: Fer Monsalve RN)0917 (APR Hold - Provider: Automatic Transfer Provider - Reason: Patient in procedure)1243 (APR Unhold - Provider: Automatic Transfer Provider) 0806 (Given - Provider: Naveed Downey RN) pantoprazole (Protonix) EC tablet 40 mg 40 mg, Oral, Daily before breakfast, First dose on Tue08/18/24 at 0730, Until Discontinued, Recovery(Phase II-Outpatient)/On Unit(Inpatient) 08 (Given - Provider: Fer Monsalve RN) 0834 (Given - Provider: Fer Monsalve RN)0917 (APR Hold - Provider: Automatic Transfer Provider - Reason: Patient in procedure)1243 (APR Unhold - Provider: Automatic Transfer Provider) 0807 (Given - Provider: Naveed Downey RN) phenazopyridine (Pyridium) tablet 200 mg 200 mg, Oral, 3 times daily with meals, 9 doses, First dose on Tue08/22/24 at 1730, Last dose on Tue08/25/24 at 1230, Routine 1730 (Canceled Entry - Provider: Automatic Discharge Provider - Comment: Automatically canceled at discontinue of medication order) polyethylene glycol (Miralax) packet 17 g 17 g, Oral, Daily, First dose on Tue08/22/24 at 1200, Until Discontinued, Routine 1236 (Given - Provid er: Naveed Downey RN) Povidone-Iodine 5 % swab solution 1 Application (COMPLETED) Nasal, Once, 1 dose, On Tue08/21/24 at 1030, Routine 0940 (Given - Provider: Marbella Pizarro RN) senna-docusate (Noelle-Colace) 8.6-50 MG per tablet 1 tablet 1 tablet, Oral, Nightly, First dose on Tue08/22/24 at 2100, Until Discontinued, Routine sodium chloride 0.9 % flush 10 mL(Linked Group 1) 10 mL, Intravenous, Every 12 hours, First dose on Tue08/17/24 at 1545, Until Discontinued, Routine, Recovery(Phase II-Outpatient)/On Unit(Inpatient) 0328 (Given - Provider: Zain Holden, RN)1508 (Not Given - Provider: Fer Monsalve RN - Reason: See Provider Order) 0354 (Given - Provider: Zain Holden RN)0917 (APR Hold - Provider: Automatic Transfer Provider - Reason: Patient in procedure)1243 (APR Unhold - Provider: Automatic Transfer Provider)1451 (Not Given - Provider: Fer Monsalve RN - Reason: See Provider Order) 0434 (Given - Provider: Zain Holden RN)1545 (Canceled Entry - Provider: Automatic Discharge Provider - Comment: Automatically canceled at discontinue of medication order) Continuous Medication Order 08/20/2024 08/21/2024 08/22/2024 lactated Ringer's infusion (CANCELED) 84 mL/hr, Intravenous, Continuous, Starting on Tue08/17/24 at 1545, Until Tue08/22/24 at 1214, Routine 1000 (Rate/Dose Verify - Provider: Fer Monsalve RN) 1203 (New Bag - Provider: Reena Green, RN) 1049 (Stopped - Provider: Naveed Downey, RN) PRN Medication Order 08/20/2024 08/21/2024 08/22/2024 calcium carbonate (Tums) chewable tablet 500 mg 500 mg, Oral, 4 times daily PRN, Starting on 08/18/24 at 0021, Until Tue08/22/24 at 1741, Routine, indigestion, heartburn 0917 (APR Hold - Provider: Automatic Transfer Provider - Reason: Patient in procedure)1243 (APR Unhold - Provider: Automatic Transfer Provider) dextrose 10 % (D10W) bolus 125 mL(Linked Group 2) 125 mL, Intravenous, Every 15 min PRN, Starting on Tue08/17/24 at 2035, Until Tue08/22/24 at 1741, Administer over 15 Minutes, Routine, low blood sugar BG 51-89 mg/dL 0917 (APR Hold - Provider: Automatic Transfer Provider - Reason: Patient in procedure)1243 (APR Unhold - Provider: Automatic Transfer Provider) dextrose 10 % (D10W) bolus 250 mL(Linked Group 2) 250 mL, Intravenous, Every 15 min PRN, Starting on Tue08/17/24 at 2035, Until Tue08/22/24 at 1741, Administer over 15 Minutes, Routine, PRN low blood sugar BG =/<50 mg/dL 0917 ([facility] Hold - Provider: Automatic Transfer Provider - Reason: Patient in procedure)1243 ([facility] Unhold - Provider: Automatic Transfer Provider) glucagon (human recombinant) injection 1 mg(Linked Group 2) 1 mg, Intramuscular, Every 15 min PRN, Starting on Tue08/17/24 at 2035, Until Tue08/22/24 at 1741, Routine, low blood sugar per Hypoglycemia Prevention and Treatment protocol 0917 ([facility] Hold - Provider: Automatic Transfer Provider - Reason: Patient in procedure)1243 ([facility] Unhold - Provider: Automatic Transfer Provider) glucose (Glutose) 40 % oral gel 15-30 grams of glucose(Linked Group 2) 15-30 grams of glucose, Sublingual, Every 15 min PRN, Starting on Tue08/17/24 at 2035, Until Tue08/22/24 at 1741, Routine, low blood sugar, per Hypoglycemia Prevention and Treatment protocol 0917 ([facility] Hold - Provider: Automatic Transfer Provider - Reason: Patient in procedure)1243 ([facility] Unhold - Provider: Automatic Transfer Provider) ondansetron (Zofran) injection 4 mg 4 mg, Intravenous, Every 6 hours PRN, Starting on Tue08/17/24 at 1444, Until Tue08/22/24 at 1741, Routine, Recovery(Phase II-Outpatient)/On Unit(Inpatient), nausea, vomiting 0917 ([facility] Hold - Provider: Automatic Transfer Provider - Reason: Patient in procedure)1243 ([facility] Unhold - Provider: Automatic Transfer Provider) oxyCODONE (Roxicodone) immediate release tablet 5 mg 5 mg, Oral, Every 4 hours PRN, Starting on Tue08/17/24 at 1443, Until Tue08/22/24 at 1741, Routine, Recovery(Phase II-Outpatient)/On Unit(Inpatient), severe pain 0917 ([facility] Hold - Provider: Automatic Transfer Provider - Reason: Patient in procedure)1243 ([facility] Unhold - Provider: Automatic Transfer Provider) sodium chloride 0.9 % flush 10 mL(Linked Group 1) 10 mL, Intravenous, As needed, Starting on Tue08/17/24 at 1442, Until Tue08/22/24 at 1741, Routine, Recovery(Phase II-Outpatient)/On Unit(Inpatient), line care 0917 (APR Hold - Provider: Automatic Transfer Provider - Reason: Patient in procedure)1243 (APR Unhold - Provider: Automatic Transfer Provider) Linked Groups Order Group 1: Insert peripheral IV (CANCELED) Once, On Tue08/17/24 at 1443, For 1 occurrence, Recovery(Phase II-Outpatient)/On Unit(Inpatient) And Saline lock IV (CANCELED) Once, On Tue08/17/24 at 1443, For 1 occurrence, Recovery(Phase II-Outpatient)/On Unit(Inpatient) And sodium chloride 0.9 % flush 10 mLJump to med 10 mL, Intravenous, Every 12 hours, First dose on Tue08/17/24 at 1545, Until Discontinued, Routine, Recovery(Phase II-Outpatient)/On Unit(Inpatient) And sodium chloride 0.9 % flush 10 mLJump to med 10 mL, Intravenous, As needed, Starting on Tue08/17/24 at 1442, Until Tue08/22/24 at 1741, Routine, Recovery(Phase II-Outpatient)/On Unit(Inpatient), line care Group 2: glucose (Glutose) 40 % oral gel 15-30 grams of glucoseJump to med 15-30 grams of glucose, Sublingual, Every 15 min PRN, Starting on Tue08/17/24 at 203, Until Tue08/22/24 at 1741, Routine, low blood sugar, per Hypoglycemia Prevention and Treatment protocol Or dextrose 10 % (D10W) bolus 125 mLJump to med 125 mL, Intravenous, Every 15 min PRN, Starting on Tue08/17/24 at 203, Until Tue08/22/24 at 1741, Administer over 15 Minutes, Routine, low blood sugar BG 51-89 mg/dL Or dextrose 10 % (D10W) bolus 250 mLJump to med 250 mL, Intravenous, Every 15 min PRN, Starting on Tue08/17/24 at 203, Until Tue08/22/24 at 1741, Administer over 15 Minutes, Routine, PRN low blood sugar BG =/<50 mg/dL Or glucagon (human recombinant) injection 1 mgJump to med 1 mg, Intramuscular, Every 15 min PRN, Starting on Tue08/17/24 at 2035, Until Tue08/22/24 at 1741, Routine, low blood sugar per Hypoglycemia Prevention and Treatment protocol documented in this encounter Additional Health Concerns Assessment Noted Time PHQ-9 Depression Total Score: 0 07/06/19 3:19 PM EDT A fall risk assessment has been complete d for the patient 07/11/2024 4:06 PM EDT A Body Mass Index follow-up plan has been documented for the patient 08/22/2024 3:26 PM EDT documented as of this encounter Care Teams Concession Cashier Relationship Specialty Start Date End Date Luis Caraballo MD [address] [place] [address] [place] [id number] PCP - General 06/20/20 documented as of this encounter
--- OUTSIDE RECORDS SUMMARY | 2024-08-17 12:15 | XMS_ITS | Encounter Summary ---
Author Organization [facility] Address [address] [place] [address] Care Team Providers Care Child Care Provider Name Role Phone Luis Caraballo MD Primary Care Provider [phone]- [phone] Reason for Visit * Auth/Cert (Routine) Specialty Diagnoses / Procedures Referred By Radha t Referred To Contact Diagnoses Incomplete bladder emptying INCOMPLETE BLADDER EMPTYING Procedures NH LASER ENUCLEATION PROSTATE W MORCELLATION ENUCLEATION, PROSTATE, TRANSURETHRAL, USING HOLMIUM LASER ( HOLEP ) Courtney Young MD [address] [address] Phone: tel: fax: [facility] [address] [place] [address] Phone: tel: Referral ID Status Reason Start Date Expiration Date Visits Re quested Visits Authorized [id number] 1 1 Encounter Details Date Type Department Care Team (Late st Contact Info) Description 08/17/2024 12:15 PM EDT - 08/17/2024 2:40 PM EDT Surgery [facility] [address] [place] [address] Courtney Young MD [address] [address] ENUCLEATION, PROSTATE, TRANSURETHRAL, USING HOLMIUM LASER ( HOLEP ) [63023 (CPT )] Surgery Details Date/Time Status Location OR Service Patient Class Case Class Case Type Trauma Case? 08/17/2024 12:15 PM Posted [facility] Extended Recovery E-Electiv e Panel 1 Procedure LRB Anes Op Region Wound Class Comments ENUCLEATION, PROSTATE, TRANS URETHRAL, USING HOLMIUM LASER ( HOLEP ) N/A General Surgeon Surgeon Role Service Panel Courtney Young MD Primary Urology 1 Martha Fuentes DO Fellow Urology 1 Nilson Montes MD Resident - Assisting 1 documented in this encounter Social History Tobacco [...] Sign Reading Time Taken Comments Blood Pressure 127/84 08/17/2024 2:30 PM EDT Pulse 65 08/17/2024 2:30 PM EDT Temperature 35.8 C (96.5 F) 08/17/2024 2:10 PM EDT Respiratory Rate 9 08/17/2024 2:30 PM EDT Oxygen Saturation 100% 08/17/2024 2:30 PM EDT Inhaled Oxygen Concentration - - Weight 88.5 kg (195 lb) 08/17/2024 11:08 AM EDT Height 185.4 cm (6' 1 ) 08/17/2024 11:08 AM EDT Body Mass Index 26.15 08/17/2024 11:08 AM EDT documented in this encounter Discharge Instructions * Discharge Instructions* Nilson Montes MD - 08/22/2024 10:55 AM EDT HoLEP DC instructions: Diagnosis: Benign prostate hyperplasia with difficulty [...] tablets by mouth every 6 hours. Under [place] law, monthly prescriptions (30 days) can be [...] split. Replaces amlodipine 30 tablet 5 04/27/2024 [place]-3 Fatty Acids (FISH OIL HIGH POTENCY PO) [...] Note Mouna Garcia 69 y.o. male CSN: [id number] Admission: 08/17/2024 10:02 AM Primary Problem: Urinary retention due to benign prostatic hyperplasia Primary Nut Sorter Operator: Assistance Available at Discharge: Family/Nut Sorter Operator(s) Willingness Assessed to care for patient at home: Yes Family/Nut Sorter Operator(s) Readiness Assessed to care for patient at [...] [address] [place] [address] Discharge Transportation: Transportation Anticipated: family or friend [...] agrees with above DC plan. In??BRIANA Trotter, passenger service manager * Maria De Jesus Livingston RN - 08/22/2024 3:25 PM EDT Images from the original note were not included. [id number] Methocarbamol WHY is this medicine prescribed? Methocarbamol [...] be awakened, immediately call emergency services at 138. What OTHER INFORMATION should I know? Keep all appointments with your doctor. Do not let anyone else take your medication. Ask your pharmacist any questions you have about refilling your prescription. Keep a written list of all of the prescription and nonprescription (yzdj-pdu-rizfxek) medicines, vitamins, minerals, and dietary supplements you [...] or pharmacist about specific clinical use. The [place] [employer] represents that the information provided hereunder was formulated with a reasonable standard of care, and in conformity with professional standards in the field. The [place] [employer] makes no representations or warranties, express or implied, including, but not limited to, any implied warranty of merchantability and/or fitness for a particular purpose, with respect to such information and specifically disclaims all such warranties. Users are advised that decisions regarding drug therapy are complex medical decisions requiring the independent, informed decision of an appropriate health child care provider, and the information is provided for informational purposes only. The entire monograph for a drug should be reviewed for a thorough understanding of the drug's actions, uses and side effects. The [employer] [employer] does not endorse or recommend the use of any drug.The information is not a substitute for medical care. AHFS?? Patient Medication Information?. ?? Copyright, 2023. The [employer]??, [address], [address], [place], [place]. All Rights Reserved. Duplication for commercial use must be authorized by [facility]. Selected Revisions: September 21, 2016. AHFS?? Patient Medication Information?. ?? Copyright, 2024 * Basim Rodney - Maria De Jesus Siddiqui RN - 08/22/2024 3:25 PM EDT Images from the original note were not included. [id number] Phenazopyridine WHY is this medicine prescribed? Phenazopyridine [...] or have ever had kidney disease or bpqwvzq-1-ngqxedwbr dehydrogenase(G-6-PD) deficiency (an inherited blood disease). ? [...] of all of the prescription and nonprescription (epbj-asj-zbkdvjk) medicines, vitamins, minerals, and dietary supplements you [...] or pharmacist about specific clinical use. The [place] represents that the information provided hereunder was formulated with a reasonable standard of care, and in conformity with professional standards in the field. The [employer] makes no representations or warranties, express or implied, including, but not limited to, any implied warranty of merchantability and/or fitness for a particular purpose, with respect to such information and specifically disclaims all such warranties. Users are advised that decisions regarding drug therapy are complex medical decisions requiring the independent, informed decision of an appropriate health child care provider, and the information is provided for informational purposes only. The entire monograph for a drug should be reviewed for a thorough understanding of the drug's actions, uses and side effects. The [employer] does not endorse or recommend the use of any drug.The information is not a substitute for medical care. AHFS?? Patient Medication Information?. ?? Copyright, 2023. The [employer]??, [address], [address], [place], [place]. All Rights Reserved. Duplication for commercial use must be authorized by [facility]. Selected Revisions: March 24, 2017. AHFS?? Patient Medication Information?. ?? Copyright, 2024 * Basim VillegasCRIS - Maria De Jesus Siddiqui RN - [...] at . Nights, weekends and holidays, call [facility] at and ask for the Urology Resident highway traffic control technician. Call [phone] if you have any of the following ? A lot of pain or vomiting ? Urine becomes bright licona red or has many clots of blood in it ? Shaking chills ? A large amount of bleeding ? Cannot urinate for 10 to 12 hours and have lower abdominal pain or bloating * [facility] - Maria De Jesus Siddiqui RN - 08/22/2024 3:23 PM EDT Images from the original note were not included. [id number] Benign Prostatic Hyperplasia The prostate is a [...] Transrectal ultrasound is a procedure where the parts technician inserts a transducer slightly larger than [...] biopsy. Last Reviewed Date: 2024 00:00:00 ?? [id number] [employer]. All rights reserved. This information is not [...] [address] [place] / [place] [address] Referring provider name and address: No referring provider defined for this encounter. Chief Concern, Brief History of Present Illness, and Hospital Course Mouna Garcia is a 69 y.o. male with PMH BPH who presented to [facility] for surgical intervention. They were taken to [...] tablets by mouth every 6 hours. Under [place] law, monthly prescriptions (30 days) can be [...] Your Medications These medications were sent to [facility] - [place], [place] - [address] [facility] [address] acetaminophen 325 MG tablet methocarbamol 500 MG [...] UROGSHMOB GS MOB 10/10/2024 4:00 PM Mp Reis PA RENGSPAC GS PAC 06/05/2025 10:45 AM CH PAVA US 4 USCHA CH Pav A 06/05/2025 11:50 AM [facility] 06/05/2025 12:30 PM Charlotte Rodriguez, FORMULATOR COMPOUNDER, SAMAN UROCHKY [facility] Test Results Pending At Discharge Pertinent Physical Exam At Time of Discharge Physical Exam Vitals and nursing note reviewed. Exam conducted with a cigar machine feeder present. Constitutional: General: He is not in [...] precautions maintained * Care Plan - Fer Monsalve RN - 08/21/2024 2:53 PM EDT Problem: Adult Inpatient Plan of Care Goal: Plan of Care Review Outcome: Ongoing, Progressing Flowsheets Taken 08/21/2024 1452 by Fer Monsalve RN Progress: improving Taken 08/20/2024 2221 by Zain Holden RN Plan of Care [...] Risk Flowsheets (Taken 08/21/2024 1135 by Reena Green RN) VTE Prevention/Management: bilateral SCDs (sequential compression [...] Promote and Optimize Oral Intake Flowsheets (Taken 08/19/2024 2331 by Zain Holden, DAVE) Oral Nutrition Promotion: adaptive equipment use encouraged Nutrition Interventions: food preferences provided frequent small meals provided diet adjusted Problem: Infection Goal: Absence of Infection Signs and Symptoms Outcome: Ongoing, Progressing Intervention: Prevent or Manage Infection Flowsheets Taken 08/21/2024 1135 by Reena Green RN Isolation Precautions: precautions initiated precautions maintained Taken 08/19/2024 2331 by Zain Holden, DAVE Infection Management: aseptic technique maintained Fever Reduction/Comfort [...] Agree with above assessment and evaluation from resident/AUTOMOBILE WRECKER. * Op Note - Courtney Young MD - 08/21/2024 10:59 AM EDT Operative Report SURGEON: Courtney Young MD Manager Landscape: MD Markel Avila MD SURGICAL TEAM: Business Editor: Jossie Young RN Scrub Person: Xiomy Pacheco [...] The scope was removed and a 22 Filipino 3-way Law catheter was inserted with continuous [...] 08/20/2024 3:15 PM EDT Pastoral Care Note Road Cutter visited with patient and family, spouse, at bedside and provided emotional support. Patient and spouse shared that they are coping well. Road Cutter provided a supportive presence and empathic listening. Pastoral care will continue to be available as needed. Referral From: Road Cutter Initiated Pastoral Care Provided For: Patient, Spouse Patient Profile: Consult Reasons: Emotional support, Family support Spiritual Assessment: Support Systems/ Spiritual Resources: Family Spiritual Needs: Emotional support Spiritual Issues: Chronic pain/ illness Interventions: Interventions Provided: Emotional support, Family support, Introduced Patient/Family to Road Cutter Services, Supportive Listening Pastoral Care Outcomes: Patient Outcomes: Demonstrates lower level of Anxious(ness), Is knowledgeable about [facility], Appreciative of Road Cutter Support * Progress Notes - Renate Blanchard RN - 08/20/2024 11:40 AM EDT Case Management Adult Progress Note Mouna Garcia 69 y.o. male CSN: [id number] Admission: 08/17/2024 10:02 AM Primary Problem: Urinary retention due to benign prostatic hyperplasia Anticipated Discharge Date: 08/23/24 Has Discharge Plans Changed? Medicare Second Notice: Housing Circumstances: Housing Circumstances Action Taken: Medically Ready for Discharge: Additional Comments POC reviewed with primary team. Refer to primary team's note for details. Pt is not medically readytoday. In??BRIANA Trotter, passenger service manager * Care Plan - Fer Monsalve RN - 08/20/2024 10:38 AM EDT Problem: Adult Inpatient Plan of Care Goal: Plan of Care Review Outcome: Ongoing, Progressing Flowsheets Taken 08/20/2024 1038 by Fer Monsalve RN Progress: no change Taken 08/19/2024 2331 by [...] shift assistance provided Taken 08/19/20241999 by Zain Holden RN Head of Bed (HOB) Positioning: HOB at 30-45 degrees Problem: Infection Goal: Absence of Infection Signs and Symptoms Outcome: Ongoing, Progressing Intervention: Prevent or Manage Infection Flowsheets (Taken 08/19/20242330 by Zain Holden RN) Infection Management: aseptic technique maintained Fever Reduction/Comfort Measures: lightweight clothing Isolation Precautions: precautions maintained * Progress Notes - Mary Ann Bautista MD - 08/20/2024 7:46 AM EDT [facility] Urology Inpatient Progress Note Primary Attending: [...] mL/kg) [P.O.:1840; I.V.:786 (8.6 mL/kg); Blood:1109.4] Out: 71211 (179.6 mL/kg) [Urine:30983 (5 mL/kg/hr)] Weight: 91.3 kg Urethral Catheter [...] at midnight - continue home medications - [facility] prn Mary Ann Bautista MD PGY-1 Urology Pager: [phone] Epic chat preferred for non-emergent communication. Cosigned [...] (Taken 08/19/20242330) Body Position: turned weight shifting [place] chair lower extremity elevated Skin Protection: incontinence [...] Gabe White - 08/19/2024 11:55 AM EDT [facility] Inpatient Progress Note Primary Attending: [...] POD1. POD2 catheter continues to return light pink urine with CBI running. Pt has declining hgb [...] saw and evaluated the patient with the medical/BONDING MACHINE OPERATOR/PA student. I discussed the case with the medical/BONDING MACHINE OPERATOR/PA student and agree with the findings and plan as documented. I personally performed the Examand Medical Decision Making. * Care Plan - Arianna Thurman RN - 08/18/2024 10:19 PM EDT Problem: Adult Inpatient Plan of Care Goal: Plan of Care Review Outcome: Ongoing, Progressing Flowsheets (Taken 08/18/20245) Progress: improving Plan of Care Reviewed With: [...] maintained Intervention: Prevent Skin Injury Flowsheets (Taken 08/18/2024 2200) Body Position: turned Intervention: Prevent and Manage [...] SpO2 96 % Monitoring Data Monitoring Comments SHEET PILE HAMMER OPERATOR notified of patient on floor with bradycardia [...] Rebekah Gamble, states she will notify oncoming slot shift supervisor DCN and round on patient. No intervention from SHEET PILE HAMMER OPERATOR warranted at this time, primary RN will continue to monitor and notify SHEET PILE HAMMER OPERATOR and MD service with any changes, issues, or concerns. * Hospital Course - Mary Ann Bautista MD - 08/18/2024 2:13 PM EDT Mouna Garcia is a 69 y.o. male with PMH BPH who presented to [facility] for surgical intervention. They were taken to [...] Bautista MD - 08/18/2024 2:06 PM EDT [facility] Inpatient Progress Note Primary Attending: [...] Mary Ann Bautista MD PGY-1 Urology Pager: [phone] Epic chat preferred for non-emergent communication. Cosigned [...] preferences provided * Anesthesia PACU Signout - Jonathon Gregg DO - 08/17/2024 3:44 PM EDT Images [...] Note: Operative Report SURGEON: Courtney Young MD Manager Landscape: DO Margarita Saldivar MD SURGICAL TEAM: Business Editor: Susan Huff RN Relief Business Editor: Yusuf Akers RN Relief Scrub: Rebekah Abreu [...] with sequential dilators from 20 - 30 Filipino. The 28 Filipino Storz continuous flow resectoscope sheath was insertedthen [...] The scope was removed and a 22 Filipino 3-way Law catheter was inserted with continuous [...] nursing note reviewed. Exam conducted with a cigar machine feeder present. Constitutional: General: He is not in [...] visit. Results Review {Vanishing Link Review Results :[id number] I have reviewed the latest lab and [...] or split. Replaces amlodipine 30 tablet 5 [place]-3 Fatty Acids (FISH OIL HIGH POTENCY PO) [...] Physical Therapy [address], [address] [place] [address] Charlotte Pillai [address] [place] [address] 09/19/2024 3:30 PM EDT Office Visit Medical Office Building Urology [address], [address] [place] [address] Courtney Young MD [address] [facility] [address] [place] [address] 10/10/2024 4:00 PM EDT Office Visit [facility] Nephrology, Bone & Mineral Metabolism [address], [address] [place] [address] Mp Reis PA [address] [place] [address] 06/05/2025 10:45 AM EDT Appointment [facility]iology [address] [place] [address] 06/05/2025 11:50 AM EDT Clinical Support [place] [facility] [address] [place] [address] 06/05/2025 12:30 PM EDT Office Visit [place] [facility] [address] [place] [address] Charlotte Rodriguez P, FORMULATOR COMPOUNDER, DNP [address] [place] [address] documented as of this encounter Procedures Procedure [...] UNSOLICITED RESULTS Routine 08/21/2024 12:12 PM EDT POCT GLUCOSE METER UNSOLICITED RESULTS [...] 08/17/2024 1:33 PM EDT Incomplete bladder emptying NH LASER ENUCLEATION PROSTATE W MORCELLATION 08/17/2024 12:30 PM EDT Incomplete bladder emptying POCT GLUCOSE METER UNSOLICITED RESULTS Routine 08/17/2024 11:17 AM EDT documented in this encounter Results * (ABNORMAL) POCT glucose meter (08/22/2024 11:37 AM EDT) POCT Glucose 170(H) 74 - 99 mg/dL 08/22/2024 11:45 AM EDT [facility] Comment:Accuracy of a [...] for testing. Comment 08/22/2024 11:45 AM EDT [facility] Can Labeler ID Ryan Marinan 11:45 AM EDT [facility] Device ID [id number] 08/22/2024 11:45 AM EDT [facility] Specimen Type POC Capillary 08/22/2024 11:45 AM EDT [facility] Blood Capillary blood specimen / Unknown 08/22/2024 11:37 AM EDT 08/22/2024 11:45 AM EDT Courtney Young MD LAB POINT OF CARE TE ST DOCKED DEVICE UNSOLICITED RESULTS Final Result Performing Organization Address City/[facility] Co de Phone Number [facility]ALTH[facility]ARE [facility] [address] [place] [address] * (ABNORMAL) POCT glucose meter (08/22/2024 8:02 AM EDT) [facility] POCT Glucose 116(H) 74 - 99 mg/dL [...] for testing. Comment 08/22/2024 8:03 AM EDT [facility] Can Labeler ID Xin Marina 8:03 AM EDT [facility] Device ID [id number] 08/22/2024 8:03 AM EDT [facility] Specimen Type POC Capillary 08/22/2024 8:03 AM EDT [facility] Blood Capillary blood specimen / Unknown 08/22/2024 8:02 AM EDT 08/22/2024 8:03 AM EDT us Courtney Young MD LAB POINT OF CARE TE ST DOCKED DEVICE UNSOLICITED RESULTS Final Result Performing Organization Address City/[facility] Co de Phone Number [facility] [address] [place] [address] * (ABNORMAL) POCT glucose meter (08/22/2024 3:17 AM EDT) [facility] POCT Glucose 162(H) 74 - 99 mg/dL 08/22/2024 3:18 AM EDT [facility] Comment:Accuracy of [...] Comment 08/22/2024 3:18 AM EDT [facility] Can Labeler ID Demetra Wiggins 08/22/2024 3:18 AM EDT [facility] Device ID [id number] 08/22/2024 3:18 AM EDT [facility] Specimen Type POC Capillary 08/22/2024 3:18 AM EDT [facility] Blood Capillary blood specimen / Unknown 08/22/2024 3:17 AM EDT 08/22/2024 3:18 AM EDT us Courtney Young MD LAB POINT OF CARE TE ST DOCKED DEVICE UNSOLICITED RESULTS Final Result Performing Organization Address City/State/[facility] Co de Phone Number HEALTHCARE LAB [address] [place] [address] * (ABNORMAL) CBC W/O Differential (08/22/2024 2:11 AM EDT) [facility] WBC Count 14.27(H) 3.70 - 10.30 10*3/uL LAB HEMATOLOGY METHOD 08/22/2024 2:30 AM EDT [facility] RBC Count 2.99(L) 4.60 - 6.10 10*6/uL LAB HEMATOLOGY METHOD 08/22/2024 2:30 AM EDT [facility] HGB 8.9(L) 13.7 - 17.5 g/dL LAB HEMATOLOGY METHOD 08/22/2024 2:30 AM EDT [facility] HCT 26.8(L) 40.0 - 51.0 % LAB HEMATOLOGY METHOD 08/22/2024 2:30 AM EDT [facility] Platelet Count 270 155 - 369 10*3/uL LAB HEMATOLOGY METHOD 08/22/2024 2:30 AM EDT [facility] MCV 90 79 - 98 fL LAB HEMATOLOGY METHOD 08/22/2024 2:30 AM EDT [facility] MCH 29.8 26.0 - 32.0 pg LAB HEMATOLOGY METHOD 08/22/2024 2:30 AM EDT [facility] MCHC 33.2 30.7 - 35.5 g/dL LAB HEMATOLOGY METHOD 08/22/2024 2:30 AM EDT [facility] RDW 14.5 11.5 - 14.5 % LAB HEMATOLOGY METHOD 08/22/2024 2:30 AM EDT [facility] MPV 9.7 8.8 - 12.5 fL LAB HEMATOLOGY METHOD 08/22/2024 2:30 AM EDT [facility] nRBC 0.0 <=0.0 per 100 WBCs LAB HEMATOLOGY METHOD 08/22/2024 2:30 AM EDT [facility] Blood Venous blood specimen / Unknown Venipuncture / Unknown 08/22/2024 2:11 AM EDT 08/22/2024 2:21 AM EDT us Courtney Young MD LAB BLOOD ORDERABLES Final R esult [facility] [address] [place] [address] * (ABNORMAL) Basic Metabolic Panel, Plasma (08/22/2024 2:11 AM EDT) Glucose, Plasma 232(H) 74 - 99 mg/dL 08/22/2024 2:49 AM EDT [facility] BUN, Plasma 25(H) 8 - 23 mg/dL 08/22/2024 2:49 AM EDT [facility] Creatinine, Plasma 1.75(H) 0.70 - 1.20 mg/dL 08/22/2024 2:49 AM EDT [facility] BUN/Creatinine Ratio 14 08/22/2024 2:49 AM EDT [facility] Sodium, Plasma 138 136 - 145 mmol/L 08/22/2024 2:49 AM EDT [facility] Potassium, Plasma 4.4 3.6 - 4.9 mmol/L 08/22/2024 2:49 AM EDT [facility] Chloride, Plasma 104 97 - 107 mmol/L 08/22/2024 2:49 AM EDT [facility] CO2, Plasma 24 22 - 29 mmol/L 08/22/2024 2:49 AM EDT [facility] Anion Gap 10 6 - 16 mmol/L 08/22/2024 2:49 AM EDT [facility] Total Calcium, Plasma 8.7(L) 8.9 - 10.2 mg/dL 08/22/2024 2:49 AM EDT [facility] eGFRcr 41.9 mL/min/1.7 3m*2 08/22/2024 2:49 AM EDT [facility] Comment:Reported eGFRcr in m L/min/1.73m2 is based the CKD-EPI 2020 equation that does not use a race coefficient. Blood Venous blood specimen / Unknown Venipuncture / Unknown 08/22/2024 2:11 AM EDT 08/22/2024 2:20 AM EDT us Courtney Young MD LAB BLOOD ORDERABLES Final R esult [facility] [address] [place] [address] * (ABNORMAL) POCT glucose meter (08/21/2024 8:47 PM EDT) POCT Glucose 384(H) 74 - 99 mg/dL [...] Comment 08/21/2024 8:48 PM EDT [facility] Can Labeler ID Demetra Wiggins 08/21/2024 8:48 PM EDT [facility] Device ID [id number] 08/21/2024 8:48 PM EDT [facility] Specimen Type POC Capillary 08/21/2024 8:48 PM EDT [facility] Blood Capillary blood specimen / Unknown 08/21/2024 8:47 PM EDT 08/21/2024 8:48 PM EDT us Courtney Young MD LAB POINT OF CARE TE ST DOCKED DEVICE UNSOLICITED RESULTS Final Result [facility] [address] [place] [address] * (ABNORMAL) POCT glucose meter (08/21/2024 5:18 PM EDT) [facility] POCT Glucose 226(H) 74 - 99 mg/dL [...] Comment 08/21/2024 5:20 PM EDT [facility] Can Labeler ID JeremiasKaylyn 5:20 PM EDT [facility] Device ID [id number] 08/21/2024 5:20 PM EDT [facility] Specimen Type POC Capillary 08/21/2024 5:20 PM EDT [facility] Blood Capillary blood specimen / Unknown 08/21/2024 5:18 PM EDT 08/21/2024 5:20 PM EDT Courtney Young MD LAB POINT OF CARE TE ST DOCKED DEVICE UNSOLICITED RESULTS Final Result Performing Organization Address City/[facility]/ZIP Co de Phone Number [facility] [address] [place] [address] * (ABNORMAL) POCT glucose meter (08/21/2024 12:12 PM EDT) [facility] POCT Glucose 131(H) 74 - 99 mg/dL [...] Comment 08/21/2024 12:14 PM EDT [facility] Can Labeler ID Ethan Franco 025 12:14 PM EDT [facility] Device ID [id number] 08/21/2024 12:14 PM EDT [facility] Specimen Type POC Capillary 08/21/2024 12:14 PM EDT [facility] Blood Capillary blood specimen / Unknown 08/21/2024 12:12 PM EDT 08/21/2024 12:14 PM EDT us Courtney Young MD LAB POINT OF CARE TE ST DOCKED DEVICE UNSOLICITED RESULTS Final Result Performing Organization Address City/[facility]/ZIP Co de Phone Number [facility] [address] [place] [address] * (ABNORMAL) POCT glucose meter (08/21/2024 9:52 AM EDT) [facility] POCT Glucose 140(H) 74 - 99 mg/dL [...] Comment 08/21/2024 10:14 AM EDT [facility]ALTH[facility] Can Labeler ID Marbella Pizarro 08/21/2024 10:14 AM EDT [facility]ALTH[facility] LAB Device ID [id number] 08/21/2024 10:14 AM EDT [facility] Specimen Type POC Capillary 08/21/2024 10:14 AM EDT [facility] Blood Capillary blood specimen / Unknown 08/21/2024 9:52 AM EDT 08/21/2024 10:14 AM EDT us Courtney Young MD LAB POINT OF CARE TE ST DOCKED DEVICE UNSOLICITED RESULTS Final Result Performing Organization Address City/[facility]/ZIP Co de Phone Number [facility] [address] [place] [address] * (ABNORMAL) POCT glucose meter (08/21/2024 5:28 AM EDT) [facility] POCT Glucose 121(H) 74 - 99 mg/dL 08/21/2024 5:30 AM EDT [facility] Comment:Accuracy of a [...] Comment 08/21/2024 5:30 AM EDT [facility]ALTH[facility] Can Labeler ID [email or web address] Arin [email or web address] 08/21/2024 5:30 AM EDT HEALTHCARE LAB Device ID [id number] 08/21/2024 5:30 AM EDT [facility]ALTH[facility]ARE [facility] Specimen Type POC Capillary 08/21/2024 5:30 AM EDT [facility] Blood Capillary blood specimen / Unknown 08/21/2024 5:28 AM EDT 08/21/2024 5:30 AM EDT us Courtney Young MD LAB POINT OF CARE TE ST DOCKED DEVICE UNSOLICITED RESULTS Final Result Performing Organization Address City/State/[facility] Co de Phone Number [facility] [address] [place] [address] * (ABNORMAL) Basic metabolic panel (08/21/2024 4:23 AM EDT) [facility] Glucose, Plasma 116(H) 74 - 99 mg/dL 08/21/2024 5:03 AM EDT [facility] BUN, Plasma 23 8 - 23 mg/dL 08/21/2024 5:03 AM EDT [facility] Creatinine, Plasma 1.67(H) 0.70 - 1.20 mg/dL 08/21/2024 5:03 AM EDT [facility] BUN/Creatinine Ratio 14 08/21/2024 5:03 AM EDT [facility] Sodium, Plasma 140 136 - 145 mmol/L 08/21/2024 5:03 AM EDT [facility] Potassium, Plasma 4.7 3.6 - 4.9 mmol/L 08/21/2024 5:03 AM EDT [facility] Chloride, Plasma 108(H) 97 - 107 mmol/L 08/21/2024 5:03 AM EDT [facility] CO2, Plasma 23 22 - 29 mmol/L 08/21/2024 5:03 AM EDT [facility] Anion Gap 9 6 - 16 mmol/L 08/21/2024 5:03 AM EDT [facility] Total Calcium, Plasma 8.8(L) 8.9 - 10.2 mg/dL 08/21/2024 5:03 AM EDT [facility] eGFRcr 44.3 mL/min/1.7 3m*2 08/21/2024 5:03 AM EDT [facility] Comment:Reported eGFRcr in m L/min/1.73m2 is based the CKD-EPI 2020 equation that does not use a race coefficient. Blood Venous blood specimen / Unknown Venipuncture / Unknown 08/21/2024 4:23 AM EDT 08/21/2024 4:32 AM EDT us Courtney Young MD LAB BLOOD ORDERABLES Final R esult [facility] [address] [place] [address] * (ABNORMAL) CBC W/O Differential (08/21/2024 4:23 AM EDT) WBC Count 12.64(H) 3.70 - 10.30 10*3/uL LAB HEMATOLOGY METHOD 08/21/2024 4:41 AM EDT [facility] RBC Count 3.14(L) 4.60 - 6.10 10*6/uL LAB HEMATOLOGY METHOD 08/21/2024 4:41 AM EDT [facility] HGB 9.3(L) 13.7 - 17.5 g/dL LAB HEMATOLOGY METHOD 08/21/2024 4:41 AM EDT [facility] HCT 27.8(L) 40.0 - 51.0 % LAB HEMATOLOGY METHOD 08/21/2024 4:41 AM EDT [facility] Platelet Count 248 155 - 369 10*3/uL LAB HEMATOLOGY METHOD 08/21/2024 4:41 AM EDT [facility] MCV 89 79 - 98 fL LAB HEMATOLOGY METHOD 08/21/2024 4:41 AM EDT [facility] MCH 29.6 26.0 - 32.0 pg LAB HEMATOLOGY METHOD 08/21/2024 4:41 AM EDT [facility] MCHC 33.5 30.7 - 35.5 g/dL LAB HEMATOLOGY METHOD 08/21/2024 4:41 AM EDT [facility] RDW 14.6(H) 11.5 - 14.5 % LAB HEMATOLOGY METHOD 08/21/2024 4:41 AM EDT [facility] MPV 9.8 8.8 - 12.5 fL LAB HEMATOLOGY METHOD 08/21/2024 4:41 AM EDT [facility] nRBC 0.0 <=0.0 per 100 WBCs LAB HEMATOLOGY METHOD 08/21/2024 4:41 AM EDT [facility] Blood Venous blood specimen / Unknown Venipuncture / Unknown 08/21/2024 4:23 AM EDT 08/21/2024 4:32 AM EDT us Courtney Young MD LAB BLOOD ORDERABLES Final R esult [facility] [address] [place] [address] * (ABNORMAL) POCT glucose meter (08/20/2024 8:28 [...] Comment 08/20/2024 8:29 PM EDT [facility] Can Labeler ID [email or web address] [email or web address], Saichon 08/20/2024 8:29 PM EDT [facility]ALTH[facility] Device ID [id number] 08/20/2024 8:29 PM EDT [facility] Specimen Type POC Capillary 08/20/2024 8:29 PM EDT [facility] Blood Capillary blood specimen / Unknown 08/20/2024 8:28 PM EDT 08/20/2024 8:29 PM EDT Courtney Young MD LAB POINT OF CARE TE ST DOCKED DEVICE UNSOLICITED RESULTS Final Result Performing Organization Address City/[facility]/ZIP Co de Phone Number [facility] [address] [place] [address] * (ABNORMAL) POCT glucose meter (08/20/2024 5:23 [...] Comment 08/20/2024 5:24 PM EDT [facility] Can Labeler ID Marya Velásquez 08/20/2024 5:24 PM EDT [facility] LAB Device ID [id number] 08/20/2024 5:24 PM EDT [facility] Specimen Type POC Capillary 08/20/2024 5:24 PM EDT [facility] Blood Capillary blood specimen / Unknown 08/20/2024 5:23 PM EDT 08/20/2024 5:24 PM EDT us Courtney Young MD LAB POINT OF CARE TE ST DOCKED DEVICE UNSOLICITED RESULTS Final Result Performing Organization Address City/[facility]/ZIP Co de Phone Number [facility] [address] [place] [address] * (ABNORMAL) POCT glucose meter (08/20/2024 11:49 AM EDT) POCT Glucose 187(H) 74 - 99 mg/dL [...] 08/20/2024 11:51 AM EDT [facility] Can Labeler ID Marya Velásquez 08/20/2024 11:51 AM EDT [facility] Device ID [id number] 08/20/2024 11:51 AM EDT [facility] Specimen Type POC Capillary 08/20/2024 11:51 AM EDT [facility] Blood Capillary blood specimen / Unknown 08/20/2024 11:49 AM EDT 08/20/2024 11:51 AM EDT us Courtney Young MD LAB POINT OF CARE TE ST DOCKED DEVICE UNSOLICITED RESULTS Final Result Performing Organization Address City/State/[facility] Co de Phone Number [facility] [address] [place] [address] * (ABNORMAL) POCT glucose meter (08/20/2024 7:33 AM EDT) POCT Glucose 139(H) 74 - 99 mg/dL [...] 08/20/2024 7:34 AM EDT [facility] Can Labeler ID Marya Velásquez 08/20/2024 7:34 AM EDT [facility] Device ID [id number] 08/20/2024 7:34 AM EDT [facility] Specimen Type POC Capillary 08/20/2024 7:34 AM EDT [facility] Blood Capillary blood specimen / Unknown 08/20/2024 7:33 AM EDT 08/20/2024 7:34 AM EDT us Courtney Young MD LAB POINT OF CARE TE ST DOCKED DEVICE UNSOLICITED RESULTS Final Result [facility] [address] [place] [address] * (ABNORMAL) Basic metabolic panel (08/20/2024 4:30 AM EDT) Glucose, Plasma 131(H) 74 - 99 mg/dL 08/20/2024 5:14 AM EDT [facility] BUN, Plasma 34(H) 8 - 23 mg/dL 08/20/2024 5:14 AM EDT [facility] Creatinine, Plasma 1.82(H) 0.70 - 1.20 mg/dL 08/20/2024 5:14 AM EDT [facility] BUN/Creatinine Ratio 19 08/20/2024 5:14 AM EDT [facility] Sodium, Plasma 139 136 - 145 mmol/L 08/20/2024 5:14 AM EDT [facility] Potassium, Plasma 4.6 3.6 - 4.9 mmol/L 08/20/2024 5:14 AM EDT [facility] Chloride, Plasma 109(H) 97 - 107 mmol/L 08/20/2024 5:14 AM EDT [facility] CO2, Plasma 20(L) 22 - 29 mmol/L 08/20/2024 5:14 AM EDT [facility] Anion Gap 10 6 - 16 mmol/L 08/20/2024 5:14 AM EDT [facility] Total Calcium, Plasma 8.3(L) 8.9 - 10.2 mg/dL 08/20/2024 5:14 AM EDT [facility] eGFRcr 40.0 mL/min/1.7 3m*2 08/20/2024 5:14 AM EDT [facility] Comment:Reported eGFRcr in m L/min/1.73m2 is based the CKD-EPI 2020 equation that does not use a race coefficient. Blood Venous blood specimen / Unknown Venipuncture / Unknown 08/20/2024 4:30 AM EDT 08/20/2024 4:43 AM EDT us Courtney Young MD LAB BLOOD ORDERABLES Final R esult [facility] [address] [place] [address] * (ABNORMAL) CBC W/O Differential (08/20/2024 4:30 AM EDT) WBC Count 12.84(H) 3.70 - 10.30 10*3/uL LAB HEMATOLOGY METHOD 08/20/2024 4:58 AM EDT [facility] RBC Count 3.07(L) 4.60 - 6.10 10*6/uL LAB HEMATOLOGY METHOD 08/20/2024 4:58 AM EDT [facility] HGB 9.1(L) 13.7 - 17.5 g/dL LAB HEMATOLOGY METHOD 08/20/2024 4:58 AM EDT [facility] HCT 27.2(L) 40.0 - 51.0 % LAB HEMATOLOGY METHOD 08/20/2024 4:58 AM EDT [facility] Platelet Count 238 155 - 369 10*3/uL LAB HEMATOLOGY METHOD 08/20/2024 4:58 AM EDT [facility] MCV 89 79 - 98 fL LAB HEMATOLOGY METHOD 08/20/2024 4:58 AM EDT [facility] MCH 29.6 26.0 - 32.0 pg LAB HEMATOLOGY METHOD 08/20/2024 4:58 AM EDT [facility] MCHC 33.5 30.7 - 35.5 g/dL LAB HEMATOLOGY METHOD 08/20/2024 4:58 AM EDT [facility] RDW 14.5 11.5 - 14.5 % LAB HEMATOLOGY METHOD 08/20/2024 4:58 AM EDT [facility] MPV 10.0 8.8 - 12.5 fL LAB HEMATOLOGY METHOD 08/20/2024 4:58 AM EDT [facility] nRBC 0.0 <=0.0 per 100 WBCs LAB HEMATOLOGY METHOD 08/20/2024 4:58 AM EDT [facility] Blood Venous blood specimen / Unknown Venipuncture / Unknown 08/20/2024 4:30 AM EDT 08/20/2024 4:46 AM EDT us Courtney Young MD LAB BLOOD ORDERABLES Final R esult Performing Organization Address City/[facility] [place] [address] * (ABNORMAL) Hemoglobin and hematocrit, blood (08/19/2024 9:52 PM EDT) HGB 9.2(L) 13.7 - 17.5 g/dL LAB HEMATOLOGY METHOD 08/19/2024 10:08 PM EDT [facility] HCT 27.6(L) 40.0 - 51.0 % LAB HEMATOLOGY METHOD 08/19/2024 10:08 PM EDT [facility] Blood Venous blood specimen / Unknown Venipuncture / Unknown 08/19/2024 9:52 PM EDT 08/19/2024 10:01 PM EDT us Courtney Young MD LAB BLOOD ORDERABLES Final R esult Performing Organization Address [facility] Co de Phone Number [facility] [address] [place] [address] * Transfuse RBC (08/19/2024 9:41 PM EDT) Result Gerson Young MD BLOOD TRANSFUSION ORDERABLES Final Result * Transfuse RBC: 1 Units (08/19/2024 9:41 PM EDT) Result Gerson Young MD BLOOD TRANSFUSION ORDERABLES Final Result * (ABNORMAL) POCT glucose meter (08/19/2024 8:20 PM EDT) POCT Glucose 170(H) 74 - 99 mg/dL 08/19/2024 8:22 PM EDT [facility] Comment:Accuracy of a glucos e result [...] Comment 08/19/2024 8:22 PM EDT [facility]ALTH[facility] Can Labeler ID Mark Sanabria 8:22 PM EDT HEALTHCARE LAB Device ID [id number] 08/19/2024 8:22 PM EDT [facility]ALTH[facility] Specimen Type POC Capillary 08/19/2024 8:22 PM EDT [facility] Blood Capillary blood specimen / Unknown 08/19/2024 8:20 PM EDT 08/19/2024 8:22 PM EDT us Courtney Young MD LAB POINT OF CARE TE ST DOCKED DEVICE UNSOLICITED RESULTS Final Result Performing Organization Address City/[facility] Co de Phone Number [facility] [address] [place] [address] * (ABNORMAL) POCT glucose meter (08/19/2024 5:09 PM EDT) POCT Glucose 204(H) 74 - 99 mg/dL 08/19/2024 5:10 PM EDT [facility] Comment:Accuracy of [...] Comment 08/19/2024 5:10 PM EDT [facility]ALTH[facility] Can Labeler ID Marya Velásquez 08/19/2024 5:10 PM EDT HEALTH[facility]ARE LAB Device ID [id number] 08/19/2024 5:10 PM EDT [facility] Specimen Type POC Capillary 08/19/2024 5:10 PM EDT [facility] Blood Capillary blood specimen / Unknown 08/19/2024 5:09 PM EDT 08/19/2024 5:10 PM EDT us Courtney Young MD LAB POINT OF CARE TE ST DOCKED DEVICE UNSOLICITED RESULTS Final Result Performing Organization Address City/[facility]/ZIP Co de Phone Number [facility] [address] [place] [address] * Prepare Leukocyte Reduced RBC: 1 Units (08/19/2024 4:35 PM EDT) Product Code [id number] BLOO D BANK Dispense Status Transfused BLOOD BANK Blood Expiration Date [id number] BLOOD BANK Unit Number [id number] CH B LOOD BANK Product Blood Type 0600 BLOOD BANK Blood Type A- CH BLOOD BANK Crossmatch Compatible BLOOD BANK Other Courtney Young MD BLOOD BANK PRODUCT ORDERABLE S Final Result Performing Organization Address [facility] de Phone Number BLOOD BANK [address] [place] [address], * (ABNORMAL) Hemoglobin and hematocrit, blood (08/19/2024 3:57 PM EDT) [facility] HGB 8.0(L) 13.7 - 17.5 g/dL LAB HEMATOLOGY METHOD 08/19/2024 4:32 PM EDT [facility] HCT 23.6(L) 40.0 - 51.0 % LAB HEMATOLOGY METHOD 08/19/2024 4:32 PM EDT [facility] Blood Venous blood specimen / Unknown Venipuncture / Unknown 08/19/2024 3:57 PM EDT 08/19/2024 4:23 PM EDT Courtney Young MD LAB BLOOD ORDERABLES Final R esult Performing Organization Address City/[facility]/ZIP Co de Phone Number [facility] [address] [place] [address] * Transfuse RBC (08/19/2024 1:50 PM EDT) Courtney Young MD BLOOD TRANSFUSION ORDERABLES Final Result * Transfuse RBC: 1 Units (08/19/2024 1:50 PM EDT) Courtney Young MD BLOOD TRANSFUSION ORDERABLES Final Result * (ABNORMAL) POCT glucose meter (08/19/2024 12:05 PM EDT) Pathologist [facility] POCT Glucose 137(H) 74 - 99 mg/dL 08/19/2024 12:06 PM EDT [facility]ALTH[facility] Comment:Accuracy of a [...] Comment 08/19/2024 12:06 PM EDT [facility] Can Labeler ID Marya Velásquez 08/19/2024 12:06 PM EDT [facility]ALTH[facility] LAB Device ID [id number] 08/19/2024 12:06 PM EDT [facility] Specimen Type POC Capillary 08/19/2024 12:06 PM EDT [facility] Blood Capillary blood specimen / Unknown 08/19/2024 12:05 PM EDT 08/19/2024 12:06 PM EDT Courtney Young MD LAB POINT OF CARE TE ST DOCKED DEVICE UNSOLICITED RESULTS Final Result Performing Organization Address City/[facility] Co de Phone Number [facility] [address] [place] [address] * Prepare Leukocyte Reduced RBC: 1 Units (08/19/2024 10:55 AM EDT) Pathologist [facility] Product Code [id number] BLOO D BANK Dispense Status Transfused BLOOD BANK Blood Expiration Date [id number] BLOOD BANK Unit Number [id number] CH B LOOD BANK Product Blood Type 0600 BLOOD BANK Blood Type A- BLOOD BANK Crossmatch Compatible BLOOD BANK Other us Courtney Young MD BLOOD BANK PRODUCT ORDERABLE S Final Result Performing Organization Address [facility] Co de Phone Number BLOOD BANK [address] [place] [address] * Type and Screen (08/19/2024 9:42 AM EDT) ABO/Rh A Negative 08/19/2024 8:12 AM EDT BLOOD BANK Antibody Screen Negative 08/19/2024 8:12 AM EDT BLOOD BANK Specimen Expiration 08/22/2024 23:59 08/19/2024 8:12 AM EDT BLOOD BANK Blood Venous blood specimen / Unknown Venipuncture / Unknown 08/19/2024 9:42 AM EDT 08/19/2024 10:03 AM EDT Courtney Young MD LAB BLOOD BANK TEST ORDERABL ES Final Result Performing Organization Address [facility] Phone Number BLOOD BANK [address] [place] [address], * (ABNORMAL) Hemoglobin and Hematocrit, Blood (08/19/2024 9:42 AM EDT) [facility] HGB 7.8(L) 13.7 - 17.5 g/dL LAB HEMATOLOGY METHOD 08/19/2024 10:08 AM EDT [facility] HCT 23.8(L) 40.0 - 51.0 % LAB HEMATOLOGY METHOD 08/19/2024 10:08 AM EDT [facility] Blood Venous blood specimen / Unknown Venipuncture / Unknown 08/19/2024 9:42 AM EDT 08/19/2024 10:00 AM EDT Courtney Young MD LAB BLOOD ORDERABLES Final R esult Performing Organization Address [facility] de Phone Number [facility] [address] [place] [address] * (ABNORMAL) POCT glucose meter (08/19/2024 8:01 AM EDT) [facility] POCT Glucose 128(H) 74 - 99 mg/dL 08/19/2024 8:03 AM EDT [facility] Comment:Accuracy [...] for testing. Comment 08/19/2024 8:03 AM EDT [facility] Can Labeler ID [email or web address] 08/19/2024 8:03 AM EDT HEALTHCARE LAB Device ID [id number] 08/19/2024 8:03 AM EDT [facility] Specimen Type POC Capillary 08/19/2024 8:03 AM EDT [facility] Blood Capillary blood specimen / Unknown 08/19/2024 8:01 AM EDT 08/19/2024 8:03 AM EDT Courtney Young MD LAB POINT OF CARE TE ST DOCKED DEVICE UNSOLICITED RESULTS Final Result [facility] [address] [place] [address] * (ABNORMAL) CBC W/O Differential (08/19/2024 4:29 AM EDT) WBC Count 13.81(H) 3.70 - 10.30 10*3/uL LAB HEMATOLOGY METHOD 08/19/2024 4:47 AM EDT [facility] RBC Count 2.75(L) 4.60 - 6.10 10*6/uL LAB HEMATOLOGY METHOD 08/19/2024 4:47 AM EDT [facility] HGB 7.9(L) 13.7 - 17.5 g/dL LAB HEMATOLOGY METHOD 08/19/2024 4:47 AM EDT [facility] HCT 24.9(L) 40.0 - 51.0 % LAB HEMATOLOGY METHOD 08/19/2024 4:47 AM EDT [facility] Platelet Count 266 155 - 369 10*3/uL LAB HEMATOLOGY METHOD 08/19/2024 4:47 AM EDT [facility] MCV 91 79 - 98 fL LAB HEMATOLOGY METHOD 08/19/2024 4:47 AM EDT [facility] MCH 28.7 26.0 - 32.0 pg LAB HEMATOLOGY METHOD 08/19/2024 4:47 AM EDT [facility] MCHC 31.7 30.7 - 35.5 g/dL LAB HEMATOLOGY METHOD 08/19/2024 4:47 AM EDT [facility] RDW 14.5 11.5 - 14.5 % LAB HEMATOLOGY METHOD 08/19/2024 4:47 AM EDT [facility] MPV 10.1 8.8 - 12.5 fL LAB HEMATOLOGY METHOD 08/19/2024 4:47 AM EDT [facility] nRBC 0.0 <=0.0 per 100 WBCs LAB HEMATOLOGY METHOD 08/19/2024 4:47 AM EDT [facility] Blood Venous blood specimen / Unknown Venipuncture / Unknown 08/19/2024 4:29 AM EDT 08/19/2024 4:34 AM EDT us Courtney Young MD LAB BLOOD ORDERABLES Final R esult [facility] [address] [place] [address] * (ABNORMAL) Basic Metabolic Panel, Plasma (08/19/2024 4:29 AM EDT) Glucose, Plasma 127(H) 74 - 99 mg/dL 08/19/2024 6:18 AM EDT [facility] BUN, Plasma 40(H) 8 - 23 mg/dL 08/19/2024 6:18 AM EDT [facility] Creatinine, Plasma 1.91(H) 0.70 - 1.20 mg/dL 08/19/2024 6:18 AM EDT [facility] BUN/Creatinine Ratio 21 08/19/2024 6:18 AM EDT [facility] Sodium, Plasma 134(L) 136 - 145 mmol/L 08/19/2024 6:18 AM EDT [facility] Potassium, Plasma 5.0(H) 3.6 - 4.9 mmol/L 08/19/2024 6:18 AM EDT [facility] Chloride, Plasma 107 97 - 107 mmol/L 08/19/2024 6:18 AM EDT [facility] CO2, Plasma 18(L) 22 - 29 mmol/L 08/19/2024 6:18 AM EDT [facility] Anion Gap 9 6 - 16 mmol/L 08/19/2024 6:18 AM EDT [facility] Total Calcium, Plasma 8.6(L) 8.9 - 10.2 mg/dL 08/19/2024 6:18 AM EDT [facility] eGFRcr 37.7 mL/min/1.7 3m*2 08/19/2024 6:18 AM EDT [facility] Comment:Reported eGFRcr in m L/min/1.73m2 is based the CKD-EPI 2020 equation that does not use a race coefficient. Blood Venous blood specimen / Unknown Venipuncture / Unknown 08/19/2024 4:29 AM EDT 08/19/2024 4:33 AM EDT us Courtney Young MD LAB BLOOD ORDERABLES Final R esult Performing Organization Address City/[facility]/ZIP Co de Phone Number [facility] [address] [place] [address] * (ABNORMAL) POCT glucose meter (08/18/2024 8:03 PM EDT) [facility] POCT Glucose 197(H) 74 - 99 mg/dL [...] Comment 08/18/2024 8:05 PM EDT [facility] Can Labeler ID [email or web address] 08/18/2024 8:05 PM EDT [facility]ALTH[facility]ARE LAB Device ID [id number] 08/18/2024 8:05 PM EDT [facility] Specimen Type POC Capillary 08/18/2024 8:05 PM EDT [facility] Blood Capillary blood specimen / Unknown 08/18/2024 8:03 PM EDT 08/18/2024 8:05 PM EDT us Courtney Young MD LAB POINT OF CARE TE ST DOCKED DEVICE UNSOLICITED RESULTS Final Result Performing Organization Address City/[facility]/ZIP Co de Phone Number [facility] [address] [place] [address] * Phosphorus (08/18/2024 6:20 PM EDT) Phosphorus, Plasma 4.3 2.5 - 4.5 mg/dL 08/18/2024 6:53 PM EDT [facility] Blood Venous blood specimen / Unknown Venipuncture / Unknown 08/18/2024 6:20 PM EDT 08/18/2024 6:24 PM EDT us Courtney Young MD LAB BLOOD ORDERABLES Final R esult Performing Organization Address City/[facility]/ZIP Co de Phone Number [facility] [address] [place] [address] * Magnesium (08/18/2024 6:20 PM EDT) Magnesium, Plasma 2.2 1.9 - 2.4 mg/dL 08/18/2024 6:53 PM EDT [facility] Blood Venous blood specimen / Unknown Venipuncture / Unknown 08/18/2024 6:20 PM EDT 08/18/2024 6:24 PM EDT us Courtney Young MD LAB BLOOD ORDERABLES Final R esult Performing Organization Address City/[facility]/ZIP Co de Phone Number [facility] [address] [place] [address] * (ABNORMAL) Basic metabolic panel (08/18/2024 6:20 PM EDT) Glucose, Plasma 210(H) 74 - 99 mg/dL 08/18/2024 6:53 PM EDT [facility] BUN, Plasma 42(H) 8 - 23 mg/dL 08/18/2024 6:53 PM EDT [facility] Creatinine, Plasma 2.24(H) 0.70 - 1.20 mg/dL 08/18/2024 6:53 PM EDT [facility] BUN/Creatinine Ratio 19 08/18/2024 6:53 PM EDT [facility] Sodium, Plasma 136 136 - 145 mmol/L 08/18/2024 6:53 PM EDT [facility] Potassium, Plasma 5.5(H) 3.6 - 4.9 mmol/L 08/18/2024 6:53 PM EDT [facility] Chloride, Plasma 106 97 - 107 mmol/L 08/18/2024 6:53 PM EDT [facility] CO2, Plasma 18(L) 22 - 29 mmol/L 08/18/2024 6:53 PM EDT [facility] Anion Gap 12 6 - 16 mmol/L 08/18/2024 6:53 PM EDT [facility] Total Calcium, Plasma 8.6(L) 8.9 - 10.2 mg/dL 08/18/2024 6:53 PM EDT [facility] eGFRcr 31.1 mL/min/1.7 3m*2 08/18/2024 6:53 PM EDT [facility] Comment:Reported eGFRcr in m L/min/1.73m2 is based the CKD-EPI 2020 equation that does not use a race coefficient. Blood Venous blood specimen / Unknown Venipuncture / Unknown 08/18/2024 6:20 PM EDT 08/18/2024 6:24 PM EDT us Courtney Young MD LAB BLOOD ORDERABLES Final R esult [facility] [address] [place] [address] * (ABNORMAL) CBC W/O Differential (08/18/2024 6:20 PM EDT) WBC Count 17.84(H) 3.70 - 10.30 10*3/uL LAB HEMATOLOGY METHOD 08/18/2024 6:33 PM EDT [facility] RBC Count 3.25(L) 4.60 - 6.10 10*6/uL LAB HEMATOLOGY METHOD 08/18/2024 6:33 PM EDT [facility] HGB 9.5(L) 13.7 - 17.5 g/dL LAB HEMATOLOGY METHOD 08/18/2024 6:33 PM EDT [facility] HCT 28.8(L) 40.0 - 51.0 % LAB HEMATOLOGY METHOD 08/18/2024 6:33 PM EDT [facility] Platelet Count 348 155 - 369 10*3/uL LAB HEMATOLOGY METHOD 08/18/2024 6:33 PM EDT [facility] MCV 89 79 - 98 fL LAB HEMATOLOGY METHOD 08/18/2024 6:33 PM EDT [facility] MCH 29.2 26.0 - 32.0 pg LAB HEMATOLOGY METHOD 08/18/2024 6:33 PM EDT [facility] MCHC 33.0 30.7 - 35.5 g/dL LAB HEMATOLOGY METHOD 08/18/2024 6:33 PM EDT [facility] RDW 14.3 11.5 - 14.5 % LAB HEMATOLOGY METHOD 08/18/2024 6:33 PM EDT [facility] MPV 10.1 8.8 - 12.5 fL LAB HEMATOLOGY METHOD 08/18/2024 6:33 PM EDT [facility] nRBC 0.0 <=0.0 per 100 WBCs LAB HEMATOLOGY METHOD 08/18/2024 6:33 PM EDT [facility] Blood Venous blood specimen / Unknown Venipuncture / Unknown 08/18/2024 6:20 PM EDT 08/18/2024 6:24 PM EDT us Courtney Young MD LAB BLOOD ORDERABLES Final R esult [facility] [address] [place] [address] * (ABNORMAL) POCT glucose meter (08/18/2024 6:04 PM EDT) POCT Glucose 195(H) 74 - 99 mg/dL 08/18/2024 6:06 PM EDT [facility] Comment:Accuracy of [...] Comment 08/18/2024 6:06 PM EDT [facility] Can Labeler ID Maribell Oglesby 6:06 PM EDT [facility] Device ID [id number] 08/18/2024 6:06 PM EDT [facility] Specimen Type POC Capillary 08/18/2024 6:06 PM EDT [facility] Blood Capillary blood specimen / Unknown 08/18/2024 6:04 PM EDT 08/18/2024 6:06 PM EDT Courtney Young MD LAB POINT OF CARE TE ST DOCKED DEVICE UNSOLICITED RESULTS Final Result Performing Organization Address City/[facility]/ZIP Co de Phone Number [facility] [address] [place] [address] * (ABNORMAL) POCT glucose meter (08/18/2024 5:02 [...] Comment 08/18/2024 5:04 PM EDT [facility] Can Labeler ID Belen Ron 08/18/2024 5:04 PM EDT [facility] Device ID [id number] 08/18/2024 5:04 PM EDT [facility] Specimen Type POC Capillary 08/18/2024 5:04 PM EDT [facility] Blood Capillary blood specimen / Unknown 08/18/2024 5:02 PM EDT 08/18/2024 5:04 PM EDT us Courtney Young MD LAB POINT OF CARE TE ST DOCKED DEVICE UNSOLICITED RESULTS Final Result [facility] [address] [place] [address] * (ABNORMAL) POCT glucose meter (08/18/2024 12:00 PM EDT) POCT Glucose 190(H) 74 - 99 mg/dL [...] Comment 08/18/2024 12:01 PM EDT [facility] Can Labeler ID Belen Ron 08/18/2024 12:01 PM EDT [facility] Device ID [id number] 08/18/2024 12:01 PM EDT [facility] Specimen Type POC Capillary 08/18/2024 12:01 PM EDT [facility] Blood Capillary blood specimen / Unknown 08/18/2024 12:00 PM EDT 08/18/2024 12:01 PM EDT Courtney Young MD LAB POINT OF CARE TE ST DOCKED DEVICE UNSOLICITED RESULTS Final Result Performing Organization Address City/State/[facility] Co de Phone Number [facility] [address] [place] [address] * (ABNORMAL) POCT glucose meter (08/18/2024 8:27 AM EDT) [facility] Signature POCT Glucose 151(H) 74 - 99 mg/dL 08/18/2024 8:29 AM EDT [facility] Comment:Accuracy of a [...] for testing. Comment 08/18/2024 8:29 AM EDT [facility] Can Labeler ID Belen Ron 08/18/2024 8:29 AM EDT [facility] Device ID [id number] 08/18/2024 8:29 AM EDT [facility] Specimen Type POC Capillary 08/18/2024 8:29 AM EDT [facility] Blood Capillary blood specimen / Unknown 08/18/2024 8:27 AM EDT 08/18/2024 8:29 AM EDT us Courtney Young MD LAB POINT OF CARE TE ST DOCKED DEVICE UNSOLICITED RESULTS Final Result [facility] [address] [place] [id number] * (ABNORMAL) Basic Metabolic Panel, Plasma (08/18/2024 3:43 AM EDT) Glucose, Plasma 120(H) 74 - 99 mg/dL 08/18/2024 4:20 AM EDT [facility] BUN, Plasma 32(H) 8 - 23 mg/dL 08/18/2024 4:20 AM EDT [facility] Creatinine, Plasma 1.99(H) 0.70 - 1.20 mg/dL 08/18/2024 4:20 AM EDT [facility] BUN/Creatinine Ratio 16 08/18/2024 4:20 AM EDT [facility] Sodium, Plasma 142 136 - 145 mmol/L 08/18/2024 4:20 AM EDT [facility] Potassium, Plasma 5.1(H) 3.6 - 4.9 mmol/L 08/18/2024 4:20 AM EDT [facility] Chloride, Plasma 108(H) 97 - 107 mmol/L 08/18/2024 4:20 AM EDT [facility] CO2, Plasma 22 22 - 29 mmol/L 08/18/2024 4:20 AM EDT [facility] Anion Gap 12 6 - 16 mmol/L 08/18/2024 4:20 AM EDT [facility] Total Calcium, Plasma 9.0 8.9 - 10.2 mg/dL 08/18/2024 4:20 AM EDT [facility] eGFRcr 35.9 mL/min/1.7 3m*2 08/18/2024 4:20 AM EDT [facility] Comment:Reported eGFRcr in m L/min/1.73m2 is based the CKD-EPI 2020 equation that does not use a race coefficient. Blood Venous blood specimen / Unknown Venipuncture / Unknown 08/18/2024 3:43 AM EDT 08/18/2024 3:48 AM EDT us Courtney Young MD LAB BLOOD ORDERABLES Final R esult Performing Organization Address City/[facility]/ZIP Co de Phone Number [facility] [address] [place] [address] * Magnesium, Plasma (08/18/2024 3:43 AM EDT) Magnesium, Plasma 2.2 1.9 - 2.4 mg/dL 08/18/2024 4:20 AM EDT [facility] Blood Venous blood specimen / Unknown Venipuncture / Unknown 08/18/2024 3:43 AM EDT 08/18/2024 3:48 AM EDT Courtney Young MD LAB BLOOD ORDERABLES Final R esult Performing Organization Address City/[facility]/[place] [address] * Phosphorus, Plasma (08/18/2024 3:43 AM EDT) Phosphorus, Plasma 4.2 2.5 - 4.5 mg/dL 08/18/2024 4:20 AM EDT [facility] Blood Venous blood specimen / Unknown Venipuncture / Unknown 08/18/2024 3:43 AM EDT 08/18/2024 3:48 AM EDT Courtney Young MD LAB BLOOD ORDERABLES Final R esult Performing Organization Address City/[facility]/ZIP Co de Phone Number [facility] [address] [place] [address] * (ABNORMAL) CBC W/O Differential (08/18/2024 3:43 AM EDT) WBC Count 18.75(H) 3.70 - 10.30 10*3/uL LAB HEMATOLOGY METHOD 08/18/2024 4:00 AM EDT [facility] RBC Count 4.00(L) 4.60 - 6.10 10*6/uL LAB HEMATOLOGY METHOD 08/18/2024 4:00 AM EDT [facility] HGB 11.6(L) 13.7 - 17.5 g/dL LAB HEMATOLOGY METHOD 08/18/2024 4:00 AM EDT [facility] HCT 35.1(L) 40.0 - 51.0 % LAB HEMATOLOGY METHOD 08/18/2024 4:00 AM EDT [facility] Platelet Count 359 155 - 369 10*3/uL LAB HEMATOLOGY METHOD 08/18/2024 4:00 AM EDT [facility] MCV 88 79 - 98 fL LAB HEMATOLOGY METHOD 08/18/2024 4:00 AM EDT [facility] MCH 29.0 26.0 - 32.0 pg LAB HEMATOLOGY METHOD 08/18/2024 4:00 AM EDT [facility] MCHC 33.0 30.7 - 35.5 g/dL LAB HEMATOLOGY METHOD 08/18/2024 4:00 AM EDT [facility] RDW 14.1 11.5 - 14.5 % LAB HEMATOLOGY METHOD 08/18/2024 4:00 AM EDT [facility] MPV 9.7 8.8 - 12.5 fL LAB HEMATOLOGY METHOD 08/18/2024 4:00 AM EDT [facility] nRBC 0.0 <=0.0 per 100 WBCs LAB HEMATOLOGY METHOD 08/18/2024 4:00 AM EDT [facility] Blood Venous blood specimen / Unknown Venipuncture / Unknown 08/18/2024 3:43 AM EDT 08/18/2024 3:49 AM EDT us Courtney Young MD LAB BLOOD ORDERABLES Final R esult [facility] [address] [place] [address] * (ABNORMAL) POCT glucose meter (08/17/2024 10:07 PM EDT) POCT Glucose 189(H) 74 - 99 mg/dL 08/17/2024 10:09 PM EDT [facility] Comment:Accuracy of a glucos e result [...] for testing. Comment 08/17/2024 10:09 PM EDT [facility] Can Labeler ID Arianna Thurman 08/17/2024 10:09 PM EDT [facility] Device ID [id number] 08/17/2024 10:09 PM EDT [facility] Specimen Type POC Capillary 08/17/2024 10:09 PM EDT [facility] Blood Capillary blood specimen / Unknown 08/17/2024 10:07 PM EDT 08/17/2024 10:09 PM EDT us Courtney Young MD LAB POINT OF CARE TE ST DOCKED DEVICE UNSOLICITED RESULTS Final Result Performing Organization Address City/[facility]/ZIP Co de Phone Number [facility] [address] [place] [address] * (ABNORMAL) POCT glucose meter (08/17/2024 7:13 PM EDT) [facility] POCT Glucose 273(H) 74 - 99 mg/dL 08/17/2024 7:15 PM EDT [facility] Comment:Accuracy of a [...] for testing. Comment 08/17/2024 7:15 PM EDT [facility] Can Labeler ID Betty Young 08/17/2024 7:15 PM EDT [facility] Device ID [id number] 08/17/2024 7:15 PM EDT [facility] Specimen Type POC Capillary 08/17/2024 7:15 PM EDT [facility] Blood Capillary blood specimen / Unknown 08/17/2024 7:13 PM EDT 08/17/2024 7:15 PM EDT us Courtney Young MD LAB POINT OF CARE TE ST DOCKED DEVICE UNSOLICITED RESULTS Final Result [facility] [address] [place] [address] * (ABNORMAL) POCT glucose meter (08/17/2024 7:00 PM EDT) [facility] POCT Glucose 256(H) 74 - 99 mg/dL [...] for testing. Comment 08/17/2024 7:02 PM EDT [facility] Can Labeler ID Christina Norton 08/17/2024 7:02 PM EDT [facility] Device ID [id number] 08/17/2024 7:02 PM EDT [facility] Specimen Type POC Capillary 08/17/2024 7:02 PM EDT [facility] Blood Capillary blood specimen / Unknown 08/17/2024 7:00 PM EDT 08/17/2024 7:02 PM EDT Courtney Young MD LAB POINT OF CARE TE ST DOCKED DEVICE UNSOLICITED RESULTS Final Result [facility] [address] [place] [address] * (ABNORMAL) Basic metabolic panel (08/17/2024 3:48 PM EDT) [facility] Glucose, Plasma 114(H) 74 - 99 mg/dL 08/17/2024 3:48 PM EDT [facility] BUN, Plasma 34(H) 8 - 23 mg/dL 08/17/2024 3:48 PM EDT [facility] Creatinine, Plasma 2.14(H) 0.70 - 1.20 mg/dL 08/17/2024 3:48 PM EDT [facility] BUN/Creatinine Ratio 16 08/17/2024 3:48 PM EDT [facility] Sodium, Plasma 137 136 - 145 mmol/L 08/17/2024 3:48 PM EDT [facility] Potassium, Plasma 6.0(H) 3.6 - 4.9 mmol/L 08/17/2024 3:48 PM EDT [facility] Chloride, Plasma 109(H) 97 - 107 mmol/L 08/17/2024 3:48 PM EDT [facility] CO2, Plasma 18(L) 22 - 29 mmol/L 08/17/2024 3:48 PM EDT [facility] Anion Gap 10 6 - 16 mmol/L 08/17/2024 3:48 PM EDT [facility] Total Calcium, Plasma 8.6(L) 8.9 - 10.2 mg/dL 08/17/2024 3:48 PM EDT [facility] eGFRcr 32.9 mL/min/1.7 3m*2 08/17/2024 3:48 PM EDT [facility] Comment:Reported eGFRcr in m L/min/1.73m2 is based the CKD-EPI 2020 equation that does not use a race coefficient. Blood Venous blood specimen / Unknown 08/17/2024 3:15 PM EDT us Courtney Young MD LAB BLOOD ORDERABLES Final R esult [facility] [address] [place] [address] * (ABNORMAL) CBC W/O Differential (08/17/2024 3:29 PM EDT) WBC Count 10.32(H) 3.70 - 10.30 10*3/uL LAB HEMATOLOGY METHOD 08/17/2024 3:29 PM EDT [facility] RBC Count 4.37(L) 4.60 - 6.10 10*6/uL LAB HEMATOLOGY METHOD 08/17/2024 3:29 PM EDT [facility] HGB 12.4(L) 13.7 - 17.5 g/dL LAB HEMATOLOGY METHOD 08/17/2024 3:29 PM EDT [facility] HCT 38.8(L) 40.0 - 51.0 % LAB HEMATOLOGY METHOD 08/17/2024 3:29 PM EDT [facility] Platelet Count 310 155 - 369 10*3/uL LAB HEMATOLOGY METHOD 08/17/2024 3:29 PM EDT [facility] MCV 89 79 - 98 fL LAB HEMATOLOGY METHOD 08/17/2024 3:29 PM EDT [facility] MCH 28.4 26.0 - 32.0 pg LAB HEMATOLOGY METHOD 08/17/2024 3:29 PM EDT [facility] MCHC 32.0 30.7 - 35.5 g/dL LAB HEMATOLOGY METHOD 08/17/2024 3:29 PM EDT [facility] RDW 14.0 11.5 - 14.5 % LAB HEMATOLOGY METHOD 08/17/2024 3:29 PM EDT [facility] MPV 9.7 8.8 - 12.5 fL LAB HEMATOLOGY METHOD 08/17/2024 3:29 PM EDT [facility] nRBC 0.0 <=0.0 per 100 WBCs LAB HEMATOLOGY METHOD 08/17/2024 3:29 PM EDT [facility] Blood Venous blood specimen / Unknown 08/17/2024 3:15 PM EDT us Courtney Young MD LAB BLOOD ORDERABLES Final R esult [facility] [address] [place] [address] * POCT glucose meter (08/17/2024 2:37 PM EDT) POCT Glucose 94 74 - 99 mg/dL [...] Comment 08/17/2024 2:39 PM EDT [facility] Can Labeler ID Jaclyn Velasquez 08/17/2024 2:39 PM EDT [facility] Device ID [id number] 08/17/2024 2:39 PM EDT [facility] Specimen Type POC Capillary 08/17/2024 2:39 PM EDT [facility] Blood Capillary blood specimen / Unknown 08/17/2024 2:37 PM EDT 08/17/2024 2:39 PM EDT us Courtney Young MD LAB POINT OF CARE TE ST DOCKED DEVICE UNSOLICITED RESULTS Final Result [facility] [address] [place] [address] * Surgical Pathology Exam (08/17/2024 1:33 PM EDT) Case Report Surgical Pathology Case: [id number] Authorizing Provider: Courtney Young MD Collected: 08/17/2024 1333 Ordering Location: [facility] Received: 08/17/2024 1416 Pathologist: Sulaiman Valles MD Specimen: Prostate, morcellated prostate 08/20/2024 6:26 PM EDT [facility] Final Diagnosis A. PROSTATE, TRANSURETHRAL LASER ENUCLEATION: - BENIGN PROSTATIC HYPERPLASIA 08/20/2024 6:26 PM EDT [facility] at 1826 EDT Clinical Information INCOMPLETE BLADDER EMPTYING 08/20/2024 6:26 PM EDT [facility] Gross Description A. MORCELLATED PROSTATE Received fresh labeled morcellated prostate are multiple pieces of pink-scanlon soft tissue measuring 5.0 x 3.0 x 0.7 cm in aggregate and weighing 6.6 g. Entirely submitted in cassettes A1-A5 Cold Time: <1m Sidra Castaneda 08/20/2024 6:26 PM EDT [facility] Note: A resident was involved in the service. I attest I examined the relevant preparations for the specimens and confirmed the diagnosis or interpretation. 08/20/2024 6:26 PM EDT [facility] Tissue Prostate / Unknown 1:33 PM EDT 08/17/2024 2:16 PM EDT Comment:Pre-op diagnosis: INCOMPLETE BLADDER EMPTYING us Courtney Young MD LAB PATHOLOGY ORDERABLES Fin al Result Performing Organization Address [facility] Co de Phone Number [facility] [address] [place] [address] * (ABNORMAL) POCT glucose meter (08/17/2024 11:17 AM EDT) POCT Glucose 130(H) 74 - 99 mg/dL 08/17/2024 11:18 AM EDT [facility] Comment:Accuracy of a [...] for testing. Comment 08/17/2024 11:18 AM EDT [facility] Can Labeler ID Renae Welch 08/17/2024 11:18 AM EDT [facility] Device ID [id number] 08/17/2024 11:18 AM EDT [facility] Specimen Type POC Venous 08/17/2024 11:18 AM EDT [facility] Blood Venous blood specimen / Unknown 08/17/2024 11:17 AM EDT 08/17/2024 11:18 AM EDT us Courtney Young MD LAB POINT OF CARE TE ST DOCKED DEVICE UNSOLICITED RESULTS Final Result Performing Organization Address [facility] Co de Phone Number [facility] [address] [place] [address] documented in this encounter Visit Diagnoses Diagnosis Urinary retention due to benign prostatic hyperplasia- Primary Incomplete bladder emptying Incomplete bladder emptying documented in this encounter Admitting Diagnoses Diagnosis [...] Given 08/18/2024 12:27 AM EDT 500 mg dextrose 10 % (D10W) bolus 125 mL [...] PRN low blood sugar BG =/<50 mg/dL finasteride (Proscar) tablet 5 mg 5 mg, [...] PM EDT 3 Units Left Upper Arm (Back ) methocarbamol (Robaxin) tablet 500 mg 500 mg, [...] dose on [facility] 08/23/24 at 2100, Routine Given 08/22/2024 8:07 AM [...] Given 08/22/2024 12:36 PM EDT 17 g senna-docusate (Noelle-Colace) 8.6-50 MG per tablet 1 [...] Fer Monsalve RN) 0834 (Given - Provider: eFr Monsalve RN)0917 (MAR Hold - Provider: Automatic [...] on Tue08/20/24 at 1415, Until Discontinued, Routine 1420 (Not Given - Provider: Fer Monsalve RN - Reason: See Provider Order)1730 (Given - Provider: Fer Monsalve RN) 0755 (Not Given - Provider: Fer Monsalve RN - Reason: NPO)0917 (APR Hold - Provider: Automatic Transfer Provider - Reason: Patient in procedure)1230 (Dose Auto Held - Provider: Automatic Transfer Provider)1243 (APR Unhold - Provider: Automatic Transfer Provider)1758 (Given [...] condition: must add comment - Comment: n/a)0917 (APR Hold - Provider: Automatic Transfer Provider - Reason: Patient in procedure)1243 (APR Unhold - Provider: Automatic Transfer Provider)2108 (Given [...] See Provider Order)1252 (Given - Provider: Fer Monsalve RN) methocarbamol (Robaxin) tablet 500 mg 500 [...] Monsalve RN)1758 (Given - Provider: Fer Monsalve RN)2109 (Given - Provider: Zain Holden RN) 0806 (Given - Provider: Naveed Downey RN)1410 (Not Given - Provider: Naveed Downey RN - Reason: Patient/family refused) metoprolol succinate XL (Toprol-XL) 24 hr tablet 50 mg 50 mg, Oral, Every morning, First dose on Tue08/18/24 at 0600, Until Discontinued, Recovery(Phase II-Outpatient)/On Unit(Inpatient) 0536 (Given - Provider: Zain Holden RN) 0515 (Given - Provider: Zain Holden RN)0917 ([facility] Hold - Provider: Automatic Transfer Provider - Reason: Patient in procedure)1243 ([facility] Unhold - Provider: Automatic Transfer Provider) 0524 (Given - Provider: Zain Holden RN) mupirocin (Bactroban) 2 % ointment 1 Application Each Nostril, 2 times daily, 10 doses, First dose on 08/19/24 at 0900, Last dose on [facility] 08/23/24 at 2100, Routine 0827 (Given - Provider: Fer Monsalve RN)2109 (Not Given - Provider: Zain Holden RN - Reason: Patient/family refused) 0836 (Given - Provider: Fer Monsalve RN)0917 ([facility] Hold - Provider: Automatic Transfer Provider - Reason: Patient in procedure)1243 ([facility] Unhold - Provider: Automatic Transfer Provider)2109 (Not Given - Provider: Zain Holden RN - Reason: Patient/family refused) 0807 (Given - Provider: Naveed Downey, DAVE) NIFEdipine XL (Procardia XL) 24 hr tablet 60 mg 60 mg, Oral, Daily, First dose on 08/18/24 at 0900, Until Discontinued, Routine, Recovery(Phase II-Outpatient)/On Unit(Inpatient) 0827 (Given - Provider: Fre Monsalve RN) 0834 (Given - Provider: Fer Monsalve RN)0917 ([facility] Hold - Provider: Automatic Transfer Provider - Reason: Patient in procedure)1243 ([facility] Unhold - Provider: Automatic Transfer Provider) 0806 (Given - Provider: Naveed Downey, DAVE) pantoprazole (Protonix) EC tablet 40 mg 40 mg, Oral, Daily before breakfast, First dose on 08/18/24 at 0730, Until Discontinued, Recovery(Phase II-Outpatient)/On Unit(Inpatient) 0827 (Given - Provider: Fer Monsalve RN) 0834 (Given - Provider: Fer Monsalve RN)0917 ([facility] Hold - Provider: Automatic Transfer Provider - Reason: Patient in procedure)1243 (APR Unhold - Provider: Automatic Transfer Provider) 0807 (Given - Provider: Naveed Downey, DAVE) phenazopyridine (Pyridium) tablet 200 mg 200 mg, [...] Routine 1236 (Given - Provid er: Naveed Downey, RN) Povidone-Iodine 5 % swab solution 1 Application (COMPLETED) Nasal, Once, 1 dose, On Tue08/21/24 at 1030, Routine 0940 (Given - Provider: Marbella Pizarro, DAVE) senna-docusate (Noelle-Colace) 8.6-50 MG per tablet 1 tablet 1 tablet, Oral, Nightly, First dose on Tue08/22/24 at 2100, Until Discontinued, Routine sodium chloride 0.9 % flush 10 mL(Linked Group 1) 10 mL, Intravenous, Every 12 hours, First dose on Tue08/17/24 at 1545, Until Discontinued, Routine, Recovery(Phase II-Outpatient)/On Unit(Inpatient) 0328 (Given - Provider: Zain Holden RN)1508 (Not Given - Provider: Fer Monsalve [...] Routine 1000 (Rate/Dose Verify - Provider: Fer Monsalve, RN) 1203 (New Bag - Provider: Reena Green, RN) 1049 (Stopped - Provider: Naveed Downey, RN) PRN Medication Order 08/20/2024 08/21/2024 08/22/2024 calcium carbonate (Tums) chewable tablet 500 mg 500 mg, Oral, 4 times daily PRN, Starting on Tue08/18/24 at 0021, Until Tue08/22/24 at 1741, Routine, indigestion, heartburn 0917 ([facility] Hold - Provider: Automatic Transfer Provider - Reason: Patient in procedure)1243 ([facility] Unhold - Provider: Automatic Transfer Provider) dextrose 10 % (D10W) bolus 125 mL(Linked Group 2) 125 mL, Intravenous, Every 15 min PRN, Starting on Tue08/17/24 at 2035, Until Tue08/22/24 at 1741, Administer over 15 Minutes, Routine, low blood sugar BG 51-89 mg/dL 0917 ([facility] Hold - Provider: Automatic Transfer Provider - Reason: Patient in procedure)1243 ([facility] Unhold - Provider: Automatic Transfer Provider) dextrose 10 % (D10W) bolus 250 mL(Linked Group 2) 250 mL, Intravenous, Every 15 min PRN, Starting on Tue08/17/24 at 2035, Until Tue08/22/24 at 1741, Administer over 15 Minutes, Routine, PRN low blood sugar BG =/<50 mg/dL 0917 ([facility] Hold - Provider: Automatic Transfer Provider - Reason: Patient in procedure)1243 ([facility] Unhold - Provider: Automatic Transfer Provider) glucagon (human recombinant) injection 1 mg(Linked Group 2) 1 mg, Intramuscular, Every 15 min PRN, Starting on Tue08/17/24 at 2035, Until Tue08/22/24 at 1741, Routine, low blood sugar per Hypoglycemia Prevention and Treatment protocol 0917 ([facility] Hold - Provider: Automatic Transfer Provider - Reason: Patient in procedure)1243 ([facility] Unhold - Provider: Automatic Transfer Provider) glucose (Glutose) 40 % oral gel 15-30 grams of glucose(Linked Group 2) 15-30 grams of glucose, Sublingual, Every 15 min PRN, Starting on Tue08/17/24 at 2035, Until Tue08/22/24 at 1741, Routine, low blood sugar, per Hypoglycemia Prevention and Treatment protocol 0917 ([facility] Hold - Provider: Automatic Transfer Provider - Reason: Patient in procedure)1243 ([facility] Unhold - Provider: Automatic Transfer Provider) ondansetron (Zofran) injection 4 mg 4 mg, Intravenous, Every 6 hours PRN, Starting on Tue08/17/24 at 1444, Until Tue08/22/24 at 1741, Routine, Recovery(Phase II-Outpatient)/On Unit(Inpatient), nausea, vomiting 0917 ([facility] Hold - Provider: Automatic Transfer Provider - Reason: Patient in procedure)1243 ([facility] Unhold - Provider: Automatic Transfer Provider) oxyCODONE (Roxicodone) immediate release tablet 5 mg 5 mg, Oral, Every 4 hours PRN, Starting on Tue08/17/24 at 1443, Until Tue08/22/24 at 1741, Routine, Recovery(Phase II-Outpatient)/On Unit(Inpatient), severe pain 0917 ([facility] Hold - Provider: Automatic Transfer Provider - Reason: Patient in procedure)1243 ([facility] Unhold - Provider: Automatic Transfer Provider) sodium chloride 0.9 % flush 10 mL(Linked Group 1) 10 mL, Intravenous, As needed, Starting on Tue08/17/24 at 1442, Until Tue08/22/24 at 1741, Routine, Recovery(Phase II-Outpatient)/On Unit(Inpatient), line care 0917 ([facility] Hold - Provider: Automatic Transfer Provider - Reason: Patient in procedure)1243 ([facility] Unhold - Provider: Automatic Transfer Provider) Linked [...] on Tue08/17/24 at 203, Until Tue08/22/24 at 174, Routine, low blood sugar, per Hypoglycemia Prevention and Treatment protocol Or dextrose 10 % (D10W) bolus 125 mLJump to med 125 mL, Intravenous, Every 15 min PRN, Starting on Tue08/17/24 at 203, Until Tue08/22/24 at 174, Administer over 15 Minutes, Routine, low blood sugar BG 51-89 mg/dL Or dextrose 10 % (D10W) bolus 250 mLJump to med 250 mL, Intravenous, Every 15 min PRN, Starting on Tue08/17/24 at 203, Until Tue08/22/24 at 174, Administer over 15 Minutes, Routine, PRN low blood sugar BG =/<50 mg/dL Or glucagon (human recombinant) injection 1 mgJump to med 1 mg, Intramuscular, Every 15 min PRN, Starting on Tue08/17/24 at 2034, Until Tue08/22/24 at 174, Routine, low blood sugar per Hypoglycemia Prevention [...] documented as of this encounter Care Teams Child Care Provider Relationship Specialty Start Date End Date Luis Caraballo MD [address] [place] [address] [place] [id number] PCP - General 06/20/20 documented as of this encounter
--- OUTSIDE RECORDS SUMMARY | 2024-08-17 12:46 | XMS_ITS | Encounter Summary ---
Author Organization [facility] Address [address] [place] [address] Care Team Providers Care Chief Executive Name Role Phone Luis Caraballo MD Primary Care Provider [phone] Reason for Visit * Auth/Cert (Routine) Specialty Diagnoses / Procedures Referred By Contac t Referred To Contact Diagnoses Incomplete bladder emptying INCOMPLETE BLADDER EMPTYING Procedures MT LASER ENUCLEATION PROSTATE W MORCELLATION ENUCLEATION, PROSTATE, TRANSURETHRAL, USING HOLMIUM LASER ( HOLEP ) Courtney Young MD [address] [facility] [facility] [address] [place] [address] Phone: tel: fax: [facility] [address] [place] [address] Phone: tel: Referral ID Status Reason Start Date Expiration Date Visits Re quested Visits Authorized [id number] 1 1 Encounter Details Date Type Department Care Team (Late st Contact Info) Description 08/17/2024 12:46 PM EDT Anesthesia Event [facility] [address] [place] [address] Tom Cyr MD [address] [place] [address] Masoud Contreras MD [address] [place] [address] Anesthesia Record Procedure Summary Procedure Name Responsible [...] acknowledgement of understanding. 1407 An Stop Meds Name Total fentaNYL (Sublimaze) injection 50 mcg/mL 100 mcg lidocaine PF (Xylocaine-MPF) 2% 80 mg propofol (Diprivan) injection 10 mg/mL 2 00 mg rocuronium (ZeMuron) injection 10 mg/mL 80 mg dexamethasone (Decadron) injection 4 mg/ mL 4 mg ePHEDrine injection prefilled syringe 5 mg/mL 5 mg phenylephrine (Carlos-Synephrine) prefilled syringe 1 mg/10 mL 100 mcg ondansetron (Zofran) injection 2 mg/mL 4 mg sugammadex (Bridion) injection 100 mg/mL 200 mg ceFAZolin (Ancef) vial 1 g 2 g lactated Ringer's infusion 1,000 mL * Agents Name O2 Air Isoflurane * Blood No blood administrations on file. Lines, Drains, and Airways Type Details Placement Removal Continuous Bladder Irrigation 08/17/24; 08/22/24; 0945 (Removed by ); Other (Comment) 08/17/24 0000 [...] as of this encounter Miscellaneous Notes * Anesthesia Postprocedure Evaluation - Masoud Contreras MD - 08/17/2024 2:07 PM EDT Patient: Deny Garcia Anesthesia Type: general Vitals Value Taken Time BP 134/83 08/17/24 14:07 Temp 96.6 08/17/24 14:07 Pulse 74 08/17/24 14:07 Resp 12 08/17/24 14:07 SpO2 100 08/17/24 14:07 Anesthesia Post Evaluation Patient location during evaluation: PACU Patient participation: complete - patient participated Level of consciousness: awake Pain management: adequate (pain score 0-3) Airway patency: natural airway Cardiovascular status: acceptable and hemodynamically stable Respiratory status: acceptable, blow-by oxygen, spontaneous ventilation and unassisted Hydration status: acceptable Nausea/Vomiting: No No notable events documented. Cosigned by Tom Cyr MD at 08/17/2024 5:02 PM EDT Associated attestation - Tom Cyr MD - 08/17/2024 5:02 PM EDT I agree with the findings and care plan documented in the postprocedure evaluation note. * Anesthesia Procedure Notes - Masoud Contreras MD - 08/17/2024 12:56 PM EDT Associated Order(s): Airway Airway Date/Time: 08/17/2024 12:50 PM Reason: elective Airway not difficult General Information and Staff Patient location during procedure: OR Anesthesiologist: Tom Cyr MD Resident: Masoud Contreras MD Performed: Resident Patient Condition Indications for airway management: anesthesia Patient position: sniffing Final Airway Details Final airway type: endotracheal airway Successful airway: ETT Cuffed: yes Successful intubation technique: direct laryngoscopy Adjuncts used in placement: intubating stylet Endotracheal tube insertion site: oral Blade: Didi Blade size: #3 ETT size (mm): 8.0 Cormack-Lehane Classification: grade I - full view of glottis Placement verified by: chest auscultation and capnometry Measured from: lips Additional Comments Atraumatic. No change to dentition. Cosigned by Tom Cyr MD at 08/17/2024 5:02 PM EDT Associated attestation - Tom Cyr MD - 08/17/2024 5:02 PM EDT I was present during all critical and villegas portions of the procedure(s) and immediately available [facility] the entire duration. See resident note for details. * Anesthesia Preprocedure Evaluation - Tom Cyr MD - 08/17/2024 11:03 AM EDT Images from the original note were not included. HPI Mouna Garcia is a 69 y.o. male who presents with Pre-op Diagnosis * Incomplete bladder emptying [R33.9] now scheduled for ENUCLEATION, PROSTATE, TRANSURETHRAL, USING HOLMIUM LASER ( HOLEP ) (N/A) with [place]ney [place] [facility] [place] Past 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[1] Family History[2] Social History[3] SURGICAL HISTORY: Surgical History[4] Allergies[5] MEDICATIONS: Current Medications[6] ROS Anesthesia: Date of last anesthetic: 2002 [place] CABG history of previous anesthesia. Does not have a history of anesthetic complications and obstructivesleep apnea. Cardiovascular: CAD (s/p CABG ~ 2002, no issues since then, stable), hyperlipidemia and past IN. Does not have atrial fibrillation, CHF, dyspnea, [...] last 30 days. HEENT: Does not have difficulty swallowing, chipped teeth, loose teeth or missing teeth. [...] Date INR 1.2 (H) 02/24/2024 Visit Vitals Smoking Status Never 08/02/2024 2:50 PM Vitals Weight (kg) 92.08 kg BMI 26.78 kg/m2 BSA (m2) 2.18 m2 Physical Exam Airway Mallampati: II Mouth opening: normal Neck ROM: full Cardiovascular Rhythm: regular Dental - normal exam Pulmonary Neurological Oriented: normal to time, normal to person and normal to place Skin Skin: warm Musculoskeletal Extremities Anesthesia Plan ASA 3 Anesthesia technique(s) discussed with the patient/family: general Anesthesia plan agreed upon was: general Comment: CIRILO phone screen Anesthetic plan and risks discussed with patient. Tom Cyr MD [1] Past 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: Diagnosis Date Diabetes [...] 2003. [5] No Known Allergies [6] Current Facility-Administered Medications: cefTRIAXone documented in this encounter Plan of Treatment Upcoming Encounters Date Type Department Care Team ([facility] st Contact Info) Description 08/31/2024 12:15 PM EDT Appointment Medical Office Building Physical Therapy [address], [address] [place] [address] Charlotte Pillai [address] [facility] [address] [place] [id number] 09/19/2024 3:30 PM EDT Office Visit Medical Office Building Urology [address], [address] [place] [address] Courtney Young MD [address] [facility] [address] [place] [id number] 10/10/2024 4:00 PM EDT Office Visit [facility] Nephrology, Bone & Mineral Metabolism [address], [address] [place] [address] Mp Reis PA [address] [facility] [address] [place] [address] 06/05/2025 10:45 AM EDT Appointment [facility] [address] [place] [address] 06/05/2025 11:50 AM EDT Clinical Support [facility] [address] [place] [address] 06/05/2025 12:30 PM EDT Office Visit [facility] [address] [place] [address] Charlotte Rodriguez P, [employer], DNP [address] [place] [address] documented as of this encounter Procedures Procedure Name Priority Date/Time Associated Diagnosis Comments PB ANESTHESIA PLACEHOLDER Routine 08/17/2024 12:50 PM EDT MT AN ELECTIVE ENDOTRACHEAL AIRWAY Routine 08/17/2024 12:50 PM EDT documented in this encounter Results * MT AN ELECTIVE ENDOTRACHEAL AIRWAY, PB ANESTHESIA PLACEHOLDER (08/17/2024 12:50 PM EDT) Narrative Tom Cyr MD - 08/17/2024 12:50 PM EDT Tom Cyr MD 08/17/2024 5:02 PM Airway Date/Time: 08/17/2024 12:50 PM Reason: elective Airway not difficult General Information and Staff Patient location during procedure: OR Anesthesiologist: Tom Cyr MD Resident: Masoud Contreras MD Performed: Resident Patient Condition Indications for airway management: anesthesia Patient position: sniffing Final Airway Details Final airway type: endotracheal airway Successful airway: ETT Cuffed: yes Successful intubation technique: direct laryngoscopy Adjuncts used in placement: intubating stylet Endotracheal tube insertion site: oral Blade: Didi Blade size: #3 ETT size (mm): 8.0 Cormack-Lehane Classification: grade I - full view of glottis Placement verified by: chest auscultation and capnometry Measured from: lips Additional Comments Atraumatic. No change to dentition. us Tom Cyr MD ANESTHESIA ORDERABLES Final Res ult documented in this encounter Visit Diagnoses Not on filedocumented in this encounter Administered Medications Inactive Administered Medications - up to 3 most recent administrations Medication Order MAR Action Action Date Dose Rate Site ceFAZolin (Ancef) injection Intravenous, As needed, Starting on Tue08/17/24 at 1309, Until Tue08/17/24 at 1407, Routine, Anesthesia Intraprocedure Given 08/17/2024 1:09 PM EDT 2 g dexamethasone (Decadron) injection Intravenous, As needed, Starting on Tue08/17/24 at 1309, Until Tue08/17/24 at 1407, Routine, Anesthesia Intraprocedure Given 08/17/2024 1:09 PM EDT 4 mg ePHEDrine Sulfate (Akovaz) injection Intravenous, As needed, Starting on Tue08/17/24 at 1309, Until Tue08/17/24 at 1407, Routine, Anesthesia Intraprocedure Given 08/17/2024 1:09 PM EDT 5 mg fentaNYL (Sublimaze) injection Intravenous, As needed, Starting on Tue08/17/24 at 1251, Until Tue08/17/24 at 1407, Routine, Anesthesia Intraprocedure Given 08/17/2024 12:51 PM EDT 100 mcg lactated Ringer's infusion Intravenous, Continuous PRN, Starting on Tue08/17/24 at 1251, Until Tue08/17/24 at 1407, Routine New Bag 08/17/2024 12:51 PM EDT lidocaine PF (Xylocaine) 2 % injection Intravenous, As needed, Starting on Tue08/17/24 at 1251, Until Tue08/17/24 at 1407, Routine, Anesthesia Intraprocedure Given 08/17/2024 12:51 PM EDT 80 mg ondansetron (Zofran) injection Intravenous, As needed, Starting on Tue08/17/24 at 1350, Until Tue08/17/24 at 1407, Routine, Anesthesia Intraprocedure Given 08/17/2024 1:50 PM EDT 4 mg phenylephrine in NS (Carlos-Synephrine) 100 mcg/mL prefilled syringe Intravenous, As needed, Starting on Tue08/17/24 at 1309, Until Tue08/17/24 at 1407, Routine, Anesthesia Intraprocedure Given 08/17/2024 1:09 PM EDT 100 mcg propofol (Diprivan) injection Intravenous, As needed, Starting on Tue08/17/24 at 1251, Until Tue08/17/24 at 1407, Routine, Anesthesia Intraprocedure Given 08/17/2024 12:51 PM EDT 200 mg rocuronium (ZeMuron) injection Intravenous, As needed, Starting on Tue08/17/24 at 1251, Until Tue08/17/24 at 1407, Routine, Anesthesia Intraprocedure Given 08/17/2024 1:32 PM EDT 10 mg Given 08/17/2024 12:51 PM EDT 70 mg sugammadex (Bridion) 100 MG/ML injection Intravenous, As needed, Starting on Tue08/17/24 at 1354, Until Tue08/17/24 at 1407, Routine, Anesthesia Intraprocedure Given 08/17/2024 1:54 PM EDT 200 mg documented in this encounter Additional Health Concerns Assessment Noted Time PHQ-9 Depression Total Score: 0 07/06/19 3:19 PM EDT A fall risk assessment has been complete d for the patient 07/11/2024 4:06 PM EDT A Body Mass Index follow-up plan has been documented for the patient 08/22/2024 3:26 PM EDT documented as of this encounter Care Teams Chief Executive Relationship Specialty Start Date End Date Luis Caraballo MD [address] [place] [address] PCP - General 06/20/20 documented as of this encounter
--- OUTSIDE RECORDS SUMMARY | 2024-08-21 09:00 | XMS_ITS | Encounter Summary ---
Author Organization [facility] Address [address] [place] [address] Care Team Providers Care Grades 9 12 Tutor Name Role Phone Luis Caraballo MD Primary Care Provider [phone] Reason for Visit * Auth/Cert (Routine) Specialty Diagnoses / Procedures Referred By Radha t Referred To Contact Diagnoses Incomplete bladder emptying INCOMPLETE BLADDER EMPTYING Procedures AK LASER ENUCLEATION PROSTATE W MORCELLATION ENUCLEATION, PROSTATE, TRANSURETHRAL, USING HOLMIUM LASER ( HOLEP ) Courtney Young MD [address] [address] Phone: tel: fax: [facility] [address] [place] [address] Phone: tel: Referral ID Status Reason Start Date Expiration Date Visits Re quested Visits Authorized [id number] 1 1 Encounter Details Date Type Department Care Team (Late st Contact Info) Description 08/21/2024 9:00 AM EDT - 08/21/2024 11:00 AM EDT Surgery [facility] [address] [place] [address] Courtney Young MD [address] [address] CYSTOSCOPY, WITH BLADDER FULGURATION, FOR BLEEDING [53644 (CPT )] Surgery Details Date/Time Status Location OR Service Patient Class Case Class Case Type Trauma Case? 08/21/2024 9:00 AM Posted [facility] OR [facility] OR 12 Urology Inpatient T-Timed: to be done within 24 hours Panel 1 Procedure LRB Anes Op Region Wound Class Comments CYSTOSCOPY, WITH BLADDER FUL GURATION, FOR BLEEDING N/A Choice Surgeon Surgeon Role Service Panel Nilson Montes MD Resident - Assisting 1 Courtney Young MD Primary Urology 1 Markel Palma MD Resident - Assisting 1 Special Needs dorsal lithotomy documented in this encounter Social History Tobacco [...] Sign Reading Time Taken Comments Blood Pressure 182/91 08/21/2024 9:32 AM EDT Pulse 88 08/21/2024 9:32 AM EDT Temperature 36.7 C (98 F) 08/21/2024 9:32 AM EDT Respiratory Rate 16 08/21/2024 9:32 AM EDT Oxygen Saturation 95% 08/21/2024 9:32 AM EDT Inhaled Oxygen Concentration - - Weight 89.4 kg (197 lb 1.5 oz) 08/21/2024 5:32 A M EDT Height 185.4 cm (6' 1 ) 08/17/2024 11:08 AM EDT Body Mass Index 26.15 08/17/2024 11:08 AM EDT documented in this encounter Functional Status * Calculated C-SSRS Risk Score (Lifetime/Recent) Answer Date of Assessment Author No Risk Indicated 08/21/2024 9:25 AM EDT Maria Esther Pizarro RN * Question Answer Date of Assessment Author 1. Wish to be (Past 1 Month) No 07/15/2 025 9:25 AM EDT Marbella Pizarro RN 2. Non-Specific Active Suici carolina Thoughts (Past 1 Month) No 08/21/2024 9:25 AM EDT Marbella Pizarro RN 6. Suicidal Behavior (Lifetime) No 5 9:25 AM EDT Marbella Pizarro RN documented as of this encounter Discharge Instructions * Discharge Instructions* Nilson Montes MD - 08/22/2024 10:55 AM EDT [facility] instructions: Diagnosis: Benign prostate hyperplasia with difficulty [...] tablets by mouth every 6 hours. Under [place] law, monthly prescriptions (30 days) can be [...] split. Replaces amlodipine 30 tablet 5 04/27/2024 [place]-3 Fatty Acids (FISH OIL HIGH POTENCY PO) [...] Note Mouna Garcia 69 y.o. male CSN: [id number] Admission: 08/17/2024 10:02 AM Primary Problem: Urinary retention due to benign prostatic hyperplasia Primary Conductor/Engineer: Assistance Available at Discharge: Family/Conductor/Engineer(s) Willingness Assessed to care for patient at home: Yes Family/Conductor/Engineer(s) Readiness Assessed to care for patient at [...] MD [address] [place] [address] Discharge Transportation: Transportation Anticipated: family or friend [...] agrees with above DC plan. In??BRIANA Trotter, residential case manager * Maria De Jesus Livingston RN - 08/22/2024 3:25 PM EDT Images from the original note were not included. [id number] Methocarbamol WHY is this medicine prescribed? Methocarbamol [...] of all of the prescription and nonprescription (vovc-xqi-bhpvkll) medicines, vitamins, minerals, and dietary supplements you [...] or pharmacist about specific clinical use. The [place] [employer] represents that the information provided hereunder was formulated with a reasonable standard of care, and in conformity with professional standards in the field. The [place] [employer] makes no representations or warranties, express or implied, including, but not limited to, any implied warranty of merchantability and/or fitness for a particular purpose, with respect to such information and specifically disclaims all such warranties. Users are advised that decisions regarding drug therapy are complex medical decisions requiring the independent, informed decision of an appropriate health cna caregiver, and the information is provided for informational purposes only. The entire monograph for a drug should be reviewed for a thorough understanding of the drug's actions, uses and side effects. The [place] [employer] does not endorse or recommend the use of any drug.The information is not a substitute for medical care. AHFS?? Patient Medication Information?. ?? Copyright, 2023. The [place]??, [address], [address], [place], [place]. All Rights Reserved. Duplication for commercial use must be authorized by [facility]. Selected Revisions: September 21, 2016. AHFS?? Patient Medication Information?. ?? Copyright, 2024 * Basim VillegasCRIS - Maria De Jesus Siddiqui RN - 08/22/2024 3:25 PM EDT Images from the original note were not included. [id number] Phenazopyridine WHY is this medicine prescribed? Phenazopyridine [...] or have ever had kidney disease or obaniwj-4-brsujtxre dehydrogenase(G-6-PD) deficiency (an inherited blood disease). ? [...] be awakened, immediately call emergency services at 620. What OTHER INFORMATION should I know? Keep [...] of all of the prescription and nonprescription (xyky-noa-ivkkdqf) medicines, vitamins, minerals, and dietary supplements you [...] or pharmacist about specific clinical use. The [place] [employer] represents that the information provided hereunder was formulated with a reasonable standard of care, and in conformity with professional standards in the field. The [place] [employer] makes no representations or warranties, express or implied, including, but not limited to, any implied warranty of merchantability and/or fitness for a particular purpose, with respect to such information and specifically disclaims all such warranties. Users are advised that decisions regarding drug therapy are complex medical decisions requiring the independent, informed decision of an appropriate health cna caregiver, and the information is provided for informational purposes only. The entire monograph for a drug should be reviewed for a thorough understanding of the drug's actions, uses and side effects. The [place] [employer] does not endorse or recommend the use of any drug.The information is not a substitute for medical care. AHFS?? Patient Medication Information?. ?? Copyright, 2023. The [place] [employer]??, [address], [address], [place], [place]. All Rights Reserved. Duplication for commercial use must be authorized by [facility]. Selected Revisions: March 24, 2017. AHFS?? Patient Medication Information?. ?? Copyright, 2024 * Maria De Jesus Livingston RN - 08/22/2024 3:24 PM EDT Images [...] at . Nights, weekends and holidays, call [facility] at and ask for the Urology Resident conductor/engineer. Call [phone] if you have any of the following ? A lot of pain or vomiting ? Urine becomes bright licona red or has many clots of blood in it ? Shaking chills ? A large amount of bleeding ? Cannot urinate for 10 to 12 hours and have lower abdominal pain or bloating * Maria De Jesus Livingston RN - 08/22/2024 3:23 PM EDT Images from the original note were not included. [id number] Benign Prostatic Hyperplasia The prostate is a [...] Transrectal ultrasound is a procedure where the science technician inserts a transducer slightly larger than [...] biopsy. Last Reviewed Date: 2024 00:00:00 ?? [id number] The [employer]. All rights reserved. This information is not intended as a substitute for professional medical care. Always follow your healthcare professional's instructions. * Discharge Summary - Nilson Montes MD - 08/22/2024 2:15 PM EDT Hospitalization Admit Date/Time: 08/17/2024 10:02 AM Admitting Attending: Courtney Young Discharge Date: 08/22/24 Discharge Attending Physician: Courtney Young MD PCP name and Address: Luis Caraballo MD [address] [facility] / [place] [address] Referring provider name and address: No referring provider defined for this encounter. Chief Concern, Brief History of Present Illness, and Hospital Course Mouna Garcia is a 69 y.o. male with PMH BPH who presented to [facility] for surgical intervention. They were taken [...] tablets by mouth every 6 hours. Under [place] law, monthly prescriptions (30 days) can be [...] Your Medications These medications were sent to [facility] [place], [place] - [address] [facility] [address] acetaminophen 325 MG tablet methocarbamol 500 MG [...] Department Center 08/31/2024 12:15 PM Charlotte Pillai PTOTGSPENNY MOB 09/19/2024 3:30 PM Courtney Young MD UROGSHMGRANT MOB 10/10/2024 4:00 PM Mp Reis PA RENGSPAC PAC 06/05/2025 10:45 AM CH P[facility] US 4 USCHA CH Pav A 06/05/2025 11:50 AM CH [facility] LAB LABCHKYC [facility] 06/05/2025 12:30 PM Charlotte Rodriguez, CARPENTER INSPECTOR, DNP UROCHKYC [facility] Test Results Pending At Discharge Pertinent Physical Exam At Time of Discharge Physical Exam Vitals and nursing note reviewed. Exam conducted with a filter washer present. Constitutional: General: He is not in [...] MAR) Intervention: Provide Person-Centered Care Flowsheets (Taken 08/19/20242330 by Zain Holden RN) Trust Relationship/Rapport: care [...] Agree with above assessment and evaluation from resident/MARINE AIR GROUND TASK FORCE PLANNERS. * Op Note - Courtney Young MD - 08/21/2024 10:59 AM EDT Operative Report SURGEON: Courtney Young MD Hot Metal Crane Operator: MD Markel Avila MD SURGICAL TEAM: Anesthesiology Teacher: Jossie Young RN Scrub Person: PachecoSierra hemphillica DATE OF SURGERY : 08/21/2024 PREOPERATIVE DIAGNOSIS: [...] The scope was removed and a 22 Upper Sorbian 3-way Law catheter was inserted with continuous [...] Care Review Outcome: Ongoing, Progressing Flowsheets (Taken 08/20/2024 2221) Progress: no change Plan of Care Reviewed With: patient spouse Goal: Patient-Specific Goal (Individualized) Outcome: Ongoing, Progressing Flowsheets (Taken 08/20/2024 1950) Patient/Family-Specific Goals (Include Timeframe): CBI will be [...] 08/20/2024 3:15 PM EDT Pastoral Care Note Adjunct Instructor Of Women'S Studies visited with patient and family, spouse, at bedside and provided emotional support. Patient and spouse shared that they are coping well. Adjunct Instructor Of Women'S Studies provided a supportive presence and empathic listening. Pastoral care will continue to be available as needed. Referral From: Adjunct Instructor Of Women'S Studies Initiated Pastoral Care Provided For: Patient, Spouse Patient Profile: Consult Reasons: Emotional support, Family support Spiritual Assessment: Support Systems/ Spiritual Resources: Family Spiritual Needs: Emotional support Spiritual Issues: Chronic pain/ illness Interventions: Interventions Provided: Emotional support, Family support, Introduced Patient/Family to Adjunct Instructor Of Women'S Studies Services, Supportive Listening Pastoral Care Outcomes: Patient Outcomes: Demonstrates lower level of Anxious(ness), Is knowledgeable about Baseball Scout Services, Appreciative of Adjunct Instructor Of Women'S Studies Support * Progress Notes - Renate Blanchard RN - 08/20/2024 11:40 AM EDT Case Management Adult Progress Note Mouna Garcia 69 y.o. male CSN: [id number] Admission: 08/17/2024 10:02 AM Primary Problem: Urinary retention due to benign prostatic hyperplasia Anticipated Discharge Date: 08/23/24 Has Discharge Plans Changed? Medicare Second Notice: Housing Circumstances: Housing Circumstances Action Taken: Medically Ready for Discharge: Additional Comments POC reviewed with primary team. Refer to primary team's note for details. Pt is not medically readytoday. In??BRIANA Trotter, residential case manager * Care Plan - Fer Monsalve RN - 08/20/2024 10:38 AM EDT Problem: Adult Inpatient Plan of Care Goal: Plan of Care Review Outcome: Ongoing, Progressing Flowsheets Taken 08/20/2024 1038 by Fer Monsalve RN Progress: no change Taken 08/19/20242330 by Zani Holden RN Plan of Care Reviewed With: [...] Bautista MD - 08/20/2024 7:46 AM EDT [facility] Urology Inpatient Progress Note Primary Attending: [...] mL/kg) [P.O.:1840; I.V.:786 (8.6 mL/kg); Blood:1109.4] Out: 29564 (179.6 mL/kg) [Urine:01596 (5 mL/kg/hr)] Weight: 91.3 kg Urethral Catheter [...] at midnight - continue [facility] Mary Ann Bautista MD PGY-1 Urology Pager: [phone] Epic chat preferred for non-emergent communication. Cosigned [...] Care Review Outcome: Ongoing, Progressing Flowsheets (Taken 08/19/2024 2331) Progress: improving Plan of Care Reviewed With: [...] Gabe White - 08/19/2024 11:55 AM EDT [facility] Urology Inpatient Progress Note Primary Attending: [...] saw and evaluated the patient with the medical/HIDE MILL WORKER/PA student. I discussed the case with the medical/HIDE MILL WORKER/PA student and agree with the findings and [...] RN - 08/18/2024 6:26 PM EDT 08/18/24 6511 Event/Notification Description Event Location [facility] and Room Number 6.227 Reason for Rapid Response Team notification Bradycardia Is the patient a DNR? No Type of Event Concern noted Method of Notification Nurse (specify) (Jeffrey) Vitals Heart Rate 80 Resp 11 SpO2 96 % Monitoring Data Monitoring Comments STOCK SHIPPER notified of patient on floor with bradycardia [...] states she will notify oncoming slot shift manager DCN and round on patient. No intervention from STOCK SHIPPER warranted at this time, primary RN will continue to monitor and notify STOCK SHIPPER and MD service with any changes, issues, or concerns. * Hospital Course - Mary Ann Bautista MD - 08/18/2024 2:13 PM EDT Mouna Garcia is a 69 y.o. male with PMH BPH who presented to [facility] for surgical intervention. They were taken [...] Bautista MD - 08/18/2024 2:06 PM EDT [facility] Urology Inpatient Progress Note Primary Attending: [...] Mary Ann Bautista MD PGY-1 Urology Pager: [phone] Epic chat preferred for non-emergent communication. Cosigned [...] Progressing Intervention: Optimize Skin Protection Flowsheets Taken 08/17/2024 225 Activity Management: activity adjusted per tolerance Pressure [...] Note: Operative Report SURGEON: Courtney Young MD Hot Metal Crane Operator: DO Margarita Saldivar MD SURGICAL TEAM: Anesthesiology Teacher: Susan Huff RN Relief Anesthesiology Teacher: Yusuf Akers RN Relief Scrub: Rebekah Abreu [...] with sequential dilators from 20 - 30 Upper Sorbian. The 28 Upper Sorbian Storz continuous flow resectoscope sheath was insertedthen [...] The scope was removed and a 22 Upper Sorbian 3-way Law catheter was inserted with continuous [...] with 68g prostate, urinary retention. [facility]urgical/Social/Family History I have reviewed and updated the patient history. Allergies Patient has no known allergies. Medications Current Medications[1] Objective Review of Systems ROS completed and negative except what is listed in HPI. Physical Exam Vitals and nursing note reviewed. Exam conducted with a filter washer present. Constitutional: General: He is not in [...] visit. Results Review {Vanishing Link Review Results :[id number] I have reviewed the latest lab and [...] or split. Replaces amlodipine 30 tablet 5 [place]-3 Fatty Acids (FISH OIL HIGH POTENCY PO) [...] Office Building Physical Therapy [address], [address] [place] [address] Charlotte Pillai [address] [facility] [address] [facility] [place] [address] 09/19/2024 3:30 PM EDT Office Visit Medical Office Building Urology [address], [address] [place] [address] Courtney Young MD [address] [place] [address] 10/10/2024 4:00 PM EDT Office Visit [facility] [address], [address] [place] [address] Mp Reis PA [address] [place] [address] 06/05/2025 10:45 AM EDT Appointment [facility] Radiology [address] [place] [address] 06/05/2025 11:50 AM EDT Clinical Support [facility] [address] [place] [address] 06/05/2025 12:30 PM EDT Office Visit [facility]rology [address] [place] [address] Charlotte Rodriguez, CARPENTER INSPECTOR, DNP [address] [place] [address] documented as of this encounter [...] UNSOLICITED RESULTS Routine 08/21/2024 12:12 PM EDT AK CYSTOURETHROSCOPY,F ULGURATN 08/21/2024 10:25 AM EDT Urinary [...] 08/17/2024 1:33 PM EDT Incomplete bladder emptying POCT GLUCOSE [...] Comment 08/22/2024 11:45 AM EDT HEALTHCARE LAB Wash Rack Operator ID Xin Marina 11:45 AM EDT HEALTHCARE LAB Device ID [id number] 08/22/2024 11:45 AM EDT HEALTHCARE LAB Specimen Type POC Capillary 08/22/2024 11:45 AM EDT HEALTHCARE LAB Blood Capillary blood specimen / Unknown 08/22/2024 11:37 AM EDT 08/22/2024 11:45 AM EDT us Courtney Young MD LAB POINT OF CARE TE ST DOCKED DEVICE UNSOLICITED RESULTS Final Result Performing Organization Address City/State/[facility] Co de Phone Number [facility] [address] [place] [address] * (ABNORMAL) POCT glucose meter (08/22/2024 8:02 AM EDT) [facility] POCT Glucose 116(H) 74 - 99 mg/dL 08/22/2024 8:03 AM EDT HEALTHCARE LAB Comment:Accuracy of a [...] Comment 08/22/2024 8:03 AM EDT HEALTHCARE LAB Wash Rack Operator ID Xin Marina 8:03 AM EDT HEALTHCARE LAB Device ID [id number] 08/22/2024 8:03 AM EDT HEALTHCARE LAB Specimen Type POC Capillary 08/22/2024 8:03 AM EDT HEALTHCARE LAB Blood Capillary blood specimen / Unknown 08/22/2024 8:02 AM EDT 08/22/2024 8:03 AM EDT Courtney Young MD LAB POINT OF CARE TE ST DOCKED DEVICE UNSOLICITED RESULTS Final Result Performing Organization Address City/[facility] Co de Phone Number HEALTHCARE LAB [address] [place] [address] * (ABNORMAL) POCT glucose meter (08/22/2024 3:17 AM EDT) POCT Glucose 162(H) 74 - 99 mg/dL [...] Comment 08/22/2024 3:18 AM EDT HEALTHCARE LAB Wash Rack Operator ID Demetra Wiggins 08/22/2024 3:18 AM EDT HEALTHCARE LAB Device ID [id number] 08/22/2024 3:18 AM EDT HEALTHCARE LAB Specimen Type POC Capillary 08/22/2024 3:18 AM EDT HEALTHCARE LAB Blood Capillary blood specimen / Unknown 08/22/2024 3:17 AM EDT 08/22/2024 3:18 AM EDT us Courtney Young MD LAB POINT OF CARE TE ST DOCKED DEVICE UNSOLICITED RESULTS Final Result Performing Organization Address City/[facility]/ZIP Co de Phone Number [facility] [address] [place] [address] * (ABNORMAL) CBC W/O Differential (08/22/2024 2:11 AM EDT) WBC Count 14.27(H) 3.70 - 10.30 10*3/uL LAB HEMATOLOGY METHOD 08/22/2024 2:30 AM EDT [facility] RBC Count 2.99(L) 4.60 - 6.10 10*6/uL LAB HEMATOLOGY METHOD 08/22/2024 2:30 AM EDT [facility] HGB 8.9(L) 13.7 - 17.5 g/dL LAB HEMATOLOGY METHOD 08/22/2024 2:30 AM EDT [facility] HCT 26.8(L) 40.0 - 51.0 % LAB HEMATOLOGY METHOD 08/22/2024 2:30 AM EDT [facility] Platelet Count 270 155 - 369 10*3/uL LAB HEMATOLOGY METHOD 08/22/2024 2:30 AM EDT [facility] MCV 90 79 - 98 fL LAB HEMATOLOGY METHOD 08/22/2024 2:30 AM EDT [facility] MCH 29.8 26.0 - 32.0 pg LAB HEMATOLOGY METHOD 08/22/2024 2:30 AM EDT [facility] MCHC 33.2 30.7 - 35.5 g/dL LAB HEMATOLOGY METHOD 08/22/2024 2:30 AM EDT [facility] RDW 14.5 11.5 - 14.5 % LAB HEMATOLOGY METHOD 08/22/2024 2:30 AM EDT [facility] MPV 9.7 8.8 - 12.5 fL LAB HEMATOLOGY METHOD 08/22/2024 2:30 AM EDT [facility] nRBC 0.0 <=0.0 per 100 WBCs LAB HEMATOLOGY METHOD 08/22/2024 2:30 AM EDT [facility] Blood Venous blood specimen / Unknown Venipuncture / Unknown 08/22/2024 2:11 AM EDT 08/22/2024 2:21 AM EDT us Courtney Young MD LAB BLOOD ORDERABLES Final R esult [facility] [address] [place] [address] * (ABNORMAL) Basic Metabolic Panel, Plasma (08/22/2024 2:11 AM EDT) Glucose, Plasma 232(H) 74 - 99 mg/dL 08/22/2024 2:49 AM EDT [facility] BUN, Plasma 25(H) 8 - 23 mg/dL 08/22/2024 2:49 AM EDT [facility] Creatinine, Plasma 1.75(H) 0.70 - 1.20 mg/dL 08/22/2024 2:49 AM EDT [facility] BUN/Creatinine Ratio 14 08/22/2024 2:49 AM EDT [facility] Sodium, Plasma 138 136 - 145 mmol/L 08/22/2024 2:49 AM EDT [facility] Potassium, Plasma 4.4 3.6 - 4.9 mmol/L 08/22/2024 2:49 AM EDT [facility] Chloride, Plasma 104 97 - 107 mmol/L 08/22/2024 2:49 AM EDT [facility] CO2, Plasma 24 22 - 29 mmol/L 08/22/2024 2:49 AM EDT [facility] Anion Gap 10 6 - 16 mmol/L 08/22/2024 2:49 AM EDT [facility] Total Calcium, Plasma 8.7(L) 8.9 - 10.2 mg/dL 08/22/2024 2:49 AM EDT [facility] eGFRcr 41.9 mL/min/1.7 3m*2 08/22/2024 2:49 AM EDT [facility] Comment:Reported eGFRcr in m L/min/1.73m2 is based the CKD-EPI 2020 equation that does not use a race coefficient. Blood Venous blood specimen / Unknown Venipuncture / Unknown 08/22/2024 2:11 AM EDT 08/22/2024 2:20 AM EDT us Courtney Young MD LAB BLOOD ORDERABLES Final R esult [facility] [address] [place] [address] * (ABNORMAL) POCT glucose meter (08/21/2024 8:47 PM EDT) [facility] POCT Glucose 384(H) 74 - 99 mg/dL 08/21/2024 8:48 PM EDT [facility] Comment:Accuracy of a glucos e [...] Comment 08/21/2024 8:48 PM EDT HEALTHCARE LAB Wash Rack Operator ID Demetra Wiggins 08/21/2024 8:48 PM EDT [facility] Device ID [id number] 08/21/2024 8:48 PM EDT [facility] Specimen Type POC Capillary 08/21/2024 8:48 PM EDT HEALTH[facility]ARE LAB Blood Capillary blood specimen / Unknown 08/21/2024 8:47 PM EDT 08/21/2024 8:48 PM EDT us Courtney Young MD LAB POINT OF CARE TE ST DOCKED DEVICE UNSOLICITED RESULTS Final Result Performing Organization Address City/[facility] Co de Phone Number HEALTHCARE LAB [address] [place] [address] * (ABNORMAL) POCT glucose meter (08/21/2024 5:18 PM EDT) [facility] POCT Glucose 226(H) 74 - 99 mg/dL [...] Comment 08/21/2024 5:20 PM EDT HEALTHCARE LAB Wash Rack Operator ID Kaylyn Mcdowell 5:20 PM EDT HEALTHCARE LAB Device ID [id number] 08/21/2024 5:20 PM EDT HEALTHCARE LAB Specimen Type POC Capillary 08/21/2024 5:20 PM EDT HEALTHCARE LAB Blood Capillary blood specimen / Unknown 08/21/2024 5:18 PM EDT 08/21/2024 5:20 PM EDT us Courtney Young MD LAB POINT OF CARE TE ST DOCKED DEVICE UNSOLICITED RESULTS Final Result [facility] [address] [place] [address] * (ABNORMAL) POCT glucose meter (08/21/2024 12:12 PM EDT) [facility] POCT Glucose 131(H) 74 - 99 mg/dL [...] for testing. Comment 08/21/2024 12:14 PM EDT [facility] Wash Rack Operator ID [email or web address] [place] 025 12:14 PM EDT [facility] Device ID [id number] 08/21/2024 12:14 PM EDT [facility] Specimen Type POC Capillary 08/21/2024 12:14 PM EDT [facility] Blood Capillary blood specimen / Unknown 08/21/2024 12:12 PM EDT 08/21/2024 12:14 PM EDT Courtney Young MD LAB POINT OF CARE TE ST DOCKED DEVICE UNSOLICITED RESULTS Final Result [facility] [address] [place] [address] * (ABNORMAL) POCT glucose meter (08/21/2024 9:52 AM EDT) [facility] POCT Glucose 140(H) 74 - 99 mg/dL 08/21/2024 10:14 AM EDT [facility] Comment:Accuracy of [...] for testing. Comment 08/21/2024 10:14 AM EDT [facility] Wash Rack Operator ID Marbella Pizarro 08/21/2024 10:14 AM EDT [facility] Device ID [id number] 08/21/2024 10:14 AM EDT [facility] Specimen Type POC Capillary 08/21/2024 10:14 AM EDT [facility] Blood Capillary blood specimen / Unknown 08/21/2024 9:52 AM EDT 08/21/2024 10:14 AM EDT Courtney Young MD LAB POINT OF CARE TE ST DOCKED DEVICE UNSOLICITED RESULTS Final Result Performing Organization Address City/[facility] Co de Phone Number HEALTHCARE LAB [address] [place] [address] * (ABNORMAL) POCT glucose meter (08/21/2024 5:28 AM EDT) Pathologist [facility] POCT Glucose 121(H) 74 - 99 mg/dL [...] Comment 08/21/2024 5:30 AM EDT [facility] Wash Rack Operator ID [email or web address] moulton i 08/21/2024 5:30 AM EDT [facility] Device ID [id number] 08/21/2024 5:30 AM EDT [facility]ALTHCARE LAB Specimen Type POC Capillary 08/21/2024 5:30 AM EDT [facility] Blood Capillary blood specimen / Unknown 08/21/2024 5:28 AM EDT 08/21/2024 5:30 AM EDT us Courtney Young MD LAB POINT OF CARE TE ST DOCKED DEVICE UNSOLICITED RESULTS Final Result Performing Organization Address City/[facility]/ZIP Co de Phone Number [facility]ARE [facility] [address] [place] [address] * (ABNORMAL) Basic metabolic panel (08/21/2024 4:23 AM EDT) Glucose, Plasma 116(H) 74 - 99 mg/dL 08/21/2024 5:03 AM EDT [facility] BUN, Plasma 23 8 - 23 mg/dL 08/21/2024 5:03 AM EDT [facility] Creatinine, Plasma 1.67(H) 0.70 - 1.20 mg/dL 08/21/2024 5:03 AM EDT [facility] BUN/Creatinine Ratio 14 08/21/2024 5:03 AM EDT [facility] Sodium, Plasma 140 136 - 145 mmol/L 08/21/2024 5:03 AM EDT [facility] Potassium, Plasma 4.7 3.6 - 4.9 mmol/L 08/21/2024 5:03 AM EDT [facility] Chloride, Plasma 108(H) 97 - 107 mmol/L 08/21/2024 5:03 AM EDT [facility] CO2, Plasma 23 22 - 29 mmol/L 08/21/2024 5:03 AM EDT [facility] Anion Gap 9 6 - 16 mmol/L 08/21/2024 5:03 AM EDT [facility] Total Calcium, Plasma 8.8(L) 8.9 - 10.2 mg/dL 08/21/2024 5:03 AM EDT [facility] eGFRcr 44.3 mL/min/1.7 3m*2 08/21/2024 5:03 AM EDT [facility] Comment:Reported eGFRcr in m L/min/1.73m2 is based the CKD-EPI 2020 equation that does not use a race coefficient. Blood Venous blood specimen / Unknown Venipuncture / Unknown 08/21/2024 4:23 AM EDT 08/21/2024 4:32 AM EDT us Courtney Young MD LAB BLOOD ORDERABLES Final R esult [facility] [address] [place] [address] * (ABNORMAL) CBC W/O Differential (08/21/2024 4:23 AM EDT) WBC Count 12.64(H) 3.70 - 10.30 10*3/uL LAB HEMATOLOGY METHOD 08/21/2024 4:41 AM EDT [facility] RBC Count 3.14(L) 4.60 - 6.10 10*6/uL LAB HEMATOLOGY METHOD 08/21/2024 4:41 AM EDT [facility] HGB 9.3(L) 13.7 - 17.5 g/dL LAB HEMATOLOGY METHOD 08/21/2024 4:41 AM EDT [facility] HCT 27.8(L) 40.0 - 51.0 % LAB HEMATOLOGY METHOD 08/21/2024 4:41 AM EDT [facility] Platelet Count 248 155 - 369 10*3/uL LAB HEMATOLOGY METHOD 08/21/2024 4:41 AM EDT [facility] MCV 89 79 - 98 fL LAB HEMATOLOGY METHOD 08/21/2024 4:41 AM EDT [facility] MCH 29.6 26.0 - 32.0 pg LAB HEMATOLOGY METHOD 08/21/2024 4:41 AM EDT [facility] MCHC 33.5 30.7 - 35.5 g/dL LAB HEMATOLOGY METHOD 08/21/2024 4:41 AM EDT [facility] RDW 14.6(H) 11.5 - 14.5 % LAB HEMATOLOGY METHOD 08/21/2024 4:41 AM EDT [facility] MPV 9.8 8.8 - 12.5 fL LAB HEMATOLOGY METHOD 08/21/2024 4:41 AM EDT [facility] nRBC 0.0 <=0.0 per 100 WBCs LAB HEMATOLOGY METHOD 08/21/2024 4:41 AM EDT [facility] Blood Venous blood specimen / Unknown Venipuncture / Unknown 08/21/2024 4:23 AM EDT 08/21/2024 4:32 AM EDT us Courtney Young MD LAB BLOOD ORDERABLES Final R esult [facility] [address] [place] [address] * (ABNORMAL) POCT glucose meter (08/20/2024 8:28 PM EDT) POCT Glucose 146(H) 74 - 99 mg/dL 08/20/2024 8:29 PM EDT [facility] Comment:Accuracy of [...] Comment 08/20/2024 8:29 PM EDT [facility] Wash Rack Operator ID Tamiko Mc i 08/20/2024 8:29 PM EDT [facility] LAB Device ID [id number] 08/20/2024 8:29 PM EDT [facility] Specimen Type POC Capillary 08/20/2024 8:29 PM EDT [facility] Blood Capillary blood specimen / Unknown 08/20/2024 8:28 PM EDT 08/20/2024 8:29 PM EDT Courtney Young MD LAB POINT OF CARE TE ST DOCKED DEVICE UNSOLICITED RESULTS Final Result [facility] [address] [place] [address] * (ABNORMAL) POCT glucose meter (08/20/2024 5:23 PM EDT) [facility] POCT Glucose 215(H) 74 - 99 mg/dL [...] for testing. Comment 08/20/2024 5:24 PM EDT [facility] Wash Rack Operator ID Marya Velásquez 08/20/2024 5:24 PM EDT [facility] Device ID [id number] 08/20/2024 5:24 PM EDT [facility] Specimen Type POC Capillary 08/20/2024 5:24 PM EDT [facility] Blood Capillary blood specimen / Unknown 08/20/2024 5:23 PM EDT 08/20/2024 5:24 PM EDT Courtney Young MD LAB POINT OF CARE TE ST DOCKED DEVICE UNSOLICITED RESULTS Final Result Performing Organization Address [facility] Co de Phone Number [facility] [address] [place] [address] * (ABNORMAL) POCT glucose meter (08/20/2024 11:49 [...] for testing. Comment 08/20/2024 11:51 AM EDT [facility] Wash Rack Operator ID Marya Velásquez 08/20/2024 11:51 AM EDT [facility] LAB Device ID [id number] 08/20/2024 11:51 AM EDT [facility] Specimen Type POC Capillary 08/20/2024 11:51 AM EDT [facility] Blood Capillary blood specimen / Unknown 08/20/2024 11:49 AM EDT 08/20/2024 11:51 AM EDT Courtney Young MD LAB POINT OF CARE TE ST DOCKED DEVICE UNSOLICITED RESULTS Final Result Performing Organization Address City/[facility] Co de Phone Number [facility] [address] [place] [address] * (ABNORMAL) POCT glucose meter (08/20/2024 7:33 [...] for testing. Comment 08/20/2024 7:34 AM EDT [facility] Wash Rack Operator ID Marya Velásquez 08/20/2024 7:34 AM EDT [facility]ALTH[facility] LAB Device ID [id number] 08/20/2024 7:34 AM EDT [facility] Specimen Type POC Capillary 08/20/2024 7:34 AM EDT [facility] Blood Capillary blood specimen / Unknown 08/20/2024 7:33 AM EDT 08/20/2024 7:34 AM EDT us Courtney Young MD LAB POINT OF CARE TE ST DOCKED DEVICE UNSOLICITED RESULTS Final Result [facility] [address] [place] [address] * (ABNORMAL) Basic metabolic panel (08/20/2024 4:30 AM EDT) Glucose, Plasma 131(H) 74 - 99 mg/dL 08/20/2024 5:14 AM EDT [facility] BUN, Plasma 34(H) 8 - 23 mg/dL 08/20/2024 5:14 AM EDT [facility] Creatinine, Plasma 1.82(H) 0.70 - 1.20 mg/dL 08/20/2024 5:14 AM EDT [facility] BUN/Creatinine Ratio 19 08/20/2024 5:14 AM EDT [facility] Sodium, Plasma 139 136 - 145 mmol/L 08/20/2024 5:14 AM EDT [facility] Potassium, Plasma 4.6 3.6 - 4.9 mmol/L 08/20/2024 5:14 AM EDT [facility] Chloride, Plasma 109(H) 97 - 107 mmol/L 08/20/2024 5:14 AM EDT [facility] CO2, Plasma 20(L) 22 - 29 mmol/L 08/20/2024 5:14 AM EDT [facility] Anion Gap 10 6 - 16 mmol/L 08/20/2024 5:14 AM EDT [facility] Total Calcium, Plasma 8.3(L) 8.9 - 10.2 mg/dL 08/20/2024 5:14 AM EDT [facility] eGFRcr 40.0 mL/min/1.7 3m*2 08/20/2024 5:14 AM EDT [facility] Comment:Reported eGFRcr in m L/min/1.73m2 is based the CKD-EPI 2020 equation that does not use a race coefficient. Blood Venous blood specimen / Unknown Venipuncture / Unknown 08/20/2024 4:30 AM EDT 08/20/2024 4:43 AM EDT us Courtney Young MD LAB BLOOD ORDERABLES Final R esult [facility] [address] [place] [address] * (ABNORMAL) CBC W/O Differential (08/20/2024 4:30 AM EDT) WBC Count 12.84(H) 3.70 - 10.30 10*3/uL LAB HEMATOLOGY METHOD 08/20/2024 4:58 AM EDT [facility] RBC Count 3.07(L) 4.60 - 6.10 10*6/uL LAB HEMATOLOGY METHOD 08/20/2024 4:58 AM EDT [facility] HGB 9.1(L) 13.7 - 17.5 g/dL LAB HEMATOLOGY METHOD 08/20/2024 4:58 AM EDT [facility] HCT 27.2(L) 40.0 - 51.0 % LAB HEMATOLOGY METHOD 08/20/2024 4:58 AM EDT [facility] Platelet Count 238 155 - 369 10*3/uL LAB HEMATOLOGY METHOD 08/20/2024 4:58 AM EDT [facility] MCV 89 79 - 98 fL LAB HEMATOLOGY METHOD 08/20/2024 4:58 AM EDT [facility] MCH 29.6 26.0 - 32.0 pg LAB HEMATOLOGY METHOD 08/20/2024 4:58 AM EDT [facility] MCHC 33.5 30.7 - 35.5 g/dL LAB HEMATOLOGY METHOD 08/20/2024 4:58 AM EDT [facility] RDW 14.5 11.5 - 14.5 % LAB HEMATOLOGY METHOD 08/20/2024 4:58 AM EDT [facility] MPV 10.0 8.8 - 12.5 fL LAB HEMATOLOGY METHOD 08/20/2024 4:58 AM EDT [facility] nRBC 0.0 <=0.0 per 100 WBCs LAB HEMATOLOGY METHOD 08/20/2024 4:58 AM EDT [facility] Blood Venous blood specimen / Unknown Venipuncture / Unknown 08/20/2024 4:30 AM EDT 08/20/2024 4:46 AM EDT us Courtney Young MD LAB BLOOD ORDERABLES Final R esult Performing Organization Address [facility]/ZIP Co de Phone Number [facility] [address] [place] [address] * (ABNORMAL) Hemoglobin and hematocrit, blood (08/19/2024 9:52 PM EDT) [facility] HGB 9.2(L) 13.7 - 17.5 g/dL LAB HEMATOLOGY METHOD 08/19/2024 10:08 PM EDT [facility] HCT 27.6(L) 40.0 - 51.0 % LAB HEMATOLOGY METHOD 08/19/2024 10:08 PM EDT [facility] Blood Venous blood specimen / Unknown Venipuncture / Unknown 08/19/2024 9:52 PM EDT 08/19/2024 10:01 PM EDT us Courtney Young MD LAB BLOOD ORDERABLES Final R esult Performing Organization Address City/[facility]/ZIP Co de Phone Number [facility] [address] [place] [address] * Transfuse RBC (08/19/2024 9:41 PM EDT) us Courtney Young MD BLOOD TRANSFUSION ORDERABLES Final Result * Transfuse RBC: 1 Units (08/19/2024 9:41 PM EDT) Courtney Young MD BLOOD TRANSFUSION ORDERABLES Final Result * (ABNORMAL) POCT glucose meter (08/19/2024 8:20 PM EDT) [facility] POCT Glucose 170(H) 74 - 99 mg/dL 08/19/2024 8:22 PM EDT [facility] Comment:Accuracy of a [...] Comment 08/19/2024 8:22 PM EDT [facility] Wash Rack Operator ID Mark Sanabria 8:22 PM EDT [facility]ALTH[facility]ARE LAB Device ID [id number] 08/19/2024 8:22 PM EDT [facility] Specimen Type POC Capillary 08/19/2024 8:22 PM EDT [facility] Blood Capillary blood specimen / Unknown 08/19/2024 8:20 PM EDT 08/19/2024 8:22 PM EDT Courtney Young MD LAB POINT OF CARE TE ST DOCKED DEVICE UNSOLICITED RESULTS Final Result Performing Organization Address City/State/[facility] Co de Phone Number HEALTHCARE LAB [address] [place] [address] * (ABNORMAL) POCT glucose meter (08/19/2024 5:09 PM EDT) [facility] POCT Glucose 204(H) 74 - 99 mg/dL [...] for testing. Comment 08/19/2024 5:10 PM EDT [facility] Wash Rack Operator ID Marya Velásquez 08/19/2024 5:10 PM EDT HEALTHCARE LAB Device ID [id number] 08/19/2024 5:10 PM EDT [facility] Specimen Type POC Capillary 08/19/2024 5:10 PM EDT [facility] Blood Capillary blood specimen / Unknown 08/19/2024 5:09 PM EDT 08/19/2024 5:10 PM EDT Courtney Young MD LAB POINT OF CARE TE ST DOCKED DEVICE UNSOLICITED RESULTS Final Result Performing Organization Address City/[facility] Co de Phone Number [facility] [address] [place] [address] * Prepare Leukocyte Reduced RBC: 1 Units (08/19/2024 4:35 PM EDT) [facility] Product Code [id number] BLOO D BANK Dispense Status Transfused BLOOD BANK Blood Expiration Date [id number] BLOOD BANK Unit Number [id number] B LOOD BANK Product Blood Type 0600 BLOOD BANK Blood Type A- BLOOD BANK Crossmatch Compatible BLOOD BANK Other Courtney Young MD BLOOD BANK PRODUCT ORDERABLE S Final Result Performing Organization Address [facility] de Phone Number BLOOD BANK [address] [place] [address] * (ABNORMAL) Hemoglobin and hematocrit, blood (08/19/2024 3:57 PM EDT) [facility] HGB 8.0(L) 13.7 - 17.5 g/dL LAB HEMATOLOGY METHOD 08/19/2024 4:32 PM EDT [facility] HCT 23.6(L) 40.0 - 51.0 % LAB HEMATOLOGY METHOD 08/19/2024 4:32 PM EDT [facility] Blood Venous blood specimen / Unknown Venipuncture / Unknown 08/19/2024 3:57 PM EDT 08/19/2024 4:23 PM EDT Courtney Young MD LAB BLOOD ORDERABLES Final R esult [facility] [address] [place] [address] * Transfuse RBC (08/19/2024 1:50 PM EDT) us Courtney Young MD BLOOD TRANSFUSION ORDERABLES Final [...] Comment 08/19/2024 12:06 PM EDT [facility]ALTH[facility]ARE [facility] Wash Rack Operator ID Marya Velásquez 08/19/2024 12:06 PM EDT [facility] LAB Device ID [id number] 08/19/2024 12:06 PM EDT [facility] Specimen Type POC Capillary 08/19/2024 12:06 PM EDT [facility] Blood Capillary blood specimen / Unknown 08/19/2024 12:05 PM EDT 08/19/2024 12:06 PM EDT Courtney Young MD LAB POINT OF CARE TE ST DOCKED DEVICE UNSOLICITED RESULTS Final Result [facility] [address] [place] [address] * Prepare Leukocyte Reduced RBC: 1 Units (08/19/2024 10:55 AM EDT) Product Code [id number] CH BLOO D BANK Dispense Status Transfused BLOOD BANK Blood Expiration Date [id number] BLOOD BANK Unit Number [id number] CH B LOOD BANK Product Blood Type 0600 BLOOD BANK Blood Type A- CH BLOOD BANK Crossmatch Compatible BLOOD BANK Other Courtney Young MD BLOOD BANK PRODUCT ORDERABLE S Final Result Performing Organization Address [facility]/ZIP Co de Phone Number BLOOD BANK [address] [place] [address], * Type and Screen (08/19/2024 9:42 AM [...] ORDERABL ES Final Result Performing Organization Address [facility] de Phone Number BLOOD BANK [address] [place] [address], [place] * (ABNORMAL) Hemoglobin and Hematocrit, Blood (08/19/2024 9:42 AM EDT) HGB 7.8(L) 13.7 - 17.5 g/dL LAB HEMATOLOGY METHOD 08/19/2024 10:08 AM EDT [facility] HCT 23.8(L) 40.0 - 51.0 % LAB HEMATOLOGY METHOD 08/19/2024 10:08 AM EDT [facility] Blood Venous blood specimen / Unknown Venipuncture / Unknown 08/19/2024 9:42 AM EDT 08/19/2024 10:00 AM EDT Courtney Young MD LAB BLOOD ORDERABLES Final R esult Performing Organization Address City/[facility]/ZIP Co de Phone Number [facility] [address] [place] [address] * (ABNORMAL) POCT glucose meter (08/19/2024 8:01 AM EDT) POCT Glucose 128(H) 74 - 99 mg/dL 08/19/2024 8:03 AM EDT [facility] Comment:Accuracy of a [...] Comment 08/19/2024 8:03 AM EDT [facility]ALTH[facility] Wash Rack Operator ID Marya Velásquez 08/19/2024 8:03 AM EDT HEALTHCARE LAB Device ID [id number] 08/19/2024 8:03 AM EDT [facility] Specimen Type POC Capillary 08/19/2024 8:03 AM EDT [facility] Blood Capillary blood specimen / Unknown 08/19/2024 8:01 AM EDT 08/19/2024 8:03 AM EDT us Courtney Young MD LAB POINT OF CARE TE ST DOCKED DEVICE UNSOLICITED RESULTS Final Result Performing Organization Address City/State/[facility] Co de Phone Number HEALTHCARE LAB [address] [place] [address] * (ABNORMAL) CBC W/O Differential (08/19/2024 4:29 AM EDT) WBC Count 13.81(H) 3.70 - 10.30 10*3/uL LAB HEMATOLOGY METHOD 08/19/2024 4:47 AM EDT [facility] RBC Count 2.75(L) 4.60 - 6.10 10*6/uL LAB HEMATOLOGY METHOD 08/19/2024 4:47 AM EDT [facility] HGB 7.9(L) 13.7 - 17.5 g/dL LAB HEMATOLOGY METHOD 08/19/2024 4:47 AM EDT [facility] HCT 24.9(L) 40.0 - 51.0 % LAB HEMATOLOGY METHOD 08/19/2024 4:47 AM EDT [facility] Platelet Count 266 155 - 369 10*3/uL LAB HEMATOLOGY METHOD 08/19/2024 4:47 AM EDT [facility] MCV 91 79 - 98 fL LAB HEMATOLOGY METHOD 08/19/2024 4:47 AM EDT [facility] MCH 28.7 26.0 - 32.0 pg LAB HEMATOLOGY METHOD 08/19/2024 4:47 AM EDT [facility] MCHC 31.7 30.7 - 35.5 g/dL LAB HEMATOLOGY METHOD 08/19/2024 4:47 AM EDT [facility] RDW 14.5 11.5 - 14.5 % LAB HEMATOLOGY METHOD 08/19/2024 4:47 AM EDT [facility] MPV 10.1 8.8 - 12.5 fL LAB HEMATOLOGY METHOD 08/19/2024 4:47 AM EDT [facility] nRBC 0.0 <=0.0 per 100 WBCs LAB HEMATOLOGY METHOD 08/19/2024 4:47 AM EDT [facility] Blood Venous blood specimen / Unknown Venipuncture / Unknown 08/19/2024 4:29 AM EDT 08/19/2024 4:34 AM EDT us Courtney Young MD LAB BLOOD ORDERABLES Final R esult [facility] [address] [place] [address] * (ABNORMAL) Basic Metabolic Panel, Plasma (08/19/2024 4:29 AM EDT) Glucose, Plasma 127(H) 74 - 99 mg/dL 08/19/2024 6:18 AM EDT [facility] BUN, Plasma 40(H) 8 - 23 mg/dL 08/19/2024 6:18 AM EDT [facility] Creatinine, Plasma 1.91(H) 0.70 - 1.20 mg/dL 08/19/2024 6:18 AM EDT [facility] BUN/Creatinine Ratio 21 08/19/2024 6:18 AM EDT [facility] Sodium, Plasma 134(L) 136 - 145 mmol/L 08/19/2024 6:18 AM EDT [facility] Potassium, Plasma 5.0(H) 3.6 - 4.9 mmol/L 08/19/2024 6:18 AM EDT [facility] Chloride, Plasma 107 97 - 107 mmol/L 08/19/2024 6:18 AM EDT [facility] CO2, Plasma 18(L) 22 - 29 mmol/L 08/19/2024 6:18 AM EDT [facility] Anion Gap 9 6 - 16 mmol/L 08/19/2024 6:18 AM EDT [facility] Total Calcium, Plasma 8.6(L) 8.9 - 10.2 mg/dL 08/19/2024 6:18 AM EDT [facility] eGFRcr 37.7 mL/min/1.7 3m*2 08/19/2024 6:18 AM EDT [facility] Comment:Reported eGFRcr in m L/min/1.73m2 is based the CKD-EPI 2020 equation that does not use a race coefficient. Blood Venous blood specimen / Unknown Venipuncture / Unknown 08/19/2024 4:29 AM EDT 08/19/2024 4:33 AM EDT us Courtney Young MD LAB BLOOD ORDERABLES Final R esult [facility] [address] [place] [address] * (ABNORMAL) POCT glucose meter (08/18/2024 8:03 PM EDT) POCT Glucose 197(H) 74 - 99 mg/dL [...] Comment 08/18/2024 8:05 PM EDT [facility]ALTHCARE LAB Wash Rack Operator ID [email or web address] 08/18/2024 8:05 PM EDT [facility] Device ID [id number] 08/18/2024 8:05 PM EDT HEALTHCARE LAB Specimen Type POC Capillary 08/18/2024 8:05 PM EDT [facility] Blood Capillary blood specimen / Unknown 08/18/2024 8:03 PM EDT 08/18/2024 8:05 PM EDT us Courtney Young MD LAB POINT OF CARE TE ST DOCKED DEVICE UNSOLICITED RESULTS Final Result [facility] [address] [place] [address] * Phosphorus (08/18/2024 6:20 PM EDT) Phosphorus, Plasma 4.3 2.5 - 4.5 mg/dL 08/18/2024 6:53 PM EDT [facility] Blood Venous blood specimen / Unknown Venipuncture / Unknown 08/18/2024 6:20 PM EDT 08/18/2024 6:24 PM EDT us Courtney Young MD LAB BLOOD ORDERABLES Final R esult Performing Organization Address City/[facility]/[place] [address] * Magnesium (08/18/2024 6:20 PM EDT) Magnesium, Plasma 2.2 1.9 - 2.4 mg/dL 08/18/2024 6:53 PM EDT [facility] Blood Venous blood specimen / Unknown Venipuncture / Unknown 08/18/2024 6:20 PM EDT 08/18/2024 6:24 PM EDT us Courtney Young MD LAB BLOOD ORDERABLES Final R esult Performing Organization Address City/[facility]/ZIP Co de Phone Number [facility] [address] [place] [address] * (ABNORMAL) Basic metabolic panel (08/18/2024 6:20 PM EDT) Glucose, Plasma 210(H) 74 - 99 mg/dL 08/18/2024 6:53 PM EDT [facility] BUN, Plasma 42(H) 8 - 23 mg/dL 08/18/2024 6:53 PM EDT [facility] Creatinine, Plasma 2.24(H) 0.70 - 1.20 mg/dL 08/18/2024 6:53 PM EDT [facility] BUN/Creatinine Ratio 19 08/18/2024 6:53 PM EDT [facility] Sodium, Plasma 136 136 - 145 mmol/L 08/18/2024 6:53 PM EDT [facility] Potassium, Plasma 5.5(H) 3.6 - 4.9 mmol/L 08/18/2024 6:53 PM EDT [facility] Chloride, Plasma 106 97 - 107 mmol/L 08/18/2024 6:53 PM EDT [facility] CO2, Plasma 18(L) 22 - 29 mmol/L 08/18/2024 6:53 PM EDT [facility] Anion Gap 12 6 - 16 mmol/L 08/18/2024 6:53 PM EDT [facility] Total Calcium, Plasma 8.6(L) 8.9 - 10.2 mg/dL 08/18/2024 6:53 PM EDT [facility] eGFRcr 31.1 mL/min/1.7 3m*2 08/18/2024 6:53 PM EDT [facility] Comment:Reported eGFRcr in m L/min/1.73m2 is based the CKD-EPI 2020 equation that does not use a race coefficient. Blood Venous blood specimen / Unknown Venipuncture / Unknown 08/18/2024 6:20 PM EDT 08/18/2024 6:24 PM EDT us Courtney Young MD LAB BLOOD ORDERABLES Final R esult [facility] [address] [place] [address] * (ABNORMAL) CBC W/O Differential (08/18/2024 6:20 PM EDT) WBC Count 17.84(H) 3.70 - 10.30 10*3/uL LAB HEMATOLOGY METHOD 08/18/2024 6:33 PM EDT [facility] RBC Count 3.25(L) 4.60 - 6.10 10*6/uL LAB HEMATOLOGY METHOD 08/18/2024 6:33 PM EDT [facility] HGB 9.5(L) 13.7 - 17.5 g/dL LAB HEMATOLOGY METHOD 08/18/2024 6:33 PM EDT [facility] HCT 28.8(L) 40.0 - 51.0 % LAB HEMATOLOGY METHOD 08/18/2024 6:33 PM EDT [facility] Platelet Count 348 155 - 369 10*3/uL LAB HEMATOLOGY METHOD 08/18/2024 6:33 PM EDT [facility] MCV 89 79 - 98 fL LAB HEMATOLOGY METHOD 08/18/2024 6:33 PM EDT [facility] MCH 29.2 26.0 - 32.0 pg LAB HEMATOLOGY METHOD 08/18/2024 6:33 PM EDT [facility] MCHC 33.0 30.7 - 35.5 g/dL LAB HEMATOLOGY METHOD 08/18/2024 6:33 PM EDT [facility] RDW 14.3 11.5 - 14.5 % LAB HEMATOLOGY METHOD 08/18/2024 6:33 PM EDT [facility] MPV 10.1 8.8 - 12.5 fL LAB HEMATOLOGY METHOD 08/18/2024 6:33 PM EDT [facility] nRBC 0.0 <=0.0 per 100 WBCs LAB HEMATOLOGY METHOD 08/18/2024 6:33 PM EDT [facility] Blood Venous blood specimen / Unknown Venipuncture / Unknown 08/18/2024 6:20 PM EDT 08/18/2024 6:24 PM EDT us Courtney Young MD LAB BLOOD ORDERABLES Final R esult [facility] [address] [place] [address] * (ABNORMAL) POCT glucose meter (08/18/2024 6:04 PM EDT) Pathologist [facility] POCT Glucose 195(H) 74 - 99 mg/dL 08/18/2024 6:06 PM EDT [facility] LAB Comment:Accuracy of a [...] Comment 08/18/2024 6:06 PM EDT [facility] LAB Wash Rack Operator ID Maribell Oglesby 6:06 PM EDT [facility] LAB Device ID [id number] 08/18/2024 6:06 PM EDT [facility] LAB Specimen Type POC Capillary 08/18/2024 6:06 PM EDT [facility] Blood Capillary blood specimen / Unknown 08/18/2024 6:04 PM EDT 08/18/2024 6:06 PM EDT Courtney Young MD LAB POINT OF CARE TE ST DOCKED DEVICE UNSOLICITED RESULTS Final Result Performing Organization Address City/State/[facility] Co de Phone Number HEALTHCARE LAB [address] [place] [address] * (ABNORMAL) POCT glucose meter (08/18/2024 5:02 PM EDT) [facility] POCT Glucose 181(H) 74 - 99 mg/dL 08/18/2024 5:04 PM EDT [facility] LAB Comment:Accuracy of a [...] Comment 08/18/2024 5:04 PM EDT [facility] LAB Wash Rack Operator ID Belen Ron 08/18/2024 5:04 PM EDT HEALTHCARE LAB Device ID [id number] 08/18/2024 5:04 PM EDT [facility] LAB Specimen Type POC Capillary 08/18/2024 5:04 PM EDT [facility] Blood Capillary blood specimen / Unknown 08/18/2024 5:02 PM EDT 08/18/2024 5:04 PM EDT Courtney Young MD LAB POINT OF CARE TE ST DOCKED DEVICE UNSOLICITED RESULTS Final Result Performing Organization Address [facility] Co de Phone Number HEALTHCARE LAB [address] [place] [address] * (ABNORMAL) POCT glucose meter (08/18/2024 12:00 PM EDT) Pathologist [facility] POCT Glucose 190(H) 74 - 99 mg/dL [...] Comment 08/18/2024 12:01 PM EDT HEALTHCARE LAB Wash Rack Operator ID Belen Ron 08/18/2024 12:01 PM EDT HEALTHCARE LAB Device ID [id number] 08/18/2024 12:01 PM EDT HEALTHCARE LAB Specimen Type POC Capillary 08/18/2024 12:01 PM EDT [facility] Blood Capillary blood specimen / Unknown 08/18/2024 12:00 PM EDT 08/18/2024 12:01 PM EDT us Courtney Young MD LAB POINT OF CARE TE ST DOCKED DEVICE UNSOLICITED RESULTS Final Result Performing Organization Address City/[facility] Co de Phone Number [facility] [address] [place] [address] * (ABNORMAL) POCT glucose meter (08/18/2024 8:27 AM EDT) Pathologist [facility] POCT Glucose 151(H) 74 - 99 mg/dL [...] Comment 08/18/2024 8:29 AM EDT [facility]ALTHCARE LAB Wash Rack Operator ID Belen Ron 08/18/2024 8:29 AM EDT HEALTHCARE LAB Device ID [id number] 08/18/2024 8:29 AM EDT [facility]ALTH[facility]ARE LAB Specimen Type POC Capillary 08/18/2024 8:29 AM EDT [facility] LAB Blood Capillary blood specimen / Unknown 08/18/2024 8:27 AM EDT 08/18/2024 8:29 AM EDT us Courtney Young MD LAB POINT OF CARE TE ST DOCKED DEVICE UNSOLICITED RESULTS Final Result [facility] [address] [place] [address] * (ABNORMAL) Basic Metabolic Panel, Plasma (08/18/2024 3:43 AM EDT) Glucose, Plasma 120(H) 74 - 99 mg/dL 08/18/2024 4:20 AM EDT [facility] BUN, Plasma 32(H) 8 - 23 mg/dL 08/18/2024 4:20 AM EDT [facility] Creatinine, Plasma 1.99(H) 0.70 - 1.20 mg/dL 08/18/2024 4:20 AM EDT [facility] BUN/Creatinine Ratio 16 08/18/2024 4:20 AM EDT [facility] Sodium, Plasma 142 136 - 145 mmol/L 08/18/2024 4:20 AM EDT [facility] Potassium, Plasma 5.1(H) 3.6 - 4.9 mmol/L 08/18/2024 4:20 AM EDT [facility] Chloride, Plasma 108(H) 97 - 107 mmol/L 08/18/2024 4:20 AM EDT [facility] CO2, Plasma 22 22 - 29 mmol/L 08/18/2024 4:20 AM EDT [facility] Anion Gap 12 6 - 16 mmol/L 08/18/2024 4:20 AM EDT [facility] Total Calcium, Plasma 9.0 8.9 - 10.2 mg/dL 08/18/2024 4:20 AM EDT [facility] eGFRcr 35.9 mL/min/1.7 3m*2 08/18/2024 4:20 AM EDT [facility] Comment:Reported eGFRcr in m L/min/1.73m2 is based the CKD-EPI 2020 equation that does not use a race coefficient. Blood Venous blood specimen / Unknown Venipuncture / Unknown 08/18/2024 3:43 AM EDT 08/18/2024 3:48 AM EDT Courtney Young MD LAB BLOOD ORDERABLES Final R esult Performing Organization Address City/[facility]/ZIP Co de Phone Number [facility] [address] [place] [address] * Magnesium, Plasma (08/18/2024 3:43 AM EDT) Magnesium, Plasma 2.2 1.9 - 2.4 mg/dL 08/18/2024 4:20 AM EDT [facility] Blood Venous blood specimen / Unknown Venipuncture / Unknown 08/18/2024 3:43 AM EDT 08/18/2024 3:48 AM EDT Courtney Young MD LAB BLOOD ORDERABLES Final R esult [facility] [address] [place] [address] * Phosphorus, Plasma (08/18/2024 3:43 AM EDT) Phosphorus, Plasma 4.2 2.5 - 4.5 mg/dL 08/18/2024 4:20 AM EDT [facility] Blood Venous blood specimen / Unknown Venipuncture / Unknown 08/18/2024 3:43 AM EDT 08/18/2024 3:48 AM EDT Courtney Young MD LAB BLOOD ORDERABLES Final R esult [facility] [address] [place] [address] * (ABNORMAL) CBC W/O Differential (08/18/2024 3:43 AM EDT) WBC Count 18.75(H) 3.70 - 10.30 10*3/uL LAB HEMATOLOGY METHOD 08/18/2024 4:00 AM EDT [facility] RBC Count 4.00(L) 4.60 - 6.10 10*6/uL LAB HEMATOLOGY METHOD 08/18/2024 4:00 AM EDT [facility] HGB 11.6(L) 13.7 - 17.5 g/dL LAB HEMATOLOGY METHOD 08/18/2024 4:00 AM EDT [facility] HCT 35.1(L) 40.0 - 51.0 % LAB HEMATOLOGY METHOD 08/18/2024 4:00 AM EDT [facility] Platelet Count 359 155 - 369 10*3/uL LAB HEMATOLOGY METHOD 08/18/2024 4:00 AM EDT [facility] MCV 88 79 - 98 fL LAB HEMATOLOGY METHOD 08/18/2024 4:00 AM EDT [facility] MCH 29.0 26.0 - 32.0 pg LAB HEMATOLOGY METHOD 08/18/2024 4:00 AM EDT [facility] MCHC 33.0 30.7 - 35.5 g/dL LAB HEMATOLOGY METHOD 08/18/2024 4:00 AM EDT [facility] RDW 14.1 11.5 - 14.5 % LAB HEMATOLOGY METHOD 08/18/2024 4:00 AM EDT [facility] MPV 9.7 8.8 - 12.5 fL LAB HEMATOLOGY METHOD 08/18/2024 4:00 AM EDT [facility] nRBC 0.0 <=0.0 per 100 WBCs LAB HEMATOLOGY METHOD 08/18/2024 4:00 AM EDT [facility] Blood Venous blood specimen / Unknown Venipuncture / Unknown 08/18/2024 3:43 AM EDT 08/18/2024 3:49 AM EDT us Courtney Young MD LAB BLOOD ORDERABLES Final R esult Performing Organization Address City/[facility] Co de Phone Number [facility] [address] [place] [address] * (ABNORMAL) POCT glucose meter (08/17/2024 10:07 PM EDT) POCT Glucose 189(H) 74 - 99 mg/dL 08/17/2024 10:09 PM EDT [facility]ALTHC[facility] LAB Comment:Accuracy of a [...] for testing. Comment 08/17/2024 10:09 PM EDT [facility] Wash Rack Operator ID AwinjaArianna 08/17/2024 10:09 PM EDT [facility] Device ID [id number] 08/17/2024 10:09 PM EDT [facility] Specimen Type POC Capillary 08/17/2024 10:09 PM EDT [facility] Blood Capillary blood specimen / Unknown 08/17/2024 10:07 PM EDT 08/17/2024 10:09 PM EDT us Courtney Young MD LAB POINT OF CARE TE ST DOCKED DEVICE UNSOLICITED RESULTS Final Result Performing Organization Address City/[facility] Co de Phone Number [facility]ALTHCARE LAB [address] [place] [address] * (ABNORMAL) POCT glucose meter (08/17/2024 7:13 PM EDT) POCT Glucose 273(H) 74 - 99 mg/dL [...] Comment 08/17/2024 7:15 PM EDT [facility]ALTH[facility] LAB Wash Rack Operator ID Betty Young 08/17/2024 7:15 PM EDT [facility] Device ID [id number] 08/17/2024 7:15 PM EDT HEALTHCARE LAB Specimen Type POC Capillary 08/17/2024 7:15 PM EDT [facility] LAB Blood Capillary blood specimen / Unknown 08/17/2024 7:13 PM EDT 08/17/2024 7:15 PM EDT us Courtney Young MD LAB POINT OF CARE TE ST DOCKED DEVICE UNSOLICITED RESULTS Final Result Performing Organization Address City/[facility] Co de Phone Number [facility] [address] [place] [address] * (ABNORMAL) POCT glucose meter (08/17/2024 7:00 PM EDT) [facility] POCT Glucose 256(H) 74 - 99 mg/dL 08/17/2024 7:02 PM EDT [facility] Comment:Accuracy of [...] Comment 08/17/2024 7:02 PM EDT [facility]ALTH[facility]ARE LAB Wash Rack Operator ID Christina Norton 08/17/2024 7:02 PM EDT HEALTHCARE LAB Device ID [id number] 08/17/2024 7:02 PM EDT [facility] Specimen Type POC Capillary 08/17/2024 7:02 PM EDT [facility] Blood Capillary blood specimen / Unknown 08/17/2024 7:00 PM EDT 08/17/2024 7:02 PM EDT us Courtney Young MD LAB POINT OF CARE TE ST DOCKED DEVICE UNSOLICITED RESULTS Final Result [facility] [address] [place] [address] * (ABNORMAL) Basic metabolic panel (08/17/2024 3:48 PM EDT) Glucose, Plasma 114(H) 74 - 99 mg/dL 08/17/2024 3:48 PM EDT [facility] BUN, Plasma 34(H) 8 - 23 mg/dL 08/17/2024 3:48 PM EDT [facility] Creatinine, Plasma 2.14(H) 0.70 - 1.20 mg/dL 08/17/2024 3:48 PM EDT [facility] BUN/Creatinine Ratio 16 08/17/2024 3:48 PM EDT [facility] Sodium, Plasma 137 136 - 145 mmol/L 08/17/2024 3:48 PM EDT [facility] Potassium, Plasma 6.0(H) 3.6 - 4.9 mmol/L 08/17/2024 3:48 PM EDT [facility] Chloride, Plasma 109(H) 97 - 107 mmol/L 08/17/2024 3:48 PM EDT [facility] CO2, Plasma 18(L) 22 - 29 mmol/L 08/17/2024 3:48 PM EDT [facility] Anion Gap 10 6 - 16 mmol/L 08/17/2024 3:48 PM EDT [facility] Total Calcium, Plasma 8.6(L) 8.9 - 10.2 mg/dL 08/17/2024 3:48 PM EDT [facility] eGFRcr 32.9 mL/min/1.7 3m*2 08/17/2024 3:48 PM EDT [facility] Comment:Reported eGFRcr in m L/min/1.73m2 is based the CKD-EPI 2020 equation that does not use a race coefficient. Blood Venous blood specimen / Unknown 08/17/2024 3:15 PM EDT us Courtney Young MD LAB BLOOD ORDERABLES Final R esult [facility] [address] [place] [address] * (ABNORMAL) CBC W/O Differential (08/17/2024 3:29 PM EDT) [facility] WBC Count 10.32(H) 3.70 - 10.30 10*3/uL LAB HEMATOLOGY METHOD 08/17/2024 3:29 PM EDT [facility] RBC Count 4.37(L) 4.60 - 6.10 10*6/uL LAB HEMATOLOGY METHOD 08/17/2024 3:29 PM EDT [facility] HGB 12.4(L) 13.7 - 17.5 g/dL LAB HEMATOLOGY METHOD 08/17/2024 3:29 PM EDT [facility] HCT 38.8(L) 40.0 - 51.0 % LAB HEMATOLOGY METHOD 08/17/2024 3:29 PM EDT [facility] Platelet Count 310 155 - 369 10*3/uL LAB HEMATOLOGY METHOD 08/17/2024 3:29 PM EDT [facility] MCV 89 79 - 98 fL LAB HEMATOLOGY METHOD 08/17/2024 3:29 PM EDT [facility] MCH 28.4 26.0 - 32.0 pg LAB HEMATOLOGY METHOD 08/17/2024 3:29 PM EDT [facility] MCHC 32.0 30.7 - 35.5 g/dL LAB HEMATOLOGY METHOD 08/17/2024 3:29 PM EDT [facility] RDW 14.0 11.5 - 14.5 % LAB HEMATOLOGY METHOD 08/17/2024 3:29 PM EDT [facility] MPV 9.7 8.8 - 12.5 fL LAB HEMATOLOGY METHOD 08/17/2024 3:29 PM EDT [facility] nRBC 0.0 <=0.0 per 100 WBCs LAB HEMATOLOGY METHOD 08/17/2024 3:29 PM EDT [facility] Blood Venous blood specimen / Unknown 08/17/2024 3:15 PM EDT us Courtney Young MD LAB BLOOD ORDERABLES Final R esult [facility] [address] [place] [address] * POCT glucose meter (08/17/2024 2:37 PM EDT) Pathologist [facility] POCT Glucose 94 74 - 99 mg/dL [...] Comment 08/17/2024 2:39 PM EDT HEALTHCARE LAB Wash Rack Operator ID Jaclyn Velasquez 08/17/2024 2:39 PM EDT HEALTHCARE LAB Device ID [id number] 08/17/2024 2:39 PM EDT [facility]ALTH[facility]ARE LAB Specimen Type POC Capillary 08/17/2024 2:39 PM EDT [facility] Blood Capillary blood specimen / Unknown 08/17/2024 2:37 PM EDT 08/17/2024 2:39 PM EDT Courtney Young MD LAB POINT OF CARE TE ST DOCKED DEVICE UNSOLICITED RESULTS Final Result [facility] [address] [place] [address] * Surgical Pathology Exam (08/17/2024 1:33 PM EDT) Pathologist [facility] Case Report Surgical Pathology Case: [id number] Authorizing Provider: Courtney Young MD Collected: 08/17/2024 1333 Ordering Location: [facility] OPERATING [facility] Received: 08/17/2024 1416 Pathologist: uSlaiman Valles MD Specimen: Prostate, morcellated prostate 08/20/2024 6:26 PM EDT [facility] Final Diagnosis A. PROSTATE, TRANSURETHRAL LASER ENUCLEATION: - BENIGN PROSTATIC HYPERPLASIA 08/20/2024 6:26 PM EDT [facility] at 1826 EDT Clinical Information INCOMPLETE BLADDER EMPTYING 08/20/2024 6:26 PM EDT [facility] Gross Description A. MORCELLATED PROSTATE Received fresh labeled morcellated prostate are multiple pieces of pink-scanlon soft tissue measuring 5.0 x 3.0 x 0.7 cm in aggregate and weighing 6.6 g. Entirely submitted in cassettes A1-A5 Cold Time: <1m Sidra Zuñiga Castaneda 08/20/2024 6:26 PM EDT [facility] Note: A resident was involved in the service. I attest I examined the relevant preparations for the specimens and confirmed the diagnosis or interpretation. 08/20/2024 6:26 PM EDT [facility] Tissue Prostate / Unknown 1:33 PM EDT 08/17/2024 2:16 PM EDT Comment:Pre-op diagnosis: INCOMPLETE BLADDER EMPTYING us Courtney Young MD LAB PATHOLOGY ORDERABLES Fin al Result [facility] [address] [place] [address] * (ABNORMAL) POCT glucose meter (08/17/2024 11:17 AM EDT) POCT Glucose 130(H) 74 - 99 mg/dL 08/17/2024 11:18 AM EDT [facility] Comment:Accuracy of a glucos e result [...] Comment 08/17/2024 11:18 AM EDT [facility]ALTHCARE LAB Wash Rack Operator ID Renae Welch 08/17/2024 11:18 AM EDT HEALTHCARE LAB Device ID [id number] 08/17/2024 11:18 AM EDT [facility] LAB Specimen Type POC Venous 08/17/2024 11:18 AM EDT [facility] Blood Venous blood specimen / Unknown 08/17/2024 11:17 AM EDT 08/17/2024 11:18 AM EDT us Courtney Young MD LAB POINT OF CARE TE ST DOCKED DEVICE UNSOLICITED RESULTS Final Result [facility] [address] [place] [id number] documented in this encounter Visit Diagnoses Diagnosis Urinary retention due to benign prostatic hyperplasia- Primary Incomplete bladder emptying Urinary retention due to benign prostatic hyperplasia Urinary retention due to benign prostatic hyperplasia [...] on Tue08/17/24 at 2034, Until Tue08/22/24 at 1741, Administer over 15 [...] on Tue08/20/24 at 2100, Until Discontinued, Routine 211 (Not Given - Provider: Zain Holden RN [...] Transfer Provider)1416 (Given - Provider: Fer Monsalve RN)175 (Given - Provider: Fer Monsalve RN)210 (Given [...] Transfer Provider - Reason: Patient in procedure)1243 ([facility] Unhold - Provider: Automatic [...] Provider Order) 0354 (Given - Provider: Zain Holden, RN)0917 ([facility] Hold - Provider: Automatic Transfer [...] 1203 (New Bag - Provider: Reena Green, DAVE) 1049 (Stopped - Provider: Naveed Downey RN) PRN Medication Order 08/20/2024 08/21/2024 08/22/2024 [...] low blood sugar BG =/<50 mg/dL 0917 ([facility] Hold - Provider: Automatic Transfer Provider - Reason: Patient in procedure)1243 ([facility] Unhold - Provider: Automatic Transfer Provider) glucagon (human recombinant) injection 1 mg(Linked Group 2) 1 mg, Intramuscular, Every 15 min PRN, Starting on Tue08/17/24 at 2035, Until Tue08/22/24 at 1741, Routine, low blood sugar per Hypoglycemia Prevention and Treatment protocol 0917 ([facility] Hold - Provider: Automatic Transfer Provider - Reason: Patient in procedure)1243 ([facility] Unhold - Provider: Automatic Transfer Provider) glucose (Glutose) 40 % oral gel 15-30 grams of glucose(Linked Group 2) 15-30 grams of glucose, Sublingual, Every 15 min PRN, Starting on Tue08/17/24 at 2035, Until Tue08/22/24 at 1741, Routine, low blood sugar, per Hypoglycemia Prevention and Treatment protocol 0917 ([facility] Hold - Provider: Automatic Transfer Provider - Reason: Patient in procedure)1243 ([facility] Unhold - Provider: Automatic Transfer Provider) ondansetron (Zofran) injection 4 mg 4 mg, Intravenous, Every 6 hours PRN, Starting on Tue08/17/24 at 1444, Until Tue08/22/24 at 1741, Routine, Recovery(Phase II-Outpatient)/On Unit(Inpatient), nausea, vomiting 0917 ([facility] Hold - Provider: Automatic Transfer Provider - Reason: Patient in procedure)1243 ([facility] Unhold - Provider: Automatic Transfer Provider) oxyCODONE (Roxicodone) immediate release tablet 5 mg 5 mg, Oral, Every 4 hours PRN, Starting on Tue08/17/24 at 1443, Until Tue08/22/24 at 1741, Routine, Recovery(Phase II-Outpatient)/On Unit(Inpatient), severe pain 0917 ([facility] Hold - Provider: Automatic Transfer Provider - Reason: Patient in procedure)1243 ([facility] Unhold - Provider: Automatic Transfer Provider) sodium chloride 0.9 % flush 10 mL(Linked Group 1) 10 mL, Intravenous, As needed, Starting on Tue08/17/24 at 1442, Until Tue08/22/24 at 1741, Routine, Recovery(Phase II-Outpatient)/On Unit(Inpatient), line care 0917 ([facility] Hold - Provider: Automatic Transfer Provider - Reason: Patient in procedure)1243 ([facility] Unhold - Provider: Automatic [...] documented as of this encounter Care Teams Grades 9 12 Tutor Relationship Specialty Start Date End Date Luis Caraballo MD [address] [place] [address] [place] [address] PCP - General 06/20/20 documented as of this encounter
--- OUTSIDE RECORDS SUMMARY | 2024-08-21 10:40 | XMS_ITS | Encounter Summary ---
Author Organization [facility] Address [address] [place] [address] Care Team Providers Care Privacy Officer Name Role Phone Luis Caraballo MD Primary Care Provider [phone] Reason for Visit * Auth/Cert (Routine) Specialty Diagnoses / Procedures Referred By Contchivo t Referred To Contact Diagnoses Incomplete bladder emptying INCOMPLETE BLADDER EMPTYING Procedures NC LASER ENUCLEATION PROSTATE W MORCELLATION ENUCLEATION, PROSTATE, TRANSURETHRAL, USING HOLMIUM LASER ( HOLEP ) Courtney Young MD [address] [facility] [address] [place] [address] Phone: tel: fax: [facility] [address] [place] [address] Phone: tel: Referral ID Status Reason Start Date Expiration Date Visits Re quested Visits Authorized [id number] 1 1 Encounter Details Date Type Department Care Team (Late st Contact Info) Description 08/21/2024 10:40 AM EDT Anesthesia Event [facility] [address] [place] [address] Carlos Marcos MD [address] [place] [address] Merary Torres PA [address] [facility] [address] [place] [address] Anesthesia Record Procedure Summary Procedure Name Responsible Anesthesiologist Anesthesia Start Time Anesthesia Stop Time CYSTOSCOPY, WITH BLADDER FULGURATION, FOR BLEEDING Carlos Marcos MD 08/21/24 1040 08/21/24 1140 Events Date Time Event Comment 08/21/2024 1040 In Room 1040 An Start The patient was reevaluated immediately before sedation and remains eligible for anesthesia plan. 1040 An Start Data 1044 An Induction The patient was reevaluated immediately before moderate or deep sedation use and before anesthesia induction. 1045 An Intubation 1047 Anesthesia Ready 1059 Proc Start 1123 An Extubation 1128 Proc Fin 1131 an stop data 1131 Out of Room 1140 Handoff to Receiving I compl eted my handoff to the receiving clinician during which we: 1. Identified the patient 2. Identified the responsible provider 3. Reviewed the pertinent medical history 4. Discussed the surgical course 5. Reviewed intra-op anesthesia management and issues during anesthesia 6. Set expectations for post-procedure period 7. Allowed opportunity for questions and acknowledgement of understanding. 1140 An Stop Meds Name Total rocuronium (ZeMuron) injection 10 mg/mL 50 mg fentaNYL (Sublimaze) injection 50 mcg/mL 100 mcg propofol (Diprivan) injection 10 mg/mL 2 00 mg dexamethasone (Decadron) injection 4 mg/ mL 4 mg ePHEDrine injection prefilled syringe 5 mg/mL 10 mg ondansetron (Zofran) injection 2 mg/mL 4 mg sugammadex (Bridion) injection 100 mg/mL 200 mg ceFAZolin (Ancef) vial 1 g 2 g lactated Ringer's infusion 400 mL * Agents No agents on file. * Blood No blood administrations on file. Lines, Drains, and Airways Type Details Placement Removal Continuous Bladder Irrigation 08/17/24; 08/22/24; 0945 (Removed by ); Other (Comment) 08/17/24 0000 by Jaclyn Velasquez RN 08/22/24 0945 by Naveed Downey RN Peripheral IV Placement Date: 08/17/24; Placement Time: 1112; Catheter Size: 18 G; Orientation: Anterior, Distal, Right; Location: Forearm; Site Prep: Alcohol, Chlorhexidine ; Technique: Anatomical landmarks; Inserted by: ES; Insertion Attempts: 1; Patient Tolerance: Tolerated well; Removal Date: 08/22/24; Removal Time: 1519; Removal Reason: Discharge 08/17/24 1112 by Rubia Tapia RN 08/22/24 1519 by Naveed Downey RN Urethral Catheter Placement Date: 08/17/24; Placement Time: 1355; Inserted by: Nilson Montes MD; Type: Non-latex, Other (Comment) (3 way); Balloon Size: Other (Comment) (50ml); Urine Returned: Yes; Removal Date: 08/21/24; Removal Time: 1104; Removal Reason: Per protocol 08/17/24 1355 by Susan Huff RN 08/21/24 1104 by Jossie Young RN Peripheral IV Placement Date: 08/18/24; Placement Time: 1800; Catheter Size: 20 G; Orientation: Anterior, Left; Location: Forearm; Site Prep: Alcohol; Inserted by: Yamil Rockwell RN; Insertion Attempts: 1; Removal Date: 08/22/24; Removal Time: 1519; Removal Reason: Discharge 08/18/24 1800 by Martina Rockwell RN 08/22/24 1519 by Naveed Downey RN ETT Placement Date: 08/21/24; Placement Time: 1047 (created via procedure documentation); Mask Ventilation: 1; Technique: Direct laryngoscopy; Type: ETT - single; Single Lumen Tube Size: 7.5 mm; Cuffed: Yes; Laryngoscope: Wu; Blade Size: 2; Location: Oral; Grade View: Grade I; Insertion Attempts: 1; Placement Verification: Auscultation, Capnometry; Placed by: SAÚL; Removal Date: 08/21/24; Removal Time: 1123 08/21/24 1047 by Rayo Guadalupe CRNA 08/21/24 1123 by Rayo Guadalupe CRNA Urethral Catheter Placement Date: 08/21/24; Placement Time: 1120; Inserted by: nilson villasenor; Type: Non-latex; Size: 22 Fr.; Balloon Size: 30 mL; Urine Returned: Yes; Removal Date: 08/22/24; Removal Time: 0945; Removal Reason: Other (Comment) (Removed by ) 08/21/24 1120 by Jossie Young RN 08/22/24 0945 by Naveed Downey RN documented in this encounter Social History [...] of Assessment Author No Risk Indicated 08/21/2024 7:52 PM EDT Zain Carmen RN * Question Answer Date of Assessment Author 1. Wish to be (Past 1 Month) No 025 7:52 PM EDT Zain Holden RN 2. Non-Specific Active Suici carolina Thoughts (Past 1 Month) No 08/21/2024 7:52 PM EDT Mack Holden RN 6. Suicidal Behavior (Lifetime) No 7:52 PM EDT Zain Holden RN documented as of this encounter Miscellaneous Notes * Anesthesia Postprocedure Evaluation - Rayo Guadalupe CRNA - 08/21/2024 11:40 AM EDT Patient: Deny Garcia Anesthesia Type: general Vitals Value Taken Time BP 140/87 08/21/24 11:35 Temp 36.4 08/21/24 11:40 Pulse 81 08/21/24 11:39 Resp 10 08/21/24 11:39 SpO2 99 % 08/21/24 11:39 Vitals shown include unfiled device data. Anesthesia Post Evaluation Patient location during evaluation: PACU Level of consciousness: responsive to physical stimuli Pain management: adequate (pain score 0-3) Airway patency: supraglottic device Cardiovascular status: acceptable Respiratory status: acceptable, oral airway, face mask and nasal airway Hydration status: acceptable Nausea/Vomiting: No No notable events documented. * Anesthesia Procedure Notes - Rayo Guadalupe CRNA - 08/21/2024 10:55 AM EDTAssociated Order(s): Airway Airway Date/Time: 08/21/2024 10:47 AM Reason: elective Airway not difficult General Information and Staff Patient location during procedure: [facility] Rayo Guadalupe CRNA Performed: [facility] Patient Condition Indications for airway management: anesthesia Patient position: sniffing Final Airway Details Final airway type: endotracheal airway Successful airway: ETT Cuffed: yes Successful intubation technique: direct laryngoscopy Endotracheal tube insertion site: oral Blade: Wu Blade size: #2 ETT size (mm): 7.5 Cormack-Lehane Classification: grade I - full view of glottis Placement verified by: chest auscultation and capnometry Inital cuff pressure (cm H2O): 20 Measured from: lips ETT to lips (cm): 22 * Anesthesia Preprocedure Evaluation - Carlos Marcos MD - 08/21/2024 8:50 AM EDT Anesthesiologist: (Unknown) [facility]: (Unknown) Tree Trimming Line Technician: (Unknown) Procedure Information Date/Time: 08/21/24 1100 Procedure: CYSTOSCOPY, WITH BLADDER FULGURATION, FOR BLEEDING Location: [facility] Surgeons: Courtney Young MD HPI Mouna Garcia is a 69 y.o. male with body mass index is 26 kg/m??. and PMHx of CAD s/p CABG 2002, HTN, GERD, CKD stage 3/4, DMII, and BPH who was admitted for a HOLEP procedure on 08/17/24 now for CYSTOSCOPY, WITH BLADDER FULGURATION, FOR BLEEDING (N/A) AIRWAY HISTORY: Date Difficult Airway Blade Size ETT Size C-L Class Final Type Intubation Method 08/17/24 No 3 8.0 grade I - full view of glottis endotracheal airway direct laryngoscopy NPO STATUS: Since Activity Level/METS:>4 Type & Screen Expires: 08/22 Lab Results Component Value Date ABO A Negative 08/19/2024 ALLERGIES Allergies[1] MEDICATIONS Outpatient Current Outpatient Medications Medication Instructions aspirin 81 mg, Every morning atorvastatin (LIPITOR) 80 mg, Nightly clopidogrel (PLAVIX) 75 mg, Every morning glyBURIDE (DIABETA) 5 mg, Daily with breakfast irbesartan (AVAPRO) 300 mg, Daily metoprolol succinate XL (TOPROL-XL) 200 mg, Every morning NIFEdipine XL (PROCARDIA XL) 60 mg, Oral, Daily, Do not crush, chew, or split. Replaces amlodipine [place]-3 Fatty Acids (FISH OIL HIGH POTENCY PO) 1 capsule, Daily trospium (SANCTURA) 20 mg, Oral, 2 times daily Scheduled Current Scheduled Medications[2] PRNs Current PRN Medications[3] SURGICAL HX: Surgical History[4] SOCIAL HX: Social History[5] OBJECTIVE DATA Blood pressure (!) 163/91, pulse 68, temperature 36.6 ??C (97.9 ??F), resp. rate 16, height 1.854 m(6' 1 ), weight 89.4 kg (197 lb 1.5 oz), SpO2 97%. LABS Lab Results Component Value Date WBC 12.64 (H) 08/21/2024 HGB 9.3 (L) 08/21/2024 HCT 27.8 (L) 08/21/2024 MCV 89 08/21/2024 PLT 248 08/21/2024 Lab Results Component Value Date CALCIUM 8.8 (L) 08/21/2024 BUN 23 08/21/2024 CREATININE 1.67 (H) 08/21/2024 BCR 14 08/21/2024 NA 140 08/21/2024 K 4.7 08/21/2024 CL 108 (H) 08/21/2024 CO2 23 08/21/2024 ANIONGAP 9 08/21/2024 No results found for: APTT , INR Lab Results Component Value Date GLUCOSE 116 (H) 08/21/2024 EKG Encounter Date: 05/31/24 EKG now - STAT (adult) Result Value EKG DIAGNOSIS CLASS Borderline Normal Ventricular Rate 56 Atrial Rate 56 NC Interval 204 QRSD Interval 94 QT Interval 466 QTC Interval 449 P Stewart 32 R Stewart 0 T Wave Stewart 44 Diagnosis Sinus bradycardia Diagnosis Diagnosis Diagnosis Confirmed by Brie, Moneera ([id number]) on 06/01/2024 2:35:49 PM *Note: Due to a large number of results and/or encounters for the requested time period, some results have not been displayed. A complete set of results can be found in Results Review. ECHO No echocardiogram results found for the past 12 months CXR: Physical Exam Airway Mallampati: II Mouth opening: normal TM distance: >3 FB Neck ROM: full Cardiovascular Rhythm: regular Rate: normal Dental Pulmonary Breath sounds clear to auscultation Neurological Oriented: normal to time, normal to place and normal to person Skin Musculoskeletal Extremities Other findings: CBI infusing Anesthesia Plan ASA 3 Plan was reviewed with: [facility] Anesthesia technique(s) discussed with the patient/family: general Anesthesia plan agreed upon was: general Anesthetic plan and risks discussed with patient. ROS Anesthesia: Date of last anesthetic: 08/17/24 history of previous anesthesia. Does not have a history of anesthetic complications and obstructivesleep apnea. Anesthesia ROS additional comments: Denies complications with GA on 08/17 Cardiovascular: CAD (s/p CABG ~ 2002, no issues since then, stable), hyperlipidemia and past AR. Does not have atrial fibrillation, CHF, dyspnea, dysrhythmias or pacemaker. hypertension: Does not have chest pain. Respiratory: Does not have home oxygen. Patient has no dyspnea.no asthma: no COPD: HEENT: Does not have difficulty swallowing, chipped teeth, loose teeth or missing teeth. Neurological: no seizures: Did not have a cerebrovascular accident. Gastrointestinal: GERD: well controlled.Does not have cirrhosis. 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 Hematological/Lymphatic: History of no DVT. History of no pulmonary embolism. no history of chemotherapy no history of radiation Endocrine/Metabolic: diabetes mellitus type 2.well controlled. A1c 6.2 Does not have thyroid disorder. [1] No Known Allergies [2] acetaminophen, 650 mg, Oral, q6h ANALIA finasteride, 5 mg, Oral, Daily heparin (porcine), 5,000 Units, Subcutaneous, q8h ANALIA insulin lispro, 0-5 Units, Subcutaneous, TID with meals insulin lispro, 0-3 Units, Subcutaneous, Twice at night methocarbamol, 500 mg, Oral, 4x daily metoprolol succinate XL, 50 mg, Oral, q AM mupirocin, 1 Application, Each Nostril, BID NIFEdipine XL, 60 mg, Oral, Daily pantoprazole, 40 mg, Oral, Daily before breakfast Insert peripheral IV, , , Once AND Saline lock IV, , , Once AND sodium chloride, 10 mL, Intravenous, q12h AND sodium chloride, 10 mL, Intravenous, PRN [3] PRN medications: calcium carbonate, glucose OR dextrose 10 % OR dextrose 10 % OR glucagon (human recombinant), ondansetron, oxyCODONE, Insert peripheral IV AND Saline lock IV AND sodium chloride AND sodium chloride [4] Past Surgical History: Procedure Laterality Date CORONARY ARTERY BYPASS GRAFT 2002 patient believes it was either 2002 or 2003. [5] Social History Tobacco Use Smoking status: Never Smokeless tobacco: Never Vaping Use Vaping status: Never Used Substance Use Topics Alcohol use: Never Drug use: Never documented in this encounter Plan of Treatment Upcoming Encounters Date Type Department Care Team (Late st Contact Info) Description 08/31/2024 12:15 PM EDT Appointment Medical Office Building Physical Therapy [address], [address] [place] [address] Charlotte Pillai [address] [facility] [address] [place] [id number] 09/19/2024 3:30 PM EDT Office Visit Medical Office Building Urology [address], [address] [place] [address] Courtney Young MD [address] [address] 10/10/2024 4:00 PM EDT Office Visit [facility] [address], [address] [place] [address] Mp Reis PA [address] [place] [address] 06/05/2025 10:45 AM EDT Appointment [facility] [address] [place] [address] 06/05/2025 11:50 AM EDT Clinical Support [facility] [address] [place] [address] 06/05/2025 12:30 PM EDT Office Visit [facility] Urology [address] [place] [address] Charlotte Rodriguez P, PUPPET MAKER, DNP [address] [place] [address] documented as of this encounter Procedures Procedure Name Priority Date/Time Associated Diagnosis Comments PB ANESTHESIA PLACEHOLDER Routine 08/21/2024 10:47 AM EDT NC AN ELECTIVE ENDOTRACHEAL AIRWAY Routine 08/21/2024 10:47 AM EDT documented in this encounter Results * NC AN ELECTIVE ENDOTRACHEAL AIRWAY, PB ANESTHESIA PLACEHOLDER (08/21/2024 10:47 AM EDT) Narrative Rayo Guadalupe CRNA - 08/21/2024 10:47 AM EDT Rayo Guadalupe CRNA 08/21/2024 10:56 AM Airway Date/Time: 08/21/2024 10:47 AM Reason: elective Airway not difficult General Information and Staff Patient location during procedure: [facility]: Rayo Guadalupe CRNA Performed: [facility] Patient Condition Indications for airway management: anesthesia Patient position: sniffing Final Airway Details Final airway type: endotracheal airway Successful airway: ETT Cuffed: yes Successful intubation technique: direct laryngoscopy Endotracheal tube insertion site: oral Blade: Wu Blade size: #2 ETT size (mm): 7.5 Cormack-Lehane Classification: grade I - full view of glottis Placement verified by: chest auscultation and capnometry Inital cuff pressure (cm H2O): 20 Measured from: lips ETT to lips (cm): 22 us Carlos Marcos MD ANESTHESIA ORDERABLES Final Result documented in this encounter Visit Diagnoses Not on filedocumented in this encounter Administered Medications Inactive Administered Medications - up to 3 most recent administrations Medication Order MAR Action Action Date Dose Rate Site ceFAZolin (Ancef) injection Intravenous, As needed, Starting on Tue08/21/24 at 1051, Until Tue08/21/24 at 1140, Routine, Anesthesia Intraprocedure Given 08/21/2024 10:51 AM EDT 2 g dexamethasone (Decadron) injection Intravenous, As needed, Starting on Tue08/21/24 at 1054, Until Tue08/21/24 at 1140, Routine, Anesthesia Intraprocedure Given 08/21/2024 10:54 AM EDT 4 mg ePHEDrine Sulfate (Akovaz) injection Intravenous, As needed, Starting on Tue08/21/24 at 1054, Until Tue08/21/24 at 1140, Routine, Anesthesia Intraprocedure Given 08/21/2024 11:18 AM EDT 5 mg Given 08/21/2024 10:54 AM EDT 5 mg fentaNYL (Sublimaze) injection Intravenous, As needed, Starting on Tue08/21/24 at 1044, Until Tue08/21/24 at 1140, Routine, Anesthesia Intraprocedure Given 08/21/2024 10:44 AM EDT 10 0 mcg lactated Ringer's infusion Intravenous, Continuous PRN, Starting on Tue08/21/24 at 1040, Until Tue08/21/24 at 1140, Routine New Bag 08/21/2024 10:40 AM EDT ondansetron (Zofran) injection Intravenous, As needed, Starting on Tue08/21/24 at 1054, Until Tue08/21/24 at 1140, Routine, Anesthesia Intraprocedure Given 08/21/2024 10:54 AM EDT 4 mg propofol (Diprivan) injection Intravenous, As needed, Starting on Tue08/21/24 at 1044, Until Tue08/21/24 at 1140, Routine, Anesthesia Intraprocedure Given 08/21/2024 10:59 AM EDT 50 mg Given 08/21/2024 10:44 AM EDT 150 mg rocuronium (ZeMuron) injection Intravenous, As needed, Starting on Tue08/21/24 at 1044, Until Tue08/21/24 at 1140, Routine, Anesthesia Intraprocedure Given 08/21/2024 10:44 AM EDT 50 mg sugammadex (Bridion) 100 MG/ML injection Intravenous, As needed, Starting on Tue08/21/24 at 1117, Until Tue08/21/24 at 1140, Routine, Anesthesia Intraprocedure Given 08/21/2024 11:17 AM EDT 200 mg documented in this encounter Additional Health Concerns Assessment Noted Time PHQ-9 Depression Total Score: 0 07/06/19 3:19 PM EDT A fall risk assessment has been complete d for the patient 07/11/2024 4:06 PM EDT A Body Mass Index follow-up plan has been documented for the patient 08/22/2024 3:26 PM EDT documented as of this encounter Care Teams Privacy Officer Relationship Specialty Start Date End Date Luis Caraballo MD [address] [place] [address] PCP - General 06/20/20 documented as of this encounter
[2024-08-29 13:41] VITALS: BP 132/88; PULSE 79; RESP 18; TEMP 36.7; O2SAT 100; BMI 25.7
[2024-08-29 13:57] LABS: POC Glucose,Bedside 204 (70-110)
--- NOTE | 2024-08-29 14:07 | ECG_ITS ---
APPROVED REPORT Exam: Resting ECG HR:73 bpm ECG Measurements Heart Rate 73 AXES HI 181 P 16 QRSd 105 QRS 11 QT 417 T 29 QTc 443 Conclusion SINUS RHYTHM NORMAL ECG UNCONFIRMED REPORT Electronically signed by : Jonathon Fang, 08/29/2024 16:58:28
--- NOTE | 2024-08-29 14:13 | XR_ITS ---
FINAL REPORT TECHNIQUE: 2 view chest CLINICAL HISTORY: syncope FINDINGS: No acute pulmonary opacities present. There is no evidence of effusion or pneumothorax. There is evidence of prior median sternotomy, presumably from CABG. Otherwise mediastinum is unremarkable. The heart is normal in size. IMPRESSION: Unremarkable chest, status post CABG. Reviewed, Interpreted and Dictated by Joaquín Walsh MD Transcribed by Buffy Charles Authenticated and [facility]
--- NOTE | 2024-08-29 14:14 | ED_ITS ---
<Statement entered by Jonathon Fang MD - 08/29/24 16:44> Independently evaluated this patient. He is in no acute distress resting comfortably. EKG normal sinus rhythm with no acute ischemic ST changes, very reassuring. I suspect micturition syncope versus vasovagal syncope. Florence syncope score is negative, very low risk. Will discharge with strict precautions all questions answered amenable to plan discharge. I was consulted by the CIRILO, and we discussed the complexity of problems being addressed. I approved the treatment and management plan for this patient's care in the emergency department, thus performing a substantial portion of the medical decision making. Jonathon Fang MD Discharge Plan Disposition Patient Disposition: Home, Self-Care Condition: Good Prescriptions Prescriptions: No Action amlodipine 5 mg tablet 5 mg PO BID Qty: 60 5RF atorvastatin 80 mg tablet See Rx Instructions .ROUTE .COMPLEX Qty: 30 5RF Dose Instruction: TAKE ONE TABLET BY MOUTH EVERY DAY Rx Instructions: TAKE ONE TABLET BY MOUTH EVERY DAY metoprolol succinate 50 mg tablet extended release 24 hr 50 mg PO DAILY Qty: 30 5RF clopidogrel 75 mg tablet 75 mg PO DAILY Patient Comments: TAKE ONE TABLET BY MOUTH EVERY DAY Jardiance 25 mg tablet 25 mg PO DAILY Patient Comments: TAKE ONE TABLET BY MOUTH EVERY DAY losartan 50 mg tablet 50 mg PO DAILY Qty: 90 3RF nitroglycerin 0.4 mg tablet, sublingual 0.4 mg sublingual Q5M PRN (Reason: chest pain) Qty: 25 0RF Rx Instructions: do not exceed 3 doses per episode metformin 500 mg tablet extended release 24 hr 500 mg PO BID diclofenac sodium 75 mg tablet,delayed release (DR/EC) 75 mg PO BID Referrals Follow up/Referrals: Mp Jack MD [Primary Care Provider, Medical] - See instructions Activity Restrictions/Add. Instructions Additional Instructions/Restrictions: Follow-up with PCP If symptoms worsen or do not improve return Clinical Impressions Clinical Impression: Syncope Qualifiers: Syncope type: unspecified Qualified Code(s): R55 - Syncope and collapse Instructions Patient Instructions: DI for Syncope in Adults (Fainting) Print Language Print Language: Icelandic Discharge ED Provider: Jonathon Fang General Adult [facility] General Chief complaint: Syncope Stated complaint: passing out, blood work- sent from Time Seen by Provider: 08/29/24 14:12 Mode of Arrival: Ambulatory Source of Information: Patient and Spouse Description of Symptoms (Recalled from ER Triage Doc. by RN): Pt was advised by Dr. Reis to come for evaluation and to have labs drawn due to. Pt states he went to get out of bed this morning and was cramped up. Pt states he then went to the bathroom and became lightheaded/dizzy. Pt's spouse states the patient had a syncopal event that lasted 10 minutes. Pt states he was sitting in a chair when this happened. pt denies falling or hitting his head. Pt states he is on blood thinners but is unable to recall which one he is on. History of Present Illness HPI narrative: 69-year-old male presents for syncopal episode. Pt states he went to get out of bed this morning and was cramped up. Pt states he then went to the bathroom and became lightheaded/dizzy. Pt's spouse states the patient had a syncopal event that lasted 10 minutes. Pt states he was sitting in a chair when this happened. pt denies falling or hitting his head. Pt states he is on blood thinners but is unable to recall which one he is on. Patient states he feels perfectly fine now has no symptoms Related Data Home Medications ?Medication ?Instructions ?Recorded ?Confirmed diclofenac sodium 75 mg 75 mg PO BID 01/01/20 tablet,delayed release clopidogrel 75 mg tablet 75 mg PO DAILY 05/30/2305/09 empagliflozin 25 mg tablet 25 mg PO DAILY 05/30/23 (Jardiance) metformin 500 mg tablet,extended 500 mg PO BID 4 05/30/23 release 24 hr Previous Rx's ?Medication ?Instructions ?Recorded amlodipine 5 mg tablet 5 mg PO BID Hypertension #60 tabs 07/15/21 atorvastatin 80 mg tablet See Rx Instructions .Route 0 07/15/21 .COMPLEX #30 tabs metoprolol succinate 50 mg 50 mg PO DAILY #30 tabs 09/28 tablet,extended release 24 hr losartan 50 mg tablet 50 mg PO DAILY #90 tabs 05/09 04/02 nitroglycerin 0.4 mg sublingual 0.4 mg sublingual Q5M PRN chest 05/30/23 tablet pain #25 tabs Allergies Allergy/AdvReac Type Severity Reaction Status Date / Time No Known Allergies Allergy Verified 05/30/23 08:59 PFSH PFSH Disclaimer: The information contained in this section may have been updated after the patient was seen, as this information can be updated by other users. 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) Smoking Status: Never smoker alcohol intake: never current occupational status: retired Travel in the last 8 weeks?: Inside the [place] household members: spouse caffeine: No Have you lived/traveled outside US in past 30 days?: No Contact w/someone who lives/traveled outside US past 30 days?: No Exposure to someone with infectious disease in past 14 days?: No Do you have a fever (greater than 100.4 F or 38 C)?: No Have you tested positive for COVID-19?: No Exposed to someone with COVID-19 in past 14 days?: No Do you have a sore throat?: No Do you have a cough?: No Do you have any weakness?: No Do you have any diarrhea?: No Are you experiencing any unusual bleeding?: No Do you have any muscle aches/pain?: No Do you have any abdominal pain?: No Are you experiencing loss of taste or smell?: No Other 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 Have you received the Flu Vaccine for this season: No Have you received the Pneumonia Vaccine: Yes ROS Obtained: Yes All systems reviewed & no additional complaints except as documented Constitutional Constitutional: Reports system reviewed and no additional complaints, except as documented Eyes Eyes: Reports system reviewed and no additional complaints, except as documented ENT Ears, Nose, Mouth, and Throat: Reports system reviewed and no additional complaints, except as documented Cardiovascular Cardiovascular: Reports syncope Integumentary/Breasts Skin/Breast: Reports system reviewed and no additional complaints, except as documented Neurologic Neurologic: Reports system reviewed and no additional complaints, except as documented, Reports as per HPI and Reports syncope Physical Exam General General appearance: alert and in no apparent distress Eye Eye exam: Present normal appearance and PERRL ENT ENT exam: Present normal exam Respiratory Respiratory exam: Present normal lung sounds bilaterally Cardiovascular Cardiovascular exam: Present regular rate and normal rhythm Neurological Exam Neurological exam: Present alert, oriented X3, CN II-XII intact and normal gait Skin Skin exam: Present warm and intact Medical Decision Making Medical Records Medical records reviewed: Yes I reviewed the patient's medical records. Screening: Per USPSTF and CDC recommendations, given the prevalence of disease in our region, it is our hospital?s policy to screen for HIV and viral Hepatitis for all patients aged 18 and over and those with ongoing risk factors. Richy Inquiry Pt receiving controlled substance: No Richy was queried for this patient: No Vital Signs: 08/29/24 13:41 08/29/24 14:32 Temperature 98.1 F Temperature Source Oral Pulse Rate 68 Pulse Rate [Right] 79 Respiratory Rate 18 Blood Pressure 132/88 Blood Pressure [Right Arm] 132/88 Blood Pressure Mean [Right Arm] 102 Blood Pressure Source [Right Arm] Automatic Cuff Blood Pressure Position [Right Arm] Sitting 02 Sat by Pulse Oximetry 100 88 L Oxygen Delivery Method Room Air Lab Data Lab results reviewed: Yes I reviewed the patient's lab results. Lab Results 08/29/24 13:50: POC Glucose 204 H 08/29/24 14:01: WBC 10.9 H, RBC 3.48 L, Hgb 10.2 L, Hct 31.0 L, MCV 89.1, MCH 29.3, MCHC 32.9, RDW 13.6, Plt Count 433 H, MPV 9.4, Neut % (Auto) 72.2, Lymph % (Auto) 19.9, Gooding % (Auto) 5.1, Eos % (Auto) 1.8, Baso % (Auto) 0.6, Neut # (Auto) 7.9 H, Lymph # (Auto) 2.2, Gooding # (Auto) 0.6, Eos # (Auto) 0.2, Baso # (Auto) 0.1, Sodium 137, Potassium 4.7, Chloride 106, Carbon Dioxide 23, Anion Gap 12.7, BUN 35 H, Creatinine 2.00 H, Estimated Creat Clear 44, Estimated GFR 33 L, Est GFR ( Amer) 40 L, Glucose 198 H, Calcium 9.2, Total Bilirubin 0.7, AST 30, ALT 23, Alkaline Phosphatase 73, Troponin I < 0.01, Total Protein 7.2, Albumin 4.3, Globulin 2.9, Albumin/Globulin Ratio 1.5 08/29/24 14:01 08/29/24 14:01 Orders (Tests/Meds): ORDERS Category Date Time Status Chest XR 2 view (NOT portable) [XR chest 2V] Stat Exams 08/29/24 14:13 Completed CBC w/Auto Diff [Complete Blood Count Auto Diff] Stat Lab 08/29/24 14:01 Completed CMP [Comprehensive Metabolic Panel] Stat Lab 08/29/24 14:01 Completed POC Glucose,Bedside Routine Lab 08/29/24 13:50 Completed Trop I [Troponin I] Stat Lab 08/29/24 14:01 Completed Troponin I Q3H Lab 08/29/24 17:15 Ordered Troponin I Q3H Lab 08/29/24 20:15 Ordered Medical Decision Narrative: In summary patient is a 69-year-old male who presents to the emergency department for evaluation of syncope. Patient is hemodynamically stable upon arrival, afebrile. Unremarkable physical exam. Differential diagnosis includes syncope. Initial workup will be conducted with labs, EKG,. Initial inventions include labs, EKG. Initial workup reviewed by me unremarkable labs creatinine 2 which is baseline for patient. Upon repeat evaluation patient resting comfortably in bed states no symptoms at this time. Given this patient appropriate for discharge at this time will discharge with close follow-up with PCP Critical Care Critical Care Time Critical Care Time: No
--- OUTSIDE RECORDS SUMMARY | 2024-08-29 14:17 | XMS_ITS | Encounter Summary ---
Author Organization [facility] Address [address] [place] [address] Care Team Providers Care Traffic Officer Name Role Phone Luis Caraballo MD Primary Care Provider +1- [phone] Encounter Details Date Type Department Care Team (Latest Contact Info) Description 08/17/2024 Travel Social History Tobacco Use Types Packs/Day [...] Date of Assessment Author No Risk Indicated 08/17/2024 8:00 PM EDT Arianna Thurman RN * Question Answer Date of Assessment Author 1. Wish to be (Past 1 Month) No 025 8:00 PM EDT Arianna Thurman RN 2. Non-Specific Active Suici carolina Thoughts (Past 1 Month) No 08/17/2024 8:00 PM EDT Arianna Thurman , DAVE 6. Suicidal Behavior (Lifetime) No 8:00 PM EDArianna Andrade RN documented as of this encounter Plan of Treatment Upcoming Encounters Date Type Department Care Team (Late st Contact Info) Description 08/31/2024 12:15 PM EDT Appointment Medical Office Building Physical Therapy [address] [facility], [address] [place] [address] Charlotte Pillai [address] [facility] [address] [place], [place] [id number] 09/19/2024 3:30 PM EDT Office Visit Medical Office Building Urology [address] [facility], [address] [place] [address] Courtney Young MD [address] [address] 10/10/2024 4:00 PM EDT Office Visit [facility] Nephrology, Bone & Mineral Metabolism [address], [address] [place] [address] Mp Reis PA [address] [facility] [address] [place] [address] 06/05/2025 10:45 AM EDT Appointment [facility] Radiology [address] [place] [address] 06/05/2025 11:50 AM EDT [facility] [address], [address] [place] [address] 06/05/2025 12:30 PM EDT [facility] [address], [address] [place] [address] Charlotte Rodriguez, IN HOME BABY SITTER, DNP [id number] [place] [id number] documented as of this encounter Visit Diagnoses [...] documented as of this encounter Care Teams Traffic Officer Relationship Specialty Start Date End Date Luis Caraballo MD [address] [place] [address] PCP - General 06/20/20 documented as of this encounter
--- OUTSIDE RECORDS SUMMARY | 2024-08-29 14:17 | XMS_ITS | Encounter Summary ---
Author Organization [facility] Address [address] [place] [address] Care Team Providers Care Translation Director Name Role Phone Luis Caraballo MD Primary Care Provider +1- [phone] Encounter Details Date Type Department Care Team (Late Contact Info) Description 08/06/2024 Orders Only [place] [facility] [address], [address] [place] [address] Courtney Young MD [address] [place] [address] Urine retention (Primary Dx) Social History Tobacco Use Types Packs/Day Years [...] Encounters Date Type Department Care Team (Late Contact Info) Description 08/31/2024 12:15 PM EDT Appointment Medical Office Building Physical Therapy [address] [facility], [address] [place] [address] Charlotte Pillai [address] [facility] [address] [place], [place] [id number] 09/19/2024 3:30 PM EDT Office Visit Medical Office Building Urology [address] [facility], [address] [place] [address] Courtney Young MD [address] [address] 10/10/2024 4:00 PM EDT Office Visit [facility] Nephrology, Bone & Mineral Metabolism [address] [facility], [address] [place] [address] Mp Reis PA [address] [facility] [address] [place] [address] 06/05/2025 10:45 AM EDT Appointment [facility] Radiology [address] [place] [address] 06/05/2025 11:50 AM EDT Clinical Support [place] [facility] [address] [place] [address] 06/05/2025 12:30 PM EDT Office Visit [facility] Urology [address], [address] [place] [address] Charlotte Rodriguez, SPLICING MACHINE OPERATOR AUTOMATIC, DNP [id number] [place] [address] documented as of this encounter Visit Diagnoses Diagnosis Urine retention- Primary Unspecified retention of urine documented in this encounter Additional Health Concerns Assessment Noted Time PHQ-9 Depression Total Score: 0 07/06/19 25 3:19 PM EDT A fall risk assessment has been complete d for the patient 07/11/2024 4:06 PM EDT A Body Mass Index follow-up plan has been documented for the patient 07/16/2024 3:18 PM EDT documented as of this encounter Care Teams Translation Director Relationship Specialty Start Date End Date Luis Caraballo MD [address] [place] [address] PCP - General 06/20/20 documented as of this encounter
--- OUTSIDE RECORDS SUMMARY | 2024-08-29 14:17 | XMS_ITS | Encounter Summary ---
Author Organization [facility] Address [address] [place] [address] Care Team Providers Care Equipment Associate Name Role Phone Luis Caraballo MD Primary Care Provider +1- [phone] Reason for Visit * Reason Onset Date Comments Preliminary U/C Results 08/03/2024 Encounter Details Date Type Department Care Team (Late st Contact Info) Description 08/03/2024 Telephone [facility] [address] [place] [address] Courtney Young MD [address] [facility] [address] [place] [address] Preliminary U/C Results Social History Tobacco Use Types Packs/Day Years [...] Wish to be (Past 1 Month) No 8:00 AM EDT Naveed Downey RN 2. Non-Specific Active Suici carolina Thoughts (Past 1 Month) No 08/22/2024 8:00 AM EDT Naveed Downey RN 6. Suicidal Behavior (Lifetime) No 8:00 AM EDT Naveed Downey RN documented as of this encounter Miscellaneous Notes * Telephone Encounter - Courtney Young MD - 08/03/2024 1:10 PM EDT Can we get updated final urine culture when it's available? Thanks! * Telephone Encounter - Albina Morgan - 08/03/2024 11:23 AM EDT Uploaded 08/02/24 Preliminary Urine Culture Results from [facility] documented in this encounter Plan of Treatment Upcoming Encounters Date Type Department Care Team (Late st Contact Info) Description 08/31/2024 12:15 PM EDT Appointment Medical Office Building Physical Therapy [address] [facility], [address] [place] [address] Charlotte Pillai [address] [facility] [address] [place] [address] 09/19/2024 3:30 PM EDT Office Visit Medical Office Building Urology [address] [facility], [address] [place] [address] Courtney Young MD [address] [facility] [address] [place] [address] 10/10/2024 4:00 PM EDT Office Visit [facility] Nephrology, Bone & Mineral Metabolism [address] [facility], [address] [place] [address] Mp Resi, WILMER [address] [facility] [address] [place] [address] 06/05/2025 10:45 AM EDT Appointment [facility] Radiology [address] [place] [address] 06/05/2025 11:50 AM EDT [facility] [address], [address] [place] [address] 06/05/2025 12:30 PM EDT [facility] [address], [address] [place] [address] Charlotte Rodriguez, ASBESTOS SHINGLE ROOFER, DNP [address] [place] [address] documented as of this encounter Visit Diagnoses [...] documented as of this encounter Care Teams Equipment Associate Relationship Specialty Start Date End Date Luis Caraballo MD [address] [place] [address] PCP - General 06/20/20 documented as of this encounter
--- OUTSIDE RECORDS SUMMARY | 2024-08-29 14:17 | XMS_ITS | Encounter Summary ---
Author Organization [facility] Address [address] [place] [address] Care Team Providers Care Inspector Publications Name Role Phone Luis Caraballo MD Primary Care Provider +1- [phone] Encounter Details Date Type Department Care Team (Latest Contact Info) Description 08/02/2024 Travel Social History Tobacco Use Types Packs/Day [...] Medical Office Building Physical Therapy [address] [facility], [address] [place] [address] Charlotte Pillai [address] [facility] [address] [place] [address] 09/19/2024 3:30 PM EDT Office Visit Medical Office Building Urology [address] [facility], [address] [place] [address] Courtney Young MD [address] [facility] [address] [place] [address] 10/10/2024 4:00 PM EDT Office Visit [facility] Nephrology, Bone & Mineral Metabolism [address], [address] [place] [address] Mp Reis, WILMER [address] [place] [address] 06/05/2025 10:45 AM EDT Appointment [facility] Radiology [address] [place] [address] 06/05/2025 11:50 AM EDT Clinical Support [facility] Lab [address], 2nd [place] [address] 06/05/2025 12:30 PM EDT Office Visit [facility] Urology [address], [address] [place] [address] Charlotte Rodriguez, CONCRETE POLISHER, DNP [id number] [place] [address] documented as of this encounter Visit Diagnoses [...] documented as of this encounter Care Teams Inspector Publications Relationship Specialty Start Date End Date Luis Caraballo MD [address] [place] [address] PCP - General 06/20/20 documented as of this encounter
--- OUTSIDE RECORDS SUMMARY | 2024-08-29 14:17 | XMS_ITS | Encounter Summary ---
Author Organization [facility] Address [address] [place] [address] Care Team Providers Care Menswear Salesperson Name Role Phone Luis Caraballo MD Primary Care Provider +1- [phone] Encounter Details Date Type Department Care Team ([facility] Contact Info) Description 08/14/2024 Plan of Care Documentation Medical Office Building Physical Therapy [address] [facility], [address] [place] [address] Social History Tobacco Use Types Packs/Day Years [...] Medical Office Building Physical Therapy [address] [place] [address] Charlotte Pillai [address] [facility] [address] [place] [address] 09/19/2024 3:30 PM EDT Office Visit Medical Office Building Urology [address] [facility], [address] [place] [address] Courtney Young MD [address] [facility] [address] [place] [address] 10/10/2024 4:00 PM EDT Office Visit [facility] Nephrology, Bone & Mineral Metabolism [address] [facility], [address] [place] [address] Mp Reis PA [address] [facility] [address] [place] [address] 06/05/2025 10:45 AM EDT Appointment [facility] Radiology [address] [place] [address] 06/05/2025 11:50 AM EDT Clinical Support [facility] [address], [address] [place] [address] 06/05/2025 12:30 PM EDT Office Visit [facility] Urology [address], [address] [place] [address] Charlotte Rodriguez, SINTERING PLANT SUPERVISOR, DNP [address] [facility] [address] [place] [address] documented as of this encounter Visit Diagnoses [...] documented as of this encounter Care Teams Menswear Salesperson Relationship Specialty Start Date End Date Luis Caraballo MD [address] [place] [address] PCP - General 06/20/20 documented as of this encounter
--- OUTSIDE RECORDS SUMMARY | 2024-08-29 14:17 | XMS_ITS | Encounter Summary ---
Author Organization [facility] Address [address] [place] [address] Care Team Providers Care Slot Service Specialist Name Role Phone Luis Caraballo MD Primary Care Provider +1- [phone] Encounter Details Date Type Department Care Team (Latest Contact Info) Description 08/16/2024 Travel Social History Tobacco Use Types Packs/Day [...] [facility], [address] [place] [address] [address] [facility] [address] [place] [address] 09/19/2024 3:30 PM EDT Office Visit Medical Office Building Urology [address] [facility], [address] [place] [address] Courtney Young MD [address] [facility] [address] [place] [address] 10/10/2024 4:00 PM EDT Office Visit [facility] Nephrology, Bone & Mineral Metabolism [address], [address] [place] [address] Mp Reis, WILMER [address] [place] [address] 06/05/2025 10:45 AM EDT Appointment [facility] Radiology [address] [place] [address] 06/05/2025 11:50 AM EDT Clinical Support [facility] Lab [address], [address] [place] [address] 06/05/2025 12:30 PM EDT Office Visit [facility] Urology [address], [address] [place] [address] Charlotte Rodriguez, UNIT DIRECTOR, DNP [address] [place] [address] documented as of this encounter Visit Diagnoses [...] documented as of this encounter Care Teams Slot Service Specialist Relationship Specialty Start Date End Date Luis Caraballo MD [address] [place] [address] PCP - General 06/20/20 documented as of this encounter
--- OUTSIDE RECORDS SUMMARY | 2024-08-29 14:17 | XMS_ITS | Encounter Summary ---
Author Organization [facility] Address [address] [place] [address] Care Team Providers Care Meat Specialist Name Role Phone Luis Caraballo MD Primary Care Provider +1- [phone] Encounter Details Date Type Department Care Team (Latest Contact Info) Description 08/14/2024 Travel Social History Tobacco Use Types Packs/Day [...] Medical Office Building Physical Therapy [address] [facility], [address] [place] [address] Charlotte Pillai [address] [facility] [address] [place] [address] 09/19/2024 3:30 PM EDT Office Visit Medical Office Building Urology [address] [facility], [address] [place] [address] Courtney Young MD [address] [facility] [address] [place] [address] 10/10/2024 4:00 PM EDT Office Visit [facility] Nephrology, Bone & Mineral Metabolism [address], [address] [place] [address] Mp Reis, WILMER [address] [place] [address] 06/05/2025 10:45 AM EDT Appointment [facility] Radiology [address] [place] [address] 06/05/2025 11:50 AM EDT Clinical Support [facility] [address], 2nd [place] [address] 06/05/2025 12:30 PM EDT Office Visit [facility] Urology [address], 2nd [place] [address] Charlotte Rodriguez, PLUMBING AND HEATING MECHANIC, DNP [id number] [place] [address] documented as of this encounter Visit Diagnoses [...] documented as of this encounter Care Teams Meat Specialist Relationship Specialty Start Date End Date Luis Caraballo MD [address] [place] [address] PCP - General 06/20/20 documented as of this encounter
[2024-08-29 14:18] LABS: Hematocrit 31.0 % (42.0-52.0); Hemoglobin 10.2 g/dL (14.1-18.0); Immature Granulocytes % 0.4 %; Mean Corpuscular HGB Conc 32.9 g/dL (31.8-35.4); Mean Corpuscular Hemoglobin 29.3 pg (27.0-31.2); Mean Corpuscular Volume 89.1 fl (80-94); Nucleated Red Blood Cells % 0 %; Platelet Count 433 K/mm3 (142-424); Red Blood Count 3.48 M/mm3 (4.60-6.20); Red Cell Distribution Width-SD 44.1 fL; White Blood Count 10.9 K/mm3 (4.8-10.8)
--- OUTSIDE RECORDS SUMMARY | 2024-08-29 14:18 | XMS_ITS | Encounter Summary ---
Author Organization [facility] Address [address] [place] [address] Care Team Providers Care Home Health Scheduler Name Role Phone Luis Caraballo MD Primary Care Provider +1- [phone] Encounter Details Date Type Department Care Team [...] Medical Office Building Physical Therapy [address] [facility], [address] [place] [address] Charlotte Pillai [address] [facility] [address] [place] [address] 09/19/2024 3:30 PM EDT Office Visit Medical Office Building Urology [address] [facility], [address] [place] [address] Courtney Young MD [address] [facility] [address] [place] [address] 10/10/2024 4:00 PM EDT Office Visit [facility] Nephrology, Bone & Mineral Metabolism [address], [address] [place] [address] Mp Reis, WILMER [address] [place] [address] 06/05/2025 10:45 AM EDT Appointment [facility] Radiology [address] [place] [address] 06/05/2025 11:50 AM EDT Clinical Support [facility] [address], 2nd [place] [address] 06/05/2025 12:30 PM EDT Office Visit [facility]rology [address], 2nd [place] [address] Charlotte Rodriguez, MEASUREMENT DEPARTMENT CHIEF CLERK, DNP [address] [place] [address] documented as of this encounter Visit Diagnoses [...] documented as of this encounter Care Teams Home Health Scheduler Relationship Specialty Start Date End Date Luis Caraballo MD [address] [place] [address] PCP - General 06/20/20 documented as of this encounter
--- OUTSIDE RECORDS SUMMARY | 2024-08-29 14:18 | XMS_ITS | Encounter Summary ---
Author Organization [facility] Address [address] [place] [address] Care Team Providers Care Head Of Transport Logistics Name Role Phone Luis Caraballo MD Primary Care Provider +1- [phone] Encounter Details Date Type Department Care Team ([facility] st Contact Info) Description 08/29/2024 Telephone [facility] Nephrology, Bone & Mineral Metabolism [address], [address] [place] [address] Mp Reis PA [address] [place] [address] Social History Tobacco Use Types Packs/Day [...] encounter Miscellaneous Notes * Telephone Encounter - Viktoriya Rojas - 08/29/2024 12:15 PM EDT Secure chat sent to the covering provider, Keara Velazquez APRN * Telephone Encounter - Monica Cristina - 08/29/2024 10:32 AM EDT Clinical Concern/Question Reason for Call: patient daughter calling he was recently in hospital patient has been having episodes of passing out and would like call back to see if patient can have labs ran to check his levels Best contact number: Other: [phone] Optimal time of day to reach caller: ANYTIME Additional comments/information from caller: None Note: Please do not reply to this message. Follow-up communication and further actions as a result of this message need to be communicated with the patient directly, if the patient is not active onMyChart. If the patient is active on MyChart, they will receive notification of the communication/outcome via REBIScanhart. documented in this encounter Plan of Treatment Upcoming Encounters Date Type Department Care Team (Late st Contact Info) Description 08/31/2024 12:15 PM EDT Appointment Medical Office Building Physical Therapy [address] [facility], [address] [place] [address] Charlotte Pillai [address] [facility] [address] [place] [id number] 09/19/2024 3:30 PM EDT Office Visit Medical Office Building Urology [address] [facility], [address] [place] [address] Courtney Young MD [address] [facility] [address] [place] [address] 10/10/2024 4:00 PM EDT Office Visit [facility] Nephrology, Bone & Mineral Metabolism [address] [facility], [address] [place] [address] Mp Reis PA [address] [facility] [address] [place] [address] 06/05/2025 10:45 AM EDT Appointment [facility] Radiology [address] [place] [address] 06/05/2025 11:50 AM EDT [facility] [address], 2[address] [place] [address] 06/05/2025 12:30 PM EDT [facility] [address], 2[address] [place] [address] Charlotte Rodriguez, FITNESS MANAGER, DNP [address] [place] [address] documented as of this encounter [...] documented as of this encounter Care Teams Head Of Transport Logistics Relationship Specialty Start Date End Date Luis Caraballo MD [address] [place] [address] PCP - General 06/20/20 documented as of this encounter
--- OUTSIDE RECORDS SUMMARY | 2024-08-29 14:18 | XMS_ITS | Encounter Summary ---
Author Organization [facility] Address [address] [place] [address] Care Team Providers Care Baggage Agent Name Role Phone Luis Caraballo MD Primary Care Provider +1- [phone] Encounter Details Date Type Department Care Team [...] Medical Office Building Physical Therapy [address] [facility], [address] [place] [address] Charlotte Pillai [address] [facility] [address] [place] [address] 09/19/2024 3:30 PM EDT Office Visit Medical Office Building Urology [address] [facility], [address] [place] [address] Courtney Young MD [address] [place] [address] 10/10/2024 4:00 PM EDT Office Visit [facility] Nephrology, Bone & Mineral Metabolism [address] [facility], [address] [place] [address] Mp Reis, PA [address] [place] [address] 06/05/2025 10:45 AM EDT Appointment [facility] Radiology [address] [place] [address] 06/05/2025 11:50 AM EDT Clinical Support [facility] [address], 2nd [place] [address] 06/05/2025 12:30 PM EDT Office Visit [facility] Urology [address], [address] [place] [address] Charlotte Rodriugez, CEMENT TILE MAKER, DNP [address] [place] [address] documented as of this encounter Visit Diagnoses [...] documented as of this encounter Care Teams Baggage Agent Relationship Specialty Start Date End Date Luis Caraballo MD [address] [place] [address] PCP - General 06/20/20 documented as of this encounter
--- OUTSIDE RECORDS SUMMARY | 2024-08-29 14:18 | XMS_ITS | Encounter Summary ---
Author Organization [facility] Address [address] [place] [address] Care Team Providers Care Radio Sportscaster Name Role Phone Luis Caraballo MD Primary Care Provider +1- [phone] Reason for Visit * Reason Comments Med Refill Encounter Details Date Type Department Care Team (Late st Contact Info) Description 04/14/2024 Refill [facility] [address], [address] [place] [address] Charlotte Rodriguez, PLYWOOD FACTORY WORKER, DNP [address] [place] [address] Social History Tobacco Use Types [...] Medical Office Building Physical Therapy [address] [facility], [address] [place] [address] Charlotte Pillai [address] [facility] [address] [place] [address] 09/19/2024 3:30 PM EDT Office Visit Medical Office Building Urology [address] [facility], [address] [place] [address] Courtney Young MD [address] [facility] [address] [place] [address] 10/10/2024 4:00 PM EDT Office Visit [facility] Nephrology, Bone & Mineral Metabolism [address] [facility], [address] [place] [address] Mp Reis PA [address] [facility] [address] [place] [address] 06/05/2025 10:45 AM EDT Appointment [facility] Radiology [address] [place] [address] 06/05/2025 11:50 AM EDT Clinical Support [facility] [address] [place] [address] 06/05/2025 12:30 PM EDT Office Visit [facility] [address], [address] [place] [address] Charlotte Rodriguez, PLYWOOD FACTORY WORKER, DNP [address] [place] [address] documented as of this encounter Visit Diagnoses Not on filedocumented in this encounter Additional Health Concerns Assessment Noted Time A fall risk assessment has been complete d for the patient 04/04/2024 2:28 PM EST A Body Mass Index follow-up plan has been documented for the patient 04/09/2024 4:26 PM EST documented as of this encounter Care Teams Radio Sportscaster Relationship Specialty Start Date End Date Luis Caraballo MD [address] [place] [address] PCP - General 06/20/20 documented as of this encounter
--- OUTSIDE RECORDS SUMMARY | 2024-08-29 14:18 | XMS_ITS | Encounter Summary ---
Author Organization [facility] Address [address] [place] [address] Care Team Providers Care Asbestos Worker Name Role Phone Luis Caraballo MD Primary Care Provider +1- [phone] Encounter Details Date Type Department Care Team (Latest Contact Info) Description 08/21/2024 Travel Social History Tobacco Use Types Packs/Day [...] Behavior (Lifetime) No 7:52 PM EDT Zain Holden, DAVE documented as of this encounter Plan of Treatment Upcoming Encounters Date Type Department Care Team (Late st Contact Info) Description 08/31/2024 12:15 PM EDT Appointment Medical Office Building Physical Therapy [address] [facility], [address] [place] [address] Charlotte Pillai [address] [facility] [address] [place], [place] [address] 09/19/2024 3:30 PM EDT Office Visit Medical Office Building Urology [address] [facility], [address] [place] [address] Courtney Young MD [address] [address] 10/10/2024 4:00 PM EDT Office Visit [facility] Nephrology, Bone & Mineral Metabolism [address] [facility], [address] [place] [address] Mp Reis PA [address] [facility] [address] [place] [address] 06/05/2025 10:45 AM EDT Appointment [facility] Radiology [address] [place] [address] 06/05/2025 11:50 AM EDT Clinical Support [facility] [address] [place] [address] 06/05/2025 12:30 PM EDT Office Visit [facility] [address], [address] [place] [address] Charlotte Rodriguez, CHEMICAL PROCESSING LABORER, DNP [address] [place] [address] documented as of this encounter Visit Diagnoses Not on filedocumented in this encounter Additional Health Concerns Assessment Noted Time PHQ-9 Depression Total Score: 0 05/29/20 25 3:19 PM EDT A fall risk assessment has been complete d for the patient 07/11/2024 4:06 PM EDT A Body Mass Index follow-up plan has been documented for the patient 08/22/2024 3:26 PM EDT documented as of this encounter Care Teams Asbestos Worker Relationship Specialty Start Date End Date Luis Caraballo MD [address] [place] [address] PCP - General 06/20/20 documented as of this encounter
--- OUTSIDE RECORDS SUMMARY | 2024-08-29 14:19 | XMS_ITS | Patient Health Record ---
Author Organization [facility] Address [address] [place] [id number] Care Team Providers Care Collating Machine Operator Name Role Phone Catracho Tolentino Primary Care Provider BurlesonMp astudillo Unavailable [phone] Arcelia Person Unavailable [phone] Allergies No Known Allergies Results Component Value Reference Range Notes P-Basic Metabolic Panel (BMP ) Reviewed date:11/08/2023 10:34:02 AM Interpretation:K+ 5.7, co2- 20, gluc 109, bun 59, Cr 3.13, gfr 21 Performing Lab: Notes/Report: Test performed by [email or web address] [address] [place] [address] , [address], [place] [address] Yan Bell MD, Legal Consultant CLIA: [id number] Sodium 137 135-145 mmol/L Potassium 5.7 3.5-5.3 [...] bilateral hydronephrosis, benign appearing right renal cysts Glucose (In-House) Reviewed date:04/12/2024 10:39:09 AM Interpretation: [...] 38 Performing Lab: Notes/Report: Test performed by [email or web address] [address] [place] [address] , [address], [place] [address] Yan Bell MD, Legal Consultant CLIA: [id number] Sodium 140 135-145 mmol/L Potassium 4.5 3.5-5.3 [...] 32 Performing Lab: Notes/Report: Test performed by [facility] [address] [place] [address] , [address], [place] [address] Yan Bell MD, Legal Consultant CLIA: [id number] Cholesterol 119 <200 mg/dL Triglycerides 74 <150 [...] Interpretation:Normal Performing Lab: Notes/Report: Test performed by [facility] [address] [place], [place] [email or web address] [place] , [place] [address] Yan Bell MD, Legal Consultant CLIA: [id number] Phosphorus 3.2 2.5-4.5 mg/dL P-TSH reflex to FT4 Reviewed date:04/13/2024 09:18:25 AM Interpretation:Normal Performing Lab: Notes/Report: Test performed by [facility] [address] [place] [address] , [place] [address] Yan Bell MD, Legal Consultant CLIA: [id number] TSH reflex to FT4 2.20 0.43-5.25 mU/L P-Microalbumin/Creatinine, R andom Urine Sample Reviewed date:04/13/2024 09:18:25 AM Interpretation:a/c 125 Performing Lab: Notes/Report: Test performed by [facility] [address] [place], [place] [email or web address] [place] , [place] [address] Yan Bell MD, Legal Consultant CLIA: [id number] Albumin/Creatinine Ratio, Urine 125 0-30 ug/m g Microalbumin, Urine, Random 9.2 Creatinine, Urine 73.5 P-Basic Metabolic Panel (BMP ) Reviewed date:10/28/2023 10:17:24 AM Interpretation:Na 133, co2- 19, gluc 115, bun 62, Cr 3.46, gfr 19 Performing Lab: Notes/Report: Test performed by [facility] [address] [place] [address] , [address], [place] [address] Yan Bell MD, Legal Consultant CLIA: [id number] Sodium 133 135-145 mmol/L Potassium 5.2 3.5-5.3 mmol/L Chloride 102 97-108 mmol/L CO2 19 22-32 mmol/L Glucose 115 65-99 mg/dL BUN 62 8-23 mg/dL Creatinine 3.46 0.70-1.30 mg/dL Calcium 9.4 8.6-10.4 mg/dL eGFR by Creatinine 19 >59 mL/min/1.73m2 Glucose (In-House) Reviewed date:10/21/2023 12:24:32 PM Interpretation:143 [...] 22 Performing Lab: Notes/Report: Test performed by [facility] [address] [place] [address] , [address], [place] [address] Yan Bell MD, Legal Consultant CLIA: [id number] Sodium 142 135-145 mmol/L Potassium 5.8 3.5-5.3 mmol/L Chloride 108 97-108 mmol/L CO2 21 22-32 mmol/L Glucose 116 65-99 mg/dL BUN 52 8-23 mg/dL Creatinine 2.96 0.70-1.30 mg/dL Calcium 10.5 8.6-10.4 mg/dL eGFR by Creatinine 22 >59 mL/min/1.73m2 P-Phosphorus Reviewed date:10/21/2023 12:24:32 PM Interpretation:4.8 Performing Lab: Notes/Report: Test performed by [facility] [address] [place] [address] , [place] [address] Yan Bell MD, Legal Consultant CLIA: [id number] Phosphorus 4.8 2.5-4.5 mg/dL P-Parathyroid Hormone (PTH) Intact Reviewed date:10/21/2023 12:24:32 PM Interpretation:Normal Performing Lab: Notes/Report: Test performed by [facility] [address] [place] [address] [place] [address] Yan Bell MD, Legal Consultant CLIA: [id number] Parathyroid Hormone (PTH) Intact 27.6 15.0-65. 0 pg/mL Medications Medication SIG (Take, Route, Frequency, Duration) [...] Vaccine Route Administration Date Status Comme nts COVID 19 Moderna Unknown 05/07/2020 Administered COVID 19 Moderna Unknown 06/04/2020 Administered COVID 19 Moderna Unknown 01/07/2021 Administered Fluzone High Dose (65yr and older) IM Intramuscular 11/02/2022 Administered Fluzone High Dose (65yr and older) IM Intramuscular 10/20/2023 Administered PNEUMOVAX 23 VACCINE IM Intramuscular 03/21/2014 Administe red Prevnar (PCV20) IM Intramuscular 10/20/2023 Administered Shingrix Unknown 12/08/2020 Administered Shingrix Unknown 04/24/2021 Administered xFlu shot-36 months and older IM Intramuscular 12/24/2004 Administered Problems Problem Type SNOMED Code ICD Code Onset Dates Problem Status W/U Status Risk Notes Problem Essential hypertension (53119301) Essential (primary) hypertension (I10) Active confirmed Problem Hypertension (75557654) HTN (hypertension) (I10) Active confirmed Problem Gout (32055477) Gout (M10.9) Active confirmed Problem Essential hypertension (67562476) Essential hypertension (I10) Active confirmed Problem Hyperuricemia (39261030) Hyperuricemia (E79.0) Active confirmed Problem Bandemia (497418278) Bandemia (D72.825) Active confirmed Problem Pure hypercholesterolemia (692594839) Pure hypercholesterolemia (E78.0) Active confirmed Problem 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) Primary osteoarthritis, unspecified site (M19.91) Active confirmed Problem Gastroesophageal reflux disease without esophagitis (647265993) Gastroesophageal reflux disease without esophagitis (K21.9) Active confirmed Problem Atherosclerotic hear t disease of ton[place] coronary artery without angina pectoris (672353571146716) Coronary artery disease involving [place] coronary artery of [place] heart without angina pectoris (I25.10) Active confirmed Problem Acute pain of ri ght knee (M25.561) Active confirmed Problem Chronic kidney disease stage 4 (398827699) CKD (chronic kidney disease) stage 4, GFR 15-29 ml/min (N18.4) Active confirmed Problem Type II diabetes mellitus without complication (195607880) Type 2 diabetes mellitus without complication, without long-term current use of insulin (E11.9) Active confirmed Problem Pure hypercholesterolemia (628323638) Pure hypercholesterolemia, unspecified (E78.00) Active confirmed Problem Diverticular disease of colon (017628086) Pancolonic diverticulosis (K57.30) Active confirmed Problem Chronic kidney disease stage 4 (467915950) Stage 4 chronic kidney disease (N18.4) Active confirmed Vital Signs Heart Rate 72 /min 04/12/2024 Blood pressure diastolic 92 mm Hg 04/12/2024 Height 72 in 04/12/2024 Blood pressure systolic 170 mm Hg 04/12/2024 Weight 198.6 lbs 04/12/2024 BMI 26.93 kg/m2 04/12/2024 Encounters Encounter Location Date Provider Diagnosis [facility] [address] [facility] [address] [place], [place] [id number] 10/20/2023 Mp Burleson HTN (hypertension) I 10 ; Type 2 diabetes mellitus without complication, without long-term current use of insulin E11.9 and Renal insufficiency N28.9 [facility] [address] [facility] [address] [place], [place] [id number] 10/27/2023 Mp Burleson Essential (primary) hypertension I10 [facility] [address] [place], [place] [id number] 11/04/2023 Arceliaronak Person Stage 4 chronic kidn ey disease N18.4 ; Type 2 diabetes mellitus without complication, without long-term current use of insulin E11.9 ; Coronary artery disease involving [place] coronary artery of [place] heart without angina pectoris I25.10 ; HTN (hypertension) I10 and Pure hypercholesterolemia, unspecified E78.00 [facility] [address] [place], [place] [id number] 04/12/2024 Mp Burleson HTN (hypertension) I 10 ; Type 2 diabetes mellitus without complication, without long-term current use of insulin E11.9 ; Pure hypercholesterolemia, unspecified E78.00 and CKD (chronic kidney disease) stage 4, GFR 15-29 ml/min N18.4 [facility] [address] [place], [place] [id number] 02/09/2024 Catracho Tolentino [facility] [address] [facility] [address] [place], [place] [id number] 10/21/2023 Mp Burleson HTN (hypertension) I 10 [facility] [address] [place] [id number] 10/28/2023 Mp Burleson CKD (chronic kidney disease) stage 4, GFR 15-29 ml/min N18.4 [facility] [address] [place] [id number] 11/08/2023 Arcelia Person [facility] [address] [place] [id number] 11/09/2023 Arcelia Hamiltondy [facility] [address] [place] [id number] 11/17/2023 Mp Burleson [facility] [address] [place] [id number] 11/17/2023 Catracho HiltonWilliam Rajan [facility] [address] [place], [place] [id number] 04/13/2024 Mpmian MossBurleson Assessments Encounter Date Diagnosis (ICD Code) Assessment [...] of insulin (ICD-10 - E11.9) 04/12/2024 Pure hypercholesterolem ia, unspecified (ICD-10 - E78.00) 11/04/2023 Coronary artery disease involving ton[place] coronary artery of ton[place]anda heart without angina pectoris (ICD-10 - I25.10) 10/27/2023 Essential (primary) hypertension (ICD-10 - I10) [...] Date [employer] (MEDICAR E) [address] [address] [place] [address] [id number] MANISH MELO Self - patient is the [...]
--- OUTSIDE RECORDS SUMMARY | 2024-08-29 14:19 | XMS_ITS | Encounter Summary ---
Author Organization [facility] Address [address] [place] [address] Care Team Providers Care It Help Desk Manager Name Role Phone Luis Caraballo MD Primary Care Provider [phone]- [phone] Encounter Details Date Type Department Care Team (Late st Contact Info) Description 07/10/2024 Telephone [facility] [address] [place] [address] Courtney Young MD [address] [place] [address] Social History Tobacco Use Types [...] with patient's Patient will be [facility] prior to surgery to have a urine culture done - urine culture order mailed to patient and patient's is aware of this plan documented in this encounter Plan of Treatment Upcoming Encounters Date Type Department Care Team (Late st Contact Info) Description 08/31/2024 12:15 PM EDT Appointment [facility] Physical Therapy [address], [address] [place] [address] Charlotte Pillai [address] [place], [place] [id number] 09/19/2024 3:30 PM EDT Office Visit [facility] Urology [address], [address] [place] [address] Courtney Young MD [address] [place] [address] 10/10/2024 4:00 PM EDT Office Visit [facility] Nephrology, Bone & Mineral Metabolism [address], [address] [place] [address] Mp Reis PA [address] [place] [address] 06/05/2025 10:45 AM EDT Appointment [facility] [address] [place] [address] 06/05/2025 11:50 AM EDT Clinical Support [facility] [address] [address] 06/05/2025 12:30 PM EDT Office Visit [facility] [address] [place] [address] Charlotte Rodriguez, [employer], DNP [address] [place] [address] Scheduled Orders Name Type Priority Associated Diagnoses Orde r Schedule Urine Culture Microbiology Routine Urine retention Incomplete bladder emptying Expected: 08/02/2024 (Approximate), Expires: 01/11/2026 documented as of this encounter Visit Diagnoses Diagnosis Urine retention- Primary Unspecified retention of urine Incomplete bladder emptying documented in this encounter Additional Health Concerns Assessment Noted Time PHQ-9 Depression Total Score: 0 07/06/19 25 3:19 PM EDT A fall risk assessment has been complete d for the patient 07/05/2024 3:19 PM EDT A Body Mass Index follow-up plan has been documented for the patient 07/05/2024 4:31 PM EDT documented as of this encounter Care Teams It Help Desk Manager Relationship Specialty Start Date End Date Luis Caraballo MD [address] [place] [address] PCP - General 06/20/20 documented as of this encounter
--- OUTSIDE RECORDS SUMMARY | 2024-08-29 14:20 | XMS_ITS | Clinical Summary ---
Author Organization [facility] Address [address] [place] [address] Care Team Providers Care Interior Design Coordinator Name Role Phone Luis Caraballo MD Primary Care Provider [phone] Allergies No known active allergies Medications atorvastatin (Lipitor) 80 MG tablet Take 1 tablet by mouth nightly. 11/17/19 24 Active clopidogrel (Plavix) 75 MG tablet Take 1 tablet by mouth every morning. 11/17/19 24 Active glyBURIDE (Diabeta) 5 MG tablet Take 1 tablet by mouth daily with breakfast. 11/18/19 24 Active aspirin 81 MG EC tablet Take 1 tablet by mouth every morning. Active metoprolol succinate XL (Toprol-XL) 200 MG 24 hr tablet Take 1 tablet by mouth every morning. 01/20/20 24 Active Dorsey-3 Fatty Acids (FISH OIL HIGH POTENCY PO) Take 1 capsule by mouth in the morning. Active NIFEdipine XL (Procardia XL) 60 MG 24 hr tabletIndication s:Essential hypertension Take 1 tablet (60 mg) by mouth daily. Do not crush, chew, or split. Replaces amlodipine 30 tablet 5 04/28/19 25 Active irbesartan (Avapro) 300 MG tablet Take 1 tablet by mouth daily. 07/10/19 25 Active acetaminophen (Tylenol) 325 MG tablet Take 2 tablets by mouth every 6 hours. Under [place] law, monthly prescriptions (30 days) can be refilled at 25 days and three-month prescriptions (90 days) at 80 days. Please contact the insurance company with questions if refills are denied. 100 tablet 08/23/19 25 Active methocarbamol (Robaxin) 500 MG tablet Take 1 tablet by mouth 3 times a day as needed for muscle spasms. 30 tablet 08/23/19 25 Active polyethylene glycol (Miralax) 17 g packet Take 17 g by mouth daily. 30 packet 1 08/24/19 25 Active senna-docusate (Noelle-Colace) 8.6-50 MG tablet Take 1 tablet by mouth nightly. 30 tablet 1 08/23/19 25 Active omeprazole (PriLOSEC) [address] capsule Take 1 capsule by mouth every morning. 11/17/19 24 025 Discontinu ed(Entered in Error) trospium (Sanctura) 20 MG tablet Take 1 tablet by mouth 2 (two) times a day. 60 tablet 11 06/01/19 25 025 Discontinu ed(Stop Taking at Discharge) amLODIPine (Norvasc) 10 MG tablet Take 1 tablet by mouth daily. 07/19/19 025 Discontinu ed(Entered in Error) sulfamethoxazole -trimethoprim (Bactrim DS) 800-160 MG tabletIndication s:Urine retention Take 1 tablet by mouth 2 times a day for 7 days. 14 tablet 08/07/19 025 Discontinu ed(Entered in Error) phenazopyridine (Pyridium) 200 MG tablet Take 1 tablet by mouth 3 times a day with meals for 9 doses. 10 tablet 08/23/19 25 025 Active Problems Problem Noted Date Diagnosed Date Incomplete bladder emptying 08/19/2024 Urinary retention due to benign prostatic hyperp lasia 08/17/2024 Bandemia 05/31/2024 Gastroesophageal reflux disease without esophagi [...] disease invo lving coronary bypass graft of [place] heart 02/25/2024 Encounters Date Type Department Care Team Description 08/29/[address] [facility] Nephrology, Bone & Mineral Metabolism [address] [facility], [address] [place] [address] Mp Reis PA 08/21/2024 10:40 AM EDT Anesthesia Event [facility] [address] [place] [address] Carlos Marcos MD Rock, Holly R, PA 08/21/2024 9:00 AM EDT - 08/21/2024 11:00 AM EDT Surgery [facility] [address] [place] [phone] Courtney Young MD CYSTOSCOPY, WITH BLADDER FULGURATION, FOR BLEEDING [42212 (CPT )] 08/21/2024 Travel 08/17/2024 12:46 PM EDT Anesthesia Event [facility] [address] [place] [address] Tom Cyr MD Knopp, Brandon W, MD 08/17/2024 12:15 PM EDT - 08/17/2024 2:40 PM EDT Surgery [facility] [address] [place] [address] Courtney Young MD ENUCLEATION, PROSTATE, TRANSURETHRAL, USING HOLMIUM LASER ( HOLEP ) [12659 (CPT )] 08/17/2024 10:02 AM EDT - 08/22/2024 3:41 PM EDT Hospital Encounter [facility] Inpatient [address] [place] [address] Courtney Young MD Urinary retention due to benign prostatic hyperplasia (Primary Dx); Incomplete bladder emptying Discharge Disposition: Home or Self Care 08/17/2024 Travel 08/16/2024 Travel 08/14/2024 1:53 PM EDT - 08/14/2024 11:59 PM EDT Hospital Encounter Medical Office Building Physical Therapy [address] [facility], [address] [place] [address] Charlotte Pillai Incomplete bladder emptying (Primary Dx) Discharge Disposition: Still a Patient 08/14/2024 Plan of Care Documentation Medical Office Building Physical Therapy [address] [facility], [address] [place] [address] 08/14/2024 Travel 08/06/2024 Orders Only [facility] Urology [address], [address] [place] [address] Courtney Young MD Urine retention (Primary Dx) 08/03/2024 Telephone [facility]rology [address] [place] [address] Courtney Young MD Preliminary U/C Results 08/02/2024 3:15 PM EDT Pre-Admission Testing [facility] Pre-op Clinic [address] [place] [address] 08/02/2024 Travel 07/11/2024 4:00 PM EDT Office [facility] Nephrology, Bone & Mineral Metabolism [address] [facility], [address] [place] [address] Mp Reis PA Stage 3b chronic kidney disease (CMS/HCC) (Primary Dx); Essential hypertension; Hypervolemia, unspecified hypervolemia type; Hyperkalemia 07/11/2024 Travel 07/10/2024 Telephone [facility] Urology [address], [facility] [place] [address] Courtney Young MD 07/05/2024 3:30 PM EDT Office Visit Medical Office Building Urology [address] [facility], [address] [place] [address] Courtney Young MD Incomplete bladder emptying 07/05/2024 Travel 06/08/2024 Telephone [facility] Urology [address] [place] [address] Destiney Lyman APRN, SAMAN HCN Clinical Concern/Question 05/31/2024 10:07 AM EDT - 05/31/2024 2:21 PM EDT Emergency [facility] Emergency Department [address] [place] [phone] Marck Torres MD Vasovagal attack (Primary Dx) Discharge Disposition: Home or Self Care 05/31/2024 8:00 AM EDT Office Visit [facility] Urology [address] [facility], [address] [place] [phone] Destiney Lyman APRN, DNP Urine retention (Primary Dx); Incomplete bladder emptying; Intermittent self-catheterizatio n of bladder; Gross hematuria 05/31/2024 Orders Only External Location [address] [place] [phone] Provider, External 05/31/2024 Travel 05/30/2024 Telephone [facility] Urology [address] [place] [address], [address] [place] [address] Bridget Cristina LPN from Last 3 Months Immunizations Immunization Administration Dates Next Due Influenza Vaccine, Quadrivalent, Adjuvanted 08/2021 Influenza, injectable, MDCK, preservative free, quadrivalent 12/08/2020 Pneumococcal 20-candido Conj Vaccine 10/20/2023 Zoster, Recombinant 04/24/2021,12/08/2020 Family History 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 Relation Name Comments Anesthesia problems Neg Hx Malig Hyperthermia Neg Hx Social History Tobacco Use Types Packs/Day Years [...] Mass Index 26.15 08/17/2024 11:08 AM EDT Plan of Treatment Upcoming Encounters Date Type Department Care Team ([facility] st Contact Info) Description 08/31/2024 12:15 PM EDT Appointment Medical Office Building Physical Therapy [address] [facility], [address] [place] [address] Charlotte Pillai [address] [facility] [address] [place] [address] 09/19/2024 3:30 PM EDT Office Visit Medical Office Building Urology [address] [facility], [address] [place] [address] Courtney Young MD [address] [facility] [address] [place] [address] 10/10/2024 4:00 PM EDT Office Visit [facility] Nephrology, Bone & Mineral Metabolism [address] [facility], [address] [place] [address] Mp Reis PA [address] [facility] [address] [place] [address] 06/05/2025 10:45 AM EDT Appointment [facility] Radiology [address] [place] [address] 06/05/2025 11:50 AM EDT Clinical Support [place] [facility] [address] [place] [address] 06/05/2025 12:30 PM EDT Office Visit [facility] [address] [place] [address] Charlotte Rodriguez P, FLIGHT DISPATCHER, DNP [address] [place] [address] Health Maintenance Due Date Last Done Comments [facility]-Diabetes: Hemoglobin A1C 1955 [facility]-Medicare Annual Wellness (AWV) 1955 [facility]-Infant/Child/Adol SDOH Screenings 1956 Diabetes: Dental Exam 1966 [facility]- SDOH Screenings 1974 [facility]-Adult SDOH Screenings 1974 [facility]-DTaP,Tdap,and Td Vaccines (1 - Tdap) 06/14/1975 CT Colonography 2001 Colonoscopy 2001 FIT-DNA 2001 FIT 2001 FOBT 2001 Sigmoidoscopy 2001 [facility]-Colorectal Cancer Screening 2001 [facility]-RSV Vaccine: 60+ Years or (1 - Risk 60-74 years 1-dose series) 2016 [id number] Vaccine ( season) 2023 01/06/2022, 01/07/2021, 06/04/2020, Additional history exists [facility]-Influenza Vaccine (#1) 10/08/202411/13, 12/08/2020, 12/24/2004 [facility]-Depression Screening 07/05/2025 07/05/2024, 06/08 [facility]-Zoster Vaccines Completed 04/24/2021, [facility]-Pneumococcal Vaccine: 50+ Years Completed 10/20/2023, 03/21/2014 [facility]-Hepatitis C Screening Completed 02/23/2024 [facility]-Obesity Intervention Completed 025, 07/10/2024, 07/05/2024, Additional history exists HPV Vaccines Aged Out [...] on patient's age to complete this topic Medical Devices Implanted Type Area Plating Department Helper Device Identifier Shelf Expiration Date Model / Serial / Lot Stent Stent N/A: Heart Procedures Procedure Name Priority Date/Time Associated Diagnosis [...] UNSOLICITED RESULTS Routine 08/21/2024 12:12 PM EDT PB ANESTHESIA PLACEHOLDER Routine 08/21/2024 10:47 AM EDT IA AN ELECTIVE ENDOTRACHEAL AIRWAY Routine 08/21/2024 10:47 AM EDT IA CYSTOURETHROSCOPY,FUL GURATN 08/21/2024 10:25 AM EDT Urinary retention due to benign prostatic hyperplasia Special Needs dorsal lithotomy POCT GLUCOSE METER UNSOLICITED RESULTS Routine 08/21/2024 9:52 AM EDT POCT GLUCOSE METER UNSOLICITED RESULTS Routine 08/21/2024 5:28 AM EDT BASIC METABOLIC PANEL, PLASMA Routine 08/21/2024 4:23 AM EDT CBC W/O DIFFERENTIAL Routine 08/21/2024 4:23 AM EDT POCT GLUCOSE METER UNSOLICITED RESULTS Routine 08/20/2024 8:28 PM EDT POCT GLUCOSE METER UNSOLICITED RESULTS Routine 08/20/2024 5:23 PM EDT POCT GLUCOSE METER UNSOLICITED RESULTS Routine 08/20/2024 11:49 AM EDT POCT GLUCOSE METER UNSOLICITED RESULTS Routine 08/20/2024 7:33 AM EDT BASIC METABOLIC PANEL, PLASMA Pending Discharge 08/20/2024 4:30 AM EDT CBC W/O DIFFERENTIAL Pending Discharge 08/20/2024 4:30 AM EDT HEMOGLOBIN [...] PREPARE RBC Routine 08/19/2024 10:55 AM EDT TYPE AND SCREEN Routine 08/19/2024 9:42 AM EDT HEMOGLOBIN AND HEMATOCRIT, BLOOD Routine 08/19/2024 9:42 AM EDT POCT GLUCOSE METER UNSOLICITED RESULTS Routine 08/19/2024 8:01 AM EDT CBC W/O DIFFERENTIAL Routine 08/19/2024 4:29 AM EDT BASIC METABOLIC PANEL, PLASMA Routine 08/19/2024 4:29 AM EDT POCT GLUCOSE METER UNSOLICITED RESULTS Routine 08/18/2024 8:03 PM EDT PHOSPHORUS, PLASMA STAT 08/18/2024 6: 20 PM EDT MAGNESIUM, PLASMA STAT 08/18/2024 6:2 0 PM EDT BASIC METABOLIC PANEL, PLASMA STAT 08/18/2024 6:20 PM EDT CBC W/O DIFFERENTIAL STAT 08/18/2024 6:20 PM EDT POCT GLUCOSE METER UNSOLICITED RESULTS Routine 08/18/2024 6:04 PM EDT POCT GLUCOSE METER UNSOLICITED RESULTS Routine 08/18/2024 5:02 PM EDT POCT GLUCOSE METER UNSOLICITED RESULTS Routine 08/18/2024 12:00 PM EDT POCT GLUCOSE METER UNSOLICITED RESULTS Routine 08/18/2024 8:27 AM EDT BASIC METABOLIC PANEL, PLASMA Routine 08/18/2024 3:43 AM EDT MAGNESIUM, PLASMA Routine 08/18/2024 3:4 3 AM EDT PHOSPHORUS, PLASMA Routine 08/18/2024 3: 43 AM EDT CBC W/O DIFFERENTIAL Routine 08/18/2024 3:43 AM EDT POCT GLUCOSE [...] 08/17/2024 1:33 PM EDT Incomplete bladder emptying PB ANESTHESIA PLACEHOLDER Routine 08/17/2024 12:50 PM EDT IA AN ELECTIVE ENDOTRACHEAL AIRWAY Routine 08/17/2024 12:50 PM EDT IA LASER ENUCLEATION PROSTATE W MORCELLATION 08/17/2024 12:30 PM EDT Incomplete bladder emptying POCT GLUCOSE METER UNSOLICITED RESULTS Routine 08/17/2024 11:17 AM EDT CYSTO- UROLOGY Routine 07/05/2024 3:45 PM EDT [...] EDT CT HEAD WO IV CONTRAST STAT 05/31/2024 11:15 AM EDT ECG ADULT STAT 05/31/2024 10:17 AM EDT UROLOGY UDS WITH BASE PERFORMABLE CHARGES Routine 05/31/2024 8:45 AM EDT Incomplete bladder emptying IA COMPLEX CYSTOMETROGRAM URETHRAL PRESS PROFILE Routine 05/31/2024 8:45 AM EDT Incomplete bladder emptying INJECTION FOR BLADDER XRAY WITH VOIDING Routine 05/31/2024 8:45 AM EDT Incomplete bladder emptying POC ULTRASOUND 05/31/2024 HEPATITIS C ANTIBODY - ED W/REFLEX TO HCV QUANT PCR STAT 02/23/2024 11:39 AM EST from Last 3 Months or Most Recently Relevant to Health Maintenance Results * (ABNORMAL) POCT glucose meter (08/22/2024 11:37 AM EDT) Only the most recent of26 resultswithin the time period is included. POCT Glucose 170(H) 74 - 99 mg/dL 08/22/2024 11:45 AM EDT [facility] Comment:Accuracy of [...] Comment 08/22/2024 11:45 AM EDT [facility]ALTHCARE [facility] Stock Broker ID Xin Marina 11:45 AM EDT HEALTHCARE LAB Device ID [id number] 08/22/2024 11:45 AM EDT HEALTH[facility]ARE LAB Specimen Type POC Capillary 08/22/2024 11:45 AM EDT [facility]ALTH[facility]ARE [facility] Blood Capillary blood specimen / Unknown 08/22/2024 11:37 AM EDT 08/22/2024 11:45 AM EDT us Courtney Young MD LAB POINT OF CARE TE ST DOCKED DEVICE UNSOLICITED RESULTS Final Result Performing Organization Address City/State/[facility] Co de Phone Number HEALTHCARE LAB [address] [place] [address] * (ABNORMAL) CBC W/O Differential (08/22/2024 2:11 AM EDT) Only the most recent of7 resultswithin the time period is included. WBC Count 14.27(H) 3.70 - 10.30 10*3/uL LAB HEMATOLOGY METHOD 08/22/2024 2:30 AM EDT [facility] RBC Count 2.99(L) 4.60 - 6.10 10*6/uL LAB HEMATOLOGY METHOD 08/22/2024 2:30 AM EDT [facility] HGB 8.9(L) 13.7 - 17.5 g/dL LAB HEMATOLOGY METHOD 08/22/2024 2:30 AM EDT [facility] HCT 26.8(L) 40.0 - 51.0 % LAB HEMATOLOGY METHOD 08/22/2024 2:30 AM EDT [facility] Platelet Count 270 155 - 369 10*3/uL LAB HEMATOLOGY METHOD 08/22/2024 2:30 AM EDT [facility] MCV 90 79 - 98 fL LAB HEMATOLOGY METHOD 08/22/2024 2:30 AM EDT [facility] MCH 29.8 26.0 - 32.0 pg LAB HEMATOLOGY METHOD 08/22/2024 2:30 AM EDT [facility] MCHC 33.2 30.7 - 35.5 g/dL LAB HEMATOLOGY METHOD 08/22/2024 2:30 AM EDT [facility] RDW 14.5 11.5 - 14.5 % LAB HEMATOLOGY METHOD 08/22/2024 2:30 AM EDT [facility] MPV 9.7 8.8 - 12.5 fL LAB HEMATOLOGY METHOD 08/22/2024 2:30 AM EDT [facility] nRBC 0.0 <=0.0 per 100 WBCs LAB HEMATOLOGY METHOD 08/22/2024 2:30 AM EDT [facility] Blood Venous blood specimen / Unknown Venipuncture / Unknown 08/22/2024 2:11 AM EDT 08/22/2024 2:21 AM EDT us Courtney Young MD LAB BLOOD ORDERABLES Final R esult [facility] [address] [place] [address] * (ABNORMAL) Basic Metabolic Panel, Plasma (08/22/2024 2:11 AM EDT) Only the most recent of7 resultswithin the time period is included. Glucose, Plasma 232(H) 74 - 99 mg/dL 08/22/2024 2:49 AM EDT [facility] BUN, Plasma 25(H) 8 - 23 mg/dL 08/22/2024 2:49 AM EDT [facility] Creatinine, Plasma 1.75(H) 0.70 - 1.20 mg/dL 08/22/2024 2:49 AM EDT [facility] BUN/Creatinine Ratio 14 08/22/2024 2:49 AM EDT [facility] Sodium, Plasma 138 136 - 145 mmol/L 08/22/2024 2:49 AM EDT [facility] Potassium, Plasma 4.4 3.6 - 4.9 mmol/L 08/22/2024 2:49 AM EDT [facility] Chloride, Plasma 104 97 - 107 mmol/L 08/22/2024 2:49 AM EDT [facility] CO2, Plasma 24 22 - 29 mmol/L 08/22/2024 2:49 AM EDT [facility] Anion Gap 10 6 - 16 mmol/L 08/22/2024 2:49 AM EDT [facility] Total Calcium, Plasma 8.7(L) 8.9 - 10.2 mg/dL 08/22/2024 2:49 AM EDT [facility] eGFRcr 41.9 mL/min/1.7 3m*2 08/22/2024 2:49 AM EDT [facility] Comment:Reported eGFRcr in m L/min/1.73m2 is based the CKD-EPI 2020 equation that does not use a race coefficient. Blood Venous blood specimen / Unknown Venipuncture / Unknown 08/22/2024 2:11 AM EDT 08/22/2024 2:20 AM EDT us Courtney Young MD LAB BLOOD ORDERABLES Final R esult [facility] [address] [place] [address] * IA AN ELECTIVE ENDOTRACHEAL AIRWAY, PB ANESTHESIA PLACEHOLDER (08/21/2024 10:47 AM EDT) Narrative Rayo Guadalupe CRNA - 08/21/2024 10:47 AM EDT Rayo Guadalupe CRNA 08/21/2024 10:56 AM Airway Date/Time: 08/21/2024 10:47 AM Reason: elective Airway not difficult General Information and Staff Patient location during procedure: OR SPECIMEN ACCESSIONER: Rayo Guadalupe CRNA Performed: SAÚL Patient Condition Indications for airway management: anesthesia [...] from: lips ETT to lips (cm): 22 Carlos Marcos MD ANESTHESIA ORDERABLES Final Result * (ABNORMAL) Hemoglobin and hematocrit, blood (08/19/2024 9:52 PM EDT) Only the most recent of3 resultswithin the time period is included. HGB 9.2(L) 13.7 - 17.5 g/dL LAB HEMATOLOGY METHOD 08/19/2024 10:08 PM EDT [facility] HCT 27.6(L) 40.0 - 51.0 % LAB HEMATOLOGY METHOD 08/19/2024 10:08 PM EDT [facility] Blood Venous blood specimen / Unknown Venipuncture / Unknown 08/19/2024 9:52 PM EDT 08/19/2024 10:01 PM EDT Courtney Young MD LAB BLOOD ORDERABLES Final R esult Performing Organization Address [facility] de Phone Number [facility] [address] [place] [address] * Transfuse RBC (08/19/2024 9:41 PM EDT) Only the most recent of2 resultswithin the time period is included. Courtney Young MD BLOOD TRANSFUSION ORDERABLES Final Result * Prepare Leukocyte Reduced RBC: 1 Units (08/19/2024 4:35 PM EDT) Only the most recent of2 resultswithin the time period is included. Product Code I7011S09 BLOO D BANK Dispense Status Transfused BLOOD BANK Blood Expiration Date [id number] BLOOD BANK Unit Number [id number] B LOOD BANK Product Blood Type 0600 BLOOD BANK Blood Type A- BLOOD BANK Crossmatch Compatible BLOOD BANK Other Courtney Young MD BLOOD BANK PRODUCT ORDERABLE S Final Result Performing Organization Address [facility] de Phone Number BLOOD BANK [address] [place] [address], [place] * Type and Screen (08/19/2024 9:42 AM [...] ORDERABL ES Final Result Performing Organization Address City/[facility]/ZIP Co de Phone Number BLOOD BANK [address] [place] [address], [place] * Phosphorus (08/18/2024 6:20 PM EDT) Only the most recent of2 resultswithin the time period is included. Phosphorus, Plasma 4.3 2.5 - 4.5 mg/dL 08/18/2024 6:53 PM EDT [facility] Blood Venous blood specimen / Unknown Venipuncture / Unknown 08/18/2024 6:20 PM EDT 08/18/2024 6:24 PM EDT Courtney Young MD LAB BLOOD ORDERABLES Final R esult [facility] [address] [place] [address] * Magnesium (08/18/2024 6:20 PM EDT) Only the most recent of2 resultswithin the time period is included. Magnesium, Plasma 2.2 1.9 - 2.4 mg/dL 08/18/2024 6:53 PM EDT [facility] Blood Venous blood specimen / Unknown Venipuncture / Unknown 08/18/2024 6:20 PM EDT 08/18/2024 6:24 PM EDT us Courtney Young MD LAB BLOOD ORDERABLES Final R esult Performing Organization Address City/[facility] Co de Phone Number [facility] [address] [place] [address] * Surgical Pathology Exam (08/17/2024 1:33 PM EDT) Case Report Surgical Pathology Case: [id number] Authorizing Provider: Courtney Young MD Collected: 08/17/2024 1333 Ordering Location: [facility] A OPERATING ROOM Received: 08/17/2024 1416 Pathologist: Sulaiman Valles MD Specimen: Prostate, morcellated prostate 08/20/2024 6:26 PM EDT [facility] Final Diagnosis A. PROSTATE, TRANSURETHRAL LASER ENUCLEATION: - BENIGN PROSTATIC HYPERPLASIA 08/20/2024 6:26 PM EDT [facility] at 1826 EDT Clinical Information INCOMPLETE BLADDER EMPTYING 08/20/2024 6:26 PM EDT [facility] Gross Description A. MORCELLATED PROSTATE Received fresh labeled morcellated prostate are multiple pieces of pink-scanlon soft tissue measuring 5.0 x 3.0 x 0.7 cm in aggregate and weighing 6.6 g. Entirely submitted in cassettes A1-A5 Cold Time: <1m Sidra Castaneda 08/20/2024 6:26 PM EDT [facility] Note: A resident was involved in the service. I attest I examined the relevant preparations for the specimens and confirmed the diagnosis or interpretation. 08/20/2024 6:26 PM EDT [facility] Tissue Prostate / Unknown 1:33 PM EDT 08/17/2024 2:16 PM EDT Comment:Pre-op diagnosis: INCOMPLETE BLADDER EMPTYING Courtney Young MD LAB PATHOLOGY ORDERABLES Fin al Result Performing Organization Address City/[facility]/ZIP Co de Phone Number [facility] [address] [place] [address] * IA AN ELECTIVE ENDOTRACHEAL AIRWAY, PB ANESTHESIA PLACEHOLDER (08/17/2024 12:50 PM EDT) Narrative Ger, Tom R, MD - 08/17/2024 12:50 PM EDT Tom [...] Cyr MD ANESTHESIA ORDERABLES Final Res ult * CYSTO- UROLOGY (07/05/2024 3:45 PM EDT) Narrative Courtney Young MD - 07/05/2024 3:45 PM EDT Courtney Young MD 07/05/2024 4:31 PM Cysto- Urology Date/Time: 07/05/2024 3:45 PM Performed by: Kristina Beasley MD Authorized by: Destiney Lyman APRN, DNP Procedure discussed: discussed risks, benefits and alternatives Timeout: timeout called immediately prior to procedure Procedure Details Cystoscope type: flexible Cystoscopy route: transurethral Cystoscopy location: [place] bladder Irrigation used: saline Position: supine Urethra Urethra: normal Prostate Prostate comment: Touching lateral lobes, prominent intravesical median lobe Bladder Bladder comment: Trabeculations with cellules, extrinsic compression at the dome/posterior wall, no concerning lesions or masses us Destiney Lyman APRN, DNP UROLOGY ORDERABLES Final [...] EDT [facility] POCT Urine Specific [place]earing 1.015 1.005 - 1.030 07/05/2024 3:15 PM [...] RESULTS Final Result [facility] [address] [place], [place] * Troponin T, High Sensitivity, 2 Hour, Plasma (05/31/2024 1:39 PM EDT) Troponin T, High Sensitivity, 2 Hour 12 <19 ng/L 05/31/2024 2:11 PM EDT [facility] Blood Venous blood specimen / Unknown Venipuncture / Unknown 05/31/2024 1:39 PM EDT 05/31/2024 1:42 PM EDT Jaclyn Baeza APRN LAB BLOOD ORDERABLES Final Re sult Performing Organization Address [facility] Co de Phone Number [facility] [address] [place] [address] * Troponin now and 120 min (05/31/2024 11:24 AM EDT) Troponin T, High Sensitivity, 0 Hour 14 <19 ng/L 05/31/2024 11:58 AM EDT [facility] Blood Venous blood specimen / Unknown Venipuncture / Unknown 05/31/2024 11:24 AM EDT 05/31/2024 11:26 AM EDT Jaclyn Baeza APRN LAB BLOOD ORDERABLES Final Re sult Performing Organization Address [facility] Co de Phone Number [facility] [address] [place] [address] * BNP (05/31/2024 11:24 AM EDT) N-Terminal, PROBNP, Plasma 87 0 - 899 pg/mL 05/31/2024 11:58 AM EDT [facility] Blood Venous blood specimen / Unknown Venipuncture / Unknown 05/31/2024 11:24 AM EDT 05/31/2024 11:26 AM EDT Jaclyn Baeza APRN LAB BLOOD ORDERABLES Final Re sult Performing Organization Address [facility] Co de Phone Number [facility] [address] [place] [address] * (ABNORMAL) CBC w/diff (05/31/2024 11:24 AM EDT) WBC Count 11.70(H) 3.70 - 10.30 10*3/uL LAB HEMATOLOGY METHOD 05/31/2024 11:31 AM EDT [facility] RBC Count 4.59(L) 4.60 - 6.10 10*6/uL LAB HEMATOLOGY METHOD 05/31/2024 11:31 AM EDT [facility] HGB 12.8(L) 13.7 - 17.5 g/dL LAB HEMATOLOGY METHOD 05/31/2024 11:31 AM EDT [facility] HCT 40.0 40.0 - 51.0 % LAB HEMATOLOGY METHOD 05/31/2024 11:31 AM EDT [facility] Platelet Count 333 155 - 369 10*3/uL LAB HEMATOLOGY METHOD 05/31/2024 11:31 AM EDT [facility] MCV 87 79 - 98 fL LAB HEMATOLOGY METHOD 05/31/2024 11:31 AM EDT [facility] MCH 27.9 26.0 - 32.0 pg LAB HEMATOLOGY METHOD 05/31/2024 11:31 AM EDT [facility] MCHC 32.0 30.7 - 35.5 g/dL LAB HEMATOLOGY METHOD 05/31/2024 11:31 AM EDT [facility] RDW 15.2(H) 11.5 - 14.5 % LAB HEMATOLOGY METHOD 05/31/2024 11:31 AM EDT [facility] MPV 9.4 8.8 - 12.5 fL LAB HEMATOLOGY METHOD 05/31/2024 11:31 AM EDT [facility] nRBC 0.0 <=0.0 per 100 WBCs LAB HEMATOLOGY METHOD 05/31/2024 11:31 AM EDT [facility] Differential Type Automated LAB HEMATOLOGY METHOD 05/31/2024 11:31 AM EDT [facility] Neutrophils % 78 % LAB HEMATOLOGY METHOD 05/31/2024 11:31 AM EDT [facility] Lymphocytes % 15 % LAB HEMATOLOGY METHOD 05/31/2024 11:31 AM EDT [facility] Monocytes % 5 % LAB HEMATOLOGY METHOD 05/31/2024 11:31 AM EDT [facility] Eosinophils % 1 % LAB HEMATOLOGY METHOD 05/31/2024 11:31 AM EDT [facility] Basophils % 1 % LAB HEMATOLOGY METHOD 05/31/2024 11:31 AM EDT [facility] Immature Granulocytes % 0 % LAB HEMATOLOGY METHOD 05/31/2024 11:31 AM EDT [facility] Neutrophils Absolute 9.12(H) 1.60 - 6.10 10*3/uL LAB HEMATOLOGY METHOD 05/31/2024 11:31 AM EDT [facility] Lymphocytes Absolute 1.76 1.20 - 3.90 10*3/uL LAB HEMATOLOGY METHOD 05/31/2024 11:31 AM EDT [facility] Monocytes Absolute 0.56 0.30 - 0.90 10*3/uL LAB HEMATOLOGY METHOD 05/31/2024 11:31 AM EDT [facility] Eosinophils Absolute 0.16 0.00 - 0.50 10*3/uL LAB HEMATOLOGY METHOD 05/31/2024 11:31 AM EDT [facility] Basophils Absolute 0.08 0.00 - 0.10 10*3/uL LAB HEMATOLOGY METHOD 05/31/2024 11:31 AM EDT [facility] Immature Granulocytes Absolute 0.02 0.00 - 0.06 10*3/uL LAB HEMATOLOGY METHOD 05/31/2024 11:31 AM EDT [facility] Blood Venous blood specimen / Unknown Venipuncture / Unknown 05/31/2024 11:24 AM EDT 05/31/2024 11:26 AM EDT Narrative [facility] - 05/31/2024 11:31 AM EDT Therapeutic decision making should be based on absolute values, rather than percentages. Jaclyn Baeza APRN LAB BLOOD ORDERABLES Final Re sult [facility] [address] [place] [address] * (ABNORMAL) CMP (05/31/2024 11:24 AM EDT) Glucose, Plasma 145(H) 74 - 99 mg/dL 05/31/2024 11:58 AM EDT [facility] BUN, Plasma 42(H) 8 - 23 mg/dL 05/31/2024 11:58 AM EDT [facility] Creatinine, Plasma 2.02(H) 0.70 - 1.20 mg/dL 05/31/2024 11:58 AM EDT [facility] BUN/Creatinine Ratio 21 05/31/2024 11:58 AM EDT [facility] Sodium, Plasma 141 136 - 145 mmol/L 05/31/2024 11:58 AM EDT [facility] Potassium, Plasma 5.0(H) 3.6 - 4.9 mmol/L 05/31/2024 11:58 AM EDT [facility] Chloride, Plasma 108(H) 97 - 107 mmol/L 05/31/2024 11:58 AM EDT [facility] CO2, Plasma 23 22 - 29 mmol/L 05/31/2024 11:58 AM EDT [facility] Anion Gap 10 6 - 16 mmol/L 05/31/2024 11:58 AM EDT [facility] Total Calcium, Plasma 9.8 8.9 - 10.2 mg/dL 05/31/2024 11:58 AM EDT [facility] Total Protein 7.8 6.3 - 7.9 g/dL 05/31/2024 11:58 AM EDT [facility] Albumin, Plasma 4.4 3.5 - 5.2 g/dL 05/31/2024 11:58 AM EDT [facility] AST, Plasma 17 10 - 50 U/L 05/31/2024 11:58 AM EDT [facility] ALT, Plasma 15 10 - 50 U/L 05/31/2024 11:58 AM EDT [facility] Alkaline Phosphatase, Plasma 92 40 - 115 U/L 05/31/2024 11:58 AM EDT [facility] Total Bilirubin, Plasma 0.3 0.2 - 1.1 mg/dL 05/31/2024 11:58 AM EDT [facility] eGFRcr 35.5 mL/min/1.7 3m*2 05/31/2024 11:58 AM EDT [facility] Comment:Reported eGFRcr in m L/min/1.73m2 is based the CKD-EPI 2020 equation that does not use a race coefficient. Blood Venous blood specimen / Unknown Venipuncture / Unknown 05/31/2024 11:24 AM EDT 05/31/2024 11:26 AM EDT us Jaclyn Baeza APRN LAB BLOOD ORDERABLES Final Re sult [facility] [address] [place] [address] * CT Cervical Spine wo IV Contrast [...] MD on 05/31/2024 12:14 PM Jaclyn Baeza FLIGHT DISPATCHER IMG CT PROCEDURES Final Resul t * [...] on 05/31/2024 11:34 AM us Jaclyn Baeza APRN IMG CT PROCEDURES Final Resul t * EKG now - STAT (adult) (05/31/2024 10:17 AM EDT) EKG DIAGNOSIS CLASS Borderline Normal MUSE ECG Ventricular Rate 56 BPM MUSE ECG Atrial Rate 56 BPM MUSE ECG IA Interval 204 ms MUSE ECG QRSD Interval 94 ms MUSE ECG QT Interval 466 ms MUSE ECG QTC Interval 449 ms MUSE ECG P [place] 32 degrees MUSE ECG R [place] 0 degrees MUSE ECG T Wave [place] 44 degrees MUSE ECG Diagnosis Sinus bradycardia MUSE ECG Diagnosis MUSE ECG Diagnosis MUSE ECG Diagnosis Confirmed by Romina Baird ([id number]) on 06/01/2024 2:35:49 PM MUSE ECG 05/31/2024 10:1 7 AM EDT 06/01/2024 2:35 PM EDT us Jaclyn Baeza APRN ECG ORDERABLES Final Result MUSE ECG * INJECTION FOR BLADDER XRAY WITH VOIDING, IA COMPLEX CYSTOMETROGRAM URETHRAL PRESS PROFILE, UROLOGY UDS WITH BASE PERFORMABLE CHARGES (05/31/2024 8:45 AM EDT) Narrative Destiney Lyman APRN, DNP - 05/31/2024 8:45 AM EDT Destiney Lyman APRN, DNP 05/31/2024 10:55 AM UDS Date/Time: 05/31/2024 8:45 AM Performed by: Destiney Lyman APRN, DNP Authorized by: Charlotte Rodriguez APRN, DNP [place] Protocol: Time out called immediately prior to [...] no complications Post-procedure interventions: post-procedure instructions given Charlotte Rodriguez APRN, DNP UROLOGY ORDERABLES Denise l Result * POC Imaging (05/31/2024) Anatomical Region Laterality Modality Pelvis Other 05/31/2024 us External Provider IMG POINT OF CARE ULTRASOUND F inal Result * Hepatitis C Antibody - ED (02/23/2024 11:39 AM EST) Hepatitis C Antibody Negative Negative 02/23/2024 12:54 PM EST [facility] Blood Venous blood specimen / Unknown Venipuncture / Unknown 02/23/2024 11:39 AM EST 02/23/2024 12:12 PM EST Marck Torres MD LAB BLOOD ORDERABLES Final Resul t [facility] [address] [place] [address] from Last 3 Months or Most Recently Relevant to Health Maintenance Insurance [employer] MEDICARE Advance Directives * Full Code (Latest Code Status on File) Date Activated Date Inactivated Comments 08/17/2024 2:45 PM 08/22/2024 5:46 PM Question Answer Comments I have reviewed the capacity from the link above and, if needed, have updated to appropriate status: Yes * Full Code Date Activated Date Inactivated Comments 02/25/2024 4:17 AM 02/27/2024 3:52 PM Question Answer Comments Patient has decision-making capacity? Yes Care Teams Interior Design Coordinator Relationship Specialty Start Date End Date Luis Caraballo MD [address] [place] [address] PCP - General 06/20/20
--- NOTE | 2024-08-29 14:23 | PC.NURSE ---
Transported to Radiology per radiology staff.
[2024-08-29 14:28] LABS: Alanine Aminotransferase 23 U/L (12-78); Albumin Level 4.3 g/dl (3.5-5.0); Albumin/Globulin Ratio 1.5 (1.1-1.8); Alkaline Phosphatase 73 U/L (38-126); Anion Gap 12.7 mEq/L (5-15); Aspartate Amino Transferase 30 U/L (17-59); Bilirubin,Total 0.7 mg/dl (0.2-1.3); Blood Urea Nitrogen 35 mg/dl (9-20); Calcium 9.2 mg/dl (8.4-10.2); Carbon Dioxide 23 mmol/L (22.0-30.0); Chloride 106 mmol/L (98-107); Creatinine Clearance Estimated 44 mL/min (50-200); Creatinine,Serum 2.00 mg/dl (0.66-1.25); Estimated Glomerular Filt Rate 33 ml/min (>60); GFR (African American) 40 ML/MIN (>60); Globulin 2.9 g/dL (1.3-3.2); Glucose 198 mg/dl (74-100); Potassium 4.7 mmoL/L (3.5-5.1); Sodium 137 mmol/L (136-145); Total Protein,Serum 7.2 g/dl (6.3-8.2)
[2024-08-29 14:32] VITALS: BP 132/88; PULSE 68; O2SAT 88
[2024-08-29 14:56] LABS: Troponin I < 0.01 ng/ml (0.00-0.034)
[2024-08-29 15:51] VITALS: BP 143/88; PULSE 70; RESP 15; TEMP 36.9; O2SAT 100
== END 2024-08-29 15:59 | disposition home or self-care (01) ==
PROVIDERS: Nurse Practitioner Family; Emergency Provider Emergency Medicine; PCP Family Medicine
DX: R55 Syncope and collapse (principal); I10 Essential (primary) hypertension; E78.5 Hyperlipidemia, unspecified; I25.10 Atherosclerotic heart disease of native coronary artery without angina pectoris; E11.9 Type 2 diabetes mellitus without complications
CPT/HCPCS: 71046; 80053; 82962; 84484; 85025; 93005; 99284

== ENCOUNTER 2024-12-06 10:02 | Outpatient (CLI) | payer MEDICARE, SELFPAY ==
--- OUTSIDE RECORDS SUMMARY | 2023-10-20 05:15 | XMS_ITS ---
Author Organization [facility] Address [address] [place] [id number] Care Team Providers Care Senior Construction Estimator Name Role Phone Catracho Tolentino Primary Care Provider Mp Jack Unavailable [phone] Allergies No Known Allergies Results Component Value Reference Range Notes Glucose (In-House) Reviewed date:10/21/2023 12:24:32 PM Interpretation:143 Performing Lab: Notes/Report: 143 blood glucose 143 74 - 106 mg/dL CBC Venipuncture (in house) Reviewed date:10/21/2023 12:24:32 PM Interpretation: Performing Lab: Notes/Report: wbc 11.8 3.5 - 10 lymph 22.4% 15 - 50 mid 5.4% 2 - 15 gran 72.2% 35 - 80 rbc 4.22 3.5 - 5.5 hgb 12.4 11.5 - 16.5 hct 37.4 35 - 55 mcv 88.5 75 - 100 mch 29.5 25 - 35 mchc 33.3 31 - 38 platlet 374 100 - 400 Glycohemoglobin A1c (in hous e) Reviewed date:10/21/2023 12:24:32 PM Interpretation:6.3 Performing Lab: Notes/Report: 6.3 glycohemoglobin 6.3% 5 - 6.5 % P-Basic Metabolic Panel (BMP ) Reviewed date:10/21/2023 12:24:32 PM Interpretation:K+ 5.8, co2- 21, gluc 116, bun 52, Cr 2.96, Ca 10.5, gfr 22 Performing Lab: Notes/Report: Test performed by [facility] [address] [place] [address] , [facility], [place] [address] Yan Bell MD, Senior Tax Analyst CLIA: [id number] Sodium 142 135-145 mmol/L Potassium 5.8 3.5-5.3 mmol/L Chloride 108 97-108 mmol/L CO2 21 22-32 mmol/L Glucose 116 65-99 mg/dL BUN 52 8-23 mg/dL Creatinine 2.96 0.70-1.30 mg/dL Calcium 10.5 8.6-10.4 mg/dL eGFR by Creatinine 22 >59 mL/min/1.73m2 P-Phosphorus Reviewed date:10/21/2023 12:24:32 PM Interpretation:4.8 Performing Lab: Notes/Report: Test performed by [facility] [address] [place] [address] , [facility], [place] [address] Yan Bell MD, Senior Tax Analyst CLIA: [id number] Phosphorus 4.8 2.5-4.5 mg/dL P-Parathyroid Hormone (PTH) Intact Reviewed date:10/21/2023 12:24:32 PM Interpretation:Normal Performing Lab: Notes/Report: Test performed by [facility] [address] [place] [address] , [facility], [place] [address] aYn Bell MD, Senior Tax Analyst CLIA: [id number] Parathyroid Hormone (PTH) Intact 27.6 15.0-65. 0 pg/mL REASON FOR VISIT 6 months Medications Medication SIG (Take, Route, Frequency, Duration) Notes Start Date End Date Status Jardiance 25 mg 1 tablet Orally Once a day Active metFORMIN HCl ER 500 mg TAKE TWO TABLETS BY MOUTH TWICE DAILY Active Omeprazole 40 MG 1 cap(s) orally once a day; Duration: 90 days Active Atorvastatin Calcium 80 MG 1 tab(s) oral ly at bedtime; Duration: 90 days Active Diclofenac Sodium 75 MG 1 tab orally twi ce daily; Duration: 90 days Active Accu-Chek Softclix Lancets - test twice a day 11/03/2022 Active Accu-Chek Guide - test twice daily In Vitro 2022 Active Clopidogrel Bisulfate 75 MG 1 tab(s) ora lly once a day; Duration: 90 days Active Accu-Chek Guide w/Device test twice a day 11/03/19 23 Active Aspirin Adult Low Dose 81 MG 1 tab(s) orally once a day Active Metoprolol Succinate ER 100 MG 1 tablet Orally Once a day 07/19/2023 Active Irbesartan-hydroCHLOROthiaz chaitanya 300-12.5 MG 1 tablet Orally Once a day 06/21/2023 Active amLODIPine Besylate 10 MG 1 tablet Orall y Once a day 07/19/2023 Active Immunizations Vaccine Route Administration Date Status Comme nts Fluzone High Dose (65yr and older) IM Intramuscular 10/20/2023 Administered Prevnar (PCV20) IM Intramuscular 10/20/2023 Administered Vital Signs Weight 202.2 lbs 10/20/2023 Blood pressure systolic 160 mm Hg 10/20/19 24 Blood pressure diastolic 100 mm Hg 024 Heart Rate 85 /min 10/20/2023 Height 72 in 10/20/2023 BMI 27.42 kg/m2 10/20/2023 Encounters Encounter Location Date Provider Diagnosis [facility] [address] [place], [place] [id number] 10/20/2023 Mp Jack HTN (hypertension) I 10 ; Type 2 diabetes mellitus without complication, without long-term current use of insulin E11.9 and Renal insufficiency N28.9 Assessments Encounter Date Diagnosis (ICD Code) Assessment Notes Treatment Notes Treatment Clinical Notes Section Notes 10/20/2023 HTN (hypertension) (ICD-10 - I10) 10/20/2023 Type 2 diabetes mellitus without complication, without long-term current use of insulin (ICD-10 - E11.9) 10/20/2023 Renal insufficiency (ICD-10 - N28.9) Plan Of Treatment Medication Medication Name Sig Start Date Stop Date Notes Jardiance 25 mg 1 tablet Orally Once a day metFORMIN HCl ER 500 mg TAKE TWO TABLETS BY MOUTH TWICE DAILY Metoprolol Succinate ER 100 MG 1 tablet Orally Once a day 07/19/2023 Irbesartan-hydroCHLOROthiazi de 300-12.5 MG 1 tablet Orally Once a day 06/21/2023 amLODIPine Besylate 10 MG 1 tablet Orally Once a day 07/18 Next Appt Details Follow Up: 6 Months, Reason: Provider Name:Mp schneider, 04/25/2025 09:00:00 AM, [address], [address], [place], [place], [id number], Progress Notes * CRIS MELOADOB:1955 (69 yo M)Acc No.[id number]:10/20/2023 Progress Notes Patient: MANISH GASPAR Provider: Marcus Jack M.D. :1955 A ge:68 Y S ex:Male Date:10/20/2023 Address:[address] [place], [id number] Pcp:Catracho Tolentino Subjective: * Chief Complaints: * 1 . 6 months. * HPI: C ardiology: 68 year old male presents with c/o Blood Pressure Elevated P t here for 6 mo f/u on hypertension, states she is doing well and does not have any concerns. c/o Hyperlipidemia P t is fasting today. E ndocrinology: c/o Recent Blood Sugars P t here to f/u on DM 2, pt states he does check blood sugar home and it is typically 95-100. * ROS: D ERMATOLOGY: no R augustine. n o H chandrika. G ASTROENTEROLOGY: no N ausea. n o V omiting. U ROLOGY: no D ifficulty urinating. n o B lood in urine. * 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: T ype 2 Diabetes, Hypertension, Hyperlipidemia, ASCVD, Osteoarthritis, Arthritis, Diverticulosis, Gout. * Surgical History: C ABG 11/15/2002, Colonoscopy 02/2009, Stent to SVG to Circumflex 07/27/2019. * Hospitalization/Major Diagno stic Procedure: D enies Past Hospitalization. * Family History: F ather: 82 yrs, heart disease. M other: 79 yrs, heart disease. 1 sister(s) . 2 daughter(s) . . * Social History: C URRENT TOBACCO USE S moking Status: Patient does NOT smoke, Former Smoker: No. C affeine: yes, frequency: pop every now and then. Home smoke detector use: yes. Marital Status: . 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 Past smoking status: no. Alcohol: no. Sexually active: yes. * Medications: T aking Aspirin Adult Low Dose 81 MG Tablet Delayed Release 1 tab(s) orally once a day , Taking Accu-Chek Guide w/Device Kit test twice a day , Taking Accu-Chek Guide - Strip test twice daily In Vitro , Taking Accu-Chek Softclix Lancets - Miscellaneous test twice a day , Taking Clopidogrel Bisulfate 75 MG Tablet 1 tab(s) orally once a day , Taking Omeprazole 40 MG Capsule Delayed Release 1 cap(s) orally once a day , Taking metFORMIN HCl ER 500 mg Tablet Extended Release 24 Hour TAKE TWO TABLETS BY MOUTH TWICE DAILY , Taking Jardiance 25 mg Tablet 1 tablet Orally Once a day , Taking Diclofenac Sodium 75 MG Tablet Delayed Release 1 tab orally twice daily , Taking Atorvastatin Calcium 80 MG Tablet 1 tab(s) orally at bedtime , Taking Irbesartan-hydroCHLOROthiazide 300-12.5 MG Tablet 1 tablet Orally Once a day , Taking amLODIPine Besylate 10 MG Tablet 1 tablet Orally Once a day , Taking Metoprolol Succinate ER 100 MG Tablet Extended Release 24 Hour 1 tablet Orally Once a day , Medication List reviewed and reconciled with the patient * Allergies: N .K.D.A. Objective: * Vitals: W t:202.2, Temp:98.0, BP:160/100, HR:85, Nurse:raymon, Ht: 72, Repeat BP:138/84, BMI:27.42. * Examination: C ardiology: General Appearance: p leasant, NAD. H eart sounds: R RR, normal S1, S2. L ungs: c lear, no rales or wheezes. E xtremities: n o leg edema. P eripheral pulses: 2 plus bilateral. Assessment: * Assessment: 1. H TN (hypertension) - I10 (Primary) 2 . T ype 2 diabetes mellitus without complication, without long-term current use of insulin - E11.9 3 . R enal insufficiency - N28.9 Plan: * Treatment: 2. T ype 2 diabetes mellitus without complication, without long-term current use of insulin Continue metFORMIN HCl ER Tablet Extended Release 24 Hour, 500 mg, TAKE TWO TABLETS BY MOUTH TWICE DAILY; C ontinue Jardiance Tablet, 25 mg, 1 tablet, Orally, Once a day. L AB: P-Basic Metabolic Panel (BMP) (Collection Date & Time - 10/20/2023 08:30 AM) K + 5.8, co2- 21, gluc 116, bun 52, Cr 2.96, Ca 10.5, gfr 22 Value Reference Range B UN 52 H 8-23 - mg/dL * C alcium 10.5 H 8.6-10.4 - mg/dL * C hloride 108 97-108 - mmol/L * C O2 21 L 22-32 - mmol/L * C reatinine 2.96 H 0.70-1.30 - mg/dL * G lucose 116 H 65-99 - mg/dL * P otassium 5.8 H 3.5-5.3 - mmol/L * S odium 142 135-145 - mmol/L * e GFR by Creatinine 22 L >59 - mL/min/1.73m2 * Zita Henson 12:24:23 PM >See phone encounter ?LAB: Glucose (In-House) (Collection Date & Time - 10/20/2023)?143* Value Reference Range b lood glucose 143 74 - 106 mg/dL * Christa Dunn 10/20/2023 9:54:30 AM > Zita Henson 10/21/2023 12:24:23 PM >See phone encounter ?LAB: Glycohemoglobin A1c (in house) (Collection Date & Time - 10/20/2023)? 6.3* Value Reference Range g lycohemoglobin 6.3% 5 - 6.5 % * Christa Dunn 10/20/2023 9:54:46 AM > Zita Henson 10/21/2023 12:24:23 PM >See phone encounter 3.?Renal insufficiency?LAB: P-Basic Metabolic Panel (BMP) (Collection Date & Time - 10/20/2023 08:30 AM)?K+ 5.8, co2- 21, gluc 116, bun 52, Cr 2.96, Ca 10.5, gfr 22* Value Reference Range B UN 52 H 8-23 - mg/dL * C alcium 10.5 H 8.6-10.4 - mg/dL * C hloride 108 97-108 - mmol/L * C O2 21 L 22-32 - mmol/L * C reatinine 2.96 H 0.70-1.30 - mg/dL * G lucose 116 H 65-99 - mg/dL * P otassium 5.8 H 3.5-5.3 - mmol/L * S odium 142 135-145 - mmol/L * e GFR by Creatinine 22 L >59 - mL/min/1.73m2 * Zita Henson 4 12:24:23 PM >See phone encounter ?LAB: P-Phosphorus (Collection Date & Time - 10/20/2023 08:30 AM)?4.8* Value Reference Range P hosphorus 4.8 H 2.5-4.5 - mg/dL * Zita Henson 12:24:23 PM >See phone encounter ?LAB: P-Parathyroid Hormone (PTH) Intact (Collection Date & Time - 10/20/2023 08:30 AM)?Normal* Value Reference Range P arathyroid Hormone (PTH) Intact 27.6 15.0-65. 0 - pg/mL * Zita Henson 4 12:24:23 PM >See phone encounter ?LAB: CBC Venipuncture (in house) (Collection Date & Time - 10/20/2023)* Value Reference Range w bc 11.8 3.5 - 10 * l ymph 22.4% 15 - 50 * m id 5.4% 2 - 15 * g ran 72.2% 35 - 80 * r bc 4.22 3.5 - 5.5 * h gb 12.4 11.5 - 16.5 * h ct 37.4 35 - 55 * m cv 88.5 75 - 100 * m ch 29.5 25 - 35 * m chc 33.3 31 - 38 * p latlet 374 100 - 400 * Christa Dunn 10/20/2023 9:55:51 AM > Zita Henson 10/21/2023 12:24:23 PM >See phone encounter * Immunizations: Fluzone High Dose (65yr and older) : 0.7 mL (Route: Intramuscular) given by Christa Dunn on Left Deltoid Prevnar (PCV20) : 0.5 mL (Route: Intramuscular) given by Christa Dunn on Right Deltoid * Procedure Codes: G 2211 Complex e/[place] [address] GLUCOSE TEST, 54356 GLYCATED HEMOGLOBIN TEST, Modifiers: QW , 76238 CBC WITH AUTO DIFF * Follow Up: 6 Months * Images: Billing Information: * Visit Code: 93420 Office Visit, Est Pt., Level 4. * Procedure Codes: G2211 Complex e/[place]. [address] GLUCOSE TEST. 98414 GLYCATED HEMOGLOBIN TEST. Modifiers: QW 66138 CBC WITH AUTO DIFF. * Electronic signature of Ana Jack MD on 12/06/2024 at 10:32 AM EDT Sign off status: Pending * Provider: Marcus Jack M.D. Date: 0 10/20/2023 Generated for Carlos genao/Patricia/Solitting on: 1 10:32 AM EDT History and Physical Notes * HPI (History of Present Illness) Category Sub-Category Detail Notes Category Not es Endocrinology Recent Blood Sugars Pt here to f /u on DM 2, pt states he does check blood sugar home and it is typically 95-100 Cardiology Blood Pressure Elevated Pt here for 6 mo f/u on hypertension, states she is doing well and does not have any concerns Hyperlipidemia Pt is fasting today Examination Category Sub-Category Detail Notes Category Not es Cardiology Lungs: clear, no rales or wheezes Heart sounds: RRR, normal S1, S2 Extremities: no leg edema Peripheral pulses: 2 plus bilateral General Appearance: pleasant, NAD
--- OUTSIDE RECORDS SUMMARY | 2023-10-27 04:45 | XMS_ITS ---
Author Organization [facility] Address [address] [facility] [address] [place] [id number] Care Team Providers Care Lumber Handler Name Role Phone Catrahco Tolentino Primary Care Provider [phone] Mp Jack Unavailable [phone] Allergies No Known Allergies Results Component Value Reference Range Notes P-Basic Metabolic Panel (BMP ) Reviewed date:10/28/2023 10:17:24 AM Interpretation:Na 133, co2- 19, gluc 115, bun 62, Cr 3.46, gfr 19 Performing Lab: Notes/Report: Test performed by [facility] [address] [place] [address] , [address], [place] [address] Yan Bell MD, Community Educator CLIA: [id number] Sodium 133 135-145 mmol/L Potassium 5.2 3.5-5.3 mmol/L Chloride 102 97-108 mmol/L CO2 19 22-32 mmol/L Glucose 115 65-99 mg/dL BUN 62 8-23 mg/dL Creatinine 3.46 0.70-1.30 mg/dL Calcium 9.4 8.6-10.4 mg/dL eGFR by Creatinine 19 >59 mL/min/1.73m2 REASON FOR VISIT labs only Problems Problem Type SNOMED Code ICD Code Onset Dates Problem Status W/U Status Risk Notes Problem Essential hypertension ([id number]) Essential (primary) hypertension (I10) Active confirmed Vital Signs Weight 00 lbs 10/27/2023 Heart Rate 00 /min 10/27/2023 Encounters Encounter Location Date Provider Diagnosis [facility] [address] [facility] [address] [place] [id number] 10/27/2023 Mp Jack Essential (primary) hypertension I10 Assessments Encounter Date Diagnosis (ICD Code) Assessment Notes Treatment Notes Treatment Clinical Notes Section Notes 10/27/2023 Essential (primary) hypertension (ICD-10 - I10) Plan Of Treatment Next Appt Details Provider Name:Mp Schneider ry, 04/25/2025 09:00:00 AM, [address], [address], [place], [id number], Progress Notes * LORIE CRISADOB:1955 (69 yo M)Acc No.[id number]:10/27/2023 Patient: MANISH GASPAR Provider: Marcus Jack M.D. :1955 A ge:68 Y S ex:Male Date:10/27/2023 Address:[address] [place] [address] [place] [id number] Pcp:Catracho Tolentino Subjective: * Chief Complaints: * 1 . Labs only. * 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: T ype 2 Diabetes, Hypertension, Hyperlipidemia, ASCVD, Osteoarthritis, Arthritis, Diverticulosis, Gout. * Allergies: N .K.D.A. Objective: * Vitals: W t:00, Temp:00, BP:00, HR:00, Nurse:raymon. Assessment: * Assessment: 1. E ssential (primary) hypertension - I10 Plan: * Treatment: Value Reference Range B UN 62 H 8-23 - mg/dL * C alcium 9.4 8.6-10.4 - mg/dL * C hloride 102 97-108 - mmol/L * C O2 19 L 22-32 - mmol/L * C reatinine 3.46 H 0.70-1.30 - mg/dL * G lucose 115 H 65-99 - mg/dL * P otassium 5.2 3.5-5.3 - mmol/L * S odium 133 L 135-145 - mmol/L * e GFR by Creatinine 19 L >59 - mL/min/1.73m2 * Mary Cedeño 10/28/2023 10:17 :17 AM >See phone encounter * Images: Billing Information: * Visit Code: * Procedure Codes: * Electronic signature of Ana Jack MD on 12/06/2024 at 10:32 AM EDT Sign off status: Pending * Provider: Marcus Jack M.D. Date: 0 10/27/2023 Generated for Carlos genao/Patricia/Mary on: 1 10:32 AM EDT
--- OUTSIDE RECORDS SUMMARY | 2023-11-04 06:15 | XMS_ITS ---
Author Organization [facility] Address [address] [place] [id number] Care Team Providers Care Dog License Officer Supervisor Name Role Phone Catracho Tolentino Primary Care Provider Arcelia Person Unavailable [phone] Allergies No Known Allergies Results Component Value Reference Range Notes P-Basic Metabolic Panel (BMP ) Reviewed date:11/08/2023 10:34:02 AM Interpretation:K+ 5.7, co2- 20, gluc 109, bun 59, Cr 3.13, gfr 21 Performing Lab: Notes/Report: Test performed by [facility], [address] , [address], [place] [address] Yan Bell MD, Steamfitter Apprentice CLIA: [id number] Sodium 137 135-145 mmol/L Potassium 5.7 3.5-5.3 [...] Problem Status W/U Status Risk Notes Problem Chronic kidney disease stage 4 (431855270) Stage 4 chronic kidney disease (N18.4) Active confirmed Vital Signs Weight 194.2 lbs 11/04/2023 Blood pressure systolic 120 mm Hg 11/04/19 24 Blood pressure diastolic 70 mm Hg 024 Heart Rate 72 /min 11/04/2023 Height 72 in 11/04/2023 BMI 26.34 kg/m2 11/04/2023 Encounters Encounter Location Date Provider Diagnosis Tee [address] [place], [place] [id number] 11/04/2023 Arcelia Person Stage 4 chronic kidn ey disease N18.4 ; Type 2 diabetes mellitus without complication, without long-term current use of insulin E11.9 ; Coronary artery disease involving [place] coronary artery of [place] heart without angina pectoris I25.10 ; HTN (hypertension) I10 and Pure hypercholesterolemia, unspecified E78.00 Assessments Encounter Date Diagnosis (ICD Code) Assessment Notes Treatment Notes Treatment Clinical Notes Section Notes 11/04/2023 Stage 4 chronic kidney disease (ICD-10 - N18.4) 11/04/2023 Type 2 diabetes mellitus without complication, without long-term current use of insulin (ICD-10 - E11.9) 11/04/2023 Coronary artery disease involving [place] coronary artery of [place] heart without angina pectoris (ICD-10 - I25.10) 11/04/2023 HTN (hypertension) (ICD-10 - I10) 11/04/2023 Pure hypercholesterol emia, unspecified (ICD-10 - E78.00) Plan Of Treatment Next Appt Details Follow Up: via phone to repo rt test results, Reason: Provider Name:Mp schneider, 04/25/2025 09:00:00 AM, [address], [address], [place], [place], [id number], Progress Notes * LORIE CRISADOB:1955 (69 yo M)Acc No.[id number]:11/04/2023 Progress Notes Patient: MANISH GASPAR Provider: WILMER Marie :1955 A ge:68 Y S ex:Male Date:11/04/2023 Address:[address] [id number] Pcp:Catracho Tolentino Subjective: * Chief Complaints: * [...] worse. He is scheduled to see the primary care coordinator but will need an ultrasound of the [...] E11.9 3 . Coronary artery disease involving [place] coronary artery of [place] heart without angina pectoris - I25.10 4 [...] AM > no auth needed; CPT code 61287; faxed to [facility] Zita Noel 11/07/2023 8:04:49 AM > appt. 11/08/2023 @ 10:30CrowArcelia larson 11/09/2023 3:50:19 PM > see TE * Follow Up: v ia phone to report test results * Images: Billing Information: * Visit Code: 38848 Office Visit, Est Pt., Level 3. * Procedure Codes: * Electronic signature of WILMER Salas on 12/06/2024 at 10:32 AM EDT Sign off status: Pending * Provider: WILMER Marie Date: 0 11/04/2023 Generated for Kristeni ng/Faxing/eTransmitting on: 1 10:32 AM EDT History and Physical Notes * HPI (History of Present Illness) Category Sub-Category Detail Notes Category Not es Endocrinology Recent Blood Sugars Pt here to f/u on DM 2 He also requests labs because his renal function has been getting worse. He is scheduled to see the primary care coordinator but will need an ultrasound of the [...]
--- OUTSIDE RECORDS SUMMARY | 2024-04-12 05:30 | XMS_ITS ---
Author Organization [facility] Address [address] [place] [id number] Care Team Providers Care Director Operating Room Name Role Phone Catracho Tolentino Primary Care Provider Mp Jack Unavailable [phone] Allergies No Known Allergies Results Component Value [...] 38 Performing Lab: Notes/Report: Test performed by [employer] [facility] , [address], [place] [address] Yan Bell MD, Centerless Grinder Set Up Operator CLIA: [id number] Sodium 140 135-145 mmol/L Potassium 4.5 3.5-5.3 [...] 32 Performing Lab: Notes/Report: Test performed by [facility] [address] [place] [address] , [address], [place] [address] Yan Bell MD, Centerless Grinder Set Up Operator CLIA: [id number] Cholesterol 119 <200 mg/dL Triglycerides 74 <150 [...] Interpretation:Normal Performing Lab: Notes/Report: Test performed by [facility] [address] [place], [place] [address] [place] [address] Yan Bell MD, Centerless Grinder Set Up Operator SHUBHAM: [id number] Phosphorus 3.2 2.5-4.5 mg/dL P-TSH reflex to FT4 Reviewed date:04/13/2024 09:18:25 AM Interpretation:Normal Performing Lab: Notes/Report: Test performed by [facility] [address] [place], [place] [address] [place] , [place] [address] Yan Bell MD, Centerless Grinder Set Up Operator CLIA: [id number] TSH reflex to FT4 2.20 0.43-5.25 mU/L P-Microalbumin/Creatinine, R andom Urine Sample Reviewed date:04/13/2024 09:18:25 AM Interpretation:a/c 125 Performing Lab: Notes/Report: Test performed by [facility] [address] [place] [address] , [address], [place] [address] Yan Bell MD, Centerless Grinder Set Up Operator CLIA: [id number] Albumin/Creatinine Ratio, Urine 125 0-30 ug/m g [...] Duration: 90 days 10/21/2023 Active Vital Signs Weight 198.6 lbs 04/12/2024 Blood pressure systolic 170 mm Hg 04/13/19 25 Blood pressure diastolic 92 mm Hg 025 Heart Rate 72 /min 04/12/2024 Height 72 in 04/12/2024 BMI 26.93 kg/m2 04/12/2024 Encounters Encounter Location Date Provider Diagnosis [facility] [address] [place] [id number] 04/12/2024 Mp Jack HTN (hypertension) I 10 [...] Appt Details Follow Up: 6 Weeks, Reason: Provider Name:Mp Schneider ry, 04/25/2025 09:00:00 AM, [address] [facility], [address], [place], [place], [id number], Progress Notes * PRIAYNKA MELOB:1955 (69 yo M)Acc No.[id number]:04/12/2024 Progress Notes Patient: MANISH GASPAR Provider: Marcus Jack M.D. :1955 A ge:68 Y S ex:Male Date:04/12/2024 Address:[address] [facility] [address] [place], [id number] Pcp:Catracho Tolentino Subjective: * Chief Complaints: * [...] Circumflex 07/27/2019. * Hospitalization/Major Diagno stic Procedure: Soraya enies Past Hospitalization. * Family History: F [...] no. Sexually active: yes. * Medications: T prabhjot Aspirin Adult Low Dose 81 MG Tablet [...] * Vitals: W t:198.6, Temp:98.0, BP:170/92, HR:72, Nurse:kk, Ht: 72, BMI:26.93. * Examination: C ardiology: [...] Creatinine 38 L >59 - mL/min/1.73m2 * Gala Mary 04/13/2024 09:18 :13 AM > See phone [...] G 2211 Complex e/[place], [address] GLUCOSE TEST, 36757 GLYCATED HEMOGLOBIN TEST, Modifiers: QW , 38858 CBC WITH AUTO DIFF, 3044F HG A1C LEVEL LT 7.0%, G8753 MOST RECENT SYSTOLIC BP >= 140MM HG, G8755 MOST RECENT DIASTOLIC BP >= 90MM HG * Follow Up: 6 Weeks * Images: Billing Information: * Visit Code: 99884 Office Visit, Est Pt., Level 4. * Procedure Codes: G2211 Complex e/[place]. [address] GLUCOSE TEST. 91203 GLYCATED HEMOGLOBIN TEST. Modifiers: QW 59358 CBC WITH AUTO DIFF. 3044F HG A1C LEVEL LT 7.0%. G8753 MOST RECENT SYSTOLIC BP >= 140MM HG. G8755 MOST RECENT DIASTOLIC BP >= 90MM HG. * Electronic signature of Ana Jack MD on 12/06/2024 at 10:32 AM EDT Sign off status: Pending * Provider: Marcus Jack M.D. Date: 0 04/12/2024 Generated for Carlos genao/Patricia/Solitting on: 1 10:32 [...]
--- OUTSIDE RECORDS SUMMARY | 2024-05-24 06:00 | XMS_ITS ---
Author Organization [facility] Address [address] [facility] [address] [place] [id number] Care Team Providers Care Outreach Director Name Role Phone Catracho Tolentino Primary Care Provider [phone] Mp Jack [phone] Allergies No Known Allergies REASON FOR VISIT 6 week f/u Vital Signs Weight 00 lbs 05/24/2024 Heart Rate 00 /min 05/24/2024 Height 72 in 05/24/2024 Encounters Encounter Location Date Provider Diagnosis [facility] [address] [facility] [address] [place] [id number] 05/24/2024 Mp Jack Plan Of Treatment Next Appt Details Provider Name:Mp Schneider ry, 04/25/2025 09:00:00 AM, [address], [address], [place], [id number], Progress Notes * PRIYANKA MELOB:1955 (69 yo M)Acc No.[id number]:05/24/2024 Progress Notes Patient: MANISH GASPAR Provider: Marcus Jack M.D. :1955 A ge:68 Y S ex:Male Date:05/24/2024 Address:[address] [id number] Pcp:Catracho Tolentino Subjective: * Chief Complaints: * [...] * Vitals: W t:00, Temp:00, BP:00, HR:00, Nurse:kk, Ht: 72. Assessment: Plan: * Treatment: * Images: Billing Information: * Visit Code: * Procedure Codes: * Electronic signature of Ana Jack MD on 12/06/2024 at 10:31 AM EDT Sign off status: Pending * Provider: Marcus Jack M.D. Date: 0 05/24/2024 Generated for Carlos genao/Patricia/Mary on: 10:31 AM EDT
--- OUTSIDE RECORDS SUMMARY | 2024-10-10 16:00 | XMS_ITS | Encounter Summary ---
Author Organization [facility] Address [address] [place] [address] Care Team Providers Care Senior Biostatistician/Group Leader Name Role Phone Luis Caraballo MD Primary Care Provider [phone] Reason for Referral * Consultation (Routine) - Authorized Specialty Diagnoses / Procedures Referred By Radha ramos Referred To Contact Diagnoses Stage 3b chronic kidney disease (CMS/HCC) Mp Reis PA [address] [address] Phone: tel: fax: Referral ID Status Reason Start Date Expiration Date V isits Requested Visits Authorized [id number] Authorized 10/10/2024 04/11/2026 1 1 Reason for Visit * Reason Comments Follow-up * Consultation (Routine) - Closed Specialty Diagnoses / Procedures Referred By Radha ramos Referred To Contact Diagnoses Stage 3b chronic kidney disease (CMS/HCC) Mp Reis PA [address] [address] Phone: tel: fax: Referral ID Status Reason Start Date Expiration Date Visits Re quested Visits Authorized [id number] Closed 07/11/2024 01/10/2026 1 1 Encounter Details Date Type Department Care Team ([facility] st Contact Info) Description 10/10/2024 4:00 PM EDT Office Visit [facility] Neph[facility], Bone [facility] Mineral Metabolism [address], [address] [place] [address] Mp Reis PA [address] [place] [address] Stage 3b chronic kidney disease (CMS/HCC) (Primary Dx); Essential hypertension; Hypervolemia, unspecified hypervolemia type; Obstructive nephropathy Social History Tobacco Use Types Packs/Day Years Used Date Smoking Tobacco: Never Smokeless Tobacco: Never Alcohol Use Standard Drinks/Week Comments Never 0 (1 standard drink = 0.6 oz pur e alcohol) PHQ-2 Answer Date Recorded Patient Health Questionnaire-2 Score 0 09/19/2024 PHQ-9 Answer Date Recorded Patient Health Questionnaire-9 Score 0 09/19/2024 AUDIT-C Answer Date Recorded Q1: How often do you have a drink containing alcohol? Never 09/19/2024 Q2: How many drinks containi ng alcohol do you have on a typical day when you are drinking? Patient does not drink Q3: How often do you have si x or more drinks on one occasion? Never 09/19/2024 Sex and Gender Information Value Date Recorded Sex Assigned at Male 02/23/2024 11:50 AM EST Legal Sex Male 7:50 PM EDT Gender Identity Not on file Sexual Orientation Not on file documented as of this encounter Last Filed Vital Signs Vital Sign Reading Time Taken Comments Blood Pressure 124/77 10/10/2024 3:53 PM EDT Pulse 82 10/10/2024 3:53 PM EDT Temperature 36.6 C (97.8 F) 10/10/2024 3:53 PM EDT Respiratory Rate - - Oxygen Saturation - - Inhaled Oxygen Concentration - - Weight 92.5 kg (203 lb 14.8 oz) 10/10/2024 3:53 PM EDT Height 185.4 cm (6' 1 ) 10/10/2024 3:53 PM EDT Body Mass Index 26.9 10/10/2024 3:53 PM EDT documented in this encounter Miscellaneous Notes * Progress Notes - Mp Reis PA - 10/10/2024 4:00 PM EDT Nephrology Clinic Follow Up Note 10/10/24 HPI Mouna Garcia is a 69yo man with PMHx significant for CKD, DM2, HTN, CAD h/o CABG 2002 and Gout who presents to Nephrology Clinic for follow up, ADRIANNE/CKD; referred by PCP Mp Jack MD. He presents to clinic today with his , daughter. Since his last visit in July, he was admitted to [facility] 08/17/24-08/22/24 for elective HoLEP c/b clot extraction, fulguration on 08/21/24. He had continued CIC 3-4x/day for severe radha hydronephrosis with obstructive nephropathy. Since his discharge ~ 6 weeks ago, he has been doing well overall. He is no longer requiring I&O cath and voiding well he says, incontinence has improved. He does note LE swelling and his AM BP has been a little higher on home BP journal. He wants to try Na and fluid restriction before trying adiuretic at next visit. Otherwise, he denies fever, chills, SOA, CP, abd pain, N/V/D, dysuria, gross hematuria or swelling. 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 Otherwise, he deniesfever, chills, SOA, CP, abd pain, N/V/D, dysuria, gross hematuria or LE swelling. Review of Systems A 14 point ROS reviewed and is otherwise negative except as per HPI Past 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: Diagnosis Date Diabetes mellitus ([facility]) Hypertension Kidney disease Current Outpatient Medications Medication Instructions acetaminophen (TYLENOL) 650 mg, Oral, Every 6 hours scheduled, Under [email or web address] law, monthly prescriptions (30 days) can be refilled at 25 days and three-month prescriptions (90 days) at 80 days. Please contact the insurance company with questions if refills are denied. aspirin 81 mg, Every morning atorvastatin (LIPITOR) 80 mg, Nightly clopidogrel (PLAVIX) 75 mg, Every morning glyBURIDE (DIABETA) 5 mg, Daily with breakfast irbesartan (AVAPRO) 300 mg, Daily methocarbamol (ROBAXIN) 500 mg, Oral, 3 times daily PRN metoprolol succinate XL (TOPROL-XL) 200 mg, Every morning metoprolol succinate XL (TOPROL-XL) 50 mg, Daily NIFEdipine XL (PROCARDIA XL) 60 mg, Oral, Daily [place]-3 Fatty Acids (FISH OIL HIGH POTENCY PO) 1 capsule, Daily polyethylene glycol (MIRALAX) 17 g, Oral, Daily senna-docusate (Noelle-Colace) 8.6-50 MG tablet 1 tablet, Oral, Nightly Physical Exam Visit Vitals BP 124/77 (BP Location: Right arm, Patient Position: Sitting, BP Cuff Size: Large adult) Pulse 82 Temp 36.6 ??C (97.8 ??F) (Oral) Ht 1.854 m (6' 1 ) Wt 92.5 kg (203 lb 14.8 oz) BMI 26.90 kg/m?? GEN: NAD, sitting in chair, room air EYES: anicteric, EOMI ENT: MMM, Oropharynx clear RESP: patent airways, CTAB, no rales, rhonchi, wheezes CV: RRR, no appreciable murmurs Abd: soft, NT, ND, NABS MS/EXT: 1-2+ radha LE edema, no new rashes PSYCH: mood appropriate, affect normal NEURO: AAOx3, follows commands Labs: [facility]: 11/04/23: Cr 3.13, eGFR 21, Na 137, CL 105, BUN 59, K 5.7, CO2 20, Ca 9.9 See Media for prior labs as well. Cr on 05/20/23 was 1.76, 05/27 was 1.4, 10/19 was 2.96, 10/26 was 3.46 (peak), 11/03 was 3.13 Lab Results Component Value Date NA 138 08/22/2024 K 4.4 08/22/2024 CL 104 08/22/2024 CO2 24 08/22/2024 GLUCOSE 232 (H) 08/22/2024 ALBUMIN 4.4 05/31/2024 MG 2.2 08/18/2024 BUN 25 (H) 08/22/2024 CREATININE 1.75 (H) 08/22/2024 EGFR 41.9 08/22/2024 Lab Results Component Value Date CALCIUM 8.7 (L) 08/22/2024 PHOS 4.3 08/18/2024 PTH 91 (H) 11/23/2023 VITD25 34.4 11/23/2023 Lab Results Component Value Date WBC 14.27 (H) 08/22/2024 HGB 8.9 (L) 08/22/2024 HCT 26.8 (L) 08/22/2024 PLT 270 08/22/2024 Lab Results Component Value Date FERRITIN 25 [...] Obstructive Nephropathy, then UTI with Jardiance - [facility] 02/24/24-02/27/24 for complicated, recurrent UTI in setting of Jardiance and CIC, with resultant ADRIANNE, peak Cr 3.47 on admission. - UA during admission 02/25/24- 1000 glucose, 100 PRO, >50 WBC, >50 RBC, + bacteria, UCX with Ecoli- received treatment. - U/S 12/19/23 showing R 12.2 x 7.3cm, L 12.7 x 6.3cm with severe radha hydronephrosis, markedly distended bladder with estimated 2L volume; post void residual was 1.7L). # CKD3b/4. Baseline Cr 2.2-2.5; progressively worsened from 2023 given repeated ADRIANNE # Radha hydronephrosis with urinary retention, atonic bladder, s/p 08/17 HoLEP # HTN. home BP journal in HPI. # Hyperkalemia- required 7d of Lokelma. # Recurrent UTI, including [facility] admission. Now off Jardiance RECS/PLAN: - Cr down after HoLEP on 08/17/24- discharge Cr was 1.74, eGFR 42. - Discussed need for Na and fluid restriction to improve his LE swelling and intermittent AM HTN (on home BP journal). We can also revisit a diuretic if swelling and HTN persists- wants to try on hisown first. - RTC on 12/19/24 when he comes for Urology follow up. - low Na diet - Discussed avoidance of NSAIDs and dehydration [facility] Epic Chat preferred or [phone] documented in this encounter Plan of Treatment Upcoming Encounters Date Type Department Care Team (Late st Contact Info) Description 12/19/2024 1:30 PM EST Clinical Support Medical [facility] Building Lab [address] [place] [address] 12/19/2024 2:30 PM EST Office Visit Medical Office Building Urology [address], [address] [place] [address] Courtney Young MD [address] [place] [address] 12/19/2024 4:20 PM EST Office Visit [facility] Nephrology, Bone & Mineral Metabolism [address], [address] [place] [address] Mp Reis, WIL[facility] [address] [place] [address] 06/05/2025 10:45 AM EDT Appointment [facility] [address] [place] [address] 06/05/2025 11:50 AM EDT Clinical Support [place] [facility] [address] [place] [address] 06/05/2025 12:30 PM EDT Office Visit [facility] Urology [address] [place] [address] Charlotte Rodriguez, DENTAL LABORATORY SUPERVISOR, DNP [address] [place] [address] Scheduled Orders Name Type Priority Associated Diagnoses Orde r Schedule CBC W/O Differential Lab Routine Stage 3b chronic kidney disease (CMS/HCC) Expected: 12/16/2024 (Approximate), Expires: 04/19/2026 Renal Function Panel, Plasma Lab Routine Stage 3b chronic kidney disease (CMS/HCC) Expected: 12/16/2024 (Approximate), Expires: 04/19/2026 Urinalysis with reflex microscopic (Culture NOT Included) Lab Routine Stage 3b chronic kidney disease (CMS/HCC) Expected: 12/16/2024 (Approximate), Expires: 04/19/2026 Scheduled Referrals Name Type Priority Associated Diagnoses Order Schedule Follow Up Nephrology Outpatient Referral Routine Stage 3b chronic kidney disease (CMS/HCC) Expected: 12/19/2024 (Approximate), Expires: 11/09/2025 documented as of this encounter Visit Diagnoses Diagnosis Stage 3b chronic kidney disease (CMS/HCC)- Primary Essential hypertension Unspecified essential hypertension Hypervolemia, unspecified hypervolemia type Obstructive nephropathy Other specified disorder of kidney and ureter documented in this encounter Additional Health Concerns Assessment Noted Time PHQ-9 Depression Total Score: 0 09/20/19 25 3:29 PM EDT A fall risk assessment has been complete d for the patient 10/10/2024 3:59 PM EDT A Body Mass Index follow-up plan has been documented for the patient 10/16/2024 3:49 PM EDT documented as of this encounter Care Teams Senior Biostatistician/Group Leader Relationship Specialty Start Date End Date Luis Caraballo MD [address] [place] [address] PCP - General 06/20/20 documented as of this encounter
--- OUTSIDE RECORDS SUMMARY | 2024-10-25 06:00 | XMS_ITS ---
Author Organization [facility] Address [address] [place] [id number] Care Team Providers Care Clinical Nutrition Manager Name Role Phone Catracho Tolentino Primary Care Provider [phone] Mp Jack Unavailable [phone] Allergies No Known Allergies Results Component Value Reference Range Notes Glucose (In-House) Reviewed date:10/30/2024 10:48:03 AM Interpretation:180 Performing Lab: Notes/Report: 180 blood glucose 180 74 - 106 mg/dL Glycohemoglobin A1c (in hous e) Reviewed date:10/30/2024 10:48:03 AM Interpretation:7.8 Performing Lab: Notes/Report: 7.8 glycohemoglobin 7.8% 5 - 6.5 % P-Comprehensive Metabolic Pa marcelino (CMP) Reviewed date:10/30/2024 10:48:03 AM Interpretation:gluc 148, bun 28, Cr 1.78, gfr 41 Performing Lab: Notes/Report: Test performed by [facility] [address] [place] [address] , [address], [place] [address] Yan Bell MD, [employer] J[employer]inder CLIA: [id number] Sodium 135 135-145 mmol/L Potassium 4.8 3.5-5.3 mmol/L Chloride 102 97-108 mmol/L CO2 21 20-32 mmol/L Glucose 148 65-99 mg/dL BUN 28 8-23 mg/dL Creatinine 1.78 0.70-1.30 mg/dL Calcium 10.0 8.6-10.4 mg/dL eGFR by Creatinine 41 >59 mL/min/1.73m2 Protein 7.1 6.0-8.3 g/dL Albumin 4.4 3.5-5.3 g/dL Alkaline Phosphatase 98 40-129 IU/L ALT (SGPT) 13 <5-55 IU/L AST (SGOT) 12 <5-46 IU/L Bilirubin, Total 0.3 <0.2-1.2 mg/dL A/G Ratio 1.6 1.1-2.5 P-Lipid Panel Reviewed date:10/30/2024 10:48:03 AM Interpretation:hdl 37 Performing Lab: Notes/Report: Test performed by [facility] [address] [place] [address] , [address], [place] [address] Yan Bell MD, [employer] J[employer] CLIA: [id number] Cholesterol 129 <200 mg/dL Triglycerides 142 <150 mg/dL HDL Cholesterol 37 >39 mg/dL Cholesterol / HDL Ratio 3.49 0.00-4.99 Ratio Non-HDL Cholesterol 92 <130 mg/dL LDL Cholesterol (Calculation) 64 <130 mg/dL LDL Cholesterol Levels* Less than 100 mg/dL Optimal 100 to 129 mg/dL Near Optimal/ Above Optimal 130 to 159 mg/dL Borderline High 160 to 189 mg/dL High 190 mg/dL and above Very High * Categories as recommended by the 2004 ATPIII guidelines LDL/HDL Ratio 1.7 <3.3 Ratio LDL Cholesterol Patient History Test Date: 04/28/2023 LDL Results: 65 Units: mg/dL % Change: -21% Test Date: 04/12/2024 LDL Results: 72 Units: mg/dL % Change: +10% Test Date: 10/25/2024 LDL Results: 64 Units: mg/dL % Change: -11% P-PSA Reviewed date:10/30/2024 10:48:03 AM Interpretation:Normal Performing Lab: Notes/Report: Test performed by [facility] [address] [place], [place] [address] [place] , [address], [place] [address] Yan Bell MD, [employer] J[employer]inder CLIA: [id number] PSA 0.72 <4.00 ng/mL Please note this is an ultrasensitive PSA assay with a lower limit of detection of 0.014 ng/mL. This test is performed by the Erick ECLIA methodology. Values obtained with different assay methods or kits cannot be directly compared. P-TSH reflex to FT4 Reviewed date:10/30/2024 10:48:03 AM Interpretation:Normal Performing Lab: Notes/Report: Test performed by [facility] [place] , [address], [place] [address] Yan Bell MD, [employer] J[employer]inder CLIA: [id number] TSH reflex to FT4 1.74 0.43-5.25 mU/L P-Microalbumin/Creatinine, R andom Urine Sample Reviewed date:10/30/2024 10:48:03 AM Interpretation:a/c 201 Performing Lab: Notes/Report: Test performed by [facility] [address] [place] [address] , [address], [place] [address] Yan Bell MD, [employer] J[employer]inder CLIA: [id number] Albumin/Creatinine Ratio, Urine 201 0-30 ug/m g Microalbumin, Urine, Random 18.9 Creatinine, Urine 93.8 P-Uric Acid Reviewed date:10/30/2024 10:48:03 AM Interpretation:Normal Performing Lab: Notes/Report: Test performed by [facility] [address] [place] [address] , [address], [place] [address] Yan Bell MD, [employer] J[employer]inder CLIA: [id number] Uric Acid 6.5 3.4-8.0 mg/dL REASON FOR VISIT blood pressure meds Medications Medication SIG (Take, Route, Frequency, Duration) Notes Start Date End Date Status Accu-Chek Guide w/Device test twice a day 11/03/19 Active Aspirin Adult Low Dose 81 MG 1 tab(s) orally once a day Active Accu-Chek Guide - USE TO test blood burnett gar TWICE DAILY; Duration: 50 Active Accu-Chek Softclix Lancets - test twice a day 11/03/2022 Active Atorvastatin Calcium 80 MG 1 tablet at b edtime Orally daily; Duration: 90 days Active Clopidogrel Bisulfate 75 MG 1 tab(s) ora lly once a day; Duration: 90 days Active Jolon 3 Fish Oil 1000 MG 1 capsule Orall y Three times a day Active Irbesartan 300 MG 1 tablet Orally Once a day; Duration: 90 days Active glyBURIDE 5 MG 1 tablet with breakf ast or the first main meal of the day Orally Once a day; Duration: 90 days Active NIFEdipine ER 60 MG 1 tablet on an empty stomach Orally Once a day; Duration: 90 days Active Metoprolol Succinate ER 50 MG 1 tablet Orally Once a day; Duration: 90 days Active Immunizations Vaccine Route Administration Date Status Comme nts Fluzone High Dose (65yr and older) IM Intramuscular 10/25/2024 Administered Problems Problem Type SNOMED Code ICD Code Onset Dates Problem Status W/U Status Risk Notes Problem Diabetic renal disease (174581307) Type 2 diabetes mellitus with diabetic chronic kidney disease, unspecified CKD stage, unspecified whether group home insulin use (E11.22) Active confirmed Vital Signs Weight 200.8 lbs 10/25/2024 Blood pressure systolic 132 mm Hg 10/26/19 25 Blood pressure diastolic 80 mm Hg 025 Heart Rate 92 /min 10/25/2024 Height 72 in 10/25/2024 BMI 27.23 kg/m2 10/25/2024 Encounters Encounter Location Date Provider Diagnosis [facility] [address] [facility] [address], [place] [id number] 10/25/2024 Mp Jack HTN (hypertension) I 10 ; Pure hypercholesterolemia, unspecified E78.00 ; Hyperuricemia E79.0 ; Type 2 diabetes mellitus without complication, without long-term current use of insulin E11.9 ; Encounter for immunization Z23 ; Prostate cancer screening Z12.5 ; Type 2 diabetes mellitus with diabetic chronic kidney disease, unspecified CKD stage, unspecified whether group home insulin use E11.22 and BMI 27.0-27.9,adult Z68.27 Assessments Encounter Date Diagnosis (ICD Code) Assessment Notes Treatment Notes Treatment Clinical Notes Section Notes 10/25/2024 HTN (hypertension) (ICD-10 - I10) 10/25/2024 Pure hypercholesterolem ia, unspecified (ICD-10 - E78.00) 10/25/2024 Hyperuricemia (ICD-10 - E79.0) 10/25/2024 Type 2 diabetes mellitus without complication, without long-term current use of insulin (ICD-10 - E11.9) 10/25/2024 Encounter for immunization (ICD-10 - Z23) 10/25/2024 Prostate cancer screening (ICD-10 - Z12.5) 10/25/2024 Type 2 diabetes mellitus with diabetic chronic kidney disease, unspecified CKD stage, unspecified whether group home insulin use (ICD-10 - E11.22) 10/25/2024 BMI 27.0-27.9,adult (ICD-10 - Z68.27) Plan Of Treatment Medication Medication Name Sig Start Date Stop Date Notes Atorvastatin Calcium 80 MG 1 tablet at b edtime Orally daily; Duration: 90 days Clopidogrel Bisulfate 75 MG 1 tab(s) ora lly once a day; Duration: 90 days Irbesartan 300 MG 1 tablet Orally Once a day; Duration: 90 days glyBURIDE 5 MG 1 tablet with breakf ast or the first main meal of the day Orally Once a day; Duration: 90 days NIFEdipine ER 60 MG 1 tablet on an empty stomach Orally Once a day; Duration: 90 days Metoprolol Succinate ER 50 MG 1 tablet O rally Once a day; Duration: 90 days Next Appt Details Follow Up: 6 Months, Reason: Provider Name:Mp Schneider ry, 04/25/2025 09:00:00 AM, [address], [address], [place], [place], [id number], Progress Notes * CRIS MELOADOB:1955 (69 yo M)Acc No.[id number]:10/25/2024 Progress Notes Patient: MANISH GASPAR Provider: Marcus Jack M.D. :1955 A ge:69 Y S ex:Male Date:10/25/2024 Address:[address] [place] [address] [address] [id number] Pcp:Catracho Tolentino Subjective: * Chief Complaints: * 1 . Blood pressure meds. * HPI: C ardiology: 69 year old male presents with c/o Blood Pressure Elevated P t here for follow up on Hypertension. Pt states he is doing well and has no concerns at this time. Pt needs refills. Pt states he would like to get flu shot. c/o Hyperlipidemia P t is fasting today. * 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: T ype 2 Diabetes, Hypertension, Hyperlipidemia, ASCVD, Osteoarthritis, Arthritis, Diverticulosis, Gout, Chronic kidney disease, BPH. * Surgical History: C ABG 11/15/2002, Colonoscopy 02/2009, Stent to SVG to Circumflex 07/27/2019, TURP 2024. * Hospitalization/Major Diagno stic Procedure: D enies Past Hospitalization. * Family History: F ather: 82 yrs, heart disease. M other: 79 yrs, heart disease. 1 sister(s) . 2 daughter(s) . . * Social History: C URRENT TOBACCO USE: No S moking Status: Patient does NOT smoke, Former Smoker: No. C affeine: yes, frequency: pop every now and then. Home smoke detector use: yes. Marital Status: . 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 Past smoking status: no. Alcohol: no. Sexually active: yes. * Medications: T aking Jolon 3 Fish Oil 1000 MG Capsule 1 capsule Orally Three times a day , Taking NIFEdipine ER 60 MG Tablet Extended Release 24 Hour 1 tablet on an empty stomach Orally Once a day , Taking Aspirin Adult Low Dose 81 MG Tablet Delayed Release 1 tab(s) orally once a day , Taking Accu-Chek Guide w/Device Kit test twice a day , Taking Accu-Chek Softclix Lancets - Miscellaneous test twice a day , Taking Accu-Chek Guide - Strip USE TO test blood sugar TWICE DAILY , Taking Metoprolol Succinate ER 50 MG Tablet Extended Release 24 Hour 1 tablet Orally Once a day , Taking Irbesartan 300 MG Tablet 1 tablet Orally Once a day , Taking glyBURIDE 5 MG Tablet 1 tablet with breakfast or the first main meal of the day Orally Once a day , Taking Atorvastatin Calcium 80 MG Tablet 1 tablet at bedtime Orally daily , Taking Clopidogrel Bisulfate 75 MG Tablet 1 tab(s) orally once a day , Discontinued amLODIPine Besylate 10 MG Tablet 1 tablet Orally Once a day , Medication List reviewed and reconciled with the patient * Allergies: N .K.D.A. Objective: * Vitals: W t: 200.8, Temp: 98.1, BP: 132/80, HR: 92, Nurse: VALE, Ht: 72, BMI:27.23. * Examination: C ardiology: General Appearance: p leasant, NAD. H eart sounds: R RR, normal S1, S2. L ungs: c lear, no rales or wheezes. E xtremities: n o leg edema. P eripheral pulses: 2 plus bilateral. Assessment: * Assessment: 1. H TN (hypertension) - I10 (Primary) 2 . P ure hypercholesterolemia, unspecified - E78.00 3 . H yperuricemia - E79.0 4 . T ype 2 diabetes mellitus without complication, without long-term current use of insulin - E11.9 5. E ncounter for immunization - Z23 6 . P rostate cancer screening - Z12.5 7 . 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 27.0-27.9,adult - Z68.27 Plan: * Treatment: 2. P ure hypercholesterolemia, unspecified Refill Atorvastatin Calcium Tablet, 80 MG, 1 tablet at bedtime, Orally, daily, 90 days, 90, Refills 1. L AB: P-Comprehensive Metabolic Panel (CMP) (Collection Date & Time - 10/25/2024 09:46 AM) g sadaf 148, bun 28, Cr 1.78, gfr 41 Value Reference Range A /G Ratio 1.6 1.1-2.5 - * A lbumin 4.4 3.5-5.3 - g/dL * A lkaline Phosphatase 98 40-129 - IU/L * A LT (SGPT) 13 <5-55 - IU/L * A ST (SGOT) 12 <5-46 - IU/L * B ilirubin, Total 0.3 <0.2-1.2 - mg/dL * B UN 28 H 8-23 - mg/dL * C alcium 10.0 8.6-10.4 - mg/dL * C hloride 102 97-108 - mmol/L * C O2 21 20-32 - mmol/L * C reatinine 1.78 H 0.70-1.30 - mg/dL * G lucose 148 H 65-99 - mg/dL * P otassium 4.8 3.5-5.3 - mmol/L * S odium 135 135-145 - mmol/L * P rotein 7.1 6.0-8.3 - g/dL * e GFR by Creatinine 41 L >59 - mL/min/1.73m2 * Kaylyn Whalen 10/30/2024 10: 47:55 AM EDT > See phone encounter ?LAB: P-Lipid Panel (Collection Date & Time - 10/25/2024 09:46 AM)?hdl 37* Value Reference Range C holesterol / HDL Ratio 3.49 0.00-4.99 - Ratio * C holesterol 129 <200 - mg/dL * H DL Cholesterol 37 L >39 - mg/dL * L DL Cholesterol (Calculation) 64 <130 - mg/d L * L DL/HDL Ratio 1.7 <3.3 - Ratio * N on-HDL Cholesterol 92 <130 - mg/dL * T riglycerides 142 <150 - mg/dL * Kaylyn Whalen 10/30/2024 10: 47:55 AM EDT > See phone encounter 3.?Hyperuricemia?LAB: P-Uric Acid (Collection Date & Time - 10/25/2024 09:46 AM)?Normal* Value Reference Range U lili Acid 6.5 3.4-8.0 - mg/dL * Kaylyn Whalen 10/30/2024 10: 47:55 AM EDT > See phone encounter 4.?Type 2 diabetes mellitus without complication, without long-term current use of insulin? Refill glyBURIDE Tablet, 5 MG, 1 tablet with breakfast or the first main meal of the day, Orally, Once a day, 90 days, 90, Refills 1.?LAB: P-Comprehensive Metabolic Panel (CMP) (Collection Date & Time - 10/25/2024 09:46 AM)?gluc 148, bun 28, Cr 1.78, gfr 41* Value Reference Range A /G Ratio 1.6 1.1-2.5 - * A lbumin 4.4 3.5-5.3 - g/dL * A lkaline Phosphatase 98 40-129 - IU/L * A LT (SGPT) 13 <5-55 - IU/L * A ST (SGOT) 12 <5-46 - IU/L * B ilirubin, Total 0.3 <0.2-1.2 - mg/dL * B UN 28 H 8-23 - mg/dL * C alcium 10.0 8.6-10.4 - mg/dL * C hloride 102 97-108 - mmol/L * C O2 21 20-32 - mmol/L * C reatinine 1.78 H 0.70-1.30 - mg/dL * G lucose 148 H 65-99 - mg/dL * P otassium 4.8 3.5-5.3 - mmol/L * S odium 135 135-145 - mmol/L * P rotein 7.1 6.0-8.3 - g/dL * e GFR by Creatinine 41 L >59 - mL/min/1.73m2 * Kaylyn Whalen 10/30/2024 10: 47:55 AM EDT > See phone encounter ?LAB: P-TSH reflex to FT4 (Collection Date & Time - 10/25/2024 09:46 AM)? Normal* Value Reference Range T SH reflex to FT4 1.74 0.43-5.25 - mU/L * Kaylyn Whalen 10/30/2024 10: 47:55 AM EDT > See phone encounter ?LAB: P-Microalbumin/Creatinine, Random Urine Sample (Collection Date & Time - 10/25/2024 09:46 AM)?a/c 201* Value Reference Range A lbumin/Creatinine Ratio, Urine 201 H 0-30 - ug /mg * C reatinine, Urine 93.8 - mg/dL * M icroalbumin, Urine, Random 18.9 - mg/dL * Kaylyn Whalen 10/30/2024 10: 47:55 AM EDT > See phone encounter ?LAB: Glucose (In-House) (Collection Date & Time - 10/25/2024)?180* Value Reference Range b lood glucose 180 74 - 106 mg/dL * Christa Dunn 10/25/2024 11:42: 12 AM EDT > Kaylyn Whalen 10/30/2024 10:47:55 AM EDT > See phone encounter ?LAB: Glycohemoglobin A1c (in house) (Collection Date & Time - 10/25/2024)? 7.8* Value Reference Range g lycohemoglobin 7.8% 5 - 6.5 % * Christa Dunn 10/25/2024 11:42: 29 AM EDT > Kaylyn Whalen 10/30/2024 10:47:55 AM EDT > See phone encounter 5.?Prostate cancer screening?LAB: P-PSA (Collection Date & Time - 10/25/2024 09:46 AM)?Normal* Value Reference Range P SA 0.72 <4.00 - ng/mL * Kaylyn Whalen 10/30/2024 10: 47:55 AM EDT > See phone encounter 6.?Others? Refill Clopidogrel Bisulfate Tablet, 75 MG, 1 tab(s), orally, once a day, 90 days, 90, Refills 1. ? * Immunizations: Fluzone High Dose (65yr and older) : 0.5 mL (Route: Intramuscular) given by Christa Dunn on Right Deltoid (Prostate cancer screening) * Procedure Codes: G 2211 Complex e/[place], [address] GLUCOSE TEST, 21554 GLYCATED HEMOGLOBIN TEST, Modifiers: QW , 3051F HG A1C>EQUAL 7.0%<8.0%, G8420 BMI<30 AND >=22 CALC & DOCU, 1036F TOBACCO NON-USER, G8950 PREHTN/HTN BP DOC INDCD F/U DOC, G8752 MOST RECENT SYSTOLIC BP < 140MM HG, G8754 MOST RECENT DIASTOLIC BP < 90MM HG, 3075F SYST BP GE 130 - 139MM HG, 3079F DIAST BP 80-89 MM HG * Follow Up: 6 Months * Images: Billing Information: * Visit Code: 95763 Office Visit, Est Pt., Level 4. * Procedure Codes: G2211 Complex e/[place]. [address] GLUCOSE TEST. 39494 GLYCATED HEMOGLOBIN TEST. Modifiers: QW 3051F HG A1C>EQUAL 7.0%<8.0%. G8420 BMI<30 AND >=22 CALC & DOCU. 1036F TOBACCO NON-USER. G8950 PREHTN/HTN BP DOC INDCD F/U DOC. G8752 MOST RECENT SYSTOLIC BP < 140MM HG. G8754 MOST RECENT DIASTOLIC BP < 90MM HG. 3075F SYST BP GE 130 - 139MM HG. 3079F DIAST BP 80-89 MM HG. * Electronic signature of Ana Jack MD on 12/06/2024 at 10:31 AM EDT Sign off status: Pending * Provider: Marcus Jack M.D. Date: 0 10/25/2024 Generated for Carlos genao/Patricia/Solitting on: 1 10:31 AM EDT History and Physical Notes * HPI (History of Present Illness) Category Sub-Category Detail Notes Category Not es Cardiology Blood Pressure Elevated Pt here for follow up on Hypertension. Pt states he is doing well and has no concerns at this time. Pt needs refills. Pt states he would like to get flu shot Hyperlipidemia Pt is fasting today Examination Category Sub-Category Detail Notes Category Not es Cardiology Lungs: clear, no rales or wheezes Heart sounds: RRR, normal S1, S2 Extremities: no leg edema Peripheral pulses: 2 plus bilateral General Appearance: pleasant, NAD
--- OUTSIDE RECORDS SUMMARY | 2024-11-05 04:54 | XMS_ITS ---
Author Organization [facility] Address [address] [facility] [address] [place] [id number] Care Team Providers Care Weight Tester Name Role Phone Catracho Tolentino Primary Care Provider REASON FOR VISIT due col Encounters Encounter Location Date Provider Diagnosis [facility] [address] [place] [phone] 11/05/2024 Catracho Tolentino Plan Of Treatment Next Appt Details Provider Name:Mp Schneider ry, 04/25/2025 09:00:00 AM, [address], [address], [place], [id number], Progress Notes * CRIS MELOADOB:1955 (69 yo M)Acc No.[id number]:11/05/2024 Patient: MANISH GASPAR :1955 A ge:69 Y S ex:Male Address:[address] [place] [address] Subjective: * Chief Complaints: * D ue col * 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: * Surgical History: * Hospitalization/Major Diagno stic Procedure: * Medications: Objective: * Vitals: * Physical Examination: Assessment: Plan: * Treatment: * Procedure Codes: * true * Date: Generated for Printi ng/Faxing/eTransmitting on: 1 10:33 AM EDT
--- OUTSIDE RECORDS SUMMARY | 2024-11-29 07:45 | XMS_ITS ---
Author Organization [facility] Address [address] [place] [phone] Care Team Providers Care Oilseed Meat Presser Name Role Phone Catracho Tolentino Primary Care Provider McclearyMp astudillo Unavailable [phone] Allergies No Known Allergies Results Component Value Reference Range Notes CBC Fingerstick (in house) Reviewed date:11/29/2024 12:25:39 PM Interpretation: Performing Lab: Notes/Report: wbc 22.1 3.5 - 10 lym 11.9% 15 - 50 mid 3.7% 2 - 15 gran 84.4% 35 - 80 rbc 3.86 3.5 - 5.5 hgb 10.8 11.5 - 16.5 hct 32.1 35 - 55 mcv 83.1 75 - 100 mch 28.1 25 - 35 mchc 33.8 31 - 38 plat 443 100 - 400 REASON FOR VISIT URI Symptoms Medications Medication SIG (Take, Route, Frequency, Duration) Notes Start Date End Date Status Zithromax Z-Yevgeniy 250 MG as directed Orall y daily; Duration: 5 days 11/29/2024 Active Aspirin Adult Low Dose 81 MG 1 tab(s) orally once a day Active Bensalem 3 Fish Oil 1000 MG 1 capsule Orall y Three times a day Active Clopidogrel Bisulfate 75 MG [...] Once a day; Duration: 90 days Active Januvia 100 MG 1 tablet Orally Once a day; Duration: 90 days 11/14/2024 Active Atorvastatin Calcium 80 MG 1 tablet at b edtime Orally daily; Duration: 90 days Active Accu-Chek Guide - USE TO test blood burnett gar TWICE DAILY; Duration: 50 Active Accu-Chek Softclix Lancets - test twice a day 11/03/2022 Active Accu-Chek Guide w/Device test twice a day 11/03/19 Active Vital Signs Weight 199.0 lbs 11/29/2024 Blood pressure systolic 130 mm Hg 11/30/19 Blood pressure diastolic 76 mm Hg 025 Heart Rate 97 /min 11/29/2024 Height 72 in 11/29/2024 BMI 26.99 kg/m2 11/29/2024 Encounters Encounter Location Date Provider Diagnosis [facility] [address] [place] [address] [address] [facility] [address] [place], [place] [id number] 11/29/2024 Mp Jack Acute URI J06.9 Assessments Encounter Date Diagnosis (ICD Code) Assessment Notes Treatment Notes Treatment Clinical Notes Section Notes 11/29/2024 Acute URI (ICD-10 - J06.9) Plan Of Treatment Medication Medication Name Sig Start Date Stop Date Notes Zithromax Z-Yevgeniy 250 MG as directed Orall y daily; Duration: 5 days 11/29/2024 Next Appt Details Follow Up: 1 Week, Reason: Provider Name:Mp Schneider , 04/25/2025 09:00:00 AM, [address] [facility] [address] [facility], [address], [place], [id number], Progress Notes * PRIYANKA MELOB:1955 (69 yo M)Acc No.[id number]:11/29/2024 Progress Notes Patient: MANISH GASPAR Provider: Marcus Jack M.D. :1955 A ge:69 Y S ex:Male Date:11/29/2024 Address:[facility] [place] [address] [id number] Pcp:Catracho Tolentino Subjective: * Chief Complaints: * 1 . URI Symptoms. * HPI: E NT/respiratory: 69 year old male presents with c/o sore throat s wallowing painful, feels scratchy. c/o cough s mall amount of white sputum. c/o nasal congestion P t states he started feeling bad on 11/26., all the time, yellow drainage, green drainage. c/o Fever o ff and on. Pt states they didn't check temp but could tell he had a fever. c/o headache p ressure like sensation. c/o chest congestion w ith production of sputum. c/o body aches aching all over . * 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: T ype 2 Diabetes, [...] no. Sexually active: yes. * Medications: T lucyg Bensalem 3 Fish Oil 1000 MG Capsule 1 capsule Orally Three times a day , Taking Aspirin Adult Low Dose 81 MG Tablet Delayed Release 1 tab(s) orally once a day , Taking Accu-Chek Guide w/Device Kit test twice a day , Taking Accu-Chek Softclix Lancets - Miscellaneous test twice a day , Taking Accu-Chek Guide - Strip USE TO test blood sugar TWICE DAILY , Taking NIFEdipine ER 60 MG Tablet Extended Release 24 Hour 1 tablet on an empty stomach Orally Once a day , Taking Metoprolol Succinate ER 50 MG Tablet Extended Release 24 Hour 1 tablet Orally Once a day , Taking Irbesartan 300 MG Tablet 1 tablet Orally Once a day , Taking Atorvastatin Calcium 80 MG Tablet 1 tablet at bedtime Orally daily , Taking Januvia 100 MG Tablet 1 tablet Orally Once a day , Taking glyBURIDE 5 MG Tablet 1 tablet with breakfast or the first main meal of the day Orally Once a day , Taking Clopidogrel Bisulfate 75 MG Tablet 1 tab(s) orally once a day , Medication List reviewed and reconciled with the patient * Allergies: N .K.D.A. Objective: * Vitals: W t: 199.0, Temp: 98.1, BP: 130/76, HR: 97, O2 Sat: 87, Nurse: SF, Ht: 72, BMI:26.99. * Examination: E NT/Respiratory: General Appearance: N AD. O ral cavity : e rythema without exudate on pharynx. H eart : R RR, normal S1 S2. L ungs: g ood air movement, coarse breath sounds due to upper airway congestion. Assessment: * Assessment: 1. A hilda URI - J06.9 (Primary) Plan: * Treatment: Value Reference Range w bc 22.1 3.5 - 10 * l ym 11.9% 15 - 50 * m id 3.7% 2 - 15 * g ran 84.4% 35 - 80 * r bc 3.86 3.5 - 5.5 * h gb 10.8 11.5 - 16.5 * h ct 32.1 35 - 55 * m cv 83.1 75 - 100 * m ch 28.1 25 - 35 * m chc 33.8 31 - 38 * p lat 443 100 - 400 * Karma Bolden 11/29/2024 12 :19:12 PM EDT > Provider reviewed results while patient in office. * Procedure Codes: G 2211 Complex e/[place], [address] CBC WITH AUTO DIFF, 66304 CAPILLARY BLOOD DRAW * Follow Up: 1 Week * Images: Billing Information: * Visit Code: 68059 Office Visit, Est Pt., Level 3. * Procedure Codes: G2211 Complex e/[place]. [address] CBC WITH AUTO DIFF. 29367 CAPILLARY BLOOD DRAW. * Electronic signature of Ana Jack MD on 12/06/2024 at 10:32 AM EDT Sign off status: Pending * Provider: Marcus Jack M.D. Date: Generated for Carlos genao/Patricia/eTransmitting on: 10:32 AM EDT History and Physical Notes * HPI (History of Present Illness) Category Sub-Category Detail Notes Category Not es ENT/respiratory sore throat swallowing painful, feels scratchy cough small amount of whit e sputum Fever off and on. Pt state s they didn't check temp but could tell he had a fever headache pressure like sensat ion chest congestion with production of s putum nasal congestion Pt states he started feeling bad on 11/26., all the time, yellow drainage, green drainage body aches aching all over Examination Category Sub-Category Detail Notes Category Not es ENT/Respiratory Oral cavity : erythema without exudate on pharynx Heart : RRR, normal S1 S2 Lungs: good air movement, c oarse breath sounds due to upper airway congestion General Appearance: NAD
--- OUTSIDE RECORDS SUMMARY | 2024-12-06 10:33 | XMS_ITS | Patient Health Record ---
Author Organization [facility] Address [address] [place] [id number] Care Team Providers Care Sugar Trucker Name Role Phone Catracho Tolentino Primary Care Provider BourbonMp astudillo Unavailable [phone] Allergies No Known Allergies Results Component Value [...] 38 Performing Lab: Notes/Report: Test performed by [email or web address] , [address], [place] [address] Yan Bell MD, Pantograph Machine Operator CLIA: [id number] Sodium 140 135-145 mmol/L Potassium 4.5 3.5-5.3 [...] 32 Performing Lab: Notes/Report: Test performed by [email or web address], [address] , [address], [place] [address] Yan Bell MD, Pantograph Machine Operator CLIA: [id number] Cholesterol 119 <200 mg/dL Triglycerides 74 <150 [...] Interpretation:Normal Performing Lab: Notes/Report: Test performed by [facility] ([email or web address]) [address] [place], [place] [address] [place] [address] Yan Bell MD, Pantograph Machine Operator CLIA: [id number] Phosphorus 3.2 2.5-4.5 mg/dL P-TSH reflex to FT4 Reviewed date:04/13/2024 09:18:25 AM Interpretation:Normal Performing Lab: Notes/Report: Test performed by [facility] ([email or web address]) [address] [place] [address] , [address], [place] [address] Yan Bell MD, Pantograph Machine Operator CLIA: [id number] TSH reflex to FT4 2.20 0.43-5.25 mU/L P-Microalbumin/Creatinine, R andom Urine Sample Reviewed date:04/13/2024 09:18:25 AM Interpretation:a/c 125 Performing Lab: Notes/Report: Test performed by [facility] ([email or web address]) [address] [place] [address] , [address], [place] [address] Yan Bell MD, Pantograph Machine Operator CLIA: [id number] Albumin/Creatinine Ratio, Urine 125 0-30 ug/m g Microalbumin, Urine, Random 9.2 Creatinine, Urine 73.5 Glucose (In-House) Reviewed date:10/30/2024 10:48:03 AM Interpretation:180 Performing Lab: Notes/Report: 180 blood glucose 180 74 - 106 mg/dL Glycohemoglobin A1c (in hous e) Reviewed date:10/30/2024 10:48:03 AM Interpretation:7.8 Performing Lab: Notes/Report: 7.8 glycohemoglobin 7.8% 5 - 6.5 % P-Comprehensive Metabolic Pa marcelino (CMP) Reviewed date:10/30/2024 10:48:03 AM Interpretation:gluc 148, bun 28, Cr 1.78, gfr 41 Performing Lab: Notes/Report: Test performed by [facility] ([email or web address]) [address] [place] [address] , [address], [place] [address] Yan Bell MD, Pantograph Machine Operator CLIA: [id number] Sodium 135 135-145 mmol/L Potassium 4.8 3.5-5.3 [...] 37 Performing Lab: Notes/Report: Test performed by [facility] [address] , [address], [place] [address] Yan Bell MD, Pantograph Machine Operator CLIA: [id number] Cholesterol 129 <200 mg/dL Triglycerides 142 <150 [...] Interpretation:Normal Performing Lab: Notes/Report: Test performed by [facility] ([email or web address]) [address] [place], [place] [address] , [address], [place] [address] Yan Bell MD, Pantograph Machine Operator CLIA: [id number] PSA 0.72 <4.00 ng/mL Please note this is an ultrasensitive PSA assay with a lower limit of detection of 0.014 ng/mL. This test is performed by the Erick ECLIA methodology. Values obtained with different assay methods or kits cannot be directly compared. P-TSH reflex to FT4 Reviewed date:10/30/2024 10:48:03 AM Interpretation:Normal Performing Lab: Notes/Report: Test performed by [facility] ([email or web address]) [address] [place] [address] , [address], [place] [address] Yan Bell MD, Pantograph Machine Operator CLIA: [id number] TSH reflex to FT4 1.74 0.43-5.25 mU/L P-Microalbumin/Creatinine, R andom Urine Sample Reviewed date:10/30/2024 10:48:03 AM Interpretation:a/c 201 Performing Lab: Notes/Report: Test performed by [facility] ([email or web address]) [address] [place] [address] , [address], [place] [address] Yan Bell MD, Pantograph Machine Operator CLIA: [id number] Albumin/Creatinine Ratio, Urine 201 0-30 ug/m g Microalbumin, Urine, Random 18.9 Creatinine, Urine 93.8 P-Uric Acid Reviewed date:10/30/2024 10:48:03 AM Interpretation:Normal Performing Lab: Notes/Report: Test performed by [email or web address], [employer] [address] [place] [address] , [address], [place] [address] Yan Bell MD, Pantograph Machine Operator CLIA: [id number] Uric Acid 6.5 3.4-8.0 mg/dL CBC Fingerstick (in house) Reviewed date:11/29/2024 12:25:39 [...] - 38 plat 443 100 - 400 CBC Fingerstick (in house) ( Not yet reviewed by provider) Interpretation: Performing Lab: Notes/Report: wbc 16.5 3.5 - 10 lym 22.9% 15 - 50 mid 5.9% 2 - 15 gran 71.2% 35 - 80 rbc 4.34 3.5 - 5.5 hgb 11.7 11.5 - 16.5 hct 36.0 35 - 55 mcv 83.0 75 - 100 mch 27.0 25 - 35 mchc 32.5 31 - 38 plat 573 100 - 400 Medications Medication SIG (Take, Route, Frequency, Duration) Notes Start Date End Date Status [place] 3 Fish Oil 1000 MG 1 capsule Orall y Three times a day Active Aspirin Adult Low Dose 81 MG 1 tab(s) orally once a day Active Accu-Chek Guide - USE TO test blood burnett gar TWICE DAILY; Duration: 50 Active NIFEdipine ER 60 MG 1 tablet on an empty stomach Orally Once a day; Duration: 90 days Active Accu-Chek Guide w/Device test twice a day 11/03/19 Active Accu-Chek Softclix Lancets - test twice a day 11/03/2022 Active Atorvastatin Calcium 80 MG 1 tablet at b edtime Orally daily; Duration: 90 days Active Januvia 100 MG 1 tablet Orally Once a day; Duration: 90 days 11/14/2024 Active Metoprolol Succinate ER 50 MG 1 tablet Orally Once a day; Duration: 90 days Active Irbesartan 300 MG 1 tablet Orally Once a day; Duration: 90 days Active glyBURIDE 5 MG 1 tablet with breakf ast or the first main meal of the day Orally Once a day; Duration: 90 days Active Clopidogrel Bisulfate 75 MG 1 tab(s) ora lly once a day; Duration: 90 days Active Doxycycline Hyclate 100 MG 1 capsule Ora lly Once a day; Duration: 7 days 12/06/2024 Active Immunizations Vaccine Route Administration Date Status Comme nts COVID 19 Moderna Unknown 05/07/2020 Administered COVID 19 Moderna Unknown 06/04/2020 Administered COVID 19 Moderna Unknown 01/07/2021 Administered Fluzone High Dose (65yr and older) IM Intramuscular 11/02/2022 Administered Fluzone High Dose (65yr and older) IM Intramuscular 10/20/2023 Administered Fluzone High Dose (65yr and older) IM Intramuscular 10/25/2024 Administered PNEUMOVAX 23 VACCINE IM Intramuscular 03/21/2014 Administe red Prevnar (PCV20) IM Intramuscular 10/20/2023 Administered Shingrix Unknown 12/08/2020 Administered Shingrix Unknown 04/24/2021 Administered xFlu shot-36 months and older IM Intramuscular 12/24/2004 Administered Problems Problem Type SNOMED Code ICD Code Onset Dates Problem Status W/U Status Risk Notes Problem Essential hypertension (61004932) Essential (primary) hypertension (I10) Active confirmed Problem Hypertension (72575654) HTN (hypertension) (I10) Active confirmed Problem Gout (04662331) Gout (M10.9) Active confirmed Problem Essential hypertension (09116704) Essential hypertension (I10) Active confirmed Problem Hyperuricemia (00627839) Hyperuricemia (E79.0) Active confirmed Problem Bandemia (249991588) Bandemia (D72.825) Active confirmed Problem Pure hypercholesterolemia (305395919) Pure hypercholesterolemia (E78.0) Active confirmed Problem 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) Primary osteoarthritis, unspecified site (M19.91) Active confirmed Problem Gastroesophageal reflux disease without esophagitis (281003762) Gastroesophageal reflux disease without esophagitis (K21.9) Active confirmed Problem Atherosclerotic hear t disease of [place] coronary artery without angina pectoris (099566507626341) Coronary artery disease involving [place] coronary artery of [place] heart without angina pectoris (I25.10) Active confirmed Problem Acute pain of ri ght knee (M25.561) Active confirmed Problem Chronic kidney disease stage 4 (756630639) CKD (chronic kidney disease) stage 4, GFR 15-29 ml/min (N18.4) Active confirmed Problem Type II diabetes mellitus without complication (197394401) Type 2 diabetes mellitus without complication, without long-term current use of insulin (E11.9) Active confirmed Problem Pure hypercholesterolemia (611616632) Pure hypercholesterolemia, unspecified (E78.00) Active confirmed Problem Diverticular disease of colon (969295197) Pancolonic diverticulosis (K57.30) Active confirmed Problem Chronic kidney disease stage 4 (171125179) Stage 4 chronic kidney disease (N18.4) Active confirmed Problem Diabetic renal disease (131476183) Type 2 diabetes mellitus with diabetic chronic kidney disease, unspecified CKD stage, unspecified whether custodial insulin use (E11.22) Active confirmed Vital Signs Heart Rate 113 /min 12/06/2024 Blood pressure diastolic 70 mm Hg 12/06/2024 Height 72 in 12/06/2024 Blood pressure systolic 120 mm Hg 12/06/2024 Weight 196.2 lbs 12/06/2024 BMI 26.61 kg/m2 12/06/2024 Encounters Encounter [facility] Date [facility] [address] [facility] [address] [place] [id number] 04/12/2024 Mp Bourbon HTN (hypertension) I 10 ; Type 2 diabetes mellitus without complication, without long-term current use of insulin E11.9 ; Pure hypercholesterolemia, unspecified E78.00 and CKD (chronic kidney disease) stage 4, GFR 15-29 ml/min N18.4 [facility] [address] [facility] [address] [place], [place] [id number] 10/25/2024 Mp Bourbon HTN (hypertension) I 10 ; Pure hypercholesterolemia, unspecified E78.00 ; Hyperuricemia E79.0 ; Type 2 diabetes mellitus without complication, without long-term current use of insulin E11.9 ; Encounter for immunization Z23 ; Prostate cancer screening Z12.5 ; Type 2 diabetes mellitus with diabetic chronic kidney disease, unspecified CKD stage, unspecified whether custodial insulin use E11.22 and BMI 27.0-27.9,adult Z68.27 [facility] [address] [place], [place] [id number] 11/29/2024 Mp Bourbon Acute URI J06.9 [facility] [address] [place], [place] [id number] 12/06/2024 Mp Bourbon Bronchitis J40 [facility] [address] [place], [place] [id number] 02/09/2024 Catracho Tolentino [facility] [address] [place], [place] [id number] 04/13/2024 Mp Bourbon [facility] [address] [place], [place] [id number] 10/30/2024 Mp Bourbon [facility] [address] [place], [place] [id number] 11/05/2024 Catracho Tolentino Assessments Encounter Date Diagnosis (ICD Code) Assessment Notes Treatment Notes Treatment Clinical Notes Section Notes 04/12/2024 HTN (hypertension) (ICD-10 - I10) 04/12/2024 Type 2 diabetes mellitus without complication, without long-term current use of insulin (ICD-10 - E11.9) 10/25/2024 HTN (hypertension) (ICD-10 - I10) 10/25/2024 Pure hypercholesterolem ia, unspecified (ICD-10 - E78.00) 11/29/2024 Acute URI (ICD-10 - J06.9) 12/06/2024 Bronchitis (ICD-10 - J40) 10/25/2024 Hyperuricemia (ICD-10 - E79.0) 04/12/2024 Pure hypercholesterolem ia, unspecified (ICD-10 - E78.00) 04/12/2024 CKD (chronic kidney disease) stage 4, GFR 15-29 ml/min (ICD-10 - N18.4) 10/25/2024 Type 2 diabetes mellitus without complication, without long-term current use of insulin (ICD-10 - E11.9) 10/25/2024 Encounter for immunization (ICD-10 - Z23) 10/25/2024 Prostate cancer screening (ICD-10 - Z12.5) 10/25/2024 Type 2 diabetes mellitus with diabetic chronic kidney disease, unspecified CKD stage, unspecified whether truck terminal manager insulin use (ICD-10 - E11.22) 10/25/2024 BMI 27.0-27.9,adult (ICD-10 - Z68.27) Plan Of Treatment Pending Test Test Name Order Date CBC Fingerstick (in house) 12/06/2024 Next Appt Details Provider Name:Mp Schneider ry, 04/25/2025 09:00:00 AM, [address], [address], [place], [place], [id number], Insurance Providers Payer Name Payer Address Payer Phone Subscriber Number Group Number Insured Name Patient Relationship to Insured Coverage Start Date Coverage End Date [employer] (MEDICAR E) [address] [address] [place] [address] [phone] [id number] MANISH MELO Self - patient is the insured Medications Administered Medication Instructions Date of Administration Dosage Notes Dexamethasone 01/23/2020 1 mL Medical (General) History 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 History ICD Code Type 2 Diabetes Hypertension Hyperlipidemia ASCVD Osteoarthritis Arthritis Diverticulosis Gout Chronic kidney disease BPH Surgical History Surgery Date(Month/Year) CABG 11/15/2002 Colonoscopy 02/2009 Stent to SVG to Circumflex 07/27/2019 TURP 2024 Hospitalization History Reason Date(Month/Year)
--- OUTSIDE RECORDS SUMMARY | 2024-12-06 10:33 | XMS_ITS | Encounter Summary ---
Author Organization [facility] Address [address] [place] [address] Care Team Providers Care Private Eye Name Role Phone Luis Caraballo MD Primary Care Provider [phone]- [phone] Encounter Details Date Type Department Care Team (Late Contact Info) Description 10/09/2024 Telephone [facility] Nephrology, Bone & Mineral Metabolism [address], [address] [place] [address] Viktoriya Rojas Social History Tobacco Use Types Packs/Day Years [...] Department Care Team (Late Contact Info) Description 12/19/2024 1:30 PM EST Clinical Support [facility] Lab [address] [place] [address] 12/19/2024 2:30 PM EST Office Visit [facility] Urology [address], [address] [place] [address] Courtney [place] MD [address] [address] 12/19/2024 4:20 PM EST Office Visit [facility] Nephrology, Bone & Mineral Metabolism [address], [address] [place] [address] Mp Reis PA [address] [facility] [address] [place] [address] 06/05/2025 10:45 AM EDT Appointment [facility] [address] [place] [address] 06/05/2025 11:50 AM EDT [facility] [address], [address] [place] [address] 06/05/2025 12:30 PM EDT Office Visit [facility] Urology [address], [address] [place] [address] Charlotte Rodriguez, CORPORATE LEGAL SECRETARY, DNP [id number] [place] [address] documented as of this encounter Visit Diagnoses Not on filedocumented in this encounter Additional Health Concerns Assessment Noted Time PHQ-9 Depression Total Score: 0 09/20/19 25 3:29 PM EDT A fall risk assessment has been complete d for the patient 09/19/2024 3:29 PM EDT A Body Mass Index follow-up plan has been documented for the patient 09/19/2024 3:57 PM EDT documented as of this encounter Care Teams Private Eye Relationship Specialty Start Date End Date Luis Caraballo MD [address] [place] [address] [place] [address] PCP - General 06/20/20 documented as of this encounter
--- OUTSIDE RECORDS SUMMARY | 2024-12-06 10:33 | XMS_ITS | Encounter Summary ---
Author Organization [facility] Address [address] [place] [address] Care Team Providers Care Antichecking Iron Worker Name Role Phone Luis Caraballo MD Primary Care Provider [phone]- [phone] Reason for Visit * Reason Comments Med Refill Encounter Details Date Type Department Care Team (Late st Contact Info) Description 04/14/2024 Refill [facility] [address] [place] [address] Charlotte Rodriguez, COMMISSARY CLERK, DNP [address] [place] [address] Social History Tobacco Use Types [...] Support Medical Office Building Lab [address] [place] [address] 12/19/2024 2:30 PM EST Office Visit Medical Office Building Urology [address] [facility], [address] [place] [address] Courtney [place] MD [address] [facility] [address] [place] [address] 12/19/2024 4:20 PM EST Office Visit [facility] Nephrology, Bone & Mineral Metabolism [address] [facility], [address] [place] [address] Mp Reis, WILMER [address] [facility] [address] [place] [address] 06/05/2025 10:45 AM EDT Appointment [facility] [address] [place] [address] 06/05/2025 11:50 AM EDT Clinical Support [facility] Lab [address], [address] [place] [address] 06/05/2025 12:30 PM EDT Office Visit [facility] Urology [address], [address] [place] [address] Charlotte Rodriguez, COMMISSARY CLERK, DNP [address] [place] [address] documented as of this encounter Visit Diagnoses Not on filedocumented in this encounter Additional Health Concerns Assessment Noted Time A fall risk assessment has been complete d for the patient 04/04/2024 2:28 PM EST A Body Mass Index follow-up plan has been documented for the patient 04/09/2024 4:26 PM EST documented as of this encounter Care Teams Antichecking Iron Worker Relationship Specialty Start Date End Date Luis Caraballo MD [address] [place] [address] PCP - General 06/20/20 documented as of this encounter
--- OUTSIDE RECORDS SUMMARY | 2024-12-06 10:33 | XMS_ITS | Clinical Summary ---
Author Organization [facility] Address [address] [place] [address] Care Team Providers Care Flame Hardening Machine Operator Name Role Phone Luis Caraballo MD Primary Care Provider +1- [phone] Allergies No known active allergies Medications atorvastatin [...] by mouth every morning. 01/20/20 24 Active [place]-3 Fatty Acids (FISH OIL HIGH POTENCY PO) Take 1 capsule by mouth in the morning. Active irbesartan (Avapro) 300 MG tablet Take 1 tablet by mouth daily. 07/10/19 25 Active acetaminophen (Tylenol) 325 MG tablet Take 2 tablets by mouth every 6 hours. Under [place] law, monthly prescriptions (30 days) can be refilled at 25 days and three-month prescriptions (90 days) at 80 days. Please contact the insurance company with questions if refills are denied. 100 tablet 08/23/19 25 Active methocarbamol (Robaxin) 500 MG tablet Take 1 tablet by mouth 3 times a day as needed for muscle spasms. 30 tablet 08/23/19 25 Active Additional Information Patient not taking.Reported on 10/10/2024 polyethylene glycol (Miralax) 17 g packet Take 17 g by mouth daily. 30 packet 1 08/24/19 Active Additional Information Patient not taking.Reported on 10/10/2024 senna-docusate (Noelle-Colace) 8.6-50 MG tablet Take 1 tablet by mouth nightly. 30 tablet 1 08/23/19 Active Additional Information Patient not taking.Reported on 10/10/2024 NIFEdipine XL (Procardia XL) 60 MG 24 hr tabletIndication s:Essential hypertension Take 1 tablet by mouth daily. 90 tablet 10/16/19 Active metoprolol succinate XL (Toprol-XL) 50 MG 24 hr tablet Take 1 tablet by mouth daily. 10/03/19 Active Active Problems Problem Noted Date Diagnosed [...] Intermittent self-catheterization of bladder Gross hematuria 05/31/2024 Type 2 diabetes mellitus wit h hyperglycemia, without long-term current use of insulin 02/25/2024 Primary hypertension 02/25/2024 CKD (chronic kidney disease) 02/25/2024 Coronary artery disease invo lving coronary bypass graft of [place] heart 02/25/2024 Resolved Problems Problem Noted Date Diagnosed Date Resolved Date Complicated UTI (urinary tract infection) 02/25/2024 10/28/2024 Encounters Date Type Department Care Team Description 12/06/2024 Telephone [facility] Nephrology, Bone & Mineral Metabolism [address] [place] [address] Mp Reis PA 10/10/2024 4:00 PM EDT Office Visit [facility] Nephrology, Bone & Mineral Metabolism [address] , [address] [place] [address] Mp Reis PA Stage 3b chronic kidney disease (CMS/HCC) (Primary Dx); Essential hypertension; Hypervolemia, unspecified hypervolemia type; Obstructive nephropathy 10/10/2024 Travel 10/10/2024 Refill [facility] Nephrology, Bone & Mineral Metabolism [address] [facility], [address] [place] [address] Mp Reis PA Essential hypertension 10/09/2024 Telephone [facility] Nephrology, Bone & Mineral Metabolism [address] [facility], [address] [place] [address] Viktoriya Rojas Filemon 09/19/2024 3:30 PM EDT Office Visit Medical Office Building Urology [address] [facility] [address], [address] [place] [address] Courtney [place] MD Incomplete bladder emptying (Primary Dx) 09/19/2024 Travel from Last 3 Months Immunizations Immunization Administration [...] F) 10/10/2024 3:53 PM EDT Respiratory Rate 16 08/22/2024 11:1 4 AM EDT Oxygen Saturation 97% 09/19/2024 3:28 PM EDT Inhaled Oxygen Concentration - - Weight 92.5 kg (203 lb 14.8 oz) 10/10/2024 3:53 PM EDT Height 185.4 cm (6' 1 ) 10/10/2024 3:53 PM EDT Body Mass Index 26.9 10/10/2024 3:53 PM EDT Plan of Treatment Upcoming Encounters Date Type Department Care Team (Late st Contact Info) Description 12/19/2024 1:30 PM EST Clinical Support Medical [facility] Building Lab [address] [place] [address] 12/19/2024 2:30 PM EST Office Visit Medical Office Building Urology [address] [facility], [address] [place] [address] Courtney [place] MD [address] [facility] [address] [place] [address] 12/19/2024 4:20 PM EST Office Visit [facility] Nephrology, Bone & Mineral Metabolism [address] [facility], [address] [place] [address] Mp Reis PA [address] [facility] [address] [place] [address] 06/05/2025 10:45 AM EDT Appointment [facility] [address] [place] [address] 06/05/2025 11:50 AM EDT Clinical Support [place] [facility] [address] [place] [address] 06/05/2025 12:30 PM EDT Office Visit [facility] [address], [address] [place] [address] Charlotte Rodriguez P, CHIEF SOLUTION ARCHITECT, DNP [address] [place] [address] Health Maintenance Due Date Last [...] - Risk 60-74 years 1-dose series) 2016 [id number] Vaccine ( season) 2024 01/06/2022, 01/07/2021, 06/04/2020, Additional history exists [facility]-Influenza Vaccine (#1) 10/08/202411/13, 12/08/2020, 12/24/2004 [facility]-Depression Screening 09/19/2025 09/19/2024, 09/07 [facility]-Zoster Vaccines Completed 04/24/2021, [facility]-Pneumococcal Vaccine: 50+ Years Completed 10/20/2023, 03/21/2014 [facility]-Hepatitis C Screening Completed 02/23/2024 [facility]-Obesity Intervention Completed 025, 09/19/2024, 07/11/2024, Additional history exists HPV Vaccines Aged Out [...] this topic Medical Devices Implanted Type Area Negative Cutter Device Identifier Shelf Expiration Date Model / Serial / Lot Stent Stent N/A: Heart Procedures Procedure Name Priority Date/Time Associated Diagnosis Comments POC US BLADDER SCAN FOR VOLUME Routine 09/19/2024 3:32 PM EDT Incomplete bladder emptying HEPATITIS C ANTIBODY - ED W/REFLEX TO HCV QUANT PCR STAT 02/23/2024 11:39 AM EST from Last 3 Months or Most Recently Relevant to Health Maintenance Results * POC US Bladder Volume (09/19/2024 3:32 PM EDT) Urine, Volume 280 mL IMAGING Anatomical Region Laterality Modality Other us Courtney [place] MD IMG POINT OF CARE ULTRASOUND Final Result * Hepatitis C Antibody - ED (02/23/2024 11:39 AM EST) Hepatitis C Antibody Negative Negative 02/23/2024 12:54 PM EST [facility] Blood Venous blood specimen / Unknown Venipuncture / Unknown 02/23/2024 11:39 AM EST 02/23/2024 12:12 PM EST us Marck Torres MD LAB BLOOD ORDERABLES Final Resul t [facility] [address] [place] [address] from Last 3 Months or Most Recently [...] Patient has decision-making capacity? Yes Care Teams Flame Hardening Machine Operator Relationship Specialty Start Date End Date Luis Caraballo MD [address] [place] [address] [place] [address] PCP - General 06/20/20
--- OUTSIDE RECORDS SUMMARY | 2024-12-06 10:33 | XMS_ITS | Encounter Summary ---
Author Organization [facility] Address [address] [place] [address] Care Team Providers Care Cut Tobacco Bulker Name Role Phone Luis Caraballo MD Primary Care Provider +1- [phone] Reason for Visit * Reason Comments Med Refill Encounter Details Date Type Department Care Team ([facility] st Contact Info) Description 10/10/2024 Refill [facility] Nephrology, Bone & Mineral Metabolism [address], [address] [place] [address] Mp Reis PA [address] [place] [address] Essential hypertension Social History Tobacco Use Types Packs/Day Years [...] encounter Miscellaneous Notes * Telephone Encounter - Bob Viktoriya L - 10/15/2024 9:56 AM EDT Refill approved per telephone readback Nifedipine 60mg daily #90 with 0 refills, sent to Clinic Rx documented in this encounter Plan of Treatment Upcoming Encounters Date Type Department Care Team (Late st Contact Info) Description 12/19/2024 1:30 PM EST Clinical Support [facility] [address] [place] [address] 12/19/2024 2:30 PM EST Office Visit [facility] Building Urology [address], [address] [place] [address] Courtney Young MD [address] [facility] [address] [place] [address] 12/19/2024 4:20 PM EST Office Visit [facility] Nephrology, Bone & Mineral Metabolism [address], [address] [place] [address] Mp Reis, PA [address] [facility] [address] [place] [address] 06/05/2025 10:45 AM EDT Appointment [facility] [address] [place] [address] 06/05/2025 11:50 AM EDT Clinical Support [facility] Lab [address] [place] [address] 06/05/2025 12:30 PM EDT Office Visit [facility] Urology [address] [place] [address] Charlotte Rodriguez, FUND CONTROLLER, DNP [address] [facility] [address] [place] [address] documented as of this encounter Visit Diagnoses Diagnosis Essential hypertension Unspecified essential hypertension documented in this encounter Additional Health Concerns Assessment Noted Time PHQ-9 Depression Total Score: 0 09/20/19 25 3:29 PM EDT A fall risk assessment has been complete d for the patient 10/10/2024 3:59 PM EDT A Body Mass Index follow-up plan has been documented for the patient 10/16/2024 3:49 PM EDT documented as of this encounter Care Teams Cut Tobacco Bulker Relationship Specialty Start Date End Date Luis Caraballo MD [address] [place] [address] PCP - General 06/20/20 documented as of this encounter
--- OUTSIDE RECORDS SUMMARY | 2024-12-06 10:33 | XMS_ITS | Encounter Summary ---
Author Organization [facility] Address [address] [place] [address] Care Team Providers Care Jewelry Sales Coordinator Name Role Phone Luis Caraballo MD Primary Care Provider +1- [phone] Encounter Details Date Type Department Care Team (Latest Contact Info) Description 10/10/2024 Travel Social History Tobacco Use Types Packs/Day [...] EST Clinical Support Medical Office Building Lab [facility] [place] [id number] 12/19/2024 2:30 PM EST Office Visit Medical Office Building Urology [address] [facility], [address] [place] [address] Courtney Young MD [address] [facility] [address] [place] [address] 12/19/2024 4:20 PM EST Office Visit [facility] Nephrology, Bone & Mineral Metabolism [address] [facility], [address] [place] [address] Mp Reis PA [address] [facility] [address] [place] [address] 06/05/2025 10:45 AM EDT Appointment [facility] [address] [place] [address] 06/05/2025 11:50 AM EDT Clinical [facility] [address] [place] [address] 06/05/2025 12:30 PM EDT Office Visit [facility] Urology [address] [place] [address] Charlotte Rodriguez, MANUFACTURING TEAM MEMBER, DNP [address] [facility] [address] [place] [address] documented as of this encounter Visit Diagnoses [...] documented as of this encounter Care Teams Jewelry Sales Coordinator Relationship Specialty Start Date End Date Luis Caraballo MD [address] [place] [address] PCP - General 06/20/20 documented as of this encounter
[2024-12-06 10:35] LABS: Microscopic, Urine URINE MICROSCOPIC (MICROSCOPIC)
[2024-12-06 11:34] LABS: Hematocrit 36.3 % (42.0-52.0); Hemoglobin 11.0 g/dL (14.1-18.0); Mean Corpuscular HGB Conc 30.3 g/dL (31.8-35.4); Mean Corpuscular Hemoglobin 25.6 pg (27.0-31.2); Mean Corpuscular Volume 84.6 fl (80-94); Nucleated Red Blood Cells % 0 %; Platelet Count 632 K/mm3 (142-424); Red Blood Count 4.29 M/mm3 (4.60-6.20); Red Cell Distribution Width-SD 46.6 fL; White Blood Count 14.5 K/mm3 (4.8-10.8)
[2024-12-06 11:36] LABS: Bilirubin,Urine Negative (Negative); Color,Urine YELLOW (Yellow); Glucose,Urine (UA) Negative (Negative); Ketones,Urine Negative (Negative); Leukocyte Esterase,Urine Negative (Negative); PH,Urine 6.0 (5.0-8.5); Protein,Urine Negative (Negative); Specific Gravity, Urine 1.015 (1.005-1.030); Urobilinogen,Urine 0.2 EU/dl (0.2)
[2024-12-06 12:02] LABS: Albumin Level 3.4 g/dl (3.5-5.0); Anion Gap 15.9 mEq/L (5-15); Blood Urea Nitrogen 23 mg/dl (9-20); Calcium 9.6 mg/dl (8.4-10.2); Carbon Dioxide 22 mmol/L (22.0-30.0); Chloride 103 mmol/L (98-107); Creatinine,Serum 1.90 mg/dl (0.66-1.25); Estimated Glomerular Filt Rate 35 ml/min (>60); GFR (African American) 43 ML/MIN (>60); Glucose 145 mg/dl (74-100); Phosphorous 3.7 mg/dl (2.5-4.5); Potassium 4.9 mmoL/L (3.5-5.1); Sodium 136 mmol/L (136-145)
[2024-12-06 12:25] LABS: WBC,Urine Occasional #/hpf (0-3)
[2024-12-06 12:26] LABS: Squamous Epithelial Cell,Urine Occasional #/hpf (0-5)
== END 2024-12-06 23:59 | disposition home or self-care (01) ==
PROVIDERS: PCP Family Medicine; Visit Provider Physician Assistant
DX: N18.32 Chronic kidney disease, stage 3b (principal)
CPT/HCPCS: 36415; 80069; 81001; 85027